=== PATIENT | male | born 1950 | race Caucasian/White ===

== ENCOUNTER 2022-08-16 14:02 | Outpatient (CLI) | payer MEDICARE, BC, SELFPAY ==
[2022-08-16 17:17] LABS: Albumin* 3.9 g/dL (3.3-5.0); Chloride* 102 mmol/L (96-114)
[2022-08-16 17:18] LABS: Sodium* 140 mmol/L (135-149)
[2022-08-16 17:20] LABS: Aspartate Amino Transferase* 31 U/L (12-35); Bilirubin Total* 0.6 mg/dL (0.1-1.5); Carbon Dioxide* 32 mmol/L (20-32); Creatinine* 1.7 mg/dL (0.5-1.5); Estimated Glomerular Filt Rate 42 ml/min; Total Protein* 6.9 g/dL (6.0-8.3)
[2022-08-16 17:21] LABS: Alanine Aminotransferase* 20 U/L (4-50); Alkaline Phosphatase* 65 U/L (40-150); Blood Urea Nitrogen* 24 mg/dL (7-30); Glucose* 102 mg/dL (60-115)
== END 2022-08-16 14:03 | disposition home or self-care (01) ==
PROVIDERS: PCP Internal Medicine; Visit Provider Internal Medicine
DX: Z01.818 Encounter for other preprocedural examination (principal)
CPT/HCPCS: 80053

== ENCOUNTER 2022-10-08 15:23 | Outpatient (CLI) | payer MEDICARE, BC, SELFPAY | END 2022-10-08 15:24 | disposition home or self-care (01) | PROVIDERS: PCP Internal Medicine; Visit Provider Internal Medicine | DX: Z01.818 Encounter for other preprocedural examination (principal); D64.9 Anemia, unspecified; E78.2 Mixed hyperlipidemia | CPT/HCPCS: 80053; 80061; 82607; 83540; 83550; 84443; 85045 ==

== ENCOUNTER 2023-04-02 13:47 | Outpatient (CLI) | payer MEDICARE, BC, SELFPAY | END 2023-04-02 13:48 | disposition home or self-care (01) | LOC: NFLDREF 04-05 11:49 | PROVIDERS: PCP Internal Medicine; Referring Provider Internal Medicine; Visit Provider Internal Medicine | DX: G89.4 Chronic pain syndrome (principal); M54.2 Cervicalgia | CPT/HCPCS: 85651 ==

== ENCOUNTER 2023-04-06 13:27 | Emergency (ER) | payer MEDICARE, BC, SELFPAY ==
[2023-04-06] VITALS (25 sets, daily range): BP systolic 112–139; BP diastolic 69–96; PULSE 72–93; RESP 14; TEMP 36.8; O2SAT 87–99; BMI 37.9
--- NOTE | 2023-04-06 14:15 | CRLHL7_ITS ---
For Patients: As a result of the Century Cures Act, medical imaging exams and procedure reports are released immediately into your electronic medical record. You may view this report before your referring provider. If you have questions, please contact your health care provider. INDICATION: FALL TECHNIQUE: CT of the head without contrast. Coronal and sagittal reformats. Bone and soft tissue algorithms. COMPARISON: No prior studies available for comparison at this institution. FINDINGS: No acute intracranial hemorrhage or extraaxial collection. Chronic lacunar infarcts in the basal ganglia bilaterally and right cerebellum. The no evidence of acute cortical infarction. No mass effect or midline shift. Mild generalized parenchymal volume loss. Mild regions of decreased attenuation within the periventricular and subcortical white matter of both cerebral hemispheres most likely reflects chronic microvascular ischemic disease and age related change in this patient. Vascular calcifications within the carotid siphons. Orbital contents are normal. No calvarial fractures. No lytic or sclerotic osseous lesions within the calvarium or skull base. Mild right frontal scalp subgaleal hematoma. Mastoid air cells are clear. IMPRESSION: 1. No acute intracranial abnormality. Chronic lacunar infarcts in the bilateral basal ganglia and right cerebellum. 2. Mild right frontal scalp subgaleal hematoma. Please note that all CT scans at this facility use dose modulation, iterative reconstruction, and/or weight-based dosing when appropriate to reduce radiation dose to as low as reasonably achievable. Dictated by Jeison Paz MD @ 04/06/2023 2:55:37 PM (Electronically Signed)
--- NOTE | 2023-04-06 14:15 | CRLHL7_ITS ---
For Patients: As a result of the Century Cures Act, medical imaging exams and procedure reports are released immediately into your electronic medical record. You may view this report before your referring provider. If you have questions, please contact your health care provider. Indication: FALL Technique: Noncontrast axial CT of the cervical spine with coronal and sagittal reformats are provided. Comparison: No prior studies available for comparison at this institution. Findings: There is a mildly displaced type 2 dens fracture with 2 mm posterior subluxation of the dens fragment with respect to the C2 vertebral body there is also mild posterior subluxation of the C1 lateral masses with respect to the C2 lateral mass. No significant spinal canal stenosis however. Diffuse bone demineralization. C1-2: No spinal canal stenosis C2-3: No significant spinal canal stenosis or neural foramen narrowing. C3-4: Moderate facet arthrosis. Moderate neural foramen narrowing bilaterally. No significant spinal canal stenosis. C4-5: No significant spinal canal stenosis or neural foramen narrowing. C5-6: Shallow disc osteophyte complex and uncovertebral joint hypertrophy. Severe left and mild right neural foramen narrowing due to uncovertebral joint hypertrophy and left facet arthrosis. C6-7: No significant spinal canal stenosis or neural foramen narrowing. C7-T1: No significant spinal canal stenosis or neural foramen narrowing. Findings discussed with Dr. Reddy at 2:59 p.m. Impression: 1. Type 2 dens fracture with 2 mm posterior subluxation of the dens and slight posterior subluxation of the C1 lateral mass with respect to the C2 lateral masses. 2. Multilevel cervical spondylosis. Degenerative reversal of the normal cervical lordosis. Diffuse bone demineralization. 3. No significant spinal canal stenosis. Severe left neural foramen narrowing at C5-6 and moderate bilateral neural foramen narrowing at C3-4. Please note that all CT scans at this facility use dose modulation, iterative reconstruction, and/or weight-based dosing when appropriate to reduce radiation dose to as low as reasonably achievable. Dictated by Jeison Paz MD @ 04/06/2023 3:02:32 PM (Electronically Signed)
--- NOTE | 2023-04-06 14:33 | ED.GENADULT ---
HPI - General Adult General Date Seen: 04/06/23 Chief complaint: Fall/Minor Trauma Stated complaint: Fell this morning, neck and head pain Time Seen by Provider: 04/06/23 14:12 Source: patient and family Mode of arrival: ambulatory Limitations: no limitations History of Present Illness HPI narrative: Patient is a 72-year-old male here with his son for evaluation after a fall overnight last night. He said he had gotten up and was trying to find a light switch in the dark, tripped on something that was on the floor and fell. He said he hit his head on the fireplace, denies loss of consciousness, severe headache or vomiting. He does have a small [place] on his right upper forehead. He also has been having problems with neck pain for 5 or 6 weeks now, had done some physical therapy and is scheduled to have an MRI in the next week or so, but since his fall he is having more neck pain, more on the left side of his neck, no radiating pain. No numbness or weakness. Related Data Home Medications Medication Instructions Recorded Confirmed aspirin 81 mg tablet,delayed 81 mg PO DAILY 02/09/22 04/02/23 release cyanocobalamin (vitamin B-12) 1,000 mcg PO DAILY 02/09/22 04/02/23 1,000 mcg tablet tamsulosin 0.4 mg capsule 0.4 mg PO BID 02/09/22 04/02/23 ibuprofen 400 mg tablet 400 mg PO BID 04/02/23 04/02/23 Previous Rx's Medication Instructions Recorded nitroglycerin 0.4 mg sublingual 0.4 mg sublingual Q5M PRN chest 01/22/22 tablet (Nitrostat) pain #25 tabs sumatriptan succinate 50 mg tablet 50 mg PO .COMPLEX #12 tabs 01/25/22 trazodone 50 mg tablet 50 mg PO QPM PRN insomnia #90 tabs 03/29/22 montelukast 10 mg tablet 10 mg PO .Bedtime #90 tabs 07/31/22 torsemide 20 mg tablet 40 mg (2 x 20 mg) PO BID #360 tabs 07/31/22 potassium chloride 20 mEq 60 meq (3 x 20 mEq) PO DAILY #270 09/10/22 tablet,extended release(part/cryst) tabs pramipexole 0.25 mg tablet 0.25 mg PO QHS #90 tabs 09/10/22 gabapentin 300 mg capsule 900 mg (3 x 300 mg) PO TID #810 10/16/22 caps isosorbide mononitrate 60 mg 60 mg PO DAILY #90 tabs 10/16/22 tablet,extended release 24 hr metoprolol tartrate 100 mg tablet 100 mg PO BID #180 tabs 10/16/22 pantoprazole 40 mg tablet,delayed 40 mg PO BID #180 tabs 10/16/22 release albuterol sulfate 2.5 mg/3 mL 2.5 mg (3 mL) inhalation TID #90 mL 11/06/22 (0.083 %) solution for nebulization ipratropium bromide 0.02 % 2.5 ml inhalation TID #225 mL 11/06/22 solution for inhalation albuterol sulfate 90 mcg/actuation 2 puff inhalation Q4H PRN 12/03/22 aerosol inhaler shortness of breath or wheezing #20.1 grams magnesium oxide 400 mg (241.3 mg 400 mg PO BID #180 tabs 12/03/22 magnesium) tablet sertraline 100 mg tablet 100 mg PO DAILY #90 tabs 12/03/22 finasteride 5 mg tablet 5 mg PO .Bedtime #90 tabs 12/06/22 atorvastatin 80 mg tablet 80 mg PO .Bedtime #90 tabs 01/01/23 allopurinol 100 mg tablet 200 mg (2 x 100 mg) PO QDAY #28 02/08/23 tabs fluticasone propionate 50 1 spray intranasal BID #3 ea 02/21/23 mcg/actuation nasal spray,suspension fenofibrate 54 mg tablet 54 mg PO .Bedtime #90 tabs 03/15/23 hydrocodone 5 mg-acetaminophen 325 1 - 2 tab PO .Daily as needed PRN 04/02/23 mg tablet pain #46 tabs ipratropium 0.5 mg-albuterol 3 mg 1 ml inhalation TID PRN shortness 04/05/23 (2.5 mg base)/3 mL nebulization of breath or wheezing #90 mL soln Allergies Allergy/AdvReac Type Severity Reaction Status Date / Time azithromycin Allergy Mild Rash, dizzy Verified 04/02/23 12:53 diltiazem Allergy Mild Rash Verified 04/02/23 12:53 erythromycin base Allergy Mild Rash Verified 04/06/23 15:19 Sulfa (Sulfonamide Allergy Mild Rash Verified 04/06/23 15:19 Antibiotics) sotalol Allergy Unknown Verified 04/02/23 12:53 Review of Systems Status of ROS: Reports: 6 or more systems reviewed and unremarkable except as noted in History and below [facility] Medical History History of upper gastrointestinal bleeding ?Z87.19 - Personal history of other diseases of the digestive system (ICD-10) History of transient ischemic attack ?Z86.73 - Personal history of transient ischemic attack (TIA), and cerebral infarction without residual deficits (ICD-10) Surgical History Status post patent foramen ovale closure (01/19/06) ?Z87.74 - Personal history of (corrected) congenital malformations of heart and circulatory system (ICD-10) History of total knee replacement (2020) ?Z96.659 - Presence of unspecified artificial knee joint (ICD-10) History of total hip replacement (1999) ?Z96.649 - Presence of unspecified artificial hip joint (ICD-10) History of tonsillectomy ?Z90.89 - Acquired absence of other organs (ICD-10) History of lumbar laminectomy (10/2007) ?Z98.890 - Other specified postprocedural states (ICD-10) History of hammer toe correction (09/26/01) ?Z98.890 - Other specified postprocedural states (ICD-10) ?Z87.39 - Personal history of other diseases of the musculoskeletal system and connective tissue (ICD-10) History of foot surgery (07/02/06) ?Z98.890 - Other specified postprocedural states (ICD-10) History of coronary artery bypass surgery (12/09/15) ?Z95.1 - Presence of aortocoronary bypass graft (ICD-10) History of carpal tunnel release (2013) ?Z98.890 - Other specified postprocedural states (ICD-10) History of arthroscopy of shoulder (1999) ?Z98.890 - Other specified postprocedural states (ICD-10) Social History Smoking Status: Former smoker What tobacco products do you use: cigarettes Smoking quit date/years: >15 years ago Do you use any of these nicotine containing products: None Second hand tobacco smoke exposure: No Non-prescribed substance use: denies use Little interest or pleasure in doing things: not at all Feeling down, depressed, or hopeless: not at all Exam Narrative: Exam Narrative: Vital signs as noted above. In general, an alert, nontoxic elderly male. Head: Normocephalic. Small red [place] on the upper right forehead without hematoma or laceration. Eyes: Pupils are equal reactive. Extraocular movements are full. Conjunctivae are normal. ENT: Mucous membranes are moist. Neck: Range of motion is limited secondary to pain. He has some tenderness in the musculature of the left posterior cervical region. No midline tenderness, no deformity or bruising. Back: Nontender to palpation. Heart: Regular rate and rhythm. No murmur or rub. Lungs: Clear bilaterally. No increased work of breathing, crackles or wheezes. Extremities: Well perfused. Edema noted in bilateral lower extremities. No erythema. No calf tenderness. Pulses intact. Neurologic: Patient is alert and oriented to person and place. Speech is fluent. Face is symmetric. Moves all extremities equally. Hard of hearing. Affect: Normal. Skin: Warm and dry. Well perfused. Const: Vital Signs, click to edit/add: Vital Signs - 24 hr 04/06/23 13:47 04/06/23 14:34 04/06/23 14:35 Temperature 98.3 F Pulse Rate 86 79 Pulse Rate [Pulse Oximeter] 79 Respiratory Rate 14 Blood Pressure 125/74 Blood Pressure [Le ft Upper Arm] 112/69 Pulse [facility]ximetry 91 91 [facility] 04/06/23 14:45 04/06/23 15:00 04/06/23 15:15 Temperature Pulse Rate 86 79 82 Pulse Rate [Pulse Oximeter] Respiratory Rate Blood Pressure Blood Pressure [Le ft Upper Arm] Pulse Oximetry 91 92 93 [facility] 04/06/23 15:30 04/06/23 15:33 04/06/23 15:34 Temperature Pulse Rate 76 93 76 Pulse Rate [Pulse Oximeter] Respiratory Rate Blood Pressure 125/88 Blood Pressure [Le ft Upper Arm] Pulse Oximetry 89 88 87 L [facility] 04/06/23 15:45 04/06/23 16:00 Temperature Pulse Rate 79 86 Pulse Rate [Pulse Oximeter] Respiratory Rate Blood Pressure Blood Pressure [Le ft Upper Arm] Pulse Oximetry 98 98 Oxygen Delivery Me thod Documenting provider has reviewed patient's vital signs: yes Course Course ED Course: Patient went on to have CT scans of the head and cervical spine. My review of he these images show no evidence of intracranial hemorrhage, dens fracture noted on cervical spine imaging. Cervical collar applied, discussed case with [facility] and they were able to take him in transfer. He remains neurologically intact, without other complaints. He did request something for pain, takes Arabi occasionally for back pain but apparently he does not find this terribly effective and would request something stronger. Given 4 mg of morphine IV. Vital Signs Vital signs: Initial Vital Signs Temperature 98.3 F 04/06/23 13:47 Temperature Source Temporal Artery Scan 04/06/23 13:47 Pulse Rate 79 04/06/23 13:47 Pulse Rhythm Irregular 04/06/23 13:47 Respiratory Rate 14 04/06/23 13:47 Blood Pressure 112/69 04/06/23 13:47 Blood Pressure Mean 83 04/06/23 13:47 Blood Pressure Position Sitting 04/06/23 13:47 Pulse Oximetry 91 04/06/23 13:47 Oxygen Delivery Method Room Air 04/06/23 13:47 Vital Signs Temperature 98.3 F 04/06/23 13:47 Pulse Rate 79 04/06/23 13:47 Respiratory Rate 14 04/06/23 13:47 Blood Pressure 112/69 04/06/23 13:47 Pulse Oximetry 91 04/06/23 13:47 Oxygen Delivery Method Room Air 04/06/23 13:47 Temperature 98.3 F 04/06/23 13:47 Pulse Rate 86 04/06/23 16:00 Respiratory Rate 14 04/06/23 13:47 Blood Pressure 125/88 04/06/23 15:33 Pulse Oximetry 98 04/06/23 16:00 Oxygen Delivery Method Room Air 04/06/23 13:47 Discharge Plan Discharge Clinical Impression: Closed type II fracture of odontoid process Patient Disposition: Xfer Other Condition: Stable Prescriptions: No Action fluticasone propionate 50 mcg/actuation spray,suspension 1 spray intranasal BID Qty: 3 3RF Rx Instructions: administer into each nostril aspirin 81 mg tablet,delayed release (DR/EC) 81 mg PO DAILY cyanocobalamin (vitamin B-12) 1,000 mcg tablet 1,000 mcg PO DAILY tamsulosin 0.4 mg capsule 0.4 mg PO BID ibuprofen 400 mg tablet 400 mg PO BID hydrocodone-acetaminophen 5-325 mg tablet 1 - 2 tab PO .Daily as needed PRN (Reason: pain) Qty: 46 0RF nitroglycerin [Nitrostat] 0.4 mg tablet, sublingual 0.4 mg sublingual Q5M PRN (Reason: chest pain) Qty: 25 2RF sumatriptan succinate 50 mg tablet 50 mg PO .COMPLEX Qty: 12 5RF Rx Instructions: take 1 tab at onset of headache, may repeat Q2h prn max 200mg/24 hours trazodone 50 mg tablet 50 mg PO QPM PRN (Reason: insomnia) Qty: 90 1RF montelukast 10 mg tablet 10 mg PO .Bedtime Qty: 90 1RF torsemide 20 mg tablet 40 mg PO BID Qty: 360 1RF potassium chloride 20 mEq tablet,ER particles/crystals 60 meq PO DAILY Qty: 270 3RF Rx Instructions: take 40 meq in AM and 20 meq in PM pramipexole 0.25 mg tablet 0.25 mg PO QHS Qty: 90 3RF isosorbide mononitrate 60 mg tablet extended release 24 hr 60 mg PO DAILY Qty: 90 3RF metoprolol tartrate 100 mg tablet 100 mg PO BID Qty: 180 3RF pantoprazole 40 mg tablet,delayed release (DR/EC) 40 mg PO BID Qty: 180 3RF gabapentin 300 mg capsule 900 mg PO TID Qty: 810 3RF ipratropium bromide 0.02 % solution 2.5 ml inhalation TID Qty: 225 11RF Rx Instructions: To take with albuterol 0.083% solution TID albuterol sulfate 2.5 mg /3 mL (0.083 %) solution for nebulization 2.5 mg inhalation TID Qty: 90 11RF Rx Instructions: To take with ipratropium 0.02% solution TID albuterol sulfate 90 mcg/actuation HFA aerosol inhaler 2 puff inhalation Q4H PRN (Reason: shortness of breath or wheezing) Qty: 20.1 2RF magnesium oxide 400 mg (241.3 mg magnesium) tablet 400 mg PO BID Qty: 180 2RF sertraline 100 mg tablet 100 mg PO DAILY Qty: 90 0RF finasteride 5 mg tablet 5 mg PO .Bedtime Qty: 90 3RF atorvastatin 80 mg tablet 80 mg PO .Bedtime Qty: 90 2RF allopurinol 100 mg tablet 200 mg PO QDAY Qty: 28 0RF fenofibrate 54 mg tablet 54 mg PO .Bedtime Qty: 90 1RF ipratropium-albuterol 0.5 mg-3 mg(2.5 mg base)/3 mL solution for nebulization 1 ml inhalation TID PRN (Reason: shortness of breath or wheezing) Qty: 90 0RF Stand Alone Forms: [employer] Info Instructions
--- NOTE | 2023-04-06 15:28 | ED.NURSE ---
Report called to Communications nurse at [facility] Flaca Pruitt RN. Pt will transport to [facility] ER within the hour. 229 IV placed on right forearm for pain control purposes. Pt placed in a C-collar as well. Fracture stable at this time. Will continue to monitor.
[2023-04-06] MEDS: MORPHINE 4 MG/ML INJ IVP (15:35)
--- NOTE | 2023-04-06 20:04 | ED.NURSE ---
Patient's son will citrus picker the patient's cane from the ED desk tomorrow.
== END 2023-04-06 19:12 | disposition other institution (70) ==
PROVIDERS: Emergency Provider Emergency Medicine; PCP Internal Medicine
DX: S12.112A Nondisplaced Type II dens fracture, initial encounter for closed fracture (principal); W19.XXXA Unspecified fall, initial encounter
CPT/HCPCS: 70450; 72125; 96374; 99284; J2270

== ENCOUNTER 2023-04-06 19:00 | Outpatient (CLI) | payer MEDICARE, BC, SELFPAY | END 2023-04-06 19:01 | disposition home or self-care (01) | LOC: AMB 04-11 17:15 | PROVIDERS: PCP Internal Medicine; Visit Provider Family Medicine | DX: S12.110S Anterior displaced Type II dens fracture, sequela (principal) | CPT/HCPCS: A0425; A0428 ==

== ENCOUNTER 2023-05-23 11:17 | Outpatient (CLI) | payer MEDICARE, BC, SELFPAY | END 2023-05-23 11:18 | disposition home or self-care (01) | PROVIDERS: PCP Internal Medicine; Visit Provider Internal Medicine | DX: I50.9 Heart failure, unspecified (principal); D47.2 Monoclonal gammopathy; F41.1 Generalized anxiety disorder; N18.2 Chronic kidney disease, stage 2 (mild) | CPT/HCPCS: 80048; 83735; 84165 ==

== ENCOUNTER 2023-09-23 10:55 | Outpatient (CLI) | payer MEDICARE, BC, SELFPAY | END 2023-09-23 10:56 | disposition home or self-care (01) | LOC: NFLDREF 10-07 09:41 | PROVIDERS: PCP Internal Medicine; Referring Provider Internal Medicine; Visit Provider Internal Medicine | DX: N18.9 Chronic kidney disease, unspecified (principal); D63.1 Anemia in chronic kidney disease; E78.2 Mixed hyperlipidemia; D47.2 Monoclonal gammopathy; E83.42 Hypomagnesemia | CPT/HCPCS: 80061; 83735; 84165 ==

== ENCOUNTER 2023-09-26 14:15 | Outpatient (CLI) | payer MEDICARE, BC, SELFPAY | END 2023-09-26 14:16 | disposition home or self-care (01) | PROVIDERS: PCP Internal Medicine; Visit Provider Internal Medicine | DX: D47.2 Monoclonal gammopathy (principal) | CPT/HCPCS: 80053; 86334 ==

== ENCOUNTER 2023-12-28 19:29 | Emergency (ER) | payer MEDICARE, BC, SELFPAY ==
[2023-12-28] VITALS (24 sets, daily range): BP systolic 128–158; BP diastolic 60–109; PULSE 95–123; RESP 14–168; TEMP 37.9; O2SAT 93–97; BMI 29.2
--- NOTE | 2023-12-28 19:42 | CRLHL7_ITS ---
For Patients: As a result of the Cures Act, medical imaging exams and procedure reports are released immediately into your electronic medical record. You may view this report before your referring provider. If you have questions, please contact your health care provider. Indication: Fall, altered mental status Technique: Noncontrast axial CT of the cervical spine with coronal and sagittal reformats. Comparison: CT cervical spine 04/06/2023 Findings: Straightening of the normal cervical lordosis. Postsurgical changes of posterior instrumented fusion at C1-C3, with healed type 2 odontoid process fracture. Spinal hardware appears grossly intact and well seated. Grade 1 anterolisthesis at C3-4, with suspected right sided facet joint ankylosis. No acute fracture identified. Craniocervical junction appears within normal limits. Scattered spondylosis. Suspected mild spinal canal narrowing at C3-4 and C5-6. Moderate right and moderately severe left neural foraminal stenosis at C3-4, and moderately severe left neural foraminal stenosis at C5-6 and C6-7. Clear lung apices. Median sternotomy changes. Impression: 1. No evidence of acute fracture or traumatic malalignment in the cervical spine. 2. Mature postsurgical changes of C1-C3 posterior spinal fusion, with healed odontoid process fracture. 3. Cervical spondylosis and low-grade spondylolisthesis as detailed. Please note that all CT scans at this facility use dose modulation, iterative reconstruction, and/or weight-based dosing when appropriate to reduce radiation dose to as low as reasonably achievable. Dictated by Mariah Campos MD @ 12/28/2023 9:12:15 PM (Electronically Signed)
--- NOTE | 2023-12-28 19:42 | CRLHL7_ITS ---
For Patients: As a result of the Century Cures Act, medical imaging exams and procedure reports are released immediately into your electronic medical record. You may view this report before your referring provider. If you have questions, please contact your health care provider. INDICATION: Fall, altered mental status TECHNIQUE: Noncontrast axial CT of the head. Coronal and sagittal reformats. Bone and soft tissue algorithms. COMPARISON: CT head 04/06/2023 FINDINGS: The calvarium is grossly intact. No acute intracranial hemorrhage or abnormal extra-axial fluid collection identified. Subtle hyperdensity along the anterior interhemispheric falx is stable from 04/06/2023, and compatible with dural calcification. [place]by-white matter differentiation is grossly preserved. Chronic lacunar infarcts are noted within the bilateral basal ganglia and right cerebellar hemisphere. Scattered hypoattenuation is noted throughout the supratentorial white matter, typical of chronic microangiopathy. Calcific intracranial atherosclerotic plaquing. Partially empty sella configuration. Clear visualized paranasal sinuses and mastoid air cells. Unremarkable orbits. IMPRESSION: 1. No skull fracture or acute intracranial hemorrhage identified. 2. Similar mild generalized cerebral volume loss, chronic microangiopathic changes, and old lacunar infarcts. Please note that all CT scans at this facility use dose modulation, iterative reconstruction, and/or weight-based dosing when appropriate to reduce radiation dose to as low as reasonably achievable. Dictated by Mariah Campos MD @ 12/28/2023 9:05:34 PM (Electronically Signed)
[2023-12-28 20:00] LABS: Appearance Urine Slightly Cloudy (Clear); Bilirubin Urine Negative (Negative); Blood Urine Trace-lysed (Negative); Color Urine Orange (Yellow); Glucose Urine Negative (Negative); Ketones Urine Negative (Negative); Leukocyte Esterase Urine Negative (Negative); Nitrite Urine Negative (Negative); Protein Urine 3+ (Negative); Specific Gravity Urine 1.025 (1.000-1.030); pH Urine 5.5 (5.0-8.5)
--- NOTE | 2023-12-28 20:04 | ED.AMS ---
HPI - Altered Mental Status General Chief Complaint: Altered Mental Status Stated Complaint: Fall Time Seen by Provider: 12/28/23 19:31 History of Present Illness HPI narrative: Patient is a 73-year-old gentleman who was found in his apartment confused show doubled. He has not been acting quite right for the last several days. Normally he is oriented and can care for himself. There was some concern about falls patient has some scattered bruising his lower extremities. Patient has a red swollen painful right hand and wrist. He does have a low-grade fever upon arrival. Patient has chronic atrial fibrillation and his EKG shows atrial fibrillation with rate of 124. He is unclear whether the patient has eaten or drink anything for several days. Patient is oriented only to self. Patient is had no other complaints. The patient's son was unable to contact him today and drove over to check on the patient. They were with him yesterday and found to be somewhat confused as well. Related Data Home Medications ?Medication ?Instructions ?Recorded ?Confirmed aspirin 81 mg tablet,delayed 81 mg PO DAILY 02/09/22 12/28/23 release tamsulosin 0.4 mg capsule 0.4 mg PO BID 02/09/22 12/28/23 acetaminophen 500 mg capsule 1,000 mg PO Q6H PRN 05/23/23 12/28/23 ferrous gluconate 324 mg (38 mg 324 mg PO .every Mon, Wed, Fri 05/23/23 12/28/23 iron) tablet mecobalamin (vitamin B12) 1,000 1,000 mcg PO QDAY 05/23/23 12/28/23 mcg chewable tablet melatonin 3 mg capsule 3 mg PO QHS PRN 05/23/23 12/28/23 potassium chloride 20 mEq 20 meq PO BID 09/26/23 12/28/23 tablet,extended release(part/cryst) Previous Rx's ?Medication ?Instructions ?Recorded albuterol sulfate 2.5 mg/3 mL 2.5 mg (3 mL) inhalation TID #90 mL 11/06/22 (0.083 %) solution for nebulization ipratropium bromide 0.02 % 2.5 ml inhalation TID #225 mL 11/06/22 solution for inhalation nitroglycerin 0.4 mg sublingual 0.4 mg sublingual Q5M PRN chest 10/09/23 tablet (Nitrostat) pain #25 tabs ipratropium 0.5 mg-albuterol 3 mg 3 ml inhalation TID PRN shortness 06/03/23 (2.5 mg base)/3 mL nebulization of breath or wheezing #90 mL soln sumatriptan succinate 50 mg tablet 50 mg PO .COMPLEX #12 tabs 06/25/23 tiotropium 2.5 mcg-olodaterol 2.5 2 puff inhalation QDAY #4 grams 07/09/23 mcg/actuation mist for inhalation (Stiolto Respimat) albuterol sulfate 90 mcg/actuation 2 puff inhalation Q4H PRN 09/11/23 aerosol inhaler shortness of breath or wheezing #20.1 grams finasteride 5 mg tablet 5 mg PO .Bedtime #90 tabs 09/11/23 fluticasone propionate 50 1 spray intranasal BID #3 ea 09/11/23 mcg/actuation nasal spray,suspension gabapentin 300 mg capsule 900 mg (3 x 300 mg) PO TID #810 09/11/23 caps umeclidinium 62.5 mcg-vilanterol 1 inh inhalation QDAY #60 ea 09/11/23 25 mcg/actuation powdr for inhalation (Anoro Ellipta) atorvastatin 80 mg tablet 80 mg PO .Bedtime #90 tabs 10/14/23 fenofibrate 54 mg tablet 54 mg PO .Bedtime #90 tabs 10/14/23 isosorbide mononitrate 60 mg 60 mg PO DAILY #90 tabs 10/14/23 tablet,extended release 24 hr metoprolol tartrate 100 mg tablet 100 mg PO BID #180 tabs 10/14/23 montelukast 10 mg tablet 10 mg PO .Bedtime #90 tabs 10/14/23 pantoprazole 40 mg tablet,delayed 40 mg PO BID #180 tabs 10/14/23 release pramipexole 0.25 mg tablet 0.25 mg PO QHS #90 tabs 10/14/23 sertraline 100 mg tablet 100 mg PO QDAY #90 tabs 10/14/23 torsemide 20 mg tablet 40 mg (2 x 20 mg) PO BID #360 tabs 10/14/23 magnesium oxide 400 mg PO BID #180 tabs 11/04/23 allopurinol 100 mg tablet 200 mg (2 x 100 mg) PO QDAY #180 11/07/23 tabs hydrocodone 5 mg-acetaminophen 325 1 - 2 tab PO .Daily as needed PRN 11/07/23 mg tablet pain #46 tabs Allergies Allergy/AdvReac Type Severity Reaction Status Date / Time azithromycin Allergy Mild Rash, dizzy Verified 12/28/23 19:42 diltiazem Allergy Mild Rash Verified 12/28/23 19:42 erythromycin base Allergy Mild Rash Verified 12/28/23 19:42 Sulfa (Sulfonamide Allergy Mild Rash Verified 12/28/23 19:42 Antibiotics) sotalol Allergy Unknown Verified 12/28/23 19:42 Review of Systems Status of ROS: Reports: unobtainable due to medical condition PFSH [facility] Medical History History of pulmonary embolus (PE) (02/2019) ?Z86.711 - Personal history of pulmonary embolism (ICD-10) History of upper gastrointestinal bleeding ?Z87.19 - Personal history of other diseases of the digestive system (ICD-10) History of transient ischemic attack ?Z86.73 - Personal history of transient ischemic attack (TIA), and cerebral infarction without residual deficits (ICD-10) Surgical History History of fusion of cervical spine (04/09/23) ?Z98.1 - Arthrodesis status (ICD-10) History of maze procedure (2015) ?Z98.890 - Other specified postprocedural states (ICD-10) History of repair of right rotator cuff (1999) ?Z98.890 - Other specified postprocedural states (ICD-10) History of open reduction and internal fixation (ORIF) procedure (1998) ?Z98.890 - Other specified postprocedural states (ICD-10) History of repair of left rotator cuff ?Z98.890 - Other specified postprocedural states (ICD-10) Status post patent foramen ovale closure (01/19/06) ?Z87.74 - Personal history of (corrected) congenital malformations of heart and circulatory system (ICD-10) History of total knee replacement (2020) ?Z96.659 - Presence of unspecified artificial knee joint (ICD-10) History of total hip replacement (1999) ?Z96.649 - Presence of unspecified artificial hip joint (ICD-10) History of tonsillectomy ?Z90.89 - Acquired absence of other organs (ICD-10) History of lumbar laminectomy (10/2007) ?Z98.890 - Other specified postprocedural states (ICD-10) History of hammer toe correction (09/26/01) ?Z98.890 - Other specified postprocedural states (ICD-10) ?Z87.39 - Personal history of other diseases of the musculoskeletal system and connective tissue (ICD-10) History of foot surgery (07/02/06) ?Z98.890 - Other specified postprocedural states (ICD-10) History of coronary artery bypass surgery (12/09/15) ?Z95.1 - Presence of aortocoronary bypass graft (ICD-10) History of carpal tunnel release (2013) ?Z98.890 - Other specified postprocedural states (ICD-10) Family History Mother Breast cancer Ovarian cancer Brother Prostate cancer Heart failure Father Heart disease High blood pressure Stroke Social History Smoking Status: Former smoker What tobacco products do you use: cigarettes Smoking quit date/years: >15 years ago Do you use any of these nicotine containing products: None Second hand tobacco smoke exposure: No Non-prescribed substance use: denies use Little interest or pleasure in doing things: more than half the days Feeling down, depressed, or hopeless: several days Exam Narrative: Exam Narrative: EXAM GENERAL: Patient appears did show of old and weak. EYES: No scleral icterus. LYMPH: No supraclavicular or cervical lymphadenopathy. SKIN: Visible skin seen during exam normal or with benign process only. EXT: No dependent lower extremity pedal edema. Assorted bruises and scrapes lower extremity And exam on the right shows boggy swelling over the wrist and hand I do not note any open sores. HEART: Irregular rate and tachycardic. LUNGS: Clear to auscultation bilaterally with no crackles or wheezes. ABD: Soft, non tender, non distended. PSYCH: Good eye contact, speech is not pressured. Const: Vital Signs, click to edit/add: Vital Signs - 24 hr 12/28/23 19:33 12/28/23 19:38 12/28/23 19:40 Temperature 100.3 F H Pulse Rate 114 H 117 H Pulse Rate [Pulse Oximeter] 121 H Respiratory Rate 18 16 16 Blood Pressure 129/88 146/87 H Blood Pressure [Ri ght Upper Arm] 146/87 H Pulse Oximetry 94 93 95 Oxygen Delivery Me thod Room Air Room Air Room Air 12/28/23 19:47 12/28/23 19:48 12/28/23 19:50 Temperature Pulse Rate 118 H 118 H Pulse Rate [Pulse Oximeter] Respiratory Rate 168 H Blood Pressure 158/109 H Blood Pressure [Ri ght Upper Arm] Pulse Oximetry 94 96 94 Oxygen Delivery Me thod Room Air 12/28/23 20:38 12/28/23 20:45 12/28/23 21:00 Temperature Pulse Rate 108 H 116 H 123 H Pulse Rate [Pulse Oximeter] Respiratory Rate Blood Pressure Blood Pressure [Ri ght Upper Arm] Pulse Oximetry 95 93 93 Oxygen Delivery Me thod 12/28/23 21:09 12/28/23 21:15 12/28/23 21:30 Temperature Pulse Rate 108 H 106 H 113 H Pulse Rate [Pulse Oximeter] Respiratory Rate 16 Blood Pressure 129/77 Blood Pressure [Ri ght Upper Arm] Pulse Oximetry 97 95 96 Oxygen Delivery Me thod Room Air 12/28/23 21:45 12/28/23 22:00 12/28/23 22:15 Temperature Pulse Rate 112 H 99 107 H Pulse Rate [Pulse Oximeter] Respiratory Rate Blood Pressure Blood Pressure [Ri ght Upper Arm] Pulse Oximetry 95 97 96 Oxygen Delivery Me thod 12/28/23 22:30 12/28/23 22:38 12/28/23 22:45 Temperature Pulse Rate 101 H 107 H 100 Pulse Rate [Pulse Oximeter] Respiratory Rate 16 Blood Pressure 128/60 Blood Pressure [Ri ght Upper Arm] Pulse Oximetry 96 95 96 Oxygen Delivery Me thod Room Air 12/28/23 23:00 12/28/23 23:03 12/28/23 23:15 Temperature Pulse Rate 108 H 104 H 118 H Pulse Rate [Pulse Oximeter] Respiratory Rate 14 Blood Pressure 138/76 Blood Pressure [Ri ght Upper Arm] Pulse Oximetry 95 96 94 Oxygen Delivery Me thod Room Air Course Course ED Course: I am very concerned about this patient. We have begun a toxicology mental status workup with CT head and neck UA urine toxicology troponin EKG comprehensive metabolic panel blood cultures x2 UA ETOH. We will give him a L of normal saline planned reassess. Vital Signs Vital signs: Initial Vital Signs Temperature 100.3 F H 12/28/23 19:33 Temperature Source Temporal Artery Scan 12/28/23 19:33 Pulse Rate 121 H 12/28/23 19:33 Respiratory Rate 18 12/28/23 19:33 Blood Pressure 146/87 H 12/28/23 19:33 Blood Pressure Mean 106 H 12/28/23 19:33 Blood Pressure Position Supine 12/28/23 19:33 Pulse Oximetry 94 12/28/23 19:33 Oxygen Delivery Method Room Air 12/28/23 19:33 Vital Signs Temperature 100.3 F H 12/28/23 19:33 Pulse Rate 121 H 12/28/23 19:33 Respiratory Rate 18 12/28/23 19:33 Blood Pressure 146/87 H 12/28/23 19:33 Pulse Oximetry 94 12/28/23 19:33 Oxygen Delivery Method Room Air 12/28/23 19:33 Temperature 100.3 F H 12/28/23 19:33 Pulse Rate 118 H 12/28/23 23:15 Respiratory Rate 14 12/28/23 23:03 Blood Pressure 138/76 12/28/23 23:03 Pulse Oximetry 94 12/28/23 23:15 Oxygen Delivery Method Room Air 12/28/23 23:03 Medications Administered Medications: Generic Name Dose Route Start Last Admin Trade Name Freq PRN Reason Stop Dose Admin Vancomycin HCl 1,500 mg/ 515 mls @ 257.5 mls/hr 12/28/23 21:46 12/28/23 22:36 Sodium Chloride IVPB 12/28/23 21:47 257.5 mls/hr ONCE ONE Administration Protocol Piperacillin Sod/Tazobactam 100 mls @ 200 mls/hr 12/28/23 21:46 12/28/23 22:35 Sod 3.375 gm/ Sodium Chloride IVPB 12/28/23 21:47 Infused ONCE ONE Infusion Discontinued Medications Generic Name Dose Route Start Last Admin Trade Name Freq PRN Reason Stop Dose Admin Acetaminophen 1,000 mg 12/28/23 19:41 12/28/23 20:08 Acetaminophen 500 Mg Tablet PO 12/28/23 19:42 1,000 mg ONCE ONE Administration Sodium Chloride 1,000 mls @ 1,000 mls/hr 12/28/23 19:45 12/28/23 20:10 0.9 % Sodium Chloride 1000 Ml IV 12/28/23 20:44 Not Given .Q1H MARILY Sodium Chloride 1,000 mls @ 1,000 mls/hr 12/28/23 19:59 12/28/23 22:39 0.9 % Sodium Chloride 1000 Ml IV 12/28/23 20:58 Infused .Q1H MARILY Infusion Potassium Bicarbonate 25 meq 12/28/23 21:01 12/28/23 21:04 Potassium Bicarb 25 Meq Effervescent Tab PO 12/28/23 21:02 25 meq ONCE ONE Administration MDM - Altered Mental Status MDM Narrative Medical decision making narrative: Patient is a complex 73-year-old gentleman who was found confused in his apartment today with a red swollen wrist. He is brought in and is oriented only to self. Patient's son states that the patient has not taken any of his medications last several days and he is not certain if he has been eating or drinking. Patient has a history of atrial fibrillation but is not on Coumadin or any anticoagulant due to history of GI bleed. Patient had extensive evaluation including CT of the head and neck which were negative for acute changes. He had x-ray of his right hand and wrist which showed some arthritic and possible chronic fractures. He does have a fever but normal UA and chest x-ray. I did review the case with Orthopedics and they agree with treatment with vancomycin and Zosyn initially. They will look at the wrist tomorrow and potentially get some further imaging. Case discussed with hospitalist as well as Orthopedics on-call. Due to the cystic nature of the findings on CT scan of the wrist we will be transferring to [facility] for further evaluation or treatment. Again patient has received vancomycin and Zosyn will be transferred via ALS ambulance. Differential diagnosis includes but not limited to subdural hematoma skull fracture cervical fracture pneumonia UTI enteritis septic joint cellulitis. Also noted on evaluation is potassium of 2.9 which is treated orally as well as a curious elevation of both direct and indirect bilirubin. Lab Data Labs: Lab Results 12/28/23 12/28/23 12/28/23 Range/Units 19:40 19:42 19:52 WBC (4.50-11.00) K/uL RBC (4.30-5.90) m/uL Hgb (13.5-17.5) gm/dL Hct (37.0-53.0) % MCV (80-100) fL MCH (26-34) pg MCHC (32-36) gm/dL RDW Coeff of Nando (11.5-15.5) % Plt Count (140-440) K/uL Neut % (Auto) (42.0-72.0) % Lymph % (Auto) (20-44) % [place] % (Auto) (0.0-11.0) % Eos % (Auto) (0.0-7.0) % Baso % (Auto) (0.0-3.0) % Neut # (Auto) (1.7-7.0) K/uL Lymph # (Auto) (0.90-2.90) K/uL [place] # (Auto) (0.00-0.90) K/UL Eos # (Auto) (0.00-0.50) K/uL Baso # (Auto) (0.00-0.30) K/uL Abs Immat Gran (auto) (0.00-0.30) K/uL Imm/Tot Granulo (auto) % Sodium (135-149) mmol/L Potassium (3.6-5.1) mmol/L Chloride (96-114) mmol/L Carbon Dioxide (20-32) mmol/L Anion Gap (7-15) mEq/L BUN (7-30) mg/dL Creatinine (0.5-1.5) mg/dL Estimated Creat Clear Estimated GFR ml/min Glucose (60-115) mg/dL Lactate (0.5-1.9) mmol/L Calcium (8.4-10.6) mg/dL Total Bilirubin (0.1-1.5) mg/dL Direct Bilirubin (0.0-0.5) mg/dL AST (12-35) U/L ALT (4-50) U/L Alkaline Phosphatase (40-150) U/L Troponin I (0.01-0.04) ng/mL C-Reactive Protein (0.5-1.0) mg/dL NT-Pro-B Natriuret Pep pg/mL Total Protein (6.0-8.3) g/dL Albumin (3.3-5.0) g/dL Lipase (23-300) U/L Procalcitonin (<0.50) ng/mL Urine Color [place] A (Yellow) Urine Appearance Slightly Cloudy A (Clear) Urine pH 5.5 (5.0-8.5) Ur Specific [place] 1.025 (1.000-1.030) Urine Protein 3+ A (Negative) Urine Glucose (UA) Negative (Negative) Urine Ketones Negative (Negative) Urine Blood Trace-lysed A (Negative) Urine Nitrite Negative (Negative) Urine Bilirubin Negative (Negative) Urine Urobilinogen 1.0 (0.2-1.0) Ur Leukocyte Esterase Negative (Negative) Urine RBC 0-2 (0-2) Urine WBC 0-2 (0-5) Ur Squamous Epith Cells None (None-Few) Urine Bacteria None (None) Urine Opiates Screen Negative (Negative) Ur Oxycodone Screen Negative (Negative) Urine Methadone Screen Negative (Negative) Ur Barbiturates Screen Negative (Negative) U Tricyclic Antidepress Negative (Negative) Ur Phencyclidine Scrn Negative (Negative) Ur Amphetamines Screen Negative (Negative) U Methamphetamines Scrn Negative (Negative) U Benzodiazepines Scrn Negative (Negative) Urine Cocaine Screen Negative (Negative) U Marijuana (THC) Screen Negative (Negative) Ur Drug Screen Comment See Note Ethyl Alcohol (0.01-0.03) % SARS-CoV-2 (PCR) Negative SARS-CoV-2 (Negative) Influenza Type A (PCR) Negative PCR FLU A (Negative) Influenza Type B (PCR) Negative PCR FLU B (Negative) RSV (PCR) Negative PCR RSV (Negative) POC Glucose 120 H (60-115) mg/dl POC Troponin I (0.01-0.04) ng/ml 12/28/23 Range/Units 19:53 WBC 10.72 (4.50-11.00) K/uL RBC 4.03 L (4.30-5.90) m/uL Hgb 11.6 L (13.5-17.5) gm/dL Hct 35.8 L (37.0-53.0) % MCV 89 (80-100) fL MCH 29 (26-34) pg MCHC 32 (32-36) gm/dL RDW Coeff of Nando 14.6 (11.5-15.5) % Plt Count 263 (140-440) K/uL Neut % (Auto) 85.9 H (42.0-72.0) % Lymph % (Auto) 5.3 L (20-44) % [place] % (Auto) 8.4 (0.0-11.0) % Eos % (Auto) 0.1 (0.0-7.0) % Baso % (Auto) 0.1 (0.0-3.0) % Neut # (Auto) 9.20 H (1.7-7.0) K/uL Lymph # (Auto) 0.60 L (0.90-2.90) K/uL [place] # (Auto) 0.90 (0.00-0.90) K/UL Eos # (Auto) 0.01 (0.00-0.50) K/uL Baso # (Auto) 0.01 (0.00-0.30) K/uL Abs Immat Gran (auto) 0.02 (0.00-0.30) K/uL Imm/Tot Granulo (auto) 0.2 % Sodium 134 L (135-149) mmol/L Potassium 2.9 L* (3.6-5.1) mmol/L Chloride 95 L (96-114) mmol/L Carbon Dioxide 28 (20-32) mmol/L Anion Gap 11 (7-15) mEq/L BUN 24 (7-30) mg/dL Creatinine 1.3 (0.5-1.5) mg/dL Estimated Creat Clear 42.38 Estimated GFR 58 ml/min Glucose 121 H (60-115) mg/dL Lactate 1.4 (0.5-1.9) mmol/L Calcium 8.3 L (8.4-10.6) mg/dL Total Bilirubin 2.4 H (0.1-1.5) mg/dL Direct Bilirubin 1.0 H (0.0-0.5) mg/dL AST 19 (12-35) U/L ALT 12 (4-50) U/L Alkaline Phosphatase 76 (40-150) U/L Troponin I 0.03 (0.01-0.04) ng/mL C-Reactive Protein 25.1 H (0.5-1.0) mg/dL NT-Pro-B Natriuret Pep 4370 pg/mL Total Protein 7.9 (6.0-8.3) g/dL Albumin 4.2 (3.3-5.0) g/dL Lipase 56 (23-300) U/L Procalcitonin 0.61 H (<0.50) ng/mL Urine Color (Yellow) Urine Appearance (Clear) Urine pH (5.0-8.5) Ur Specific [place] (1.000-1.030) Urine Protein (Negative) Urine Glucose (UA) (Negative) Urine Ketones (Negative) Urine Blood (Negative) Urine Nitrite (Negative) Urine Bilirubin (Negative) Urine Urobilinogen (0.2-1.0) Ur Leukocyte Esterase (Negative) Urine RBC (0-2) Urine WBC (0-5) Ur Squamous Epith Cells (None-Few) Urine Bacteria (None) Urine Opiates Screen (Negative) Ur Oxycodone Screen (Negative) Urine Methadone Screen (Negative) Ur Barbiturates Screen (Negative) U Tricyclic Antidepress (Negative) Ur Phencyclidine Scrn (Negative) Ur Amphetamines Screen (Negative) U Methamphetamines Scrn (Negative) U Benzodiazepines Scrn (Negative) Urine Cocaine Screen (Negative) U Marijuana (THC) Screen (Negative) Ur Drug Screen Comment Ethyl Alcohol < 0.01 L (0.01-0.03) % SARS-CoV-2 (PCR) (Negative) Influenza Type A (PCR) (Negative) Influenza Type B (PCR) (Negative) RSV (PCR) (Negative) POC Glucose (60-115) mg/dl POC Troponin I 0.02 (0.01-0.04) ng/ml Discharge Plan Discharge Clinical Impression: Septic joint Patient Disposition: Xfer Other Condition: Stable Activity Level: Other Discharge Diet: Other Prescriptions: No Action ferrous gluconate 324 mg (38 mg iron) tablet 324 mg PO .every Mon, Wed, Fri acetaminophen 500 mg capsule 1,000 mg PO Q6H PRN melatonin 3 mg capsule 3 mg PO QHS PRN mecobalamin (vitamin B12) 1,000 mcg tablet,chewable 1,000 mcg PO QDAY potassium chloride 20 mEq tablet,ER particles/crystals 20 meq PO BID Rx Instructions: take 40 meq in AM and 20 meq in PM hydrocodone-acetaminophen 5-325 mg tablet 1 - 2 tab PO .Daily as needed PRN (Reason: pain) Qty: 46 0RF allopurinol 100 mg tablet 200 mg PO QDAY Qty: 180 3RF aspirin 81 mg tablet,delayed release (DR/EC) 81 mg PO DAILY tamsulosin 0.4 mg capsule 0.4 mg PO BID ipratropium bromide 0.02 % solution 2.5 ml inhalation TID Qty: 225 11RF Rx Instructions: To take with albuterol 0.083% solution TID albuterol sulfate 2.5 mg /3 mL (0.083 %) solution for nebulization 2.5 mg inhalation TID Qty: 90 11RF Rx Instructions: To take with ipratropium 0.02% solution TID nitroglycerin [Nitrostat] 0.4 mg tablet, sublingual 0.4 mg sublingual Q5M PRN (Reason: chest pain) Qty: 25 1RF ipratropium-albuterol 0.5 mg-3 mg(2.5 mg base)/3 mL solution for nebulization 3 ml inhalation TID PRN (Reason: shortness of breath or wheezing) Qty: 90 2RF sumatriptan succinate 50 mg tablet 50 mg PO .COMPLEX Qty: 12 2RF Rx Instructions: take 1 tab at onset of headache, may repeat Q2h prn max 200mg/24 hours Stiolto Respimat 2.5-2.5 mcg/actuation mist 2 puff inhalation QDAY Qty: 4 0RF albuterol sulfate 90 mcg/actuation HFA aerosol inhaler 2 puff inhalation Q4H PRN (Reason: shortness of breath or wheezing) Qty: 20.1 0RF Anoro Ellipta 62.5-25 mcg/actuation blister with device 1 inh inhalation QDAY Qty: 60 2RF fluticasone propionate 50 mcg/actuation spray,suspension 1 spray intranasal BID Qty: 3 0RF Rx Instructions: administer into each nostril finasteride 5 mg tablet 5 mg PO .Bedtime Qty: 90 0RF gabapentin 300 mg capsule 900 mg PO TID Qty: 810 0RF isosorbide mononitrate 60 mg tablet extended release 24 hr 60 mg PO DAILY Qty: 90 0RF metoprolol tartrate 100 mg tablet 100 mg PO BID Qty: 180 0RF montelukast 10 mg tablet 10 mg PO .Bedtime Qty: 90 0RF pramipexole 0.25 mg tablet 0.25 mg PO QHS Qty: 90 0RF sertraline 100 mg tablet 100 mg PO QDAY Qty: 90 0RF torsemide 20 mg tablet 40 mg PO BID Qty: 360 0RF atorvastatin 80 mg tablet 80 mg PO .Bedtime Qty: 90 0RF fenofibrate 54 mg tablet 54 mg PO .Bedtime Qty: 90 0RF pantoprazole 40 mg tablet,delayed release (DR/EC) 40 mg PO BID Qty: 180 0RF magnesium oxide 400 mg magnesium tablet 400 mg PO BID Qty: 180 3RF Stand Alone Forms: [facility] Info Instructions
[2023-12-28 20:05] LABS: Lactate* 1.4 mmol/L (0.5-1.9)
--- NOTE | 2023-12-28 20:07 | CRLHL7_ITS ---
For Patients: As a result of the Cures Act, medical imaging exams and procedure reports are released immediately into your electronic medical record. You may view this report before your referring provider. If you have questions, please contact your health care provider. INDICATION: Fall, transient alteration of awareness, hand injury, Pain and swelling TECHNIQUE: Hand radiograph 3 views right COMPARISON: None FINDINGS: Evaluation of the digits on the lateral examination is severely degraded due to overlapped digit positioning and finger flexion on all views. Bone: No acute fractures or aggressive bone lesions are identified. Remote fracture deformity of the 1st metacarpal is noted. Carpal findings and distal forearm findings are described on separate report. 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 Chondrocalcinosis is present at the metacarpophalangeal joints of digits 2-4. Moderate osteoarthritis of the distal interphalangeal joints are noted. Soft tissue: Unremarkable. No radiopaque foreign bodies are seen. IMPRESSION: 1. No acute osseous injuries or abnormalities are noted. Dictated by Rufino Varner MD @ 12/28/2023 9:46:08 PM Dictated by: Rufino Varner MD @ 12/28/2023 21:46:12 (Electronically Signed)
--- NOTE | 2023-12-28 20:07 | CRLHL7_ITS ---
For Patients: As a result of the Century Cures Act, medical imaging exams and procedure reports are released immediately into your electronic medical record. You may view this report before your referring provider. If you have questions, please contact your health care provider. INDICATION: Fall, transient alteration of awareness, wrist injury, Pain and Swelling TECHNIQUE: Wrist radiograph 4 views right COMPARISON: None FINDINGS: Bone: There is an irregular osseous fragment along the radial styloid measuring 12 x 6 mm. There is an ill-defined oblong ossific density measuring 8 x 3 mm along the dorsal aspect of the distal ulna. An adjacent lytic lesion is present within the radial styloid measuring 1.4 x 0.9 cm. Several lucent lesions are present in the distal ulna measuring up to 6 mm and within the capitate and hamate. Joint: Moderate osteoarthritis of the distal radioulnar joint is noted. Mild widening of the scapholunate joint is noted. Soft tissue: Lateral soft tissue swelling is noted. No radiopaque foreign bodies are seen. Moderate vascular calcifications are noted. IMPRESSIONS: 1. There is an ill-defined oblong ossific density measuring 8 x 3 mm along the dorsal aspect of the distal ulna. Correlation with physical exam for focal tenderness in this region is recommended to exclude an acute fracture. 2. There is an irregular osseous fragment along the radial styloid measuring 12 x 6 mm. This may represent a fracture fragment of indeterminate age. 3. An adjacent lytic lesion is present within the radial styloid measuring 1.4 x 0.9 cm. Several lucent lesions are present in the distal ulna measuring up to 6 mm and within the capitate and hamate. Further evaluation with MRI is recommended to exclude an aggressive bone lesion such as multiple myeloma or metastasis. 4. Mild widening of the scapholunate joint is noted. This can be due to injury of the associated scapholunate ligament. Without prior comparison studies, the age is indeterminate. Dictated by Rufino Varner MD @ 12/28/2023 9:44:34 PM Dictated by: Rufino Varner MD @ 12/28/2023 21:44:41 (Electronically Signed)
[2023-12-28] MEDS: ACETAMINOPHEN 500 MG TABLET 1000 MG PO (20:08)
[2023-12-28] MEDS: 0.9 % SODIUM CHLORIDE 1000 ml 1,000 ML IV (20:10)
[2023-12-28 20:15] LABS: Troponin, Point-of-Care* 0.02 ng/ml (0.01-0.04)
[2023-12-28 20:17] LABS: Glucose, Point-of-Care* 120 mg/dl (60-115)
[2023-12-28 20:21] LABS: Basophils Absolute Auto 0.01 K/uL (0.00-0.30); Basophils Percent Auto 0.1 % (0.0-3.0); Eosinophils Absolute Auto 0.01 K/uL (0.00-0.50); Eosinophils Percent Auto 0.1 % (0.0-7.0); Hematocrit 35.8 % (37.0-53.0); Hemoglobin* 11.6 gm/dL (13.5-17.5); Immature Granulocytes Abs Auto 0.02 K/uL (0.00-0.30); Immature Granulocytes Pct Auto 0.2 %; Lymphocytes Percent Auto 5.3 % (20-44); Mean Corpuscular HGB Conc 32 gm/dL (32-36); Mean Corpuscular Hemoglobin 29 pg (26-34); Mean Corpuscular Volume 89 fL (80-100); Monocytes Percent Auto 8.4 % (0.0-11.0); Neutrophils Percent Auto 85.9 % (42.0-72.0); Platelet Count* 263 K/uL (140-440); RDW Coefficient of Variation % 14.6 % (11.5-15.5); Red Blood Count 4.03 m/uL (4.30-5.90); White Blood Count* 10.72 K/uL (4.50-11.00)
[2023-12-28 20:23] LABS: Slide Review Reflex No
[2023-12-28 20:33] LABS: RBC Urine 0-2 (0-2); WBC Urine 0-2 (0-5)
[2023-12-28 20:39] LABS: Albumin* 4.2 g/dL (3.3-5.0); Chloride* 95 mmol/L (96-114); Sodium* 134 mmol/L (135-149)
[2023-12-28 20:41] LABS: Creatinine* 1.3 mg/dL (0.5-1.5); Est. Creatinine Clearance* 42.38; Estimated Glomerular Filt Rate 58 ml/min
[2023-12-28 20:42] LABS: Alanine Aminotransferase* 12 U/L (4-50); Alkaline Phosphatase* 76 U/L (40-150); Anion Gap 11 mEq/L (7-15); Aspartate Amino Transferase* 19 U/L (12-35); Bilirubin Total* 2.4 mg/dL (0.1-1.5); Blood Urea Nitrogen* 24 mg/dL (7-30); Carbon Dioxide* 28 mmol/L (20-32); Glucose* 121 mg/dL (60-115); Lipase* 56 U/L (23-300); Total Protein* 7.9 g/dL (6.0-8.3)
[2023-12-28 20:43] LABS: Calcium* 8.3 mg/dL (8.4-10.6)
[2023-12-28 20:46] LABS: Amphetamine Screen Urine Negative (Negative); Barbiturate Screen Urine Negative (Negative); Benzodiazepines Screen Urine Negative (Negative); Cannabinoid Screen Urine Negative (Negative); Cocaine Screen Urine Negative (Negative); Methadone Screen Urine Negative (Negative); Methamphetamines Screen Urine Negative (Negative); Opiate Screen Urine Negative (Negative); Oxycodone Screen Urine Negative (Negative); Phencyclidine Screen Urine Negative (Negative); Tricyclic Antidepressant Urine Negative (Negative)
[2023-12-28 20:54] LABS: Troponin I* 0.03 ng/mL (0.01-0.04)
[2023-12-28 20:55] LABS: Ethanol* < 0.01 % (0.01-0.03); NT Pro B Type NatriureticPept* 4370 pg/mL; Potassium* 2.9 mmol/L (3.6-5.1)
[2023-12-28 20:56] LABS: C Reactive Protein* 25.1 mg/dL (0.5-1.0)
[2023-12-28 21:02] LABS: PCR FLU A Negative PCR FLU A (Negative); PCR FLU B Negative PCR FLU B (Negative); PCR RSV Negative PCR RSV (Negative); SARS PCR* Negative SARS-CoV-2 (Negative)
[2023-12-28] MEDS: POTASSIUM BICARB 25 MEQ EFFERVESCENT TAB PO (21:04)
--- NOTE | 2023-12-28 21:11 | CRLHL7_ITS ---
For Patients: As a result of the Century Cures Act, medical imaging exams and procedure reports are released immediately into your electronic medical record. You may view this report before your referring provider. If you have questions, please contact your health care provider. INDICATION: Chest pain, cough. TECHNIQUE: Chest 1 view. COMPARISON: None. FINDINGS: Cardiovascular and mediastinum: Heart size and vasculature are normal in caliber and appearance. Prior median sternotomy with CABG postsurgical changes. Lungs and pleural spaces: Lungs are clear. No sign of infiltrate or mass. No sign of pleural effusion. No pneumothorax. Bones and soft tissues: Unremarkable for age. IMPRESSION: No evidence of an acute pulmonary process. Dictated by Rey Fraser MD @ 12/28/2023 10:27:54 PM (Electronically Signed)
[2023-12-28] MEDS: PIPERACILLIN/TAZOBACTAM 3.375 GM in 0.9 % SODIUM CHLORIDE Mini-bag 100 ML IVPB (21:58)
[2023-12-28 22:04] LABS: Procalcitonin* 0.61 ng/mL (<0.50)
--- NOTE | 2023-12-28 23:01 | CRLHL7_ITS ---
For Patients: As a result of the Century Cures Act, medical imaging exams and procedure reports are released immediately into your electronic medical record. You may view this report before your referring provider. If you have questions, please contact your health care provider. Indication: Rule out septic joint Technique: CT of the right wrist with 85 cc of Isovue 370 IV contrast. Please note that all CT scans at this facility use dose modulation, iterative reconstruction, and/or weight-based dosing when appropriate to reduce radiation dose to as low as reasonably achievable. Comparison: None. Findings: There is extensive cystic change throughout the carpus. Prominent lytic lesion within the radial styloid, which is continuous with the radiocarpal joint. There is fragmentation about the radial styloid and distal ulna as well. These findings appear chronic as the margins of the cystic changes and adjacent bone fragments are sclerotic. There is no obvious joint space destruction. [id number] diffuse degenerative changes throughout the carpus. Remote healed fracture of the base of the 1st metacarpal. Moderate degenerative changes of the 3rd metacarpophalangeal joint. No acute fracture or dislocation. No periosteal reaction. Dorsal hand soft tissue swelling. Probable wrist joint effusion. No rim enhancing fluid collection to indicate an abscess. Impression: 1. Extensive cystic change throughout the wrist, favored to represent a chronic process. Some of the cysts may be degenerative in nature. The lytic lesion within the radial styloid could represent a ganglion cyst or sequela of remote trauma. An underlying bone lesion cannot be entirely excluded; however, the sclerotic margins favor a nonaggressive process. No convincing evidence for septic arthritis on CT; however, recommend MRI for further evaluation. 2. Probable wrist joint effusion; however, evaluation is limited by CT technique. Again, MRI would be more helpful for further evaluation. 3. No acute fracture. Please note that all CT scans at this facility use dose modulation, iterative reconstruction, and/or weight-based dosing when appropriate to reduce radiation dose to as low as reasonably achievable. Dictated by Rey Fraser MD @ 12/29/2023 12:34:39 AM (Electronically Signed)
[2023-12-29] VITALS (61 sets, daily range): BP systolic 122–154; BP diastolic 81–99; PULSE 20–104; RESP 20; TEMP 36.6; O2SAT 88–100
--- NOTE | 2023-12-29 01:23 | ED.NURSE ---
Report called to [facility] [place] [facility] ED. EMS transport will probably not happen until between 0800 and 1000 at best unless cross help available.
[2023-12-29 01:41] LABS: Erythrocyte SedimentationRate* 88 mm/hr (2-15)
[2023-12-29] MEDS: LORazepam 1 MG TABLET PO (02:37)
[2023-12-29] MEDS: PIPERACILLIN/TAZOBACTAM 3.375 GM in 0.9 % SODIUM CHLORIDE Mini-bag 100 ML IVPB ×2 (04:06→09:54)
[2023-12-29] MEDS: ACETAMINOPHEN 500 MG TABLET 1000 MG PO (08:53)
== END 2023-12-29 11:06 | disposition other institution (70) ==
PROVIDERS: Family Medicine; Emergency Provider Internal Medicine; PCP Internal Medicine
DX: M00.9 Pyogenic arthritis, unspecified (principal)
CPT/HCPCS: 36415; 70450; 71045; 72125; 73110; 73130; 73201; 80048; 80076; 80306; 81001; 82077; 82947; 82962; 83605; 83690; 83880; 84145; 84484; 85025; 85651; 86140; 87040; 87086; 87631; 93005; 94761; 96365; 96366; 99284; 99285; A9270; J2543; J3370; J7030; Q9967

== ENCOUNTER 2023-12-29 10:45 | Outpatient (CLI) | payer MEDICARE, BC, SELFPAY | END 2023-12-29 10:46 | disposition home or self-care (01) | LOC: AMB 12-31 22:20 | PROVIDERS: PCP Internal Medicine; Visit Provider Emergency Medicine | DX: M00.9 Pyogenic arthritis, unspecified (principal) | CPT/HCPCS: A0425; A0427 ==

== ENCOUNTER 2024-01-27 14:18 | Outpatient (CLI) | payer MEDICARE, BC, SELFPAY ==
--- OUTSIDE RECORDS SUMMARY | 2024-01-27 14:39 | XMS_ITS | Clinical Summary ---
Author Organization [email or web address] Address [facility] 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 Last update 12/17/08.[email or web address] Allergies Active Allergy Reactions Criticality Noted Date Comments Azithromycin Dizziness,Other (see comments) Diltiazem Rash 12/29/2013 Erythromycin Unknown 04/06/2023 Sotalol Rash 06/24/2014 Sulfa Antibiotics Unknown 04/06/2023 Medications * Be aware that medications may not be up to date as of this document. Always verify current medications with patient. Medication Sig Dispensed Refills Start Date End Date Status albuterol (VENTOLIN HFA;PROVENTIL HFA;PROAIR) 108 (90 BASE) mcg/act inhalation inhaler Inhale 2 puffs every 4 hours as needed. Active metoprolol tartrate (LOPRESSOR) 100 mg oral tablet Take 1 tablet (100 mg) by mouth twice daily. 60 tablet 3 Active aspirin, ASA EC, 81 mg oral tablet Take 1 tablet (81 mg) by mouth daily. 3 Active allopurinol (ZYLOPRIM) 100 mg oral TABS Take 2 tablets (200 mg) by mouth daily. 3 Active atorvastatin (LIPITOR) 80 mg oral tablet Take 1 tablet (80 mg) by mouth daily. 3 Active finasteride (PROSCAR) 5 mg oral TABS Take 1 tablet (5 mg) by mouth daily. 3 Active fluticasone propionate (FLONASE) 50 mcg/act nasal suspension 1 spray by Nasal route daily. 3 Active isosorbide mononitrate cr (IMDUR) 60 mg oral tablet 24 HR Take 1 tablet (60 mg) by mouth daily. 3 Active montelukast (SINGULAIR) 10 mg oral TABS Take 1 tablet (10 mg) by mouth daily. 3 Active pantoprazole (PROTONIX) 40 mg oral tablet Take 1 tablet (40 mg) by mouth twice daily. 3 Active pramipexole (MIRAPEX) 0.25 mg oral TABS Take 1 tablet (0.25 mg) by mouth at bedtime. 3 Active tamsulosin (FLOMAX) 0.4 mg oral capsule Take 1 capsule (0.4 mg) by mouth daily after meal. 3 Active Additional Information Patient not taking.Reported on 12/29/2023 sertraline (ZOLOFT) 100 mg oral tablet Take 1 tablet (100 mg) by mouth daily. Active tamsulosin (FLOMAX) 0.4 mg oral capsule Take 1 capsule (0.4 mg) by mouth daily after meal.Take 30 minutes after same meal each day. Do NOT crush or chew. 4 Active acetaminophen (TYLENOL) 325 mg oral tablet Take 2 tablets (650 mg) by mouth every 4 hours as needed for Moderate Pain. 4 Active budesonide-formo terol (SYMBICORT) 160-4.5 mcg/puff inhalation inhaler Inhale 1 puff twice daily. 4 Active multivitamin + minerals (CEROVITE SENIOR) oral Take 1 tablet by mouth daily. 4 Active nystatin externally powder Apply to skin 1 each twice daily as needed (rash). 4 Active umeclidinium-pia anterol (ANORO ELLIPTA) 62.5-25 mcg/ACT inhaler Inhale 1 puff daily. 4 Active albuterol-ipratr opium (DUONEB) 2.5-0.5 mg/3 mL inhalation solution vial 3 mL by Nebulization route every 4 hours as needed for Shortness of Breath. 3 12/29/19 24 Discontinued fenofibrate micronized (TRIGLIDE) 54 mg oral TABS tablet Take 1 tablet (54 mg) by mouth daily. 3 01/05/20 24 Discontinued GABApentin (NEURONTIN) 300 mg oral capsule Take 3 capsules (900 mg) by mouth 3 times daily. 3 01/05/20 24 Discontinued umeclidinium-pia anterol (ANORO ELLIPTA) 62.5-25 mcg/ACT inhaler Inhale 1 puff daily. 60 each 3 01/05/20 24 Discontinued torsemide (DEMADEX) 10 mg oral TABSIndications: Acute on chronic heart failure with preserved ejection fraction ([facility]) Take 3 tablets (30 mg) by mouth twice daily. 3 12/29/19 Discontinued(Alt ernate therapy) diphenhydramine ([employer] ANTI-ITCH MAX STR) 2 % externally cream Apply 1 each topically 3 times daily as needed (itching).Apply to arms and legs as needed for itching. 30 g 3 12/29/19 24 Discontinued KLOR-CON M20 20 MEQ oral tablet Take 1 tablet (20 mEq) by mouth 3 times daily. 4 01/05/20 24 Discontinued torsemide (DEMADEX) 20 mg oral TABS Take 2 tablets (40 mg) by mouth twice daily. 4 01/06/20 Discontinued Active Problems Problem Noted Date Diagnosed Date E coli enteritis 01/01/2024 Type 2 diabetes mellitus wit h diabetic nephropathy, without long-term current use of insulin ([facility]) 01/01/2024 Anemia in chronic kidney disease 12/29/2023 Asthma ([facility]) 12/29/2023 Altered mental status, unspe cified altered mental status type 12/29/2023 Hypokalemia 04/19/2023 Overview: Last Assessment & Plan: Continue with potassium 40 mEq in the morning and 20 in the afternoon. Chem 8 has been drawn this morning Closed nondisplaced fracture of second cervical vertebra, unspecified fracture morphology, initial encounter ([facility]) 04/06/2023 Severe tricuspid valve regurgitation 11/24/2021 Hypomagnesemia 07/21/2019 Overview: Low serum magnesium Last Assessment & Plan: Magnesium level pending Chronic gout 02/25/2019 Other pulmonary embolism wit hout acute cor pulmonale ([facility]) 02/25/2019 Chronic kidney disease, stage 2 (mild) 9 Overview: Last Assessment & Plan: Avoid nephrotoxic medications. Will be following creatinine Gastrointestinal hemorrhage with melena 12/07/19 18 Acute on chronic diastolic c ongestive heart failure ([facility]) 09/04/2017 Overview: Acute on chronic heart failure Last Assessment & Plan: Patient is now on torsemide 30 mg b.i.d.. Weight is stable. Patient having lab work done today for follow-up Chem 8.CONGESTIVE HEART FAILURE: Will weigh daily and call primary care provider for weight gain greater than 3 pounds in 24 hours or 5 pounds in one week. Other polyosteoarthritis 05/06/2017 Type 2 diabetes mellitus wit h diabetic nephropathy ([facility]) 05/06/2017 Overview: Overview: Secondary DM Chronic Renal Disease Stage 2 GFR 60-89 Secondary DM Chronic Renal Disease Stage 2 GFR 60-89 Overview: Secondary DM Chronic Renal Disease Stage 2 GFR 60-89 Last Assessment & Plan: Lab Results Component Value Date HGBA1C 6.3 07/20/2018 Hemoglobin A1c is ordered for today Carotid artery disease ([facility]) 02/20/2016 Postsurgical aortocoronary bypass status 016 Atrial flutter ([facility]) 12/11/2015 Obstructive sleep apnea (adult) (pediatric) 11/13 Overview: Last Assessment & Plan: Continue with home CPAP settings Atherosclerotic heart diseas e of [place] coronary artery without angina pectoris 12/02/2015 Personal history of transien t ischemic attack (TIA), and cerebral infarction without residual deficits 07/20/2015 Overview: Overview: Stroke (CVA) Pers Hx Stroke (CVA) Pers Hx Chronic obstructive pulmonar y disease, unspecified ([facility]) 01/25/2015 Overview: Overview: Disease Lung Obstructive Chronic (COPD) Mild [place] Mild Disease Lung Obstructive Chronic (COPD) Mild [place] Mild Last Assessment & Plan: Started on Anoro Ellipta. Patient did require oxygen while in the hospital. Continue to monitor vital signs and sats per half-way notify if changes occur Paroxysmal atrial fibrillation ([facility]) 012 Overview: Fibrillation Atrial Paroxysmal (PAF) Last Assessment & Plan: Patient started on metoprolol tartrate 100 mg b.i.d.. Blood pressure and pulses are stable Patent foramen ovale ([facility]) 10/05/2005 Hyperlipidemia 07/06/2003 Encounters Date Type Department Care Team Description 01/02/2024 [facility] [place] [phone] Luis Alberto Sin DO 12/30/2023 Orders Only [facility] Radiology Department [facility] [address] [place] [address] Provider, Outside Referral of patient (Primary Dx) 12/29/2023 11:55 AM CDT - 01/06/2024 10:57 AM CDT Hospital Encounter [facility] [address] [place] [address] Lori Billingsley MD Wieland, MD Joshua Potter, MD León Crystal, MD Kalani Lobo, MD Sandeep Farias, Mitra Dumont MD Altered mental status, unspecified altered mental status type Discharge Disposition: Discharged/transd to SNF with Medicare certification 12/29/2023 Documentation Only Unspecified Department [place] Unknown, Provider 12/29/2023 Documentation Only Unspecified Department [place] Unknown, Provider 12/29/2023 Documentation Only Unspecified Department [place] Unknown, Provider 12/29/2023 Documentation Only Unspecified Department [place] Unknown, Provider 12/29/2023 Documentation Only Unspecified Department [place] Unknown, Provider 12/29/2023 Documentation Only Unspecified Department [place] Unknown, Provider 12/29/2023 Orders Only [facility] [place] [phone] Dru Bui MD Wrist pain, right (Primary Dx) 12/29/2023 Travel 11/22/2023 [facility] [address] [place] [phone] Christi Walker CMA Form - Other (orders) 11/20/2023 Telephone [facility] [address] [place] [phone] Pepper Quiroga PA-C Form - Other 11/11/2023 Documentation Only Unspecified Department [place] Unknown, Provider 11/11/2023 Documentation Only Unspecified Department [place] Unknown, Provider 11/11/2023 Documentation Only [facility] [address] [place] [phone] Pepper Quiroga PA-C Form - Other (Darlene ) 11/04/2023 Documentation Only [facility] [address] [place] [address] [phone] Pepper Quiroga PA-C from Last 3 Months Immunizations Name Administration Dates Next Due COVID-19 MRNA Vaccine (Pfizer/COMIRNATY) suspension 01/23/2022,05/30/2021,10/11/2020,2020 COVID-19 Vaccine Monovalent (PFIZER) 12 Years and Older 01/23/2022 Diphtheria and Tetanus Toxoi d - Adult (Grifols Td) 04/27/2001 H1N1 INFLUENZA VACCINE-(3 YE ARS +); 0.5ml 08/22/2009 INFLUENZA VACCINE - MDV (6 MONTHS-ADULT) 04/22/2023,04/25/2015 Influenza Vaccine - (3 Years +) Trivalent 04/25/2012,04/26/2010,05/20/2009,2006,05/28/2006,05/09/2004,04/21/2001,1 07/22/1999,04/26/1999,05/04/1998, 997,07/31/1996,04/24/1996,05/08/1995, Influenza Vaccine 6 Months t hrough Adult - Prefilled 04/13/2018,04/10/2018,04/18/2016,2013,04/12/2014,04/02/2013,08/22/2009 Influenza Vaccine, High Dose 05/04/2019,05/06/20 17 Influenza Vaccine, High Dose , Quadrivalent 05/02/2022,04/13/2021,05/02/2020 Influenza Vaccine, Unspecified 8,04/28/2014,04/12/2014,2010,04/28/2010 Pneumococcal Conjugate, 13 - Valent Vaccine(Prevnar 13) 10/18/2014 Pneumococcal Polysaccharide, 23 Valent Vaccine(Pneumovax 23) 09/02/2019,01/26/2006 Tetanus Toxoid, Reduced Diph theroid Toxoid Acellular Pertussis 10/18/2014 Tetanus and Diphtheria Toxoi ds Adsorbed-Td (TENIVAC) 10/18/2014 Zoster Vaccine Live (ZOSTAVAX) 08/09/2015 Social History Tobacco Use Types Packs/Day Years Used Date Smoking Tobacco: Never Smokeless Tobacco: Never Humiliation, Afraid, Rape, a nd Kick questionnaire Answer Date Recorded Within the last year, have y ou been afraid of your partner or ex-partner? Patient unable to answer 12/29/2023 Within the last year, have y ou been humiliated or emotionally abused in other ways by your partner or ex-partner? Patient unable to answer 12/29/2023 Within the last year, have y ou been kicked, hit, slapped, or otherwise physically hurt by your partner or ex-partner? Patient unable to answer 12/29/2023 Within the last year, have y ou been raped or forced to have any kind of sexual activity by your partner or ex-partner? Patient unable to answer 12/29/2023 Overall Financial Resource Strain (CARDIA) Answe r Date Recorded How hard is it for you to pa y for the very basics like food, housing, medical care, and heating? Patient unable to answer 12/29/2023 Hunger Vital Sign Answer Date Recorded Within the past 12 months, y ou worried that your food would run out before you got the money to buy more. Patient unable to answer 12/29/2023 Within the past 12 months, t he food you bought just didn't last and you didn't have money to get more. Patient unable to answer 12/29/2023 PRAPARE - Transportation Answer Date Re corded In the past 12 months, has l ack of transportation kept you from medical appointments or from getting medications? Patient unable to answer 12/29/2023 In the past 12 months, has l ack of transportation kept you from meetings, work, or from getting things needed for daily living? Patient unable to answer 12/29/2023 Housing Stability Answer Date Recorded What is your housing situation today? 5 - Patien t unable to answer 12/29/2023 Sex and Gender Information Value Date Recorded Sex Assigned at Not on file Gender Identity Not on file Sexual Orientation Not on file Last Filed Vital Signs Vital Sign Reading Time Taken Comments Blood Pressure 105/87 01/06/2024 7:53 AM CDT Pulse 114 01/06/2024 7:53 AM CDT Temperature 35.4 ??C (95.7 ??F) 01/06/2024 7:53 AM CD T Respiratory Rate 18 01/06/2024 7:53 AM CDT Oxygen Saturation 94% 01/06/2024 7:53 AM CDT Inhaled Oxygen Concentration - - Weight 88.5 kg (195 lb 1.7 oz) 12/29/2023 11:26 PM CDT Height 175.3 cm (5' 9) 12/30/2023 1:00 AM CDT Body Mass Index 28.81 12/29/2023 11:26 PM CDT Plan of Treatment Health Maintenance Due Date Last Done Comments CT Colonography 1950 Colonoscopy 1950 Dental Oral Exam 1950 Dental Prophylaxis 1950 Dental X-Ray: Bitewings 1950 FIT/Cologuard 1950 Hepatitis C Screening 1950 Sigmoidoscopy 1950 Diabetic Education Protocol (CDE) 1951 Diabetic Education 1951 Diabetic Eye Exam 1951 Diabetic Foot Exam 1951 Diabetic Lab Protocol 1951 Diabetic Microalbumin Screening 1951 Periodontal Maintenance 1964 Medicare Annual Wellness 1968 PREVENTATIVE VISIT 1968 HEALTH MAINTENANCE PROTOCOL 1969 Osteoporosis Screening (Dexa Scan) 2015 Diabetic HGB A1C Q 3 Months (Goal <7) 10/18/2018 07/20/2018 Colorectal Cancer Screening 12/06/2018 iFOB/FIT 12/06/2018 12/06/2017, 12/06/2017 Imm: Pneumonia greater than 65 years (3 of 3 - PCV) 09/02/2020 09/02/2019, 01/26/2006 Lipid Screening 03/05/2023 03/05/2018 INFLUENZA VACCINE 02/13/2024 04/22/2023, , 04/13/2021, Additional history exists TD/TDAP ADULTS 10/18/2024 10/18/2014, 0412/2014, 04/27/2001 COVID-19 Vaccine Completed 12/11/2023, 03/2023, 01/23/2022, Additional history exists HIB Aged Out No longer eligi ble based on patient's age to complete this topic HPV Aged Out No longer eligi ble based on patient's age to complete this topic Imm: HepB Aged Out No longer eligi ble based on patient's age to complete this topic RSV Infant Immunoglobulin Aged Out No longer eligible based on patient's age to complete this topic Medical Devices Implanted Type Area Auto Body Detailer Device Identifier Shelf Expiration Date Model / Serial / Lot Infuse Bmp Small Kit [id number] Implanted:Qty: 1 on 04/09/2023 by Dallas Fontana MD at [facility] Bone Graft N/A: Cervical Posterior 12/13/2024 [id number] / / [id number] Lateral/Closed [id number] Implanted:Qty: 2 on 04/09/2023 by Alfonzo Wong MD at [facility] Connector N/A: Cervical Posterior [employer] [id number] / / 40mm [id number] Implanted:Qty: 2 on 04/09/2023 by Alfonzo Wong MD at [facility] Doug N/A: Cervical Posterior [employer] [id number] / / 16mm [id number] Implanted:Qty: 2 on 04/09/2023 by Alfonzo Wong MD at [facility] Screw/Vesuvius N/A: Cervical Posterior [employer] [id number] / / Set Screw [id number] Implanted:Qty: 6 on 04/09/2023 by Alfonzo Wong MD at [facility] Screw/Vesuvius N/A: Cervical Posterior [employer] SOFAMOR DANEK [id number] / / Mastergraft Putty Implanted:Qty: 2 on 04/09/2023 by Alfonzo Wong MD at [facility] N/A: Cervical Posterior [employer] 02/11/2026 [id number] / / [id number] Partially Threaded Multi Axial Screw Implanted:Qty: 2 on 04/09/2023 by Alfonzo Wong MD at [facility] N/A: Cervical Posterior [employer] 01/16/2031 [id number] / / [id number] 4.5 X 30 Screw Implanted:Qty: 2 on 04/09/2023 by Alfonzo Wong MD at [facility] N/A: Cervical Posterior [employer] [id number] / / Procedures Procedure Name Priority Date/Time Associated Diagnosis Comments PANEL BASIC METABOLIC (BMP) Timed 01/06/2024 8:52 AM CDT PANEL BASIC METABOLIC (BMP) Routine 01/05/2024 7:51 AM CDT ADVANCE DIRECTIVES 01/04/2024 9: 55 AM CDT LEGAL 01/04/2024 8:59 AM CDT PHOSPHORUS Routine 01/04/2024 4:00 AM CDT MAGNESIUM Routine 01/04/2024 4:00 AM CDT PANEL BASIC METABOLIC (BMP) Routine 01/04/2024 4:00 AM CDT PANEL BASIC METABOLIC (BMP) Routine 01/03/2024 7:27 AM CDT MAGNESIUM Routine 01/03/2024 7:27 AM CDT PHOSPHORUS Routine 01/03/2024 7:27 AM CDT PHOSPHORUS Routine 01/02/2024 6:01 AM CDT MAGNESIUM Routine 01/02/2024 6:01 AM CDT PANEL BASIC METABOLIC (BMP) Routine 01/02/2024 6:01 AM CDT PC LAB CBC/PLT Routine 01/02/2024 6:01 AM CDT PHOSPHORUS Routine 01/01/2024 8:43 AM CDT MAGNESIUM Routine 01/01/2024 8:43 AM CDT PANEL BASIC METABOLIC (BMP) Routine 01/01/2024 8:43 AM CDT TC LAB BLOOD DRAW BY VENIPUNCTURE Routine 01/01/2024 8:43 AM CDT PHOSPHORUS Routine 12/31/2023 7:11 AM CDT MAGNESIUM Routine 12/31/2023 7:11 AM CDT PANEL BASIC METABOLIC (BMP) Routine 12/31/2023 7:11 AM CDT PC LAB CBC/PLT Routine 12/31/2023 7:11 AM CDT ULT VENOUS UPPER EXT RIGHT Routine 12/30/2023 7:36 PM CDT EXTERNAL MED REC-IMAGING 12/30/2023 4:01 PM CDT EXTERNAL MED REC-IMAGING 12/30/2023 4:01 PM CDT EXTERNAL MED REC-IMAGING 12/30/2023 4:01 PM CDT EXTERNAL MED REC-IMAGING 12/30/2023 4:01 PM CDT EXTERNAL MED REC-IMAGING 12/30/2023 3:56 PM CDT EXTERNAL MED REC-IMAGING 12/30/2023 3:56 PM CDT PC LAB STOOL GI PANEL Routine 12/30/2023 12:[address] OUTSIDE READ MSK/NON NEURO Routine 12/30/2023 11:40 AM CDT PC LAB B12 (CYANOCOBALMIN) Routine 12/30/2023 10:01 AM CDT PC HIV-1 AG W/HIV-1 & HIV-2 AB Routine 12/30/2023 10:01 AM CDT PC THYROID STIMULATING HORMONE(TSH) PADILLA Routine 12/30/2023 10:01 AM CDT PHOSPHORUS Routine 12/30/2023 10:01 AM CDT MAGNESIUM Routine 12/30/2023 10:01 AM CDT PANEL HEPATIC FUNCTION Routine 10:01 AM CDT PANEL BASIC METABOLIC (BMP) Routine 12/30/2023 10:01 AM CDT PC LAB CBC/PLT Routine 12/30/2023 10:01 AM CDT RETIC COUNT Routine 12/30/2023 10:01 AM CDT LD (LDH) Timed 12/30/2023 1:21 AM CDT MAGNESIUM Timed 12/30/2023 1:21 AM CDT POTASSIUM Timed 12/30/2023 1:21 AM CDT HAPTOGLOBIN Routine 12/30/2023 1:21 AM CDT ULT GALLBLADDER Routine 12/29/2023 10:24 PM CDT URIC ACID STAT 12/29/2023 10:24 PM CDT ED US ABDOMINAL/GALLBLADDER STAT 12/29/2023 9:[address] ABDOMEN/PELVIS W/IV CON Routine 12/29/2023 8:[address] CHEST-PULMONARY ANGIO W/IV Routine 12/29/2023 8:58 PM CDT PC CULTURE,BACTERIAL,DEFI [place],AEROBIC;BLOOD STAT 12/29/2023 7:01 PM CDT PC CULTURE,BACTERIAL,DEFI [place],AEROBIC;BLOOD STAT 12/29/2023 7:01 PM CDT CK, TOTAL Routine 12/29/2023 7:01 PM CDT PC LACTATE (LACTIC ACID) STAT 12/29/2023 7:01 PM CDT PC ELECTROLYTES PANEL STAT 12/29/2023 7:01 PM CDT PC TROPONIN QUANTITATIVE Timed 12/29/2023 7:01 PM CDT PC POTASSIUM;SERUM STAT 12/29/2023 5: 35 PM CDT ED US CARDIAC STAT 12/29/2023 4:51 PM CDT PC PROCALCITONIN (PCT) STAT 4:28 PM CDT PC TROPONIN QUANTITATIVE Timed 12/29/2023 4:28 PM CDT PC TROPONIN QUANTITATIVE Timed 12/29/2023 2:32 PM CDT PC LACTATE (LACTIC ACID) Timed 12/29/2023 2:32 PM CDT URINE DRUG SCREEN Routine 12/29/2023 1:4 0 PM CDT TC LAB ER STAT URINALYSIS STAT 12/29/2023 1:40 PM CDT URINE CULTURE STAT 12/29/2023 1:40 PM CDT SED RATE (ESR) Routine 12/29/2023 1:15 PM CDT C-REACTIVE PROTEIN Routine 12/29/2023 1: 15 PM CDT PC GASES,BLOOD,ANY COMB OF PH,PCD2,PO2,CO2,HCO2 STAT 12/29/2023 1:15 PM CDT LIPASE STAT 12/29/2023 1:15 PM CDT PC AMMONIA STAT 12/29/2023 1:15 PM CDT BUN (UREA NITROGEN) STAT 12/29/2023 1 :15 PM CDT PANEL HEPATIC FUNCTION STAT 1:15 PM CDT PC TROPONIN QUANTITATIVE STAT 12/29/2023 1:15 PM CDT PC SYPHILIS SCREEN STAT 12/29/2023 1: 15 PM CDT PC LACTATE (LACTIC ACID) STAT 12/29/2023 1:15 PM CDT PC ELECTROLYTES PANEL STAT 12/29/2023 1:15 PM CDT ED EKG (12-LEAD) Routine 12/29/2023 12:4 3 PM CDT EXTRA TUBE - DARK GREEN Routine 12/29/2023 12:15 PM CDT TC LAB BLOOD DRAW BY VENIPUNCTURE Routine 12/29/2023 12:15 PM CDT PROTHROMBIN (PT) & INR STAT 12:15 PM CDT PC LAB CBC W/DIFF & PLT STAT 12/29/2023 12:15 PM CDT XR CHEST OUTSIDE FILMS Routine 9:26 PM CDT Referral of patient XR UPPER EXTREMITY OUTSIDE FILMS Routine 12/28/2023 8:29 PM CDT Referral of patient XR UPPER EXTREMITY OUTSIDE FILMS Routine 12/28/2023 8:28 PM CDT Referral of patient CT SPINE OUTSIDE FILMS Routine 4 8:05 PM CDT Referral of patient CT HEAD OUTSIDE FILMS Routine 12/28/2023 8:05 PM CDT Referral of patient GLYCOSYLATED HGB - A1C Routine 9 4:56 PM FOOD VENDOR PANEL LIPID Routine 03/05/2018 9:02 AM CDT IFOB (FECAL OCCULT BLOOD IMMUNOASSAY) Routine 12/06/2017 11:33 AM CDT from Last 3 Months or Most Recently Relevant to Health Maintenance Results * (ABNORMAL) PANEL BASIC METABOLIC (BMP) (01/06/2024 8:52 AM CDT) Only the most recent of8 resultswithin the time period is included. Sodium 136 135 - 148 mmol/L [facility] Potassium 3.5 3.5 - 5.3 mmol/L [facility] Chloride 96 92 - 108 mmol/L [facility] CO2 26 22 - 30 mmol/L [facility] AnGap 14 8 - 16 mmol/L [facility] Glucose 98 70 - 100 mg/dL [facility] BUN 29(H) 8 - 23 mg/dL [facility] Creatinine 1.38(H) 0.70 - 1.25 mg/dL [facility] Calcium 9.2 8.8 - 10.2 mg/dL [facility] eGFR (2020 CKD-EPI) 54(L) >=60 ml/min/1.7 3m2 [facility] Comment: The estimated glomerular filtration rate (eGFR) was calculated using the CKD-EPI 2020 creatinine equation, which does not include race as a factor. This equation is validated in individuals 18 years of age and older, and eGFR is normalized to a body surface area of 1.73m^2. Blood 01/06/2024 8:52 AM CDT 01/06/2024 9:17 AM CDT Mauricio Simpson MD LABORATORY [facility] [address] [address] * ADVANCE DIRECTIVES (01/04/2024 9:55 AM CDT) Him Provider ADVANCED DIRECTIVES * LEGAL (01/04/2024 8:59 AM CDT) Narrative 01/04/2024 8:59 AM CDT Ordered by an unspecified provider. Provider Unknown SCANNED CONSENTS * PHOSPHORUS (01/04/2024 4:00 AM CDT) Only the most recent of6 resultswithin the time period is included. Phosphorus 3.0 2.5 - 4.5 mg/dL [facility] Blood 01/04/2024 4:00 AM CDT 01/04/2024 4:14 AM CDT Mauricio Simpson MD LABORATORY Performing Organization Address City/[facility] Co de Phone Number [facility] [address] [address] * MAGNESIUM (01/04/2024 4:00 AM CDT) Only the most recent of7 resultswithin the time period is included. Magnesium 1.7 1.6 - 2.4 mg/dL [facility] Blood 01/04/2024 4:00 AM CDT 01/04/2024 4:14 AM CDT Mauricio Simpson MD LABORATORY Performing Organization Address [facility] de Phone Number [facility] [address] [address] * (ABNORMAL) CBC WITH PLATELET (01/02/2024 6:01 AM CDT) Only the most recent of4 resultswithin the time period is included. WBC 7.22 4.00 - 10.00 k/cmm [facility] RBC 3.68(L) 4.60 - 6.00 m/cmm [facility] Hgb 10.5(L) 13.1 - 17.5 g/dL [facility] Hematocrit 33.0(L) 40.0 - 51.0 % [facility] MCV 89.7 80.0 - 100.0 fL [facility] MCH 28.5 25.0 - 32.0 pg [facility] MCHC 31.8 31.0 - 36.0 g/dL [facility] RDW 14.8(H) 11.5 - 14.5 % [facility] Plt 299 150 - 400 k/cmm [facility] MPV 10.3 6.5 - 12.5 fL [facility] Blood 01/02/2024 6:01 AM CDT 01/02/2024 6:11 AM CDT Mauricio Simpson MD LABORATORY Performing Organization Address City/[facility] Co de Phone Number [facility] [address] [address] * ULT VENOUS UPPER EXTREMITY RIGHT (12/30/2023 7:36 PM CDT) Anatomical Region Laterality Modality Upper Arm Ultrasound 12/30/2023 8:13 PM CDT Impressions 12/30/2023 9:16 PM CDT Impression: ?? 1. No deep vein thrombosis in right ??upper extremity. 2. Edema and small presumed bursal effusion along the extensor tendon sheaths probably represents tenosynovitis. No drainable fluid collection. Wrist MRI may be considered for further evaluation if clinically indicated. I have personally reviewed the image(s) and initial interpretation, and I agree with the findings as documented by the resident/fellow. Reading Radiologist: Matias Lenz Reading Resident: Gaston Contreras 12/30/2023 9:16 PM CDT Indication: right wrist swelling, rule out DVT. ??Please also comment on any fluid collection of wrist if present. ?? Comparison: None Technique: 1. ??Newby scale and color Doppler imaging of the internal jugular, subclavian, innominate, axillary, paired brachial, basilic and cephalic veins of ??the right upper extremity. 2. Spectral Doppler waveform analysis of each of the above mentioned veins. 3. ??Demonstration of compressibility of the internal jugular, axillary, paired brachial, basilic and cephalic veins of the right upper extremity Findings: The right internal jugular vein, innominate, subclavian vein at proximal, mid and distal locations, axillary and paired brachial veins are patent with normal color doppler flow and augmentation. ??The axillary and paired brachial veins are compressible. ??The cephalic and basilic veins are patent with normal color doppler flow, normal augmentation and compressible. At the area of the patient's complaint in the dorsal wrist, there is some infiltrative edema and small amount of fluid along the extensor tendon sheaths. Procedure Note Matias Lenz MD - 12/30/2023 Indication: right wrist swelling, rule out DVT. Please also comment onany fluid collection of wrist if present. Comparison: None Technique: 1. Newby scale and color Doppler imaging of the internal jugular,subclavian, innominate, axillary, paired brachial, basilic and cephalicveins of the right upper extremity. 2. Spectral Doppler waveform analysis of each of the above mentionedveins. 3. Demonstration of compressibility of the internal jugular, axillary,paired brachial, basilic and cephalic veins of the right upper extremity Findings: The right internal jugular vein, innominate, subclavian vein atproximal, mid and distal locations, axillary and paired brachial veins arepatent with normal color doppler flow and augmentation. The axillary andpaired brachial veins are compressible. The cephalic and basilic veinsare patent with normal color doppler flow, normal augmentation andcompressible. At the area of the patient's complaint in the dorsal wrist, there is someinfiltrative edema and small amount of fluid along the extensor tendonsheaths. IMPRESSION Impression: 1. No deep vein thrombosis in right upper extremity. 2. Edema and small presumed bursal effusion along the extensor tendonsheaths probably represents tenosynovitis. No drainable fluid collection.Wrist MRI may be considered for further evaluation if clinicallyindicated. I have personally reviewed the image(s) and initial interpretation, and Iagree with the findings as documented by the resident/fellow. Reading Radiologist: Matias Lenz Reading Resident: Gaston Contreras Mauricio Simpson MD RAD ULT * EXTERNAL MED REC-IMAGING (12/30/2023 4:01 PM CDT) Only the most recent of6 resultswithin the time period is included. Anatomical Region Laterality Modality Other Narrative 12/30/2023 4:01 PM CDT Ordered by an unspecified provider. Provider Unknown RAD CT BODY * (ABNORMAL) STOOL GI PANEL (12/30/2023 12:35 PM CDT) Campylobacter DNA Not Detected Not Detected [facility] Plesiomonas shigelloides DNA Not Detected Not Detected [facility] Salmonella DNA Not Detected Not Detected [facility] Vibrio DNA Not Detected Not Detected [facility] Vibrio cholerae DNA Not Detected Not Detected [facility] Yersinia enterocolitica DNA Not Detected Not Detected [facility] Enteroaggregative Escherichia coli DNA Not Detected Not Detected [facility] Enteropathogenic Escherichia coli DNA Detected(A) Not Detected [facility] Enterotoxogenic Escherichia coli DNA Not Detected Not Detected [facility] Shiga-like toxin-producing E. coli stx1/stx2 DNA Not Detected Not Detected [facility] Escherichia coli 0157 DNA Not Reported Not Detected [facility] Shigella/Enteroinvas patricia E coli DNA Not Detected Not Detected [facility] Cryptosporidium DNA Not Detected Not Detected [facility] Cyclospora cayetanensis DNA Not Detected Not Detected [facility] Entamoeba histolytica DNA Not Detected Not Detected [facility] Giardia duodenalis DNA Not Detected Not Detected [facility] Adenovirus F 40/41 DNA Not Detected Not Detected [facility] Astrovirus RNA Not Detected Not Detected [facility] Norovirus GI/GII RNA Not Detected Not Detected [facility] Rotavirus RNA Not Detected Not Detected [facility] Sapovirus (I, II, IV, V) RNA Not Detected Not Detected [facility] Comment:This is a multiplex reverse transcriptase two-stage PCR nucleic acid assay. This gastrointestinal panel is FDA approved. Feces 12/30/2023 12:3 5 PM CDT 12/30/2023 1:48 PM CDT Narrative [facility] - 12/30/2023 3:37 PM CDT Critical value for Stool GI panel electronically reported to and acknowledged by Kerri Evans MD in [address] at 12/30/2023 15:37:34 CDT by Paul Guzman MLS. Mauricio Simpson MD LAB MICROBIOLOGY [facility] [address] [address] * CT OUTSIDE READ MSK/NON NEURO (12/30/2023 11:40 AM CDT) Anatomical Region Laterality Modality Computed Tomogra phy 12/30/2023 11:4 5 AM CDT Impressions 12/30/2023 12:06 PM CDT Impression: ?? 1. 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 Associated wrist joint effusion and large subchondral cysts/periarticular erosions around the wrist. Septic arthritis would be difficult to exclude in the correct clinical setting. 2. Subcutaneous edema along the dorsal aspect of the hand with no rim-enhancing abscess identified. 3. Extensor carpi ulnaris tenosynovitis. Reading Radiologist: Alejandro Ocampo 12/30/2023 12:06 PM CDT Indication: ??Patient transferred from [facility]. ??No initial report accompanied the patient and/or Dr. ??MAURICIO SIMPSON requested an interpretation by me. Technique: ??CT scan of the right wrist done on 12/28/23 with IV contrast. ??3 mm axial, sagittal and coronal reconstructions reviewed in soft tissue and bone windows, per the local institution's scanning protocols, which may differ from the [facility] protocols. Findings: ?? Bones and joints: Chondrocalcinosis is identified throughout the wrist and at the second through fourth MCP joints. Associated joint space narrowing throughout the wrist and at the second through fourth MCP joints with large subchondral cysts and periarticular erosions throughout the wrist and MCP joints. Associated wrist joint effusion. Evidence of a chronic scapholunate ligament tear with SLAC (scapholunate advanced collapse) wrist, there is proximal migration of the capitate with severe degenerative arthritis at the radioscaphoid joint. No acute fracture is identified. Remote healed fracture at the base of the first metacarpal bone. Soft tissues: Subcutaneous edema along the dorsal aspect of the hand. Extensor carpi ulnaris tenosynovitis. Procedure Note Alejandro Ocampo MD - 12/30/2023 Indication: Patient transferred from [facility]. No initialreport accompanied the patient and/or Dr. MAURICIO SIMPSON requested aninterpretation by me. Technique: CT scan of the right wrist done on 12/28/23 with IV contrast.3 mm axial, sagittal and coronal reconstructions reviewed in soft tissueand bone windows, per the local institution's scanning protocols, whichmay differ from the [facility] trauma protocols. Findings: Bones and joints: Chondrocalcinosis is identified throughout the wrist andat the second through fourth MCP joints. Associated joint space narrowingthroughout the wrist and at the second through fourth MCP joints withlarge subchondral cysts and periarticular erosions throughout the wristand MCP joints. Associated wrist joint effusion. Evidence of a chronicscapholunate ligament tear with SLAC (scapholunate advanced collapse)wrist, there is proximal migration of the capitate with severedegenerative arthritis at the radioscaphoid joint. No acute fracture is identified. Remote healed fracture at the base of thefirst metacarpal bone. Soft tissues: Subcutaneous edema along the dorsal aspect of the hand.Extensor carpi ulnaris tenosynovitis. IMPRESSION Impression: 1. Evidence of severe CPPD arthropathy throughout the hand and wrist withevidence of a chronic scapholunate ligament tear and SLAC (scapholunateadvanced collapse) wrist. Associated wrist joint effusion and largesubchondral cysts/periarticular erosions around the wrist. Septicarthritis would be difficult to exclude in the correct clinical setting. 2. Subcutaneous edema along the dorsal aspect of the hand with norim-enhancing abscess identified. 3. Extensor carpi ulnaris tenosynovitis. Reading Radiologist: Alejandro Ocampo Mauricio Simpson MD RAD CT BODY * VITAMIN H24-OGIBZB TO MMA (12/30/2023 10:01 AM CDT) B12 922 211 - 946 pg/mL [facility] Blood 12/30/2023 10:0 1 AM CDT 12/30/2023 10:28 AM CDT Dimas Resendiz MD LABORATORY [facility] [address] [address] * TSH WITH REFLEX TO FREE T4 (12/30/2023 10:01 AM CDT) TSH 1.33 0.27 - 4.20 mIU/L [facility] Blood 12/30/2023 10:0 1 AM CDT 12/30/2023 10:27 AM CDT Dimas Resendiz MD LABORATORY [facility] [address] [address] * HIV COMBO (12/30/2023 10:01 AM CDT) HIV Antigen-Antibody Nonreactive Nonreactive [facility] Comment:Performance characte ristics have not been established with this test on patients less than 2 years of age. Blood 12/30/2023 10:0 1 AM CDT 12/30/2023 10:27 AM CDT Dimas Resendiz MD LABORATORY Performing Organization Address [facility] de Phone Number [facility] [address] [address] * RETIC COUNT (12/30/2023 10:01 AM CDT) Retic Count 1.2 0.5 - 1.8 % [facility] Blood 12/30/2023 10:0 1 AM CDT 12/30/2023 10:27 AM CDT Dimas Resendiz MD LABORATORY Performing Organization Address [facility] Phone Number [facility] [address] [address] * (ABNORMAL) PANEL HEPATIC FUNCTION (12/30/2023 10:01 AM CDT) Only the most recent of2 resultswithin the time period is included. Total Protein 7.0 6.4 - 8.3 g/dL [facility] Albumin 3.2(L) 3.8 - 5.1 g/dL [facility] Bili Total 0.8 <=1.2 mg/dL [facility] Bili Direct 0.4(H) <=0.3 mg/dL [facility] Alk Phos 72 40 - 129 IU/L [facility] Comment:No reference range e stablished for patients <18 years old. ALT (SGPT) 8 <=41 IU/L [facility] AST(SGOT) 13 5 - 40 IU/L [facility] Blood 12/30/2023 10:0 1 AM CDT 12/30/2023 10:27 AM CDT Lori Billingsley MD LABORATORY Performing Organization Address [facility] Co de Phone Number [facility] [address] [address] * LD (LDH) (12/30/2023 1:21 AM CDT) LD 216 135 - 225 IU/L [facility] Blood 12/30/2023 1:21 AM CDT 12/30/2023 1:28 AM CDT Dimas Resendiz MD LABORATORY Performing Organization Address City/[facility] Co de Phone Number [address] [address] * POTASSIUM (12/30/2023 1:21 AM CDT) Pathologist [facility] [place] Potassium 4.3 3.5 - 5.3 mmol/L [facility] Blood 12/30/2023 1:21 AM CDT 12/30/2023 1:28 AM CDT Dimas Resendiz MD LABORATORY Performing Organization Address City/[facility] Co de Phone Number [address] [address] * (ABNORMAL) HAPTOGLOBIN (12/30/2023 1:21 AM CDT) Pathologist [facility] Haptoglobin 400(H) 32 - 197 mg/dL [facility] Blood 12/30/2023 1:21 AM CDT 12/30/2023 1:28 AM CDT Dimas Resendiz MD LABORATORY Performing Organization Address [facility] Co de Phone Number [address] [address] * ULT GALLBLADDER (12/29/2023 10:24 PM CDT) Anatomical Region Laterality Modality Abdomen Ultrasound 12/29/2023 10:2 7 PM CDT Impressions 12/30/2023 6:50 AM CDT Impression: Cholelithiasis without findings suggestive of acute cholecystitis. I have personally reviewed the image(s) and initial interpretation, and I agree with the findings as documented by the resident/fellow. Reading Radiologist: Moe Candelaria Reading Resident: Nacho Fisher Narrative 12/30/2023 6:50 AM CDT Indication: possible galstone on beside ?? Comparison: Same day CT abdomen. Findings: Gallbladder: ??5 mm cholelithiasis near the neck of the gallbladder. No wall thickening, hyperemia, or pericholecystic fluid. Sonographic Sena's sign is negative.The common duct measures 3.9 mm The visualized portions of the liver and pancreas are unremarkable. Procedure Note oMe Candelaria MD - 12/30/2023 Indication: possible galstone on beside Comparison: Same day CT abdomen. Findings: Gallbladder: 5 mm cholelithiasis near the neck of the gallbladder. Nowall thickening, hyperemia, or pericholecystic fluid. Sonographic Sena'ssign is negative.The common duct measures 3.9 mm The visualized portions of the liver and pancreas are unremarkable. IMPRESSION Impression: Cholelithiasis without findings suggestive of acutecholecystitis. I have personally reviewed the image(s) and initial interpretation, and Iagree with the findings as documented by the resident/fellow. Reading Radiologist: Moe Candelaria Reading Resident: Nacho Fisher Dafne Holcomb PA-C RAD ULT * URIC ACID (12/29/2023 10:24 PM CDT) Uric Acid 4.6 3.4 - 7.0 mg/dL [facility] Blood 12/29/2023 10:2 4 PM CDT 12/29/2023 10:34 PM CDT Dafne Holcomb PA-C LABORATORY [facility] [address] [address] * ED US ABDOMINAL/GALLBLADDER (12/29/2023 9:31 PM CDT) Anatomical Region Laterality Modality Ultrasound Narrative 12/30/2023 5:44 AM CDT ED Abdomen/Gallbladder Ultrasound Indications: Abdominal pain Window: Longitudinal and Transverse Findings: No anterior gallbladder wall thickening identified, No pericholecystic fluid identified, No CBD dilation identified, Negative sonographic Sena's sign, and Gallstones visualized Impression: Cholelithiasis without sonographic evidence of acute cholecystitis Luis Alberto Nathan MD, 12/30/2023 5:44 AM Dafne Soto Zhang FLORES RAD ED ULT * CT ABDOMEN/PELVIS W/IV CON (12/29/2023 8:59 PM CDT) Anatomical Region Laterality Modality Abdomen, Pelvis Computed Tomogra phy 12/29/2023 9:05 PM CDT Impressions 12/29/2023 9:16 PM CDT IMPRESSION: 1.No acute abnormality in the chest, abdomen or pelvis. 2.No pulmonary arterial embolism. Reading Radiologist: Xin Moy 12/29/2023 9:16 PM CDT Exam: CT of the chest, abdomen and pelvis. Comparison: No Indication: sepsis, rising bili, possible cholangitis ?? Technique: Volumetric helical acquisition of CT images from the lung apices through symphysis pubis after the administration of intravenous contrast. DOSE: ?Total DLP = 1064.6 mGy.cm (accession [id number]), 462 mGy.cm (accession [id number]). ?? Findings: FINDINGS: Beam hardening artifact limits evaluation of the pelvis. CHEST: LUNGS: No consolidation. No mass. No pleural effusion. No pneumothorax. MEDIASTINUM: No pulmonary arterial embolism. Mildly enlarged right heart. No pericardial effusion. No thoracic lymphadenopathy. ABDOMEN/PELVIS: LIVER: Normal. STOMACH: Decompressed which limits evaluation BILIARY: No biliary ductal dilation. Tiny gallstone. Otherwise normal gallbladder. PANCREAS: Normal. SPLEEN: Normal. ADRENAL GLANDS: Normal. : Bilateral kidney cysts as well as subcentimeter hypodensities too small to accurately characterize but statistically also likely representing cysts. No hydronephrosis. No stone. Non-thickened urinary bladder. BOWEL/PERITONEUM: Normal caliber of the small and large bowel. No pneumoperitoneum. No free fluid. Normal appendix. RETROPERITONEUM: Normal. VESSELS: No aneurysmal dilation of the aorta. Patent portal, splenic and superior mesenteric veins. LYMPH NODES: No lymphadenopathy. BONES/SOFT TISSUES: No acute osseous abnormality. Bilateral hip arthroplasties. Spiculated sclerotic focus in the right ilium consistent with a bone island. Procedure Note Xin Moy MD - 12/29/2023 Exam: CT of the chest, abdomen and pelvis. Comparison: No Indication: sepsis, rising bili, possible cholangitis Technique: Volumetric helical acquisition of CT images from the lungapices through symphysis pubis after the administration of intravenouscontrast. DOSE: Total DLP = 1064.6 mGy.cm (accession [id number]), 462 mGy.cm(accession [id number]). Findings: FINDINGS: Beam hardening artifact limits evaluation of the pelvis. CHEST: LUNGS: No consolidation. No mass. No pleural effusion. No pneumothorax. MEDIASTINUM: No pulmonary arterial embolism. Mildly enlarged right heart. No pericardial effusion. No thoracic lymphadenopathy. ABDOMEN/PELVIS: LIVER: Normal. STOMACH: Decompressed which limits evaluation BILIARY: No biliary ductal dilation. Tiny gallstone. Otherwise normal gallbladder. PANCREAS: Normal. SPLEEN: Normal. ADRENAL GLANDS: Normal. : Bilateral kidney cysts as well as subcentimeter hypodensities too small toaccurately characterize but statistically also likely representing cysts.No hydronephrosis. No stone. Non-thickened urinary bladder. BOWEL/PERITONEUM: Normal caliber of the small and large bowel. No pneumoperitoneum. No free fluid. Normal appendix. RETROPERITONEUM: Normal. VESSELS: No aneurysmal dilation of the aorta. Patent portal, splenic and superiormesenteric veins. LYMPH NODES: No lymphadenopathy. BONES/SOFT TISSUES: No acute osseous abnormality. Bilateral hip arthroplasties. Spiculated sclerotic focus in the right ilium consistent with a boneisland. IMPRESSION IMPRESSION: 1.No acute abnormality in the chest, abdomen or pelvis. 2.No pulmonary arterial embolism. Reading Radiologist: Xin Moy Dafne Holcomb PA-C RAD CT BODY * CT CHEST-PULMONARY ANGIO W/IV (12/29/2023 8:58 PM CDT) Anatomical Region Laterality Modality Chest Computed Tomogra phy 12/29/2023 9:05 PM CDT Impressions 12/29/2023 9:16 PM CDT IMPRESSION: 1.No acute abnormality in the chest, abdomen or pelvis. 2.No pulmonary arterial embolism. Reading Radiologist: Xin Moy 12/29/2023 9:16 PM CDT Exam: CT of the chest, abdomen and pelvis. Comparison: No Indication: sepsis, rising bili, possible cholangitis ?? Technique: Volumetric helical acquisition of CT images from the lung apices through symphysis pubis after the administration of intravenous contrast. DOSE: ?Total DLP = 1064.6 mGy.cm (accession [id number]), 462 mGy.cm (accession [id number]). ?? Findings: FINDINGS: Beam hardening artifact limits evaluation of the pelvis. CHEST: LUNGS: No consolidation. No mass. No pleural effusion. No pneumothorax. MEDIASTINUM: No pulmonary arterial embolism. Mildly enlarged right heart. No pericardial effusion. No thoracic lymphadenopathy. ABDOMEN/PELVIS: LIVER: Normal. STOMACH: Decompressed which limits evaluation BILIARY: No biliary ductal dilation. Tiny gallstone. Otherwise normal gallbladder. PANCREAS: Normal. SPLEEN: Normal. ADRENAL GLANDS: Normal. : Bilateral kidney cysts as well as subcentimeter hypodensities too small to accurately characterize but statistically also likely representing cysts. No hydronephrosis. No stone. Non-thickened urinary bladder. BOWEL/PERITONEUM: Normal caliber of the small and large bowel. No pneumoperitoneum. No free fluid. Normal appendix. RETROPERITONEUM: Normal. VESSELS: No aneurysmal dilation of the aorta. Patent portal, splenic and superior mesenteric veins. LYMPH NODES: No lymphadenopathy. BONES/SOFT TISSUES: No acute osseous abnormality. Bilateral hip arthroplasties. Spiculated sclerotic focus in the right ilium consistent with a bone island. Procedure Note Xin Moy MD - 12/29/2023 Exam: CT of the chest, abdomen and pelvis. Comparison: No Indication: sepsis, rising bili, possible cholangitis Technique: Volumetric helical acquisition of CT images from the lungapices through symphysis pubis after the administration of intravenouscontrast. DOSE: Total DLP = 1064.6 mGy.cm (accession [id number]), 462 mGy.cm(accession [id number]). Findings: FINDINGS: Beam hardening artifact limits evaluation of the pelvis. CHEST: LUNGS: No consolidation. No mass. No pleural effusion. No pneumothorax. MEDIASTINUM: No pulmonary arterial embolism. Mildly enlarged right heart. No pericardial effusion. No thoracic lymphadenopathy. ABDOMEN/PELVIS: LIVER: Normal. STOMACH: Decompressed which limits evaluation BILIARY: No biliary ductal dilation. Tiny gallstone. Otherwise normal gallbladder. PANCREAS: Normal. SPLEEN: Normal. ADRENAL GLANDS: Normal. : Bilateral kidney cysts as well as subcentimeter hypodensities too small toaccurately characterize but statistically also likely representing cysts.No hydronephrosis. No stone. Non-thickened urinary bladder. BOWEL/PERITONEUM: Normal caliber of the small and large bowel. No pneumoperitoneum. No free fluid. Normal appendix. RETROPERITONEUM: Normal. VESSELS: No aneurysmal dilation of the aorta. Patent portal, splenic and superiormesenteric veins. LYMPH NODES: No lymphadenopathy. BONES/SOFT TISSUES: No acute osseous abnormality. Bilateral hip arthroplasties. Spiculated sclerotic focus in the right ilium consistent with a boneisland. IMPRESSION IMPRESSION: 1.No acute abnormality in the chest, abdomen or pelvis. 2.No pulmonary arterial embolism. Reading Radiologist: Xin Moy Dafne Holcomb PA-C RAD CT BODY * TROP 6H (12/29/2023 7:01 PM CDT) 6H Trop 20 <=35 ng/L [facility] 6H Delta Not Significant Not Significant [facility] Blood 12/29/2023 7:01 PM CDT 12/29/2023 7:49 PM CDT Lori Billingsley MD LABORATORY [facility] [address] [address] * (ABNORMAL) ED CHEMISTRY LABS(NA,K,CL,CO2,GLU,CREAT,CA-IONIZED,ANION GAP) (12/29/2023 7:01 PM CDT) Only the most recent of2 resultswithin the time period is included. Pathologist [facility] [place] Sodium 140 135 - 148 mmol/L [facility] Chloride 101 92 - 108 mmol/L [facility] AnGap 11 8 - 16 mmol/L [facility] Glucose 126(H) 70 - 100 mg/dL [facility] ICA, Actual 4.47 4.40 - 5.20 mg/dL [facility] ICA, pH Corrected 4.52 4.40 - 5.20 mg/dL [facility] Creatinine 1.05 0.70 - 1.25 mg/dL [facility] BICARB 28(H) 22 - 26 mEq/L [facility] eGFR (2020 CKD-EPI) 75 >=60 ml/min/1.7 3m2 [facility] Comment: The estimated glomerular filtration rate (eGFR) was calculated using the CKD-EPI 2020 creatinine equation, which does not include race as a factor. This equation is validated in individuals 18 years of age and older, and eGFR is normalized to a body surface area of 1.73m^2. Potassium 3.2(L) 3.5 - 5.3 mmol/L [facility] Blood 12/29/2023 7:01 PM CDT 12/29/2023 7:25 PM CDT Dafne Holcomb PA-C LABORATORY [address] [address] * LACTATE (LACTIC ACID) (12/29/2023 7:01 PM CDT) Only the most recent of3 resultswithin the time period is included. Lactate 1.0 0.7 - 2.1 mmol/L [facility] Blood 12/29/2023 7:01 PM CDT 12/29/2023 7:25 PM CDT Narrative [facility] - 12/29/2023 7:26 PM CDT Send specimen on ice! Dafne Holcomb PA-C LABORATORY [address] [address] * CK, TOTAL (12/29/2023 7:01 PM CDT) CK 95 39 - 308 IU/L [facility] Blood 12/29/2023 7:01 PM CDT 12/29/2023 10:12 PM CDT Dafne Holcomb PA-C LABORATORY Performing Organization Address [facility] Co de Phone Number [address] [address] * BLOOD AEROBIC/ANAEROBIC CULTURE (12/29/2023 7:01 PM CDT) Only the most recent of2 resultswithin the time period is included. Final Report No growth after 5 days. [facility] Blood (Peripheral) 12/29/2023 7:01 PM CDT 12/30/2023 1:44 AM CDT Dafne Holcomb PA-C LAB MICROBIOLOGY Performing Organization Address [facility] de Phone Number [address] [address] * (ABNORMAL) ED POTASSIUM (12/29/2023 5:35 PM CDT) Potassium 3.3(L) 3.5 - 5.3 mmol/L [facility] Blood 12/29/2023 5:35 PM CDT 12/29/2023 5:47 PM CDT Rey Brady MD LABORATORY Performing Organization Address [facility] Co de Phone Number [address] [address] * ED US CARDIAC (12/29/2023 4:51 PM CDT) Anatomical Region Laterality Modality Ultrasound Narrative 12/29/2023 8:21 PM CDT ED Cardiac Ultrasound Body Areas Imaged: Heart, Chest Wall/Lungs, and Inferior Vena Cava Indications:Tachycardia Window: Subxiphoid, Parasternal Short Climax, Parasternal Long Climax, Apical 4-Chamber, IVC, and Bilateral Lungs Findings: The left ventricular ejection fraction appears: Grossly preserved No pericardial effusion identified. RV Dilation present/absent: No significant right ventricular dilation appreciated Lung sliding present bilaterally, No pleural effusion, A-line predominance The IVC diameter appears Plethoric with less than 50% variation with respiration Impression: The left ventricular ejection fraction appears: Grossly preserved No pericardial effusion identified. RV Dilation present/absent: No significant right ventricular dilation appreciated A-Line predominance consistent with normal lung aeration Findings suggest euvolemia Dafne Holcomb PA-C, 12/29/2023 8:20 PM ED Attending Ultrasound Note: I have personally reviewed the image(s) and initial interpretation, and I agree with the findings as documented. Rey Brady MD, 12/29/2023 8:21 PM Dafne Holcomb PA-C RAD ED ULT * PROCALCITONIN (12/29/2023 4:28 PM CDT) Procalcitonin 0.62 ng/mL [facility] Comment: Results <0.50 ng/mL represent a low risk of severe sepsis and/or septic shock. Results >2.0 ng/mL represent a high risk of severe sepsis and/or septic shock. Blood 12/29/2023 4:28 PM CDT 12/29/2023 5:08 PM CDT Dafne Holcomb PA-C LABORATORY [facility] [address] [address] * TROP 4H (12/29/2023 4:28 PM CDT) 4H Trop 19 <=35 ng/L [facility] 4H Delta Not Significant Not Significant [facility] Blood 12/29/2023 4:28 PM CDT 12/29/2023 5:08 PM CDT Lori Billingsley MD LABORATORY [facility] [address] [address] * TROP 2H (12/29/2023 2:32 PM CDT) 2H Trop 21 <=35 ng/L [facility] 2H Delta Not Significant Not Significant [facility] Blood 12/29/2023 2:32 PM CDT 12/29/2023 2:40 PM CDT Lori Billingsley MD LABORATORY Performing Organization Address [facility] Co de Phone Number [facility] [address] [address] * (ABNORMAL) URINE DRUG SCREEN (12/29/2023 1:40 PM CDT) Acetaminophen Ur POS(A) <=10 mcg/mL [facility] Amphetamine Ur NEG <=500 ng/mL [facility] Barbiturate Ur NEG <=200 ng/mL [facility] Benzodiazipine NEG <=100 ng/mL [facility] Buprenorphine Ur NEG <=5 ng/mL [facility] Cocaine Metab Ur NEG <=300 ng/mL [facility] Fentanyl, Urine NEG <=4 ng/mL [facility] LSD Ur NEG <=500 pg/mL [facility] Methadone Ur NEG <=300 ng/mL [facility] Opiate Ur NEG <=300 ng/mL [facility] Oxycodone Ur NEG <=100 ng/mL [facility] PCP Urine NEG <=25 ng/mL [facility] Propox Ur NEG <=300 ng/mL [facility] Salicylate Ur NEG <=10 mg/dL [facility] Creat Urine 89 >=20 mg/dL [facility] Mass Spectrometry Urine Acetaminophen , Diphenhydrami ne, Sertraline and Sertraline metabolite present. [facility] Urine 12/29/2023 1:40 PM CDT 12/31/2023 1:51 AM CDT Dimas Resendiz MD LABORATORY Performing Organization Address City/[facility]/ZIP Co de Phone Number [facility] [address] [address] * URINE CULTURE (12/29/2023 1:40 PM CDT) Urine Cult No growth. [facility] Urine Cath URINE / Unknown 12/29/2023 1 :40 PM CDT 12/29/2023 2:40 PM CDT Narrative [facility] - 12/30/2023 12:27 PM CDT ED Patient: Yes Lori Billingsley MD LAB MICROBIOLOGY Performing Organization Address [facility] Co de Phone Number [facility] [address] [address] * (ABNORMAL) URINALYSIS,TOTAL (12/29/2023 1:40 PM CDT) Pathologist [facility] Color YELLOW YELLOW [facility] Appearance CLEAR CLEAR [facility] Urine Glucose NEGATIVE NEGATIVE mg/dL [facility] Bili UA NEGATIVE NEGATIVE [facility] Ketones NEGATIVE NEGATIVE [facility] Specific [place] 1.039(A) 1.003 - 1.030 [facility] Blood Ur SMALL(A) Neg-Trace [facility] PH Urine 6.0 5.0 - 7.0 [facility] Protein Ur 70(A) Neg-Trace [facility] Urobilinogen NORMAL NORMAL EU/dL [facility] Nitrite Ur NEGATIVE NEGATIVE [facility] Leuk Est NEGATIVE Neg-Trace [facility] WBC Ur 0-5 0 - 5 perHPF [facility] RBC Ur 0-3 0 - 3 perHPF [facility] Urinalysis Performed at: [facility] Urine 12/29/2023 1:40 PM CDT 12/29/2023 1:45 PM CDT Lori Billingsley MD LABORATORY Performing Organization Address City/[facility]/ZIP Co de Phone Number [facility] [address] [address] * HS TROPONIN (12/29/2023 1:15 PM CDT) Pathologist [facility] HS Troponin I 23 <=35 ng/L [facility] Blood 12/29/2023 1:15 PM CDT 12/29/2023 1:24 PM CDT Narrative [facility] - 12/29/2023 1:52 PM CDT If ordering as an add-on lab, you must call the lab. Lori Billingsley MD LABORATORY Performing Organization Address [facility] Co de Phone Number [facility] [address] [address] * BUN (UREA NITROGEN) (12/29/2023 1:15 PM CDT) BUN 17 8 - 23 mg/dL [facility] Blood 12/29/2023 1:15 PM CDT 12/29/2023 1:24 PM CDT Lori Billingsley MD LABORATORY Performing Organization Address [facility] Co de Phone Number [facility] [address] [address] * (ABNORMAL) SED RATE (ESR) (12/29/2023 1:15 PM CDT) Pathologist [facility] Sed Rate 120(H) 2 - 10 mm/hr [facility] Blood 12/29/2023 1:15 PM CDT 12/29/2023 2:04 PM CDT Lori Billingsley MD LABORATORY Performing Organization Address [facility] Co de Phone Number [facility] [address] [address] * RPR SYPHILIS SCREEN (12/29/2023 1:15 PM CDT) RPR Screen Non-Reactive Non-Reacti ve [facility] RPR Titer Not Reflexed [facility] Blood 12/29/2023 1:15 PM CDT 12/29/2023 1:24 PM CDT Lori Billingsley MD LABORATORY Performing Organization Address [facility] Co de Phone Number [facility] [address] [address] * (ABNORMAL) AMMONIA (12/29/2023 1:15 PM CDT) Ammonia 13(L) 16 - 60 mcmol/L [facility] Blood 12/29/2023 1:15 PM CDT 12/29/2023 1:25 PM CDT Narrative [facility] - 12/29/2023 1:50 PM CDT Send specimen on ice! Lori Billingsley MD LABORATORY Performing Organization Address [facility] Co de Phone Number [address] [address] * LIPASE (12/29/2023 1:15 PM CDT) Pathologist [facility] Lipase 30 13 - 60 IU/L [facility] Blood 12/29/2023 1:15 PM CDT 12/29/2023 1:24 PM CDT Lori Billingsley MD LABORATORY Performing Organization Address [facility] Co de Phone Number [address] [address] * (ABNORMAL) BLOOD GASES (12/29/2023 1:15 PM CDT) Pathologist [facility] PH Greg 7.46(H) 7.32 - 7.42 [facility] PCO2 Greg 40(L) 41 - 51 mmHG [facility] PO2 Greg 39 25 - 40 mmHG [facility] Bicarb Greg 28 24 - 28 mEq/L [facility] O2 Sat Greg 73 % [facility] Base Exc Greg 3.4(H) -10.0 - 2.0 mmol/L [facility] Blood Venous 12/29/2023 1:15 PM CDT 12/29/2023 1:21 PM CDT Lori Billingsley MD LABORATORY Performing Organization Address [facility] Co de Phone Number [address] [address] * (ABNORMAL) C-REACTIVE PROTEIN (12/29/2023 1:15 PM CDT) Pathologist [facility] C-Reactive Protein 229(H) <=4 mg/L [facility] Blood 12/29/2023 1:15 PM CDT 12/29/2023 2:04 PM CDT Lori Billingsley MD LABORATORY Performing Organization Address [facility] Co de Phone Number [facility] [address] [place] [phone] * ED EKG (12-LEAD) (12/29/2023 12:43 PM CDT) 12/29/2023 12:4 3 PM CDT Impressions [facility] EKG ORDERS - 12/29/2023 12:43 PM CDT ATRIAL FIBRILLATION INCOMPLETE RIGHT BUNDLE BRANCH BLOCK ??[90+ ms QRS DURATION, TERMINAL R IN V1/V2, 40+ ms S IN I/aVL/V4/V5/V6] MODERATE ST DEPRESSION ??[0.05+ mV ST DEPRESSION] ABNORMAL ECG P-R Interval 0 ms QRS Interval 98 ms QT Interval 374 ms QTC Interval 428 ms P Climax undef QRS Climax 22 T Wave Climax 40 Narrative Procedure Note Jose C Quintero MD - 12/29/2023 IMPRESSION ATRIAL FIBRILLATION INCOMPLETE RIGHT BUNDLE BRANCH BLOCK [90+ ms QRS DURATION, TERMINAL R INV1/V2, 40+ ms S IN I/aVL/V4/V5/V6] MODERATE ST DEPRESSION [0.05+ mV ST DEPRESSION] ABNORMAL ECG P-R Interval 0 ms QRS Interval 98 ms QT Interval 374 ms QTC Interval 428 ms P Climax undef QRS Climax 22 T Wave Climax 40 Lori Billingsley MD EKG Performing Organization Address [facility] Co de Phone Number [facility] EKG ORDERS * EXTRA TUBE - DARK GREEN (12/29/2023 12:15 PM CDT) DARK GREEN TUBE Stored [facility] Comment:Dark Green tubes (Li thium Heparin) are stored in the lab for 1 day from the collection date. Blood 12/29/2023 12:1 5 PM CDT 12/29/2023 1:23 PM CDT Lori Billingsley MD LABORATORY [facility] [address] [address] * EXTRA TUBE - LIGHT GREEN (12/29/2023 12:15 PM CDT) LIGHT GREEN TUBE Stored [facility] Comment:Green tubes ([place] Heparin) are stored in the lab for 3 days from the collection date. Blood 12/29/2023 12:1 5 PM CDT 12/29/2023 1:23 PM CDT Lori Billingsley MD LABORATORY Performing Organization Address City/[facility]/ZIP Co de Phone Number [facility] [address] [address] * (ABNORMAL) CBC WITH PLTS/AUTO DIFF (12/29/2023 12:15 PM CDT) Pathologist [facility] WBC 8.86 4.00 - 10.00 k/cmm [facility] RBC 3.70(L) 4.60 - 6.00 m/cmm [facility] Hgb 10.6(L) 13.1 - 17.5 g/dL [facility] Hematocrit 33.0(L) 40.0 - 51.0 % [facility] MCV 89.2 80.0 - 100.0 fL [facility] MCH 28.6 25.0 - 32.0 pg [facility] MCHC 32.1 31.0 - 36.0 g/dL [facility] RDW 14.7(H) 11.5 - 14.5 % [facility] Plt 216 150 - 400 k/cmm [facility] MPV 11.0 6.5 - 12.5 fL [facility] Automated Abs Neutrophil 7.46(H) 1.70 - 6.50 k/cmm [facility] Comment:Preliminary ANC, Fin al Result to Follow Abs Immature Granulocyte 0.03 0.00 - 0.09 k/cmm [facility] Comment:The Immature Granulo cyte Absolute count contains metamyelocytes and myelocytes. Abs Neutrophil 7.46(H) 1.70 - 6.50 k/cmm [facility] Abs Lymphocyte 0.75(L) 0.80 - 4.00 k/cmm [facility] Abs Monocyte 0.58 0.20 - 1.00 k/cmm [facility] Abs Eosinophil 0.02 0.00 - 0.60 k/cmm [facility] Abs Basophil 0.02 0.00 - 0.20 k/cmm [facility] Blood 12/29/2023 12:1 5 PM CDT 12/29/2023 1:44 PM CDT Lori Billingsley MD LABORATORY [facility] [address] [address] * (ABNORMAL) PROTHROMBIN (PT) & INR (12/29/2023 12:15 PM CDT) PT 15.6(H) 9.0 - 12.5 sec [facility] INR 1.4(H) 0.8 - 1.1 [facility] Comment: Warfarin Therapeutic Range: Standard Intensity: 2.0 - 3.0 High Intensity: 2.5 - 3.5 Blood 12/29/2023 12:1 5 PM CDT 12/29/2023 1:44 PM CDT Lori Billingsley MD LABORATORY Performing Organization Address City/[facility] Co de Phone Number [facility] [address] [address] * XR CHEST OUTSIDE FILMS (12/28/2023 9:26 PM CDT) Narrative User, [id number] - 12/30/2023 6:28 AM CDT Outside Film Only Outside Provider RAD OUTSIDE FILMS * XR UPPER EXTREMITY OUTSIDE FILMS (12/28/2023 8:29 PM CDT) Only the most recent of2 resultswithin the time period is included. Narrative User, [id number] - 12/30/2023 6:28 AM CDT Outside Film Only Outside Provider RAD OUTSIDE FILMS * CT SPINE OUTSIDE FILMS (12/28/2023 8:05 PM CDT) Indu MalloryScheduler - 12/30/2023 6:30 AM CDT Outside Film Only Outside Provider RAD OUTSIDE FILMS * CT HEAD OUTSIDE FILMS (12/28/2023 8:05 PM CDT) Narrative Indu [id number] - 12/30/2023 6:30 AM CDT Outside Film Only Outside Provider RAD OUTSIDE FILMS from Last 3 Months or Most Recently Relevant to Health Maintenance Advance Directives For more information, please contact: [phone] Documents on File Type Date Recorded Patient Caul Fat Puller Expl anation Advanced Directives 07/27/2022 ADVANCE DIRECTIVE * Full Code (Latest Code Status on File) Date Activated Date Inactivated Comments 01/05/2024 4:11 PM Question Answer Comments Does the Patient have prefer ences regarding life sustaining measures (these options only apply when the patient has a pulse): No Discussed Code Status With Whom? Not discussed * Full Code Date Activated Date Inactivated Comments 12/29/2023 11:00 PM 01/05/2024 4:11 PM Question Answer Comments Does the Patient have prefer ences regarding life sustaining measures (these options only apply when the patient has a pulse): No Discussed Code Status With Whom? Not discussed * Full Code Date Activated Date Inactivated Comments 04/16/2023 8:25 AM 12/29/2023 11:55 AM Question Answer Comments Does the Patient have prefer ences regarding life sustaining measures (these options only apply when the patient has a pulse): No Discussed Code Status With Whom? Patient Health Care Directive and/or Previous Code/End of Life Pref Reviewed? No * Full Code Date Activated Date Inactivated Comments 04/07/2023 5:01 PM 04/16/2023 8:25 AM Question Answer Comments Does the Patient have prefer ences regarding life sustaining measures (these options only apply when the patient has a pulse): No Discussed Code Status With Whom? Not discussed Care Teams Coal Grader Relationship Specialty Start Date End Date Martine Argueta MD [address] [place] [address] PCP - General Internal Medicine 04/08/23
--- OUTSIDE RECORDS SUMMARY | 2024-01-27 14:40 | XMS_ITS | Referral Summary ---
Author Organization [facility] Address [address] [place] [address] Phone Care Team Providers Care Log Getter Name Role Phone Martine Argueta MD Primary Care Provider Source Comments Kapture is fully rolled out on [employer]. Last update 12/17/08.[facility] Encounters Date Type Department Care Team Description 12/29/2023 11:55 AM CDT - 01/06/2024 10:57 AM CDT Hospital Encounter [facility] Medicine [address] [place] [address] Lori Billingsley MD Wieland, MD Joshua Potter, MD León Crystal Rosemary, MD Becker, MD Sandeep Farias, Mitra Dumont MD Altered mental status, unspecified altered mental status type Discharge Disposition: Discharged/transd to SNF with Medicare certification 01/02/2024 [facility] [place] [phone] Luis Alberto Sin, 12/30/2023 Orders Only [facility] Film Room [facility] Radiology Department SUSHILA [address] [place], [place] [address] Provider, Outside Referral of patient (Primary Dx) 12/29/2023 Documentation Only Unspecified Department [place] Unknown, Provider 12/29/2023 Documentation Only Unspecified Department [place] Unknown, Provider 12/29/2023 Documentation Only Unspecified Department [place] Unknown, Provider 12/29/2023 Documentation Only Unspecified Department [place] Unknown, Provider 12/29/2023 Documentation Only Unspecified Department [place] Unknown, Provider 12/29/2023 Documentation Only Unspecified Department [place] Unknown, Provider 12/29/2023 Orders Only [facility] [place] [phone] Dru Bui MD Wrist pain, right (Primary Dx) 12/29/2023 Travel 11/22/2023 [facility] [address] [place] [phone] Christi Walker CMA Form - Other (orders) 11/20/2023 Telephone [facility] [place] [facility] [address] [place] [address] [phone] Pepper Quiroga PA-C Form - Other 11/11/2023 Documentation Only Unspecified Department [place] Unknown, Provider 11/11/2023 Documentation Only Unspecified Department [place] Unknown, Provider 11/11/2023 Documentation Only [facility] [address] [place] [address] [phone] Pepper Quiroga PA-C Form - Other (Darlene ) 11/04/2023 Documentation Only [facility] [address] [place] [address] [phone] Pepper Quiroga, MARK from Last 3 Months Allergies Active Allergy Reactions Criticality Noted Date [...] chronic heart failure with preserved ejection fraction ([facility]) Take 3 tablets (30 mg) by mouth twice daily. 3 12/29/19 24 Discontinued(Alt ernate therapy) diphenhydramine ([facility] ANTI-ITCH MAX [...] mg) by mouth twice daily. 4 01/06/20 24 Discontinued Active Problems Problem Noted Date Diagnosed Date E coli enteritis 01/01/2024 Type 2 diabetes mellitus wit h diabetic nephropathy, without long-term current use of insulin ([facility]) 01/01/2024 Anemia in chronic kidney disease 12/29/2023 Asthma ([facility]) 12/29/2023 Altered mental status, unspe cified altered mental status type 12/29/2023 Hypokalemia 04/19/2023 Overview: Last Assessment & Plan: Continue with potassium 40 mEq in the morning and 20 in the afternoon. Chem 8 has been drawn this morning Closed nondisplaced fracture of second cervical vertebra, unspecified fracture morphology, initial encounter ([facility]) 04/06/2023 Severe tricuspid valve regurgitation 11/24/2021 Hypomagnesemia 07/21/2019 Overview: Low serum magnesium Last Assessment & Plan: Magnesium level pending Chronic gout 02/25/2019 Other pulmonary embolism wit hout acute cor pulmonale ([facility]) 02/25/2019 Chronic kidney disease, stage 2 (mild) 9 Overview: Last Assessment & Plan: Avoid nephrotoxic medications. Will be following creatinine Gastrointestinal hemorrhage with melena 12/07/19 18 Acute on chronic diastolic c ongestive heart failure ([facility]) 09/04/2017 Overview: Acute on chronic heart failure [...] 2 diabetes mellitus wit h diabetic nephropathy ([facility]) 05/06/2017 Overview: Overview: Secondary DM Chronic Renal Disease Stage 2 GFR 60-89 Secondary DM Chronic Renal Disease Stage 2 GFR 60-89 Overview: Secondary DM Chronic Renal Disease Stage 2 GFR 60-89 Last Assessment & Plan: Lab Results Component Value Date HGBA1C 6.3 07/20/2018 Hemoglobin A1c is ordered for today Carotid artery disease ([facility]) 02/20/2016 Postsurgical aortocoronary bypass status 016 Atrial flutter ([facility]) 12/11/2015 Obstructive sleep apnea (adult) (pediatric) 11/13 Overview: Last Assessment & Plan: Continue with home CPAP settings Atherosclerotic heart diseas e of [place] coronary artery without angina pectoris 12/02/2015 Personal history of transien t ischemic attack (TIA), and cerebral infarction without residual deficits 07/20/2015 Overview: Overview: Stroke (CVA) Pers Hx Stroke (CVA) Pers Hx Chronic obstructive pulmonar y disease, unspecified ([facility]) 01/25/2015 Overview: Overview: Disease Lung Obstructive Chronic (COPD) Mild [place] Mild Disease Lung Obstructive Chronic (COPD) Mild [place] Mild Last Assessment & Plan: Started on Anoro Ellipta. Patient did require oxygen while in the hospital. Continue to monitor vital signs and sats per [facility] notify if changes occur Paroxysmal atrial fibrillation ([facility]) 012 Overview: Fibrillation Atrial Paroxysmal (PAF) Last Assessment & Plan: Patient started on metoprolol tartrate 100 mg b.i.d.. Blood pressure and pulses are stable Patent foramen ovale ([facility]) 10/05/2005 Hyperlipidemia 07/06/2003 Immunizations Name Administration Dates Next Due COVID-19 MRNA Vaccine ([employer]/COMIRNATY) suspension 01/23/2022,05/30/2021,10/11/2020,2020 COVID-19 Vaccine Monovalent ([employer]) 12 Years and Older 01/23/2022 Diphtheria and [...] 12/29/2023 11:26 PM CDT Plan of Treatment Not on file Medical Devices Implanted Type Area Data Processing Equipment Repairer Device Identifier Shelf Expiration Date Model / Serial / Lot Infuse Bmp Small Kit [id number] Implanted:Qty: 1 on 04/09/2023 by Dallas Fontana MD at [facility] Bone Graft N/A: Cervical Posterior 12/13/2024 [id number] / / [id number] Lateral/Closed [id number] Implanted:Qty: 2 on 04/09/2023 by Alfonzo Wong MD at [facility] Connector N/A: Cervical Posterior [employer] [id number] / / 40mm [id number] Implanted:Qty: 2 on 04/09/2023 by Alfonzo Wong MD at [facility] Doug N/A: Cervical Posterior [employer] [id number] / / 16mm [id number] Implanted:Qty: 2 on 04/09/2023 by Alfonzo Wong MD at [facility] Screw/[place] N/A: Cervical Posterior [employer] [id number] / / Set Screw [id number] Implanted:Qty: 6 on 04/09/2023 by Alfonzo Wong MD at [facility] Screw/[place] N/A: Cervical Posterior [employer] SOFAMOR DANEK [id number] / / Mastergraft Putty Implanted:Qty: 2 on 04/09/2023 by Alfonzo Wong MD at [facility] N/A: Cervical Posterior [employer] 02/11/2026 [id number] / / [id number] Partially Threaded Multi Axial Screw Implanted:Qty: 2 on 04/09/2023 by Alfonzo Wong MD at [facility] N/A: Cervical Posterior [employer] 01/16/2031 [id number] / / [id number] 4.5 X 30 Screw Implanted:Qty: 2 on 04/09/2023 by Alfonzo Wong MD at [facility] N/A: Cervical Posterior [employer] [id number] / / Procedures Procedure Name Priority Date/Time [...] Routine 12/29/2023 8:58 PM CDT PC CULTURE,BACTERIAL,DEFI ALUTIIQ,AEROBIC;BLOOD STAT 12/29/2023 7:01 PM CDT PC CULTURE,BACTERIAL,DEFI ALUTIIQ,AEROBIC;BLOOD STAT 12/29/2023 7:01 PM CDT CK, TOTAL [...] PM CDT XR CHEST OUTSIDE FILMS Routine 4 9:26 PM CDT Referral of patient XR [...] HGB - A1C Routine 9 4:56 PM WIND [employer]UR[employer] PERFORMANCE ENGINEER PANEL LIPID Routine 03/05/2018 9:02 AM CDT IFOB (FECAL OCCULT BLOOD IMMUNOASSAY) Routine 12/06/2017 11:33 AM CDT from Last 3 Months or Most Recently Relevant to Health Maintenance Results * (ABNORMAL) PANEL BASIC METABOLIC (BMP) (01/06/2024 8:52 AM CDT) Only the most recent of8 resultswithin the time period is included. Sodium 136 135 - 148 mmol/L [facility] Potassium 3.5 3.5 - 5.3 mmol/L [facility] Chloride 96 92 - 108 mmol/L [facility] CO2 26 22 - 30 mmol/L [facility] AnGap 14 8 - 16 mmol/L [facility] Glucose 98 70 - 100 mg/dL [facility] BUN 29(H) 8 - 23 mg/dL [facility] Creatinine 1.38(H) 0.70 - 1.25 mg/dL [facility] Calcium 9.2 8.8 - 10.2 mg/dL [facility] eGFR (2020 CKD-EPI) 54(L) >=60 ml/min/1.7 3m2 [facility] Comment: The estimated glomerular filtration rate (eGFR) was calculated using the CKD-EPI 2020 creatinine equation, which does not include race as a factor. This equation is validated in individuals 18 years of age and older, and eGFR is normalized to a body surface area of 1.73m^2. Blood 01/06/2024 8:52 AM CDT 01/06/2024 9:17 AM CDT Mauricio Simpson MD LABORATORY [facility] [address] [address] * ADVANCE DIRECTIVES (01/04/2024 9:55 AM CDT) Him Provider ADVANCED DIRECTIVES * LEGAL (01/04/2024 8:59 AM CDT) Narrative 01/04/2024 8:59 AM CDT Ordered by an unspecified provider. Provider Unknown SCANNED CONSENTS * PHOSPHORUS (01/04/2024 4:00 AM CDT) Only the most recent of6 resultswithin the time period is included. Phosphorus 3.0 2.5 - 4.5 mg/dL [facility] Blood 01/04/2024 4:00 AM CDT 01/04/2024 4:14 AM CDT Mauricio Simpson MD LABORATORY Performing Organization Address City/[facility] Co de Phone Number [facility] [address] [address] * MAGNESIUM (01/04/2024 4:00 AM CDT) Only the most recent of7 resultswithin the time period is included. Magnesium 1.7 1.6 - 2.4 mg/dL [facility] Blood 01/04/2024 4:00 AM CDT 01/04/2024 4:14 AM CDT Mauricio Simpson MD LABORATORY Performing Organization Address [facility] de Phone Number [facility] [address] [address] * (ABNORMAL) CBC WITH PLATELET (01/02/2024 6:01 AM CDT) Only the most recent of4 resultswithin the time period is included. WBC 7.22 4.00 - 10.00 k/cmm [facility] RBC 3.68(L) 4.60 - 6.00 m/cmm [facility] Hgb 10.5(L) 13.1 - 17.5 g/dL [facility] Hematocrit 33.0(L) 40.0 - 51.0 % [facility] MCV 89.7 80.0 - 100.0 fL [facility] MCH 28.5 25.0 - 32.0 pg [facility] MCHC 31.8 31.0 - 36.0 g/dL [facility] RDW 14.8(H) 11.5 - 14.5 % [facility] Plt 299 150 - 400 k/cmm [facility] MPV 10.3 6.5 - 12.5 fL [facility] Blood 01/02/2024 6:01 AM CDT 01/02/2024 6:11 AM CDT Mauricio Simpson MD LABORATORY [facility] [address] [place] [phone] * ULT VENOUS UPPER EXTREMITY RIGHT (12/30/2023 [...] Radiologist: Matias Lenz Reading Resident: Gaston Contreras Narrative 12/30/2023 9:16 PM CDT Indication: right wrist [...] CDT) Campylobacter DNA Not Detected Not Detected [facility] Plesiomonas shigelloides DNA Not Detected Not Detected [facility] Salmonella DNA Not Detected Not Detected [facility] Vibrio DNA Not Detected Not Detected [facility] Vibrio cholerae DNA Not Detected Not Detected [facility] Yersinia enterocolitica DNA Not Detected Not Detected [facility] Enteroaggregative Escherichia coli DNA Not Detected Not Detected [facility] Enteropathogenic Escherichia coli DNA Detected(A) Not Detected [facility] Enterotoxogenic Escherichia coli DNA Not Detected Not Detected [facility] Shiga-like toxin-producing E. coli stx1/stx2 DNA Not Detected Not Detected [facility] Escherichia coli 0157 DNA Not Reported Not Detected [facility] Shigella/Enteroinvas patricia E coli DNA Not Detected Not Detected [facility] Cryptosporidium DNA Not Detected Not Detected [facility] Cyclospora cayetanensis DNA Not Detected Not Detected [facility] Entamoeba histolytica DNA Not Detected Not Detected [facility] Giardia duodenalis DNA Not Detected Not Detected [facility] Adenovirus F 40/41 DNA Not Detected Not Detected [facility] Astrovirus RNA Not Detected Not Detected [facility] Norovirus GI/GII RNA Not Detected Not Detected [facility] Rotavirus RNA Not Detected Not Detected [facility] Sapovirus (I, II, IV, V) RNA Not Detected Not Detected [facility] Comment:This is a multiplex reverse transcriptase two-stage PCR nucleic acid assay. This gastrointestinal panel is FDA approved. Feces 12/30/2023 12:3 5 PM CDT 12/30/2023 1:48 PM CDT Narrative [facility] - 12/30/2023 3:37 PM CDT Critical value for Stool GI panel electronically reported to and acknowledged by Kerri Evans MD in [address] at 12/30/2023 15:37:34 CDT by Paul Guzman MLS. Mauricio Simpson MD LAB MICROBIOLOGY [facility] [address] [place] [address] * CT OUTSIDE READ MSK/NON NEURO (12/30/2023 [...] 12:06 PM CDT Indication: ??Patient transferred from [facility]. ??No initial report accompanied the patient and/or Dr. ??MAURICIO SIMPSON requested an interpretation by me. Technique: ??CT scan of the right wrist done on 12/28/23 with IV contrast. ??3 mm axial, sagittal and coronal reconstructions reviewed in soft tissue and bone windows, per the local institution's scanning protocols, which may differ from the [facility] trauma protocols. Findings: ?? Bones and joints: [...] MD - 12/30/2023 Indication: Patient transferred from [facility]. No initialreport accompanied the patient and/or . MAURICIO SIMPSON requested aninterpretation by me. Technique: CT scan of the right wrist done on 12/28/23 with IV contrast.3 mm axial, sagittal and coronal reconstructions reviewed in soft tissueand bone windows, per the local institution's scanning protocols, whichmay differ from the [facility] trauma protocols. Findings: Bones and joints: Chondrocalcinosis [...] Simpson MD RAD CT BODY * VITAMIN L47-MPSLAY TO MMA (12/30/2023 10:01 AM CDT) B12 922 211 - 946 pg/mL [facility] Blood 12/30/2023 10:0 1 AM CDT 12/30/2023 10:28 AM CDT Dimas Resendiz MD LABORATORY [facility] [address] [address] * TSH WITH REFLEX TO FREE T4 (12/30/2023 10:01 AM CDT) TSH 1.33 0.27 - 4.20 mIU/L [facility] Blood 12/30/2023 10:0 1 AM CDT 12/30/2023 10:27 AM CDT Dimas Resendiz MD LABORATORY Performing Organization Address [facility] Co de Phone Number [facility] [address] [address] * HIV COMBO (12/30/2023 10:01 AM CDT) [facility] HIV Antigen-Antibody Nonreactive Nonreactive [facility] Comment:Performance characte ristics have not been established with this test on patients less than 2 years of age. Blood 12/30/2023 10:0 1 AM CDT 12/30/2023 10:27 AM CDT Dimas Resendiz MD LABORATORY Performing Organization Address [facility] Co de Phone Number [facility] [address] [address] * RETIC COUNT (12/30/2023 10:01 AM CDT) [facility] Retic Count 1.2 0.5 - 1.8 % [facility] Blood 12/30/2023 10:0 1 AM CDT 12/30/2023 10:27 AM CDT Dimas Resendiz MD LABORATORY Performing Organization Address [facility] de Phone Number [facility] [address] [address] * (ABNORMAL) PANEL HEPATIC FUNCTION (12/30/2023 10:01 AM CDT) Only the most recent of2 resultswithin the time period is included. [facility] Total Protein 7.0 6.4 - 8.3 g/dL [facility] Albumin 3.2(L) 3.8 - 5.1 g/dL [facility] Bili Total 0.8 <=1.2 mg/dL [facility] Bili Direct 0.4(H) <=0.3 mg/dL [facility] Alk Phos 72 40 - 129 IU/L [facility] Comment:No reference range e stablished for patients <18 years old. ALT (SGPT) 8 <=41 IU/L [facility] AST(SGOT) 13 5 - 40 IU/L [facility] Blood 12/30/2023 10:0 1 AM CDT 12/30/2023 10:27 AM CDT Lori Billingsley MD LABORATORY Performing Organization Address City/[facility] Co de Phone Number [address] [address] * LD (LDH) (12/30/2023 1:21 AM CDT) LD 216 135 - 225 IU/L [facility] Blood 12/30/2023 1:21 AM CDT 12/30/2023 1:28 AM CDT Dimas Resendiz MD LABORATORY Performing Organization Address [facility] Co de Phone Number [address] [address] * POTASSIUM (12/30/2023 1:21 AM CDT) Potassium 4.3 3.5 - 5.3 mmol/L [facility] Blood 12/30/2023 1:21 AM CDT 12/30/2023 1:28 AM CDT Dimas Resendiz MD LABORATORY Performing Organization Address [facility] Co de Phone Number [address] [address] * (ABNORMAL) HAPTOGLOBIN (12/30/2023 1:21 AM CDT) Haptoglobin 400(H) 32 - 197 mg/dL [facility] Blood 12/30/2023 1:21 AM CDT 12/30/2023 1:28 AM CDT Dimas Resendiz MD LABORATORY Performing Organization Address [facility] Co de Phone Number [address] [address] * ULT GALLBLADDER (12/29/2023 10:24 PM CDT) [...] liver and pancreas are unremarkable. Procedure Note Moe Candelaria MD - 12/30/2023 Indication: possible galstone [...] Uric Acid 4.6 3.4 - 7.0 mg/dL [facility] Blood 12/29/2023 10:2 4 PM CDT 12/29/2023 10:34 PM CDT Dafne Holcomb PA-C LABORATORY [facility] [address] [address] * ED US ABDOMINAL/GALLBLADDER (12/29/2023 9:31 PM [...] Alberto Nathan MD, 12/30/2023 5:44 AM Dafne Holcomb PA-C RAD ED ULT * CT ABDOMEN/PELVIS W/IV [...] DOSE: ?Total DLP = 1064.6 mGy.cm (accession [id number]), 462 mGy.cm (accession [id number]). ?? Findings: FINDINGS: Beam hardening artifact limits [...] DOSE: Total DLP = 1064.6 mGy.cm (accession [id number]), 462 mGy.cm(accession [id number]). Findings: FINDINGS: Beam hardening artifact limits evaluation [...] DOSE: ?Total DLP = 1064.6 mGy.cm (accession [id number]), 462 mGy.cm (accession [id number]). ?? Findings: FINDINGS: Beam hardening artifact limits [...] DOSE: Total DLP = 1064.6 mGy.cm (accession [id number]), 462 mGy.cm(accession [id number]). Findings: FINDINGS: Beam hardening artifact limits evaluation [...] PM CDT) 6H Trop 20 <=35 ng/L [facility] 6H Delta Not Significant Not Significant [facility] Blood 12/29/2023 7:01 PM CDT 12/29/2023 7:49 PM CDT Lori Billingsley MD LABORATORY [facility] [address] [address] * (ABNORMAL) ED CHEMISTRY LABS(NA,K,CL,CO2,GLU,CREAT,CA-IONIZED,ANION GAP) (12/29/2023 7:01 PM CDT) Only the most recent of2 resultswithin the time period is included. Sodium 140 135 - 148 mmol/L [facility] Chloride 101 92 - 108 mmol/L [facility] AnGap 11 8 - 16 mmol/L [facility] Glucose 126(H) 70 - 100 mg/dL [facility] ICA, Actual 4.47 4.40 - 5.20 mg/dL [facility] ICA, pH Corrected 4.52 4.40 - 5.20 mg/dL [facility] Creatinine 1.05 0.70 - 1.25 mg/dL [facility] BICARB 28(H) 22 - 26 mEq/L [facility] eGFR (2020 CKD-EPI) 75 >=60 ml/min/1.7 3m2 [facility] Comment: The estimated glomerular filtration rate (eGFR) was calculated using the CKD-EPI 2020 creatinine equation, which does not include race as a factor. This equation is validated in individuals 18 years of age and older, and eGFR is normalized to a body surface area of 1.73m^2. Potassium 3.2(L) 3.5 - 5.3 mmol/L [facility] Blood 12/29/2023 7:01 PM CDT 12/29/2023 7:25 PM CDT Dafne Holcomb PA-C LABORATORY [facility] [address] [address] * LACTATE (LACTIC ACID) (12/29/2023 7:01 PM CDT) Only the most recent of3 resultswithin the time period is included. Lactate 1.0 0.7 - 2.1 mmol/L [facility] Blood 12/29/2023 7:01 PM CDT 12/29/2023 7:25 PM CDT Narrative [facility] - 12/29/2023 7:26 PM CDT Send specimen on ice! Dafne Holcomb PA-C LABORATORY [facility] [address] [address] * CK, TOTAL (12/29/2023 7:01 PM CDT) CK 95 39 - 308 IU/L [facility] Blood 12/29/2023 7:01 PM CDT 12/29/2023 10:12 PM CDT Dafne Holcomb PA-C LABORATORY Performing Organization Address City/[facility]/ZIP Co de Phone Number [facility] [address] [address] * BLOOD AEROBIC/ANAEROBIC CULTURE (12/29/2023 7:01 PM CDT) Only the most recent of2 resultswithin the time period is included. Final Report No growth after 5 days. [facility] Blood (Peripheral) 12/29/2023 7:01 PM CDT 12/30/2023 1:44 AM CDT Dafne Holcomb PA-C LAB MICROBIOLOGY Performing Organization Address [facility] Co de Phone Number [facility] [address] [address] * (ABNORMAL) ED POTASSIUM (12/29/2023 5:35 PM CDT) Potassium 3.3(L) 3.5 - 5.3 mmol/L [facility] Blood 12/29/2023 5:35 PM CDT 12/29/2023 5:47 PM CDT Rey Brady MD LABORATORY Performing Organization Address City/[facility]/ZIP Co de Phone Number [facility] [address] [address] * ED US CARDIAC (12/29/2023 4:51 PM CDT) Anatomical Region Laterality Modality Ultrasound Narrative 12/29/2023 8:21 PM CDT ED Cardiac Ultrasound Body Areas Imaged: Heart, Chest Wall/Lungs, and Inferior Vena Cava Indications:Tachycardia Window: Subxiphoid, Parasternal Short [place], Parasternal Long [place], Apical 4-Chamber, IVC, and Bilateral Lungs Findings: [...] (12/29/2023 4:28 PM CDT) Procalcitonin 0.62 ng/mL [facility] Comment: Results <0.50 ng/mL represent a low risk of severe sepsis and/or septic shock. Results >2.0 ng/mL represent a high risk of severe sepsis and/or septic shock. Blood 12/29/2023 4:28 PM CDT 12/29/2023 5:08 PM CDT Dafne Holcomb PA-C LABORATORY [facility] [address] [place] [address] * TROP 4H (12/29/2023 4:28 PM CDT) 4H Trop 19 <=35 ng/L [facility] 4H Delta Not Significant Not Significant [facility] Blood 12/29/2023 4:28 PM CDT 12/29/2023 5:08 PM CDT Lori Billingsley MD LABORATORY Performing Organization Address City/[facility] Co de Phone Number [facility] [address] [address] * TROP 2H (12/29/2023 2:32 PM CDT) 2H Trop 21 <=35 ng/L [facility] 2H Delta Not Significant Not Significant [facility] Blood 12/29/2023 2:32 PM CDT 12/29/2023 2:40 PM CDT Lori Billingsley MD LABORATORY Performing Organization Address [facility] de Phone Number [facility] [address] [address] * (ABNORMAL) URINE DRUG SCREEN (12/29/2023 1:40 PM CDT) Acetaminophen Ur POS(A) <=10 mcg/mL [facility] Amphetamine Ur NEG <=500 ng/mL [facility] Barbiturate Ur NEG <=200 ng/mL [facility] Benzodiazipine NEG <=100 ng/mL [facility] Buprenorphine Ur NEG <=5 ng/mL [facility] Cocaine Metab Ur NEG <=300 ng/mL [facility] Fentanyl, Urine NEG <=4 ng/mL [facility] LSD Ur NEG <=500 pg/mL [facility] Methadone Ur NEG <=300 ng/mL [facility] Opiate Ur NEG <=300 ng/mL [facility] Oxycodone Ur NEG <=100 ng/mL [facility] PCP Urine NEG <=25 ng/mL [facility] Propox Ur NEG <=300 ng/mL [facility] Salicylate Ur NEG <=10 mg/dL [facility] Creat Urine 89 >=20 mg/dL [facility] Mass Spectrometry Urine Acetaminophen , Diphenhydrami ne, Sertraline and Sertraline metabolite present. [facility] Urine 12/29/2023 1:40 PM CDT 12/31/2023 1:51 AM CDT Dimas Resendiz MD LABORATORY Performing Organization Address City/[facility]/ZIP Co de Phone Number [facility] [address] [address] * URINE CULTURE (12/29/2023 1:40 PM CDT) [facility] Urine Cult No growth. [facility] Urine Cath URINE / Unknown 12/29/2023 1 :40 PM CDT 12/29/2023 2:40 PM CDT Narrative [facility] - 12/30/2023 12:27 PM CDT ED Patient: Yes Lori Billingsley MD LAB MICROBIOLOGY Performing Organization Address [facility] Co de Phone Number [facility] [address] [address] * (ABNORMAL) URINALYSIS,TOTAL (12/29/2023 1:40 PM CDT) [facility] Color YELLOW YELLOW [facility] Appearance CLEAR CLEAR [facility] Urine Glucose NEGATIVE NEGATIVE mg/dL [facility] Bili UA NEGATIVE NEGATIVE [facility] Ketones NEGATIVE NEGATIVE [facility] Specific [place] 1.039(A) 1.003 - 1.030 [facility] Blood Ur SMALL(A) Neg-Trace [facility] PH Urine 6.0 5.0 - 7.0 [facility] Protein Ur 70(A) Neg-Trace [facility] Urobilinogen NORMAL NORMAL EU/dL [facility] Nitrite Ur NEGATIVE NEGATIVE [facility] Leuk Est NEGATIVE Neg-Trace [facility] WBC Ur 0-5 0 - 5 perHPF [facility] RBC Ur 0-3 0 - 3 perHPF [facility] Urinalysis Performed at: [facility] Urine 12/29/2023 1:40 PM CDT 12/29/2023 1:45 PM CDT Lori Billingsley MD LABORATORY Performing Organization Address [facility]/ZIP Co de Phone Number [facility] [address] [address] * HS TROPONIN (12/29/2023 1:15 PM CDT) HS Troponin I 23 <=35 ng/L [facility] Blood 12/29/2023 1:15 PM CDT 12/29/2023 1:24 PM CDT Narrative [facility] - 12/29/2023 1:52 PM CDT If ordering as an add-on lab, you must call the lab. Lori Billingsley MD LABORATORY Performing Organization Address [facility] Co de Phone Number [facility] [address] [address] * BUN (UREA NITROGEN) (12/29/2023 1:15 PM CDT) BUN 17 8 - 23 mg/dL [facility] Blood 12/29/2023 1:15 PM CDT 12/29/2023 1:24 PM CDT Lori Billingsley MD LABORATORY Performing Organization Address [facility] Co de Phone Number [address] [address] * (ABNORMAL) SED RATE (ESR) (12/29/2023 1:15 PM CDT) Pathologist [facility] Sed Rate 120(H) 2 - 10 mm/hr [facility] Blood 12/29/2023 1:15 PM CDT 12/29/2023 2:04 PM CDT Lori Billingsley MD LABORATORY Performing Organization Address [facility] Co de Phone Number [facility] [address] [address] * RPR SYPHILIS SCREEN (12/29/2023 1:15 PM CDT) RPR Screen Non-Reactive Non-Reacti ve [facility] RPR Titer Not Reflexed [facility] Blood 12/29/2023 1:15 PM CDT 12/29/2023 1:24 PM CDT Lori Billingsley MD LABORATORY Performing Organization Address [facility] Co de Phone Number [facility] [address] [address] * (ABNORMAL) AMMONIA (12/29/2023 1:15 PM CDT) Ammonia 13(L) 16 - 60 mcmol/L [facility] Blood 12/29/2023 1:15 PM CDT 12/29/2023 1:25 PM CDT Narrative [facility] - 12/29/2023 1:50 PM CDT Send specimen on ice! Lori Billingsley MD LABORATORY Performing Organization Address [facility] Co de Phone Number [address] [address] * LIPASE (12/29/2023 1:15 PM CDT) Lipase 30 13 - 60 IU/L [facility] Blood 12/29/2023 1:15 PM CDT 12/29/2023 1:24 PM CDT Lori Billingsley MD LABORATORY Performing Organization Address [facility] Co de Phone Number [address] [address] * (ABNORMAL) BLOOD GASES (12/29/2023 1:15 PM CDT) PH Greg 7.46(H) 7.32 - 7.42 [facility] PCO2 Greg 40(L) 41 - 51 mmHG [facility] PO2 Greg 39 25 - 40 mmHG [facility] Bicarb Greg 28 24 - 28 mEq/L [facility] O2 Sat Greg 73 % [facility] Base Exc Greg 3.4(H) -10.0 - 2.0 mmol/L [facility] Blood Venous 12/29/2023 1:15 PM CDT 12/29/2023 1:21 PM CDT Lori Billingsley MD LABORATORY Performing Organization Address City/[facility]/ZIP Co de Phone Number [facility] [address] [place] [address] * (ABNORMAL) C-REACTIVE PROTEIN (12/29/2023 1:15 PM CDT) Pathologist [facility] C-Reactive Protein 229(H) <=4 mg/L [facility] Blood 12/29/2023 1:15 PM CDT 12/29/2023 2:04 PM CDT Lori Billingsley MD LABORATORY Performing Organization Address [facility] Co de Phone Number [facility] [address] [place] [address] * ED EKG (12-LEAD) (12/29/2023 12:43 PM CDT) 12/29/2023 12:4 3 PM CDT Impressions [facility] CVIS EKG ORDERS - 12/29/2023 12:43 PM CDT ATRIAL FIBRILLATION INCOMPLETE RIGHT BUNDLE BRANCH BLOCK ??[90+ ms QRS DURATION, TERMINAL R IN V1/V2, 40+ ms S IN I/aVL/V4/V5/V6] MODERATE ST DEPRESSION ??[0.05+ mV ST DEPRESSION] ABNORMAL ECG P-R Interval 0 ms QRS Interval 98 ms QT Interval 374 ms QTC Interval 428 ms P Erie undef QRS Erie 22 T Wave Erie 40 Narrative Procedure Note Jose C Quintero MD - 12/29/2023 IMPRESSION ATRIAL FIBRILLATION INCOMPLETE RIGHT BUNDLE BRANCH BLOCK [90+ ms QRS DURATION, TERMINAL R INV1/V2, 40+ ms S IN I/aVL/V4/V5/V6] MODERATE ST DEPRESSION [0.05+ mV ST DEPRESSION] ABNORMAL ECG P-R Interval 0 ms QRS Interval 98 ms QT Interval 374 ms QTC Interval 428 ms P Erie undef QRS Erie 22 T Wave Erie 40 Lori Billingsley MD EKG Performing Organization Address [facility]/ZIP Co de Phone Number [facility]IS EKG ORDERS * EXTRA TUBE - DARK GREEN (12/29/2023 12:15 PM CDT) Pathologist [facility] DARK GREEN TUBE Stored [facility] Comment:Dark Green tubes (Li thium Heparin) are stored in the lab for 1 day from the collection date. Blood 12/29/2023 12:1 5 PM CDT 12/29/2023 1:23 PM CDT Lori Billingsley MD LABORATORY Performing Organization Address [facility] Co de Phone Number [facility] [address] [address] * EXTRA TUBE - LIGHT GREEN (12/29/2023 12:15 PM CDT) LIGHT GREEN TUBE Stored [facility] Comment:Green tubes (Hanna Heparin) are stored in the lab for 3 days from the collection date. Blood 12/29/2023 12:1 5 PM CDT 12/29/2023 1:23 PM CDT Lori Billingsley MD LABORATORY Performing Organization Address [facility] Co de Phone Number [facility] [address] [address] * (ABNORMAL) CBC WITH PLTS/AUTO DIFF (12/29/2023 12:15 PM CDT) WBC 8.86 4.00 - 10.00 k/cmm [facility] RBC 3.70(L) 4.60 - 6.00 m/cmm [facility] Hgb 10.6(L) 13.1 - 17.5 g/dL [facility] Hematocrit 33.0(L) 40.0 - 51.0 % [facility] MCV 89.2 80.0 - 100.0 fL [facility] MCH 28.6 25.0 - 32.0 pg [facility] MCHC 32.1 31.0 - 36.0 g/dL [facility] RDW 14.7(H) 11.5 - 14.5 % [facility] Plt 216 150 - 400 k/cmm [facility] MPV 11.0 6.5 - 12.5 fL [facility] Automated Abs Neutrophil 7.46(H) 1.70 - 6.50 k/cmm [facility] Comment:Preliminary ANC, Fin al Result to Follow Abs Immature Granulocyte 0.03 0.00 - 0.09 k/cmm [facility] Comment:The Immature Granulo cyte Absolute count contains metamyelocytes and myelocytes. Abs Neutrophil 7.46(H) 1.70 - 6.50 k/cmm [facility] Abs Lymphocyte 0.75(L) 0.80 - 4.00 k/cmm [facility] Abs Monocyte 0.58 0.20 - 1.00 k/cmm [facility] Abs Eosinophil 0.02 0.00 - 0.60 k/cmm [facility] Abs Basophil 0.02 0.00 - 0.20 k/cmm [facility] Blood 12/29/2023 12:1 5 PM CDT 12/29/2023 1:44 PM CDT Lori Billingsley MD LABORATORY Performing Organization Address City/[facility] Co de Phone Number [facility] [address] [address] * (ABNORMAL) PROTHROMBIN (PT) & INR (12/29/2023 12:15 PM CDT) PT 15.6(H) 9.0 - 12.5 sec [facility] INR 1.4(H) 0.8 - 1.1 [facility] Comment: Warfarin Therapeutic Range: Standard Intensity: 2.0 - 3.0 High Intensity: 2.5 - 3.5 Blood 12/29/2023 12:1 5 PM CDT 12/29/2023 1:44 PM CDT Lori Billingsley MD LABORATORY Performing Organization Address City/[facility] Co de Phone Number [facility] [address] [address] * XR CHEST OUTSIDE FILMS (12/28/2023 9:26 PM CDT) Narrative Indu CasanovaIysr-Ijfhlq-Qcezcevlt - 12/30/2023 6:28 AM CDT Outside Film Only Outside Provider RAD OUTSIDE FILMS * XR UPPER EXTREMITY OUTSIDE FILMS (12/28/2023 8:29 PM CDT) Only the most recent of2 resultswithin the time period is included. Indu MalloryScheduler - 12/30/2023 6:28 AM CDT Outside Film Only Outside Provider RAD OUTSIDE FILMS * CT SPINE OUTSIDE FILMS (12/28/2023 8:05 PM CDT) Indu MalloryScheduler - 12/30/2023 6:30 AM CDT Outside Film Only Outside Provider RAD OUTSIDE FILMS * CT HEAD OUTSIDE FILMS (12/28/2023 8:05 PM CDT) Ernestine Indu CasanovaKyet-Coxjfx-Zqwxhyydv - 12/30/2023 6:30 AM CDT Outside Film Only Outside Provider RAD OUTSIDE FILMS from Last 3 Months or Most Recently Relevant to Health Maintenance Advance Directives For more information, please contact: [phone] Documents on File Type Date Recorded Patient Physician Asst Expl anation Advanced Directives 07/27/2022 ADVANCE DIRECTIVE [...] Status With Whom? Not discussed Care Teams Log Getter Relationship Specialty Start Date End Date Martine Argueta MD [address] [place] [id number] PCP - General Internal Medicine 04/08/23
--- OUTSIDE RECORDS SUMMARY | 2024-01-27 14:41 | XMS_ITS | Encounter Summary ---
Author Organization [facility] Address [address] [place] [phone] Phone Care Team Providers Care Powder Expert Name Role Phone Martine Argueta MD Primary Care Provider Encounter Details Date Type Department Care Team (Late st Contact Info) Description 12/29/2023 Documentation Only Unspecified Department [place] Unknown, Provider Social History Tobacco Use Types Packs/Day Years [...] on file Sexual Orientation Not on file documented as of this encounter Plan of Treatment Not on file documented as of this encounter Procedures Procedure Name Priority Date/Time Associated Diagnosis Comments EXTERNAL MED REC-IMAGING 12/30/2023 4:01 PM CDT documented in this encounter Results * EXTERNAL MED REC-IMAGING (12/30/2023 4:01 PM CDT) Anatomical Region Laterality Modality Other Narrative 12/30/2023 4:01 PM CDT Ordered by an unspecified provider. Provider Unknown RAD CT BODY documented in this encounter Visit Diagnoses Not on filedocumented in this encounter Care Teams Powder Expert Relationship Specialty Start Date End Date Martine Argueta MD [address] [place] [address] PCP - General Internal Medicine 04/08/23 documented as of this encounter
--- OUTSIDE RECORDS SUMMARY | 2024-01-27 14:41 | XMS_ITS | Encounter Summary ---
Author Organization [facility] Address [address] [place] [address] Phone Care Team Providers Care Director Of Special Education Name Role Phone Martine Argueta MD Primary Care Provider [phone] Encounter Details Date Type Department Care Team (Late st Contact Info) Description 11/11/2023 Documentation Only Unspecified Department [place] Unknown, Provider Social History Tobacco Use Types Packs/Day Years Used Date Smoking Tobacco: Never Smokeless Tobacco: Never Sex and Gender Information Value Date Recorded Sex Assigned at Not on file Gender Identity Not on file Sexual Orientation Not on file documented as of this encounter Plan of Treatment Not on file documented as of this encounter Visit Diagnoses Not on filedocumented in this encounter Care Teams Director Of Special Education Relationship Specialty Start Date End Date Martine Argueta MD [address] [place] [address] PCP - General Internal Medicine 04/08/23 documented as of this encounter
--- OUTSIDE RECORDS SUMMARY | 2024-01-27 14:41 | XMS_ITS | Encounter Summary ---
Author Organization [facility] Address [address] [place] [address] Phone Care Team Providers Care Carpenter'S Helper Name Role Phone Martine Argueta MD Primary Care Provider Encounter Details Date Type Department Care Team (Late st Contact Info) Description 12/29/2023 Orders Only [facility] [place] [phone] Dru Bui MD [address] [place], [place] [id number] Wrist pain, right (Primary Dx) Social History Tobacco Use Types Packs/Day Years [...] as of this encounter Plan of Treatment Scheduled Orders Name Type Priority Associated Diagnoses Orde r Schedule XR WRIST RIGHT 2 VIEWS Imaging Routine Wrist pain, right Expected: 12/29/2023, Expires: 02/27/2025 documented as of this encounter Visit Diagnoses Diagnosis Wrist pain, right- Primary Pain in joint, forearm documented in this encounter Care Teams Carpenter'S Helper Relationship Specialty Start Date End Date Martine Argueta MD [address] [place] [address] PCP - General Internal Medicine 04/08/23 documented as of this encounter
--- OUTSIDE RECORDS SUMMARY | 2024-01-27 14:41 | XMS_ITS | Encounter Summary ---
Author Organization [facility] Address [address] [facility] [place] [address] Phone Care Team Providers Care Marketing Compliance Manager Name Role Phone Martine Argueta MD Primary Care Provider [phone] Encounter Details Date Type Department Care Team (Late st Contact Info) Description 01/02/20[address] SERV [facility] [phone] Luis Alberto Sin, DO [address] [address] Social History Tobacco Use Types Packs/Day Years [...] on filedocumented in this encounter Care Teams Marketing Compliance Manager Relationship Specialty Start Date End Date Martine Argueta MD [address] [place] [address] PCP - General Internal Medicine 04/08/23 documented as of this encounter
--- OUTSIDE RECORDS SUMMARY | 2024-01-27 14:41 | XMS_ITS | Encounter Summary ---
Author Organization [facility] Address [address] [place] [address] Phone Care Team Providers Care Youth Minister Name Role Phone Martine Argueta MD Primary [...] on filedocumented in this encounter Care Teams Youth Minister Relationship Specialty Start Date End Date Martine Argueta MD [address] [place] [address] PCP - General Internal Medicine 04/08/23 documented as of this encounter
--- OUTSIDE RECORDS SUMMARY | 2024-01-27 14:41 | XMS_ITS | Encounter Summary ---
Author Organization [facility] [place] [facility] [place] Address [address] [place] [phone] Phone Care Team Providers Care Global Sourcing Manager Name Role Phone Martine Argueta MD Primary Care Provider Reason for Referral * Consult/Test/Treat (Routine) - New Request Specialty Diagnoses / Procedures Referred By Joaquina hodges Referred To Contact Speech Pathology Diagnoses Altered mental status, unspecified altered mental status type Jossie Short MD [address] [place] [phone] Jossie Short MD [address] [place] [phone] Referral ID Status Reason Start Date Expiration Date V isits Requested Visits Authorized [id number] New Request 01/05/2024 01/05/2025 1 1 * Consult/Test/Treat (Routine) - New Request Specialty Diagnoses / Procedures Referred By Joaquina hodges Referred To Contact Diagnoses Altered mental status, unspecified altered mental status type Jossie Short MD [address] [place] [phone] Jossie Short MD [address] [place] [address] Referral ID Status Reason Start Date Expiration Date V isits Requested Visits Authorized [id number] New Request 01/05/2024 01/05/2025 1 1 * Consult/Test/Treat (Routine) - New Request Specialty Diagnoses / Procedures Referred By Contac t Referred To Contact Physical Therapy / PHYSICAL THERAPY Diagnoses Altered mental status, unspecified altered mental status type Jossie Short MD [address] [place] [phone] Jossie Short MD [address] [place] [address] Referral ID Status Reason Start Date Expiration Date V isits Requested Visits Authorized [id number] New Request 01/05/2024 01/05/2025 1 1 Reason for Visit * Reason Comments Confusion Wrist Pain * Auth/Cert (Routine) Specialty Diagnoses / Procedures Referred By Contac t Referred To Contact MEDICINE Diagnoses Fall, initial encounter Altered mental status, unspecified altered mental status type Rey Brady MD [address] [place] [phone] Medicine 4 Inpt [address] [facility] [address] [place] [address] Referral ID Status Reason Start Date Expiration Date Visits Re quested Visits Authorized [id number] 1 1 Encounter Details Date Type Department Care Team (Latest Contact Info) Description 12/29/2023 11:55 AM CDT - 01/06/2024 10:57 AM CDT Hospital Encounter [facility] [place] Medicine 4 701 [facility] [address] [place], [place] [phone] Lori Billingsley MD [address] [place] [address] [phone] Dimas Resendiz MD [address] [place], [place] [address] Mauricio Simpson MD [address] [place] [address] [phone] Lashell Traore MD [address] [phone] Jeanine Uriarte MD [address] [place] [address] [phone] Mitra Hopkins MD [address] [place], [place] [phone] Altered mental status, unspecified altered mental status type Discharge Disposition: Discharged/transd to SNF with Medicare certification Social History Tobacco Use Types Packs/Day Years [...] on file documented as of this encounter Last Filed Vital Signs Vital Sign Reading [...] Mass Index 28.81 12/29/2023 11:26 PM CDT documented in this encounter Discharge Summaries * Kerri Evans T, DO - 01/06/2024 9:23 AM CDT Images from the original note were not included. MEDICINE DISCHARGE SUMMARY - PGY 3 Anthony Bowles : 1950 Sex: male Date of Admission: 12/29/2023 Date of Discharge: 01/06/2024 Dispostion: Health Care Facility Attending Physician: Jeanine Uriarte MD Primary care physician: Martine Argueta MD ADMISSION DIAGNOSES: Acute Metabolic Encephalopathy Failure to Thrive [place] Elevated Inflammatory markers EPEC infection Right wrist pain, swelling likely secondary to CPPD Hx of Gout MGUS FOOSH injury Hypokalemia Hypomagnesemia Unspecified malnutrition Normocytic Anemia hx of anemia of CKD COPD DEMI Rhabdomyolysis, ruled out Mood disorder CKD stage II TIA CAD HLD T2DM BPH Urinary retention Neuropathy Bilrubinemia DISCHARGE DIAGNOSES: Acute Metabolic Encephalopathy, improving Failure to [place]rive [place] Elevated Inflammatory markers EPEC infection Right wrist pain, swelling likely secondary to CPPD Hx of Gout MGUS FOOSH injury Hypokalemia Hypomagnesemia Unspecified malnutrition Normocytic Anemia hx of anemia of CKD COPD DEMI Rhabdomyolysis, ruled out Mood disorder CKD stage II TIA CAD HLD T2DM BPH Urinary retention, resolved Neuropathy Bilrubinemia PROCEDURES/CONSULTS: - Orthopedics consulted HPI: Please see the H&P dated 12/29/2023 PAST MED HX: No past medical history on file. HOSPITAL COURSE: Anthony Bowles is a 73 y.o. male with PMH of CHF< CAD, CKD II, T2DM, admitted 12/29/23 with AMS. Patient underwent an extensive workup including CT imaging of the head that did not reveal a cause of his altered mentation. Despite this, he steadily improved and is now at his baseline per family at bedside. PATIENT/OT were consulted and recommended placement so a facility was found for the patient. He was noted to have enteropathogenic e. Coli infection and was treated with supportive care. Initially there was some concern for an injury to the right wrist. XR revealed some findings of CPPD. US of the wrist revealed only tenosynovitis so steroid treatment was deferred. Patient also was intermittently requiring potassium replacement for hypokalemia. He was previously on a potassiumsupplement but had not likely taken it for several days per his son's report. At this time, the patient is stable for discharge. He will discharge to a facility in stable condition. Acute Metabolic Encephalopathy, improving Failure to [place]rive [place] Elevated Inflammatory markers EPEC infection Patient's mental status appears to be returning to baseline. Unsure what has occurred. CT head had been negative and work up thus far has been unrevealing. Considered broad differential including Intoxication/overdose (EtOH, illicit drugs, etc), other toxic, psychosis, metabolic abnormality, sepsis, meningitis, renal failure, seizure/post ictal, SAH, SDH, TIA, CVA but none of these appear to fit the picture. Will hold altering medications as able. Not sure if patient actually has an infection. Leach scan is negative, urinalysis negative, procal not grossly elevated. Inflammatory markers are elevated. TSH, B12 WNL. HIV and RPR negative. Stool GI panel is positive for EPEC. Blood cultures with NGTD. OT/PT saw the patient and is recommending placement. - Hold gabapentin - PT/OT/Nutrition - Pramipexole 0.25mg qhs - Supportive cares for E. Coli gastrointestinal infection. Right wrist pain, swelling likely secondary to CPPD Hx of Gout MGUS FOOSH injury CT of extremity at outside hospital had been concerning for lytic lesions and hx of MGUS dx. Ortho consulted and were not concerned for a septic joint. Uric acid WNL. Radiology read here reveals chondrocalcinosis of 2nd-4th MCP joints with associated joint space narrowing as well as large subchondral cysts and periarticular erosions consistent with CPPD. RUE US is negative for DVT but does revealtenosynovitis of the extensor tendon sheath. Given recent fall and US findings, patient's symptoms do not seem consistent with CPPD flare so will defer steroids at this time. - Allopurinol 200mg daily Hypokalemia Hypomagnesemia Unspecified malnutrition Suspect secondary to signifcant diarrhea in the setting of EPEC. - Nutrition consult - Stop PIANO MAKER torsemide and K supplement. - Repeat BMP in 3-5 days Normocytic Anemia hx of anemia of CKD - stable Chronic Aflutter Severe TR HFpEF HTN PIANO MAKER Imdur 60mg daily, Metoprolol tartrate 100mg BID, Torsemide 40mg bid. Patient has hx of GI bleedso underwent atrial appendage closure. - Continue PIANO MAKER imdur. - Continue Metoprolol - Hold torsemide as above. COPD DEMI Reported that he does not use a CPAP. On 3L but satting 97%. - Oxygen 88-92% - Montelukast 10mg daily - Resume PIANO MAKER anoro ellipta - Albuterol PRN Rhabdomyolysis, ruled out There had been concern for rhabdo at outside hospital. Hypokalemia and lack of Acute Kidney Injury would suggest against it. CK was within normal limits. Mood Disorder - Sertraline 100mg daily CKD stage II Appears baseline Creatinine around 1.1 now 1.32->1.27 - interval monitoring BMP TIA CAD HLD - ASA 81mg daily - Fenofibrate 54mg daily DMII No PIANO MAKER medications - daily BMP BPH Urinary retention, resolved - Finasteride 5mg daily - PIANO MAKER tamsulosin 0.4 mg daily. Neuropathy - Gabapentin 300mg tid held due to altered mental status Hx of GI bleed - Protonix 40mg BID Bilirubinemia, improving Malnutrition Malnutrition Characteristics Etiology: Chronic illness Energy Intake: Does not meet criteria Weight loss:: Does not meet criteria Body fat:: WNL Muscle mass:: WNL Fluid accumulation:: None Malnutrition Diagnosis: No Weight: 88.5 kg (195 lb 1.7 oz) Wt Change from Previous: 0 Kg Wt Change from Admit: 0 Kg % Wt Change from Adm: 0 % [place] Body Wt (IBW) Male (kg): 70.7 kg PENDING TESTS RESULTS: None RECOMMENDATIONS AND FOLLOWUP: - BMP recheck in 3-5 days. - Stop torsemide and PIANO MAKER K supplement. RECOMMENDATIONS OF ANY SUB-SPECIALTY CONSULTANTS: None READMISSION PLANNED WITHIN 30 DAYS OF DISCHARGE? No Court Of Appeals Judge Needed: no Active Problems: Hypomagnesemia Overview: Low serum magnesium Last Assessment & Plan: Magnesium level pending Altered mental status, unspecified altered mental status type E coli enteritis Type 2 diabetes mellitus with diabetic nephropathy, without long-term current use of insulin ([facility]) Resolved Problems: * No resolved hospital problems. * PHYSICAL EXAMINATION: BP 105/87 (Cuff Location: Left Arm) Pulse 114 Temp 35.4 ??C (95.7 ??F) (Tympanic) Resp 18 Ht 1.753 m (5' 9) Wt 88.5 kg (195 lb 1.7 oz) SpO2 94% BMI 28.81 kg/m?? Estimated body mass index is 28.81 kg/m?? as calculated from the following: Height as of this encounter: 1.753 m (5' 9). Weight as of this encounter: 88.5 kg (195 lb 1.7 oz). GENERAL: No acute distress. HEENT: Conjunctivae clear, no pallor. EOMI. murs, rubs, gallops. PULMONARY: No respiratory distress. CTAB. No wheezes, rales, rhonchi. EXTREMITIES: No deformities, edema, clubbing, nail changes. SKIN : No rashes, jaundice, cyanosis, ecchymoses, discoloration NEURO: No focal deficits. Patient moves all four limbs adequately. PSYCHIATRIC: Alert, oriented, cooperative, normal affect ALLERGY Allergies Allergen Reactions Azithromycin Dizziness and Other (see comments) Diltiazem Rash Erythromycin Unknown Sotalol Rash Sulfa Antibiotics Unknown PLANNED DISCHARGE ORDERS: Medication List START taking these medications acetaminophen 325 mg tablet Commonly known as: TYLENOL Take 2 tablets (650 mg) by mouth every 4 hours as needed for Moderate Pain. budesonide-formoterol 160-4.5 mcg/puff inhaler Commonly known as: SYMBICORT Inhale 1 puff twice daily. multivitamin + minerals Take 1 tablet by mouth daily. nystatin powder Apply to skin 1 each twice daily as needed (rash). * tamsulosin 0.4 mg Capsule Commonly known as: FLOMAX Take 1 capsule (0.4 mg) by mouth daily after meal.Take 30 minutes after same meal each day. Do NOT crush or chew. * This list has 1 medication(s) that are the same as other medications prescribed for you. Read thedirections carefully, and ask your doctor or other care provider to review them with you. CONTINUE taking these medications albuterol 108 (90 BASE) mcg/act inhaler Commonly known as: VENTOLIN HFA;PROVENTIL HFA;PROAIR allopurinol 100 mg Tabs Commonly known as: ZYLOPRIM Take 2 tablets (200 mg) by mouth daily. aspirin (ASA EC) 81 mg tablet Take 1 tablet (81 mg) by mouth daily. atorvastatin 80 mg tablet Commonly known as: LIPITOR Take 1 tablet (80 mg) by mouth daily. finasteride 5 mg Tabs Commonly known as: PROSCAR Take 1 tablet (5 mg) by mouth daily. fluticasone propionate 50 mcg/act Suspension Commonly known as: FLONASE 1 spray by Nasal route daily. isosorbide mononitrate cr 60 mg Tablet 24 hr Commonly known as: IMDUR Take 1 tablet (60 mg) by mouth daily. metoprolol tartrate 100 mg tablet Commonly known as: LOPRESSOR Take 1 tablet (100 mg) by mouth twice daily. montelukast 10 mg Tabs Commonly known as: SINGULAIR Take 1 tablet (10 mg) by mouth daily. pantoprazole 40 mg tablet Commonly known as: PROTONIX Take 1 tablet (40 mg) by mouth twice daily. pramipexole 0.25 mg Tabs Commonly known as: MIRAPEX Take 1 tablet (0.25 mg) by mouth at bedtime. sertraline 100 mg tablet Commonly known as: ZOLOFT umeclidinium-vilanterol 62.5-25 mcg/ACT inhaler Commonly known as: ANORO ELLIPTA Inhale 1 puff daily. STOP taking these medications fenofibrate micronized 54 mg Tabs tablet Commonly known as: TRIGLIDE GABApentin 300 mg Capsule Commonly known as: NEURONTIN Klor-Con M20 20 MEQ tablet Generic drug: potassium chloride torsemide 20 mg Tabs Commonly known as: DEMADEX ASK your doctor about these medications * tamsulosin 0.4 mg Capsule Commonly known as: FLOMAX Take 1 capsule (0.4 mg) by mouth daily after meal. * This list has 1 medication(s) that are the same as other medications prescribed for you. Read thedirections carefully, and ask your doctor or other care provider to review them with you. Where to Get Your Medications Information about where to get these medications is not yet available Ask your nurse or doctor about these medications acetaminophen 325 mg tablet budesonide-formoterol 160-4.5 mcg/puff inhaler multivitamin + minerals nystatin powder tamsulosin 0.4 mg Capsule umeclidinium-vilanterol 62.5-25 mcg/ACT inhaler Discussed diagnosis and treatment plan with the patient. Patient verbalized understanding of condition and treatment plan. Kerri Evans DO, 01/06/2024 10:46 AM Associated attestation - Jeanine Uriarte MD - 01/06/2024 8:36 PM CDT DISCHARGE FACULTY NOTE At the time of discharge 01/06/2024 10:57 AM, I personally participated in the final examination andreview of hospitalization and concur with the discharge plans and follow-up as outlined. I discussed with the resident and agree with the resident???s findings and plan documented in the resident???snote from above. Any revisions by me are documented. The discharge process has taken greater than 30 minutes. Jeanine Uriarte MD, 01/06/2024 8:36 PM documented in this encounter Discharge Instructions * Discharge Instr - Physical Therapy* Myla Musa, PT - 01/01/2024 2:27 PM CDT Images from the original note were not included. Lower Extremity Supine Exercises Heel Slide Bend knee and pull heel toward buttocks. Return. Repeat with other knee. Repeat __12__ times. Do __2-3__ sessions per day. HIP: Flexion / KNEE: Extension, Straight Leg Raise Raise leg, keeping knee straight. Perform slowly. _12__ reps per set, _2-3__ sets per day ANKLE: [place] toes down, then up. _20__ reps per set, _2-3__ sets per day documented in this encounter Medications at Time of Discharge Medication Sig Dispensed Refills Start Date End Date umeclidinium-vilanterol (ANORO ELLIPTA) 62.5-25 mcg/ACT inhaler Inhale 1 puff daily. 01/06/2024 tamsulosin (FLOMAX) 0.4 mg oral capsule Take 1 capsule (0.4 mg) by mouth daily after meal.Take 30 minutes after same meal each day. Do NOT crush or chew. 01/06/2024 acetaminophen (TYLENOL) 325 mg oral tablet Take 2 tablets (650 mg) by mouth every 4 hours as needed for Moderate Pain. 01/05/2024 budesonide-formoterol (SYMBICORT) 160-4.5 mcg/puff inhalation inhaler Inhale 1 puff twice daily. 01/05/2024 multivitamin + minerals (CEROVITE SENIOR) oral Take 1 tablet by mouth daily. 01/06/2024 nystatin externally powder Apply to skin 1 each twice daily as needed (rash). 01/05/2024 sertraline (ZOLOFT) 100 mg oral tablet Take 1 tablet (100 mg) by mouth daily. aspirin, ASA EC, 81 mg oral tablet Take 1 tablet (81 mg) by mouth daily. 04/15/2023 allopurinol (ZYLOPRIM) 100 mg oral TABS Take 2 tablets (200 mg) by mouth daily. 04/15/2023 atorvastatin (LIPITOR) 80 mg oral tablet Take 1 tablet (80 mg) by mouth daily. 04/15/2023 finasteride (PROSCAR) 5 mg oral TABS Take 1 tablet (5 mg) by mouth daily. 04/15/2023 fluticasone propionate (FLONASE) 50 mcg/act nasal suspension 1 spray by Nasal route daily. 04/15/2023 isosorbide mononitrate cr (IMDUR) 60 mg oral tablet 24 HR Take 1 tablet (60 mg) by mouth daily. 04/15/2023 montelukast (SINGULAIR) 10 mg oral TABS Take 1 tablet (10 mg) by mouth daily. 04/15/2023 pantoprazole (PROTONIX) 40 mg oral tablet Take 1 tablet (40 mg) by mouth twice daily. 04/15/2023 pramipexole (MIRAPEX) 0.25 mg oral TABS Take 1 tablet (0.25 mg) by mouth at bedtime. 04/15/2023 tamsulosin (FLOMAX) 0.4 mg oral capsule Take 1 capsule (0.4 mg) by mouth daily after meal. 04/15/2023 metoprolol tartrate (LOPRESSOR) 100 mg oral tablet Take 1 tablet (100 mg) by mouth twice daily. 60 tablet 04/12/2023 albuterol (VENTOLIN HFA;PROVENTIL HFA;PROAIR) 108 (90 BASE) mcg/act inhalation inhaler Inhale 2 puffs every 4 hours as needed. documented as of this encounter Progress Notes * Shira Tesfaye RN - 01/06/2024 10:57 AM CDT DISCHARGE NOTE D: Patient has been discharged. A: (As documented in the Discharge Planning Flowsheet) Discharge Instructions (AVS): AVS given Discharge clothing/valuables: needs clothing (Pt clothing soiled, placed pt in clean gown for transport ride) Discharge medications: no prescriptions (pt returning SNF) Home equipment status: no equipment needed Home equipment/supplies recommended: None [facility] R: The patient understood the AVS. P: Support patient if they call back with questions. * Jossie Short MD - 01/05/2024 2:28 PM CDT HOSPITALIST PROGRESS NOTE - STAFF Anthony Bowles : 1950 Sex: male SUBJECTIVE: In good spirits, no concerns, requests more pepper on his eggs. OBJECTIVE: BP 109/59 (Cuff Location: Left Arm) Pulse 77 Temp 36.6 ??C (97.9 ??F) (Oral) Resp 20 Ht 1.753 m (5' 9) Wt 88.5 kg (195 lb 1.7 oz) SpO2 92% BMI 28.81 kg/m?? Temp (24hrs), Av.4 ??C (95.8 ??F), Min:34.9 ??C (94.8 ??F), Max:36.6 ??C (97.9 ??F) GENERAL: No acute distress. HEENT: Conjunctivae clear, no pallor. EOMI. Mucus membranes moist. . CARDIOVASCULAR : Irregularly irregular rhythm. Normal S1/S2. No murmurs, rubs, gallops. PULMONARY: Breathing comfortably. EXTREMITIES: No deformities, edema, clubbing, nail changes. SKIN : No rashes, jaundice, cyanosis, ecchymoses, discoloration NEURO: No focal deficits. Patient moves all four limbs adequately. PSYCHIATRIC: Alert, oriented, calm, cooperative. REVIEW OF LABORATORY, PATHOLOGY, AND RADIOLOGY DATA: Lab results: Lab Results Component Value Date NA 137 01/05/2024 K 3.3 (L) 01/05/2024 CHLORIDE 95 01/05/2024 CO2 29 01/05/2024 GLU 98 01/05/2024 UN 26 (H) 01/05/2024 CR 1.27 (H) 01/05/2024 CA 9.3 01/05/2024 Patient Summary: Anthony Bowles is a 73 y.o. male with a PMHX significant for CHF, CAD, CKD II, DMII admitted on 12/29/2023 with AMS, improving. OT/PT recommending placement. ASSESSMENT AND PLAN: Acute Metabolic Encephalopathy, improving Failure to [place]rive [place] Elevated Inflammatory markers EPEC infection Patient's mental status appears to be returning to baseline. Unsure what has occurred. CT head had been negative and work up thus far has been unrevealing. Considered broad differential including Intoxication/overdose (EtOH, illicit drugs, etc), other toxic, psychosis, metabolic abnormality, sepsis, meningitis, renal failure, seizure/post ictal, SAH, SDH, TIA, CVA but none of these appear to fit the picture. Will hold altering medications as able. Not sure if patient actually has an infection. Leach scan is negative, urinalysis negative, procal not grossly elevated. Inflammatory markers are elevated. TSH, B12 WNL. HIV and RPR negative. Stool GI panel is positive for EPEC. Blood cultures with NGTD. OT/PT saw the patient and is recommending placement. - Hold gabapentin - PT/OT/Nutrition - Pramipexole 0.25mg qhs - Supportive cares for E. Coli gastrointestinal infection. Right wrist pain, swelling likely secondary to CPPD Hx of Gout MGUS FOOSH injury CT of extremity at outside hospital had been concerning for lytic lesions and hx of MGUS dx. Ortho consulted and were not concerned for a septic joint. Uric acid WNL. Radiology read here reveals chondrocalcinosis of 2nd-4th MCP joints with associated joint space narrowing as well as large subchondral cysts and periarticular erosions consistent with CPPD. RUE US is negative for DVT but does revealtenosynovitis of the extensor tendon sheath. Given recent fall and US findings, patient's symptoms do not seem consistent with CPPD flare so will defer steroids at this time. - Allopurinol 200mg daily Hypokalemia Hypomagnesemia Unspecified malnutrition Suspect secondary to signifcant diarrhea in the setting of EPEC. - Replete PRN- 40 mEq K-Karen 01/04 - Nutrition consult - hold torsemide x 2 doses Normocytic Anemia hx of anemia of CKD - CBC qAM Chronic Aflutter Severe TR HFpEF HTN PIANO MAKER Imdur 60mg daily, Metoprolol tartrate 100mg BID, Torsemide 40mg bid. Patient has hx of GI bleedso underwent atrial appendage closure. - Continue PIANO MAKER imdur. - Continue Metoprolol, torsemide- hold Sun PM and Mon AM torsemide given slight Acute Kidney Injuryand ongoing hypoK COPD DEMI Reported that he does not use a CPAP. On 3L but satting 97%. - Oxygen 88-92% - Montelukast 10mg daily - Start Symbicort - Albuterol PRN Rhabdomyolysis, ruled out There had been concern for rhabdo at outside hospital. Hypokalemia and lack of Acute Kidney Injury would suggest against it. CK was within normal limits. Mood Disorder - Sertraline 100mg daily CKD stage II Appears baseline Creatinine around 1.1 now 1.32->1.27 - interval monitoring BMP TIA CAD HLD - ASA 81mg daily - Fenofibrate 54mg daily DMII No PIANO MAKER medications - daily BMP BPH Urinary retention, resolved - Finasteride 5mg daily - PIANO MAKER tamsulosin 0.4 mg daily. Neuropathy - Gabapentin 300mg tid held due to altered mental status Hx of GI bleed - Protonix 40mg BID Bilirubinemia, improving Nystatin powder to intertriginous irritation Discharge planning: Awaiting [facility] placement, planned for 01/05 Jossie Short MD, 01/05/2024 2:28 PM * Jossie Short MD - 01/04/2024 4:07 PM CDT HOSPITALIST PROGRESS NOTE - STAFF Anthony Bowles : 1950 Sex: male SUBJECTIVE: In good spirits, denies complaint, requests more orange juice, otherwise no concerns. OBJECTIVE: BP 90/45 (Cuff Location: Left Arm) Pulse 86 Temp 35 ??C (95 ??F) (Tympanic) Resp 18 Ht 1.753 m (5' 9) Wt 88.5 kg (195 lb 1.7 oz) SpO2 95% BMI 28.81 kg/m?? Temp (24hrs), Av.3 ??C (95.5 ??F), Min:35 ??C (95 ??F), Max:35.4 ??C (95.8 ??F) GENERAL: No acute distress. HEENT: Conjunctivae clear, no pallor. EOMI. Mucus membranes moist. . CARDIOVASCULAR : Irregularly irregular rhythm. Normal S1/S2. No murmurs, rubs, gallops. PULMONARY: Breathing comfortably. EXTREMITIES: No deformities, edema, clubbing, nail changes. SKIN : No rashes, jaundice, cyanosis, ecchymoses, discoloration NEURO: No focal deficits. Patient moves all four limbs adequately. PSYCHIATRIC: Alert, oriented, calm, cooperative. REVIEW OF LABORATORY, PATHOLOGY, AND RADIOLOGY DATA: Lab results: Lab Results Component Value Date WBC 7.22 01/02/2024 RBC 3.68 (L) 01/02/2024 HGB 10.5 (L) 01/02/2024 HCT 33.0 (L) 01/02/2024 PLT 299 01/02/2024 Lab Results Component Value Date NA 137 01/04/2024 K 3.3 (L) 01/04/2024 CHLORIDE 96 01/04/2024 CO2 26 01/04/2024 GLU 100 01/04/2024 UN 26 (H) 01/04/2024 CR 1.32 (H) 01/04/2024 CA 9.2 01/04/2024 Patient Summary: Anthony Bowles is a 73 y.o. male with a PMHX significant for CHF, CAD, CKD II, DMII admitted on 12/29/2023 with AMS, improving. OT/PT recommending placement. ASSESSMENT AND PLAN: Acute Metabolic Encephalopathy, improving Failure to [place]rive [place] Elevated Inflammatory markers EPEC infection Patient's mental status appears to be returning to baseline. Unsure what has occurred. CT head had been negative and work up thus far has been unrevealing. Considered broad differential including Intoxication/overdose (EtOH, illicit drugs, etc), other toxic, psychosis, metabolic abnormality, sepsis, meningitis, renal failure, seizure/post ictal, SAH, SDH, TIA, CVA but none of these appear to fit the picture. Will hold altering medications as able. Not sure if patient actually has an infection. Leach scan is negative, urinalysis negative, procal not grossly elevated. Inflammatory markers are elevated. TSH, B12 WNL. HIV and RPR negative. Stool GI panel is positive for EPEC. Blood cultures with NGTD. OT/PT saw the patient and is recommending placement. - Hold gabapentin - PT/OT/Nutrition - Pramipexole 0.25mg qhs - Supportive cares for E. Coli gastrointestinal infection. Right wrist pain, swelling likely secondary to CPPD Hx of Gout MGUS FOOSH injury CT of extremity at outside hospital had been concerning for lytic lesions and hx of MGUS dx. Ortho consulted and were not concerned for a septic joint. Uric acid WNL. Radiology read here reveals chondrocalcinosis of 2nd-4th MCP joints with associated joint space narrowing as well as large subchondral cysts and periarticular erosions consistent with CPPD. RUE US is negative for DVT but does revealtenosynovitis of the extensor tendon sheath. Given recent fall and US findings, patient's symptoms do not seem consistent with CPPD flare so will defer steroids at this time. - Allopurinol 200mg daily Hypokalemia Hypomagnesemia Unspecified malnutrition Suspect secondary to signifcant diarrhea in the setting of EPEC. - Replete PRN - Nutrition consult Normocytic Anemia hx of anemia of CKD - CBC qAM Chronic Aflutter Severe TR HFpEF HTN PIANO MAKER Imdur 60mg daily, Metoprolol tartrate 100mg BID, Torsemide 40mg bid. Patient has hx of GI bleedso underwent atrial appendage closure. - Continue PIANO MAKER imdur. - Continue Metoprolol, torsemide COPD DEMI Reports that he does not use a CPAP. On 3L but satting 97%. - Oxygen 88-92% - Montelukast 10mg daily - Start Symbicort - Albuterol PRN Rhabdomyolysis, ruled out There had been concern for rhabdo at outside hospital. Hypokalemia and lack of Acute Kidney Injury would suggest against it. CK is within normal limits. Mood Disorder - Sertraline 100mg daily CKD stage II Appears baseline Creatinine around 1.1 now 1.05 - Check BMP TIA CAD HLD - ASA 81mg daily - Fenofibrate 54mg daily DMII No PIANO MAKER medications - daily BMP BPH Urinary retention, resolved - Finasteride 5mg daily - PIANO MAKER tamsulosin 0.4 mg daily. Neuropathy - Gabapentin 300mg tid held due to altered mental status Hx of GI bleed - Protonix 40mg BID Bilirubinemia, improving Discharge planning: Awaiting [facility] placement Jossie Short MD, 01/04/2024 4:07 PM * Shayy Galvez RN - 01/03/2024 6:22 PM CDT Alert to self and family, confusion and forgetfulness observed. Denies pain or discomfort, VSS Is NIKOLAI encouraged to wear super ears. Ate well w/ adequate liquids. Uses bedside urinal. No concerns at this time will continue POC updating providers as necessary.Shayy Galvez, RN, 01/03/2024 6:24 PM * Yajaira Geronimo CMA - 01/03/2024 4:05 PM CDT Preadmission Screening Submitter InformationPerson Being ReferredMedical InformationADL'[facility] HospitalSubmitResults Results Thank you for submitting a referral to the Senior LinkAge Line. The [facility] Line will follow-up within one business day of receiving the referral. Click Print this page below to print or save a copy for your records. Please note, the final results will be determined by the Senior [facility] Line or lead agency and provided to the nursing facility. If you have questions about this referral or need help, contact the Senior [facility]Age Line at [phone] or click to contact us. Print this page You have successfully submitted the preadmission screening (PAS) to the Senior [facility]Age Line on: Created On 01/03/2024 3:56 PM Your confirmation number is: [id number] Results Level of Care: Based on the information you provided, it appears this person meets level of care for purposes of MA payment. OBRA: It appears this person does not need an OBRA Level II assessment. Submitter Information Form Type PAS Submitter First and Last Name Yajaira Geronimo Direct Email [email or web address] Agency [facility] [address] [place] [address] Zip Code [facility] Is your Agency outside [place]? Person Being Admitted to Nursing Facility Legal first name Anthony Last name Jelena Date of 1950 Age 73 Gender Male Marital Status D= Race A = B = Black or N = or [place] P = [place] or W = White U = Unable to Determine Ethnicity Not / Currently living with: 01 Living Alone Planned living with 01 Living Alone Housing Type Home or apartment, including assisted living () Mailing Address [address] [place] [address] Zip Code [address] [facility] Medical Information Reason for nursing facility admission: Therapy services Physician signing nursing facility admission order Mauricio Simpson MD Primary diagnosis: Altered mental status, unspecified altered mental status type E coli enteritis Hypomagnesemia Type 2 Is the primary diagnosis neuromuscular? No Does the person have a current diagnosis of a developmental disability or related condition(s)? No Has this person ever been considered to have a developmental disability or related condition? No Are there cognitive or behavioral signs that would lead someone to suspect the presence of developmental disabilities or related condition? No Does the person have a current diagnosis of a mental illness? No Has the person had any of the following? A mental illness as the primary diagnosis for hospitalization or nursing facility placement within the past two years Suicidal ideation, hallucinations, or delusions within the past six months A civil commitment for mental illness in his/her lifetime No Does the person have a diagnosis or symptoms of mental illness that has significantly interfered with functioning in life activities or caused the person significant distress within the past six months? No Has the person needed supportive services or interventions due to mental illness to maintain functioning within the past two years? No Does the person have a Brain Injury (BI) diagnosis? No ADL's Dressing 02 Needs some help from another person to put clothes on Grooming 02 Needs and gets daily help from another person Bathing 04 Needs and gets help washing and drying their body Eating 00 Can eat without help of any kind Bed Mobility 02 Always needs and gets help to sit up Transferring 02 Needs one other person to help Walking 02 Needs and gets help from one person to help walk Behavior 00 Behavior requires no intervention Toileting 01 need some help to get to and on the toilet, or needs intermittent supervision Toileting supervision Toileting supervisionNoToileting supervisionYes Special treatments 00 None Clinical monitoring 02 At least one every 8 hours Orientation 00 Oriented Self-preservation 00 Independent Hearing 00 No hearing impairment Visual 00 Has no impairment of vision Falls 01 Yes Admitting Nursing Facility Do you know which nursing facility the person will admit to? Do you know which nursing facility the person will admit to?NoDo you know which nursing facility the person will admit to?Yes Provider [facility] Nursing [facility] Service Type [address] [place] [address] Zip Code [address] Psychiatric If your provider is not listed check the box Anticipated Admit Date 01/03/2024 Anticipated length of stay 30-60 days Submit I, as the submitter of this form, confirm that I have provided the most accurate information . We informed the person and/or their guardian about the Senior LinkAge Line and preadmission screenin The person gave consent for Senior [facility]Age Line (or [facility] [place] if under age 60) follow-up. Yes Comments Please call me with any questions or concerns. Yajaira Geronimo CMA, 01/03/2024 4:05 PM * Joan Sahu RN - 01/03/2024 3:51 PM CDT [facility] Transportation Medical Necessity Certification Statement Request Form (please print for transportation vendor) Transport Date: 01/06/2024 @1200 Section 1 - Beneficiary Information Name: Anthony Bowles Insurance: MEDICARE Diagnosis: Altered mental status, unspecified altered mental status type E coli enteritis Hypomagnesemia Type 2 diabetes mellitus with diabetic nephropathy, without long-term current use of insulin ([facility]) Transportation Stretcher: [employer] Name/Phone : [facility] [phone] Facility of Origin: [address] [address] Patient's Unit: [facility] Medicine 4 Department Phone Number: Dept: [phone] Patient's Room Number: R5 [id number]/R5 824 01 Destination: Selected Continued Care - Admitted Since 12/29/2023 Destination No services have been selected for the patient. [facility]: [address] [place] [address] Home Medical Care No services have been selected for the patient. Section 2 - Medical Necessity Information for Non Emergency Transportation Can be transferred by car, taxi, bus or wheelchair van?: No Reason(s) for stretcher: High fall risk;Altered mental Status Medical equipment needed for stretcher: Contact precautions Is the Beneficiary Unable to get up from bed without assistance: Yes Is the Beneficiary Unable to Ambulate: Yes Is the Beneficiary Unable to sit in a chair or wheelchair: Yes Section 3 - For Hospital to Hospital or Hospital to LTAC Transfers Only Is the patient transferring to a different level of care not offered at the current facility? Specifically, what services will the patient be receiving at the other facility that cannot be provided at the current facility? Provide reason why these services cannot be provided at the current facility: Is the Section 4 Name of Physician or Healthcare Provider ordering transportation: Mauricio Simpson MD I certify that the information contained above represents an accurate assessment of the patient???smedical condition on the date(s) of service. Signature: Joan Sahu Name (printed): Joan Sahu Credentials: []MD []DO []PA []EDUCATION INTERN []LEAD ATHLETE [x]RN []GERIATRIC PERSONAL CARE AIDE []Dicer Machine Operator [x]Middle Card Tender [x]Concrete Pouring Supervisor (SW/CC/RN) : RN Date: 01/03/2024 NPI: Yajaira Geronimo CMA, 01/03/2024 3:54 PM * Yajaira Geronimo CMA - 01/03/2024 3:48 PM CDT Transportation set for patient as follows: Date and time () of patient departure: 01/06/2024 @1200 Destination: [facility]: [address] [place] [id number] Type of ride: stretcher. Reason for stretcher: Altered mental status High fall risk Transportation vendor of [facility] [phone] If this ride needs to be rescheduled or cancelled, inpatient staff should call this vendor directlyto reschedule or cancel, and document this in the chart. If the ride is cancelled, please also cancel the order in the chart. Nurses will receive a phone call if the ride is arriving in 120 minutes or less. Social Workers and Clinical Coordinators will be informed via a [employer] page. PCS form was completed in Progress Notes and is ready to be signed and routed to vendor by requestor(for stretcher rides only). Yajaira Geronimo CMA, 01/03/2024 3:48 PM Patient name: Anthony Bowles Date of : 1950 Patient Admitting diagnosis: Patient Active Problem List Diagnosis Closed nondisplaced fracture of second cervical vertebra, unspecified fracture morphology, initial encounter ([facility]) Acute on chronic diastolic congestive heart failure ([facility]) Anemia in chronic kidney disease Asthma ([facility]) Atherosclerotic heart disease of [place] coronary artery without angina pectoris Atrial flutter (CMS/[facility]) Carotid artery disease ([facility]) Chronic gout Chronic kidney disease, stage 2 (mild) Chronic obstructive pulmonary disease, unspecified ([facility]) Gastrointestinal hemorrhage with melena Hypokalemia Hypomagnesemia Hyperlipidemia Obstructive sleep apnea (adult) (pediatric) Other polyosteoarthritis Other pulmonary embolism without acute cor pulmonale ([facility]) Paroxysmal atrial fibrillation ([facility]) Patent foramen ovale ([facility]) Personal history of transient ischemic attack (TIA), 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 Severe tricuspid valve regurgitation Type 2 diabetes mellitus with diabetic nephropathy ([facility]) Altered mental status, unspecified altered mental status type E coli enteritis Type 2 diabetes mellitus with diabetic nephropathy, without long-term current use of insulin ([facility]) Attending provider: Mauricio Simpson MD Insurance: MEDICARE Secondary insurance: [employer] (COST PLAN) Height: Height: 175.3 cm (5' 9) Weight: Weight: 88.5 kg (195 lb 1.7 oz) * Joan Sahu RN - 01/03/2024 2:55 PM CDT Clinical Coordinator Note Patient's son Mich brought in patient's POA and health care directive paperwork. RNCC made copiesof both documents and put the copies in the bin to be scanned into patient's chart. ANDRIY Phillips, RN Clinical Coordinator [phone] [employer] * Joan Sahu RN - 01/03/2024 2:48 PM CDT . Care Management Follow-up Note Patient Name: Anthony Bowles Date: 01/03/2024 Patient/Family Discharge Goals: Patient's Discharge Goal: When patient is medically ready for discharge, he will return home. Family's Discharge Goal: SW will support patient in his discharge planning. Discharge Destination Expected Discharge Date: 01/06/2024 Time: Potential Discharge within 24 Hours: Discharge plan: Above plan of care was created and discussed with patient and family and is consistent with patient???s overall goals of care. Summary of pertinent information: Patient was accepted to [facility] and [facility] ([facility] RNCC contacted patient's daughter with information on accepting facilities. Daughter decided on [facility] as patient has been there before. RNCC contacted facility to accept the bed and informed them of a possible discharge on Saturday. Current Discharge Placement Information: Continued Care and Services - Admitted Since 12/29/2023 Destination Service Provider Request Status Selected Services Address Phone Fax Patient Preferred [facility] Accepted N/A [address] [facility] [address] [phone] -- Internal Comment last updated by Yajaira Geronimo CMA 01/03/2024 1151 01/02 : Called [facility] and he offered pt a bed.Yajaira Geronimo CMA, 01/03/2024 11:53 AM [facility] Pending - Request Sent N/A [address] [facility]? [facility] [address] [phone] -- Internal Comment last updated by Yajaira Geronimo CMA 01/03/2024 1150 01/02 : Called [facility] for admissions.Yajaira Geronimo CMA, 01/03/2024 11:50 AM [facility] Pending - Request Sent N/A [address] [address] -- Home Medical Care No active coordination exists for this encounter. Joan Sahu RN, 01/03/2024 2:48 PM * Myla Musa, PT - 01/03/2024 2:30 PM CDT Physical Therapy Progress Note PT Discharge Recommendations Discharge Recommendations: Post-acute placement recommended. Level/type of placement (PT): Sub-Acute Rehab facility Barriers to placement (PT): No known barriers to placement Barriers to discharge to home/community: NA - Post acute placement is recommended and no barriers to placement known. If discharging to home, would need: Physical assistance when mobilizing Post discharge follow-up: PT at post-acute placement Equipment Status: Patient will provide own equipment;Equipment needs to be determined at next levelof care PT Equipment Recommended: Front wheeled walker;Cane PM&R Recommended: S: I feel like I worked out end of session Pain Pain Rating With Activity (Numeric): (does not rate, states his back is a little sore, attribues to being in bed as improves with mobility) Participation Significantly Limited?: No Intervention: Positioning;Performed Exercises O:Court Of Appeals Judge Used: None needed Mental Status Mental Status: Alert;Cooperative Follows Directions: Follows 1 step direction;Consistently follows commands Restrictions/Precautions Weight Bearing Restrictions: n/a Precautions: Other Complies w/ Precautions?: Yes (falls, H2H, full code) Vital Signs: Supine Standing Heart rate 61 bpm 82 bpm BP 114/64 102/58 O2 Sat -- 98% Room Air Transfer & Bed Mobility Supine to/from Sit: Minimal assist Sit to/from Stand: Stand by assist (completes x10 consecutively for strengthening, x4 additional throughout session) Sit to/from Stand - Method: From standard seat height;w/ Assistive device (FWW) Scooting: Stand by assist (to boost in bed) Gait Distance (m): 25 m Device: Front wheeled walker Assistance: Minimal assist Gait Quality (General): Unsteady (mildly unsteady) Sitting Static Balance Level of Assistance: Verbal cues/Increased Time Trunk Control: Decreased core Stability Sitting Eyes Open (sec): (sitting EOB 3x5-10 mins to work on seated LE exercises, rest breaks) Static Standing Balance Feet Shoulder Width Eyes Open (sec): 60 (1 UE support on FWW) Exercises Sitting LAQ Reps: 10 reps Seated Hip Flexion : 10 reps Heel/Toe Raises: 10 reps Exercises Standing Marching: (continuous x1 minute with BUE support at FWW) Interdisciplinary Communication MD: received handoff RN: pt OK for PT; updated end of session Family: son and family present throughout Fall Risk Assessment: Patient is deemed high fall risk per protocol Positioning: Heel Offloading with Pillows Patient Positioned in Neutral Alignment Treatment rendered: Bed mobility training;Positioning;ROM;Strengthening;Neuromuscular re-education;Gait training;Transfer training Total treatment time: 44 minutes A: Pt encountered reclined in bed, conversing with family and MD; agreeable to PT session. Grossly SBA-Supriya across functional mobility; requires v/c across mobility to optimize safety and success (i.e. appropriate proximity to seat / FWW, hand placement, weight shifting). Pt reports mild lightheadedness with initial stand, checked for orthostatics, negative (see vitals above for details); resolves with increased time spent upright and pt denies all other adverse sx. Tolerates prolonged session well and completes multiple sit<>stand transfers, sitting and standing therex, and prolonged ambulation via FWW. Continue to recommend post acute placement with continued PT services in order tooptimize return toward independent PLOF and support ultimate goal of dc back to home. Goals: Problem: Decreased Transfer Skills Goal: Patient will transfer supine to/from sit Description: Patient will transfer supine to/from sit with (6) Modified [place] with HOB flat and no rails in order to safely and independently mobilize at home by 01/17/24. Outcome: In progress Goal: Patient will transfer sit to/from stand Description: Patient will transfer sit to/from stand with (6) Modified [place] and LRAD in order to safely and independently mobilize at home by 01/17/24. Outcome: In progress Problem: Decreased Ambulatory Skills Goal: Improve gait Description: Ambulate >20 meters using LRAD with (6) Modified [place] in order to safely and independently navigate distances necessary for home by 01/17/24. Outcome: In progress Goal: Improve gait on stairs Description: Ascend/descend 5-10 stairs using LRAD and/or 1-2 rails with (6) Modified [place] in order to safely and independently navigate home environment by 01/17/24. Outcome: In progress P: Patient will be seen 2-4x/week until goals are met or patient is discharged. Next visit the planis to work on bed mobility with HOB flat, sit<>stands with FWW, sitting vs standing LE therex, prolonged ambulation, stairs as appropriate. PIANO MAKER Appropriate: Yes Myla Musa, PT 01/03/2024 Pager: [facility] * Kerri Evans, DO - 01/03/2024 11:43 AM CDT MEDICINE PROGRESS NOTE Anthony Bowles : 1950 Sex: male Patient Summary: Anthony Bowles is a 73 y.o. male with past medical history of CHF, CAD, CKD II, DMII admitted on 12/29/2023 with AMS, no clear cause identified however patient is improving. OT/PT recommending placement. Assessment & Plan: Acute Metabolic Encephalopathy, improving Failure to Thrive Falls Elevated Inflammatory markers EPEC infection Patient's mental status appears to be returning to baseline. Unsure what has occurred. CT head had been negative and work up thus far has been unrevealing. Considered broad differential including Intoxication/overdose (EtOH, illicit drugs, etc), other toxic, psychosis, metabolic abnormality, sepsis, meningitis, renal failure, seizure/post ictal, SAH, SDH, TIA, CVA but none of these appear to fit the picture. Will hold altering medications as able. Not sure if patient actually has an infection. Leach scan is negative, urinalysis negative, procal not grossly elevated. Inflammatory markers are elevated. TSH, B12 WNL. HIV and RPR negative. Stool GI panel is positive for EPEC. Blood cultures with NGTD. OT/PT saw the patient and is recommending placement. - Hold gabapentin - PT/OT/Nutrition - Pramipexole 0.25mg qhs - Supportive cares for e. Coli gastrointestinal infection. Right wrist pain, swelling likely secondary to CPPD Hx of Gout MGUS FOOSH injury CT of extremity at outside hospital had been concerning for lytic lesions and hx of MGUS dx. Ortho consulted and are not concerned for a septic joint. Uric acid WNL. Radiology read here reveals chondrocalcinosis of 2nd-4th MCP joints with associated joint space narrowing as well as large subchondral cysts and periarticular erosions consistent with CPPD. RUE US is negative for DVT but does reveal tenosynovitis of the extensor tendon sheath. Given recent fall and US findings, patient's symptoms do not seem consistent with CPPD flare so will defer steroids at this time. - Allopurinol 200mg daily Hypokalemia Hypomagnesemia Unspecified malnutrition Suspect secondary to signifcant diarrhea in the setting of EPEC. - Replete PRN - Nutrition consult Normocytic Anemia hx of anemia of CKD - CBC qAM Chronic Aflutter Severe TR HFpEF HTN PIANO MAKER Imdur 60mg daily, Metoprolol tartrate 100mg BID, Torsemide 40mg bid. Patient has hx of GI bleedso underwent atrial appendage closure. - Continue PIANO MAKER imdur. - Continue Metoprolol, torsemide COPD DEMI Reports that he does not use a CPAP. On 3L but satting 97%. - Oxygen 88-92% - Montelukast 10mg daily - Start Symbicort - Albuterol PRN Rhabdomyolysis, ruled out There had been concern for rhabdo at outside hospital. Hypokalemia and lack of Acute Kidney Injury would suggest against it. CK is within normal limits. Mood Disorder - Sertraline 100mg daily CKD stage II Appears baseline Creatinine around 1.1 now 1.05 - Check BMP TIA CAD HLD - ASA 81mg daily - Fenofibrate 54mg daily DMII No PIANO MAKER medications - daily BMP BPH Urinary retention, resolved - Finasteride 5mg daily - PIANO MAKER tamsulosin 0.4 mg daily. Neuropathy - Gabapentin 300mg tid held due to altered mental status Hx of GI bleed - Protonix 40mg BID Bilirubinemia, improving Discharge planning: TBD pending improvement in mental status. Subjective/Events of Past 24 Hours: Hospital Day: 5 No acute events overnight. Patient is feeling generally well and has no acute concerns. Objective: Physical Exam GENERAL: No acute distress. HEENT: Conjunctivae clear, no pallor. EOMI. Mucus membranes moist. . CARDIOVASCULAR : Irregularly irregular rhythm. Normal S1/S2. No murmurs, rubs, gallops. PULMONARY: No respiratory distress. CTAB. No wheezes, rales, rhonchi. EXTREMITIES: No deformities, edema, clubbing, nail changes. SKIN : No rashes, jaundice, cyanosis, ecchymoses, discoloration NEURO: No focal deficits. Patient moves all four limbs adequately. PSYCHIATRIC: Alert, oriented, calm, cooperative. Kerri Evans DO, 01/03/2024 11:43 AM Charge Capture Hot Dip Plating Supervisor Associated attestation - Mauricio Simpson MD - 01/03/2024 12:07 PM CDT FACULTY NOTE I saw and evaluated the patient today, 01/03/2024. I discussed and agree with findings and plan documented in Dr. Evans's note dated 01/03/2024. Any revisions by me are documented. Awaiting [facility] placement. Daughter, Adelita, called and updated today. Mauricio Simpson MD, 01/03/2024 12:07 PM * Kerri Evans DO - 01/02/2024 2:51 PM CDT MEDICINE PROGRESS NOTE Anthony Bowles : 1950 Sex: male Patient Summary: Anthony Bowles is a 73 y.o. male with past medical history of CHF, CAD, CKD II, DMII admitted on 12/29/2023 with AMS, no clear cause identified however patient is improving. OT recommending placement. Assessment & Plan: Acute Metabolic Encephalopathy, improving Failure to Thrive Falls Elevated Inflammatory markers EPEC infection Patient's mental status appears to be returning to baseline. Unsure what has occurred. CT head had been negative and work up thus far has been unrevealing. Considered broad differential including Intoxication/overdose (EtOH, illicit drugs, etc), other toxic, psychosis, metabolic abnormality, sepsis, meningitis, renal failure, seizure/post ictal, SAH, SDH, TIA, CVA but none of these appear to fit the picture. Will hold altering medications as able. Not sure if patient actually has an infection. Leach scan is negative, urinalysis negative, procal not grossly elevated. Inflammatory markers are elevated. TSH, B12 WNL. HIV and RPR negative. Stool GI panel is positive for EPEC. Blood cultures with NGTD. OT/PT saw the patient and is recommending placement. - Hold gabapentin - PT/OT/Nutrition - Pramipexole 0.25mg qhs - Supportive cares for e. Coli gastrointestinal infection. Right wrist pain, swelling likely secondary to CPPD Hx of Gout MGUS FOOSH injury CT of extremity at outside hospital had been concerning for lytic lesions and hx of MGUS dx. Ortho consulted and are not concerned for a septic joint. Uric acid WNL. Radiology read here reveals chondrocalcinosis of 2nd-4th MCP joints with associated joint space narrowing as well as large subchondral cysts and periarticular erosions consistent with CPPD. RUE US is negative for DVT but does reveal tenosynovitis of the extensor tendon sheath. Given recent fall and US findings, patient's symptoms do not seem consistent with CPPD flare so will defer steroids at this time. - Allopurinol 200mg daily Hypokalemia Hypomagnesemia Unspecified malnutrition Suspect secondary to signifcant diarrhea in the setting of EPEC. - Replete PRN - Nutrition consult Normocytic Anemia hx of anemia of CKD - CBC qAM Chronic Aflutter Severe TR HFpEF HTN PIANO MAKER Imdur 60mg daily, Metoprolol tartrate 100mg BID, Torsemide 40mg bid. Patient has hx of GI bleedso underwent atrial appendage closure. - Continue PIANO MAKER imdur. - Continue Metoprolol, torsemide COPD DEMI Reports that he does not use a CPAP. On 3L but satting 97%. - Oxygen 88-92% - Montelukast 10mg daily - Start Symbicort - Albuterol PRN Rhabdomyolysis, ruled out There had been concern for rhabdo at outside hospital. Hypokalemia and lack of Acute Kidney Injury would suggest against it. CK is within normal limits. Mood Disorder - Sertraline 100mg daily CKD stage II Appears baseline Creatinine around 1.1 now 1.05 - Check BMP TIA CAD HLD - ASA 81mg daily - Fenofibrate 54mg daily DMII No PIANO MAKER medications - daily BMP BPH - Finasteride 5mg daily - Restarted PIANO MAKER tamsulosin 0.4 mg daily. Neuropathy - Gabapentin 300mg tid held due to altered mental status Hx of GI bleed - Protonix 40mg BID Bilirubinemia, improving Discharge planning: TBD pending improvement in mental status. Subjective/Events of Past 24 Hours: Hospital Day: 4 No acute events overnight. Patient has no symptomatic concerns today. He is feeling well. Objective: Physical Exam GENERAL: No acute distress. S HEENT: Conjunctivae clear, no pallor. EOMI. Mucus membranes moist. . CARDIOVASCULAR : Irregularly irregular rhythm. Normal S1/S2. No murmurs, rubs, gallops. PULMONARY: No respiratory distress. CTAB. No wheezes, rales, rhonchi. EXTREMITIES: No deformities, edema, clubbing, nail changes. SKIN : No rashes, jaundice, cyanosis, ecchymoses, discoloration NEURO: No focal deficits. Patient moves all four limbs adequately. PSYCHIATRIC: Alert, oriented, calm, cooperative. Kerri Evans, , 01/02/2024 2:52 PM Charge Capture Hot Dip Plating Supervisor Associated attestation - Lashell Traore MD - 01/02/2024 9:05 PM CDT Hospitalist Attending Addendum: Patient seen and examined on 01/02/2024 and discussed with resident team. I have reviewed this progress note and agree with the documentation. Problem List: 1) Acute metabolic encephalopathy 2/2 enteritis, resolved - still holding gabapentin 2) Enteropathogenic E.coli enteritis with elevated CRP - supportive care, pull rectal tube today and monitor. Bag still with very liquid stool. Blood cultures are negative. 3) Failure to thrive, falls, electrolyte disturbances - repleted potassium, magnesium and phosphorous, PT/OT assessed, planning JUNIE. B12 is normal. Nutrition assessing. Talked with patient for a longtime about JUNIE and specifically about HCPOA, he wants his son (who lives in [place]) to be his HCPOA and his daughter in [place] (who currently has HCPOA) to be second on the list. 4) Right wrist pain and swelling 2/2 trauma, XR confirms chronic CPPD in joint - no indication for acute treatment, pain in wrist has improved with supportive care. Orthopedics assessed, no concern for septic joint. 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 Continue Symbicort, PRN albuterol and Singulair. Currently 92% onroom air. 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 Lashell Traore MD, 01/02/2024 9:01 PM * Joan Sahu RN - 01/02/2024 12:28 PM CDT . Care Management Follow-up Note Patient Name: Anthony Bowles Date: 01/02/2024 Patient/Family Discharge Goals: Patient's Discharge Goal: When patient is medically ready for discharge, he will return home. Family's Discharge Goal: SW will support patient in his discharge planning. Discharge Destination Expected Discharge Date: 01/06/2024 Time: Potential Discharge within 24 Hours: Discharge plan: Above plan of care was created and discussed with patient and family and is consistent with patient???s overall goals of care. Summary of pertinent information: Referrals have been sent to the facilities listed based on patient and family's preferences. Case management will continue to follow up until discharge. Current Discharge Placement Information: Continued Care and Services - Admitted Since 12/29/2023 Destination Service Provider Request Status Selected Services Address Phone Fax Patient Preferred [facility] Pending - Request Sent N/A [address] [facility] [address] [phone] -- [facility] [place] Pending - Request Sent N/A [address] [place] [address] [phone] -- [facility] Pending - Request Sent N/A [address] [place] [address] [phone] -- Home Medical Care No active coordination exists for this encounter. Joan Sahu RN, 01/02/2024 12:28 PM * Joan Sahu RN - 01/01/2024 1:44 PM CDT Clinical Coordinator Note RNCC spoke with patient's daughter and medical POA Adelita [phone] who stated she would like to get updates about her dad instead of her brother. 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 She will reach out to technical writer either today or by tomorrow 01/01 at the latest. RNCC will wait to receive list of preferences prior to sending referrals for placement. ANDRIY Phillips, RN Clinical Coordinator [phone] [facility] * Myla Musa, PT - 01/01/2024 1:30 PM CDT Physical Therapy Progress Note PT Discharge Recommendations Discharge Recommendations: Post-acute placement recommended. Level/type of placement (PT): Sub-Acute Rehab facility Barriers to placement (PT): No known barriers to placement Barriers to discharge to home/community: NA - Post acute placement is recommended and no barriers to placement known. If discharging to home, would need: Physical assistance when mobilizing Post discharge follow-up: PT at post-acute placement Equipment Status: Equipment needs being determined;Patient will provide own equipment PT Equipment Recommended: Front wheeled walker;Cane PM&R Recommended: S: Awesome when asked how supine BLE therex was going Pain Pain Rating With Activity (Numeric): (does not rate, significant pain at RUE with movement) Participation Significantly Limited?: No Intervention: Positioning;Applied Ice;Notified RN O:Court Of Appeals Judge Used: None needed Mental Status Mental Status: Alert;Cooperative Follows Directions: Follows 1 step direction;Consistently follows commands Restrictions/Precautions Weight Bearing Restrictions: n/a Precautions: Other Complies w/ Precautions?: Yes (falls, H2H, full code) Vital Signs 12/31/2023 2330 01/01/2024 0755 01/01/2024 1608 BP: 125/70 148/91 138/69 Patient Position for BP: Lying Down Lying Down Lying Down Pulse: 92 87 77 SpO2: 96 % 95 % 94 % Transfer & Bed Mobility Roll Left: Moderate assist Roll Right: Moderate assist Scooting: Maximum assist (to boost in bed, assist via airtaps sheet) Exercises Supine Heelslides : 10 reps Straight Leg Raises: 10 reps Ankle Pumps : 20 reps Interdisciplinary Communication RN: pt OK for PT; updated end of session Fall Risk Assessment: Patient is deemed high fall risk per protocol Positioning: Positioning Wedges Heel Offloading with Pillows UE supported with pillows Patient Positioned in Neutral Alignment Treatment rendered: Bed mobility training;Positioning;ROM;Strengthening;Neuromuscular re-education Total treatment time: 28 minutes A: Pt encountered reclined in bed, agreeable to PT session with encouragement; elects to remain in bed 2/2 discomfort with mobilizing with rectal tube in place. Established supine BLE HEP pt can complete independently to maintain LE strength, provided with printed handout detailing practiced exercises that pt verbalizes and demonstrates understanding of. Completed multiple rolls and pt assisted boosting in bed to facilitate full linen change, repositioning. Educated pt on importance of neutral positioning RUE given visible swelling and stiffness; improved ROM and comfort following interventions, per pt. Denies adverse sx other than RUE pain; vitals checked and WNL. Continue to recommend post acute placement with continued PT services, which pt is amenable to, in order to optimize return toward independent PLOF prior to ultimate goal of dc home. IP PT will continue to follow and update recs as appropriate. Goals: Problem: Decreased Transfer Skills Goal: Patient will transfer supine to/from sit Description: Patient will transfer supine to/from sit with (6) Modified [place] with HOB flat and no rails in order to safely and independently mobilize at home by 01/17/24. Outcome: In progress Goal: Patient will transfer sit to/from stand Description: Patient will transfer sit to/from stand with (6) Modified [place] and LRAD in order to safely and independently mobilize at home by 01/17/24. Outcome: In progress Problem: Decreased Ambulatory Skills Goal: Improve gait Description: Ambulate >20 meters using LRAD with (6) Modified [place] in order to safely and independently navigate distances necessary for home by 01/17/24. Outcome: In progress Goal: Improve gait on stairs Description: Ascend/descend 5-10 stairs using LRAD and/or 1-2 rails with (6) Modified [place] in order to safely and independently navigate home environment by 01/17/24. Outcome: In progress P: Patient will be seen 2-4x/week until goals are met or patient is discharged. Next visit the planis to work on bed mobility with HOB flat, sit<>stands with FWW, standing tolerance and pre-gait, short distance ambulation as able. PIANO MAKER Appropriate: No (needs mobility progressed) Myla Musa, PT 01/01/2024 Pager: [facility] * Kerri Evans, DO - 01/01/2024 10:47 AM CDT MEDICINE PROGRESS NOTE Anthony Bowles : 1950 Sex: male Patient Summary: Anthony Bowles is a 73 y.o. male with past medical history of CHF, CAD, CKD II, DMII admitted on 12/29/2023 with AMS, no clear cause identified however patient is improving. OT recommending placement. Assessment & Plan: Acute Metabolic Encephalopathy, improving Failure to Thrive Falls Elevated Inflammatory markers EPEC infection Patient's mental status appears to be returning to baseline. Unsure what has occurred. CT head had been negative and work up thus far has been unrevealing. Considered broad differential including Intoxication/overdose (EtOH, illicit drugs, etc), other toxic, psychosis, metabolic abnormality, sepsis, meningitis, renal failure, seizure/post ictal, SAH, SDH, TIA, CVA but none of these appear to fit the picture. Will hold altering medications as able. Not sure if patient actually has an infection. Leach scan is negative, urinalysis negative, procal not grossly elevated. Inflammatory markers are elevated. TSH, B12 WNL. HIV and RPR negative. Stool GI panel is positive for EPEC. Blood cultures with NGTD. OT saw the patient and is recommending placement. - Hold gabapentin - PT/OT/Nutrition - Pramipexole 0.25mg qhs - Supportive cares for e. Coli gastrointestinal infection. Right wrist pain, swelling likely secondary to CPPD Hx of Gout MGUS FOOSH injury CT of extremity at outside hospital had been concerning for lytic lesions and hx of MGUS dx. Ortho consulted and are not concerned for a septic joint. Uric acid WNL. Radiology read here reveals chondrocalcinosis of 2nd-4th MCP joints with associated joint space narrowing as well as large subchondral cysts and periarticular erosions consistent with CPPD. RUE US is negative for DVT but does reveal tenosynovitis of the extensor tendon sheath. - Allopurinol 200mg daily Hypokalemia Hypomagnesemia Unspecified malnutrition Suspect secondary to signifcant diarrhea in the setting of EPEC. - Replete PRN - Nutrition consult Normocytic Anemia hx of anemia of CKD - Check CBC in AM Chronic Aflutter Severe TR HFpEF HTN PIANO MAKER Imdur 60mg daily, Metoprolol tartrate 100mg BID, Torsemide 40mg bid. Patient has hx of GI bleedso underwent atrial appendage closure. - Continue PIANO MAKER imdur. - Continue Metoprolol, torsemide COPD DEMI Reports that he does not use a CPAP. On 3L but satting 97%. - Oxygen 88-92% - Montelukast 10mg daily - Start Symbicort - Albuterol PRN Rhabdomyolysis, ruled out There had been concern for rhabdo at outside hospital. Hypokalemia and lack of Acute Kidney Injury would suggest against it. CK is within normal limits. Mood Disorder - Sertraline 100mg daily CKD stage II Appears baseline Creatinine around 1.1 now 1.05 - Check BMP TIA CAD HLD - ASA 81mg daily - Fenofibrate 54mg daily DMII No PIANO MAKER medications - daily BMP BPH - Finasteride 5mg daily Neuropathy - Gabapentin 300mg tid held due to altered mental status Hx of GI bleed - Protonix 40mg BID Bilirubinemia, improving Discharge planning: TBD pending improvement in mental status. Subjective/Events of Past 24 Hours: Hospital Day: 3 Patient seen resting comfortably in bed today. Reports improved abdominal pain. Urinating independently. Tolerating PO. Amenable to considering rehab pending PT recommendations. Objective: Physical Exam GENERAL: No acute distress. Sleeping. HEENT: Conjunctivae clear, no pallor. EOMI. Mucus membranes moist. . CARDIOVASCULAR : Irregularly irregular rhythm. Normal S1/S2. No murmurs, rubs, gallops. PULMONARY: No respiratory distress. CTAB. No wheezes, rales, rhonchi. EXTREMITIES: No deformities, edema, clubbing, nail changes. SKIN : No rashes, jaundice, cyanosis, ecchymoses, discoloration NEURO: No focal deficits. Patient moves all four limbs adequately. PSYCHIATRIC: Unable to assess. Kerri Evans, DO, 01/01/2024 10:48 AM Charge Capture Hot Dip Plating Supervisor Associated attestation - Mauricio Simpson MD - 01/01/2024 12:38 PM CDT FACULTY NOTE I saw and evaluated the patient today, 01/01/2024. I discussed and agree with findings and plan documented in Dr. Evans's note dated 01/01/2024. Any revisions by me are documented. Mauricio Simpson MD, 01/01/2024 12:38 PM * Myla Musa, PT - 12/31/2023 3:30 PM CDT Physical Therapy Note - Attempt Chart reviewed, pt only appropriate for bed level mobility 2/2 rectal tube per RN. IP PT indicated for OOB mobility and gait / balance training, thus session will be re-attempted once rectal tube d/c'd / pt appropriate to mobilize OOB. Myla Musa, PT, 12/31/2023 4:22 PM * Joan Sahu RN - 12/31/2023 2:37 PM CDT Clinical Coordinator Note RNCC called patient's son Mich for [facility] preferences. Mich stated he would call back as he has todiscuss the locations with his sister and the patient. RNCC will wait to hear from Mich on location preferences before sending referrals for placement. ANDRIY Phillips, RN Clinical Coordinator [phone] [employer] * Kerri Evans DO - 12/31/2023 1:49 PM CDT MEDICINE PROGRESS NOTE Anthony Bowles : 1950 Sex: male Patient Summary: Anthony Bowles is a 73 y.o. male with past medical history of CHF, CAD, CKD II, DMII admitted on 12/29/2023 with AMS, no clear cause identified however patient is improving. OT recommending placement. Assessment & Plan: Acute Metabolic Encephalopathy, improving Failure to Thrive [place] Elevated Inflammatory markers EPEC infection Patient's mental status appears to be returning to baseline. Unsure what has occurred. CT head had been negative and work up thus far has been unrevealing. Considered broad differential including Intoxication/overdose (EtOH, illicit drugs, etc), other toxic, psychosis, metabolic abnormality, sepsis, meningitis, renal failure, seizure/post ictal, SAH, SDH, TIA, CVA but none of these appear to fit the picture. Will hold altering medications as able. Not sure if patient actually has an infection. Leach scan is negative, urinalysis negative, procal not grossly elevated. Inflammatory markers are elevated. TSH, B12 WNL. HIV and RPR negative. Stool GI panel is positive for EPEC. Blood cultures with NGTD. OT saw the patient and is recommending placement. - Hold gabapentin - PT/OT/Nutrition - Pramipexole 0.25mg qhs - UDS - Supportive cares for e. Coli gastrointestinal infection. Right wrist pain, swelling likely secondary to CPPD Hx of Gout MGUS FOOSH injury CT of extremity at outside hospital had been concerning for lytic lesions and hx of MGUS dx. Ortho consulted and are not concerned for a septic joint. Uric acid WNL. Radiology read here reveals chondrocalcinosis of 2nd-4th MCP joints with associated joint space narrowing as well as large subchondral cysts and periarticular erosions consistent with CPPD. RUE US is negative for DVT but does reveal tenosynovitis of the extensor tendon sheath. - Allopurinol 200mg daily Hypokalemia Hypomagnesemia Unspecified malnutrition Suspect secondary to signifcant diarrhea in the setting of EPEC. - Replete PRN - Nutrition consult Normocytic Anemia hx of anemia of CKD - Check CBC in AM Chronic Aflutter Severe TR HFpEF HTN PIANO MAKER Imdur 60mg daily, Metoprolol tartrate 100mg BID, Torsemide 40mg bid. Patient has hx of GI bleedso underwent atrial appendage closure. - Restart PIANO MAKER imdur. - Continue Metoprolol, torsemide COPD DEMI Reports that he does not use a CPAP. On 3L but satting 97%. - Oxygen 88-92% - Montelukast 10mg daily - Start Symbicort - Albuterol PRN Rhabdomyolysis, ruled out There had been concern for rhabdo at outside hospital. Hypokalemia and lack of Acute Kidney Injury would suggest against it. CK is within normal limits. Mood Disorder - Sertraline 100mg daily CKD stage II Appears baseline Creatinine around 1.1 now 1.05 - Check BMP TIA CAD HLD - ASA 81mg daily - Fenofibrate 54mg daily DMII No PIANO MAKER medications - daily BMP BPH - Finasteride 5mg daily Neuropathy - Gabapentin 300mg tid held due to altered mental status Hx of GI bleed - Protonix 40mg BID Bilirubinemia, improving Discharge planning: TBD pending improvement in mental status. Subjective/Events of Past 24 Hours: Hospital Day: 2 Patient is AAO x3. He appears to be much more clear today. He denies pain. Objective: Physical Exam GENERAL: No acute distress. HEENT: Conjunctivae clear, no pallor. EOMI. Mucus membranes moist. Dental hygiene fair. NECK: No adenopathy. No thyroid nodules or enlargement noted. CARDIOVASCULAR : Irregularly irregular rhythm. Normal S1/S2. No murmurs, rubs, gallops. PULMONARY: No respiratory distress. CTAB. No wheezes, rales, rhonchi. EXTREMITIES: No deformities, edema, clubbing, nail changes. SKIN : No rashes, jaundice, cyanosis, ecchymoses, discoloration NEURO: No focal deficits. Patient moves all four limbs adequately. PSYCHIATRIC: Alert, oriented, cooperative, normal affect Kerri Evans DO, 12/31/2023 1:49 PM Charge Capture Hot Dip Plating Supervisor Associated attestation - Mauricio Simpson MD - 12/31/2023 8:05 PM CDT FACULTY NOTE I saw and evaluated the patient today, 12/31/2023. I discussed and agree with findings and plan documented in Dr. Evans's note dated 12/31/2023. Any revisions by me are documented. Mauricio Simpson MD, 12/31/2023 8:05 PM * Greg Meza MDIV - 12/30/2023 2:25 PM CDT Spiritual Care Note Anthony Bowles : 1950 Sex: male LOS: 1 day Summary: Visit by Seminarian MICHELLE. Plan: Chaplains are available as needed. Greg Meza MDIV, 12/30/2023 2:25 PM Number: [phone] * Kerri Evans DO - 12/30/2023 12:41 PM CDT MEDICINE PROGRESS NOTE Anthony Bowles : 1950 Sex: male Patient Summary: Anthony Bowles is a 73 y.o. male with past medical history of CHF, CAD, CKD II, DMII admitted on 12/29/2023 with AMS. Assessment & Plan: Acute Metabolic Encephalopathy Failure to Thrive [place] Elevated Inflammatory markers. Patient's mental status appears to be returning to baseline. Unsure what has occurred. CT head had been negative and work up thus far has been unrevealing. Considered broad differential including Intoxication/overdose (EtOH, illicit drugs, etc), other toxic, psychosis, metabolic abnormality, sepsis, meningitis, renal failure, seizure/post ictal, SAH, SDH, TIA, CVA but none of these appear to fit the picture. Will hold altering medications as able. Not sure if patient actually has an infection. Leach scan is negative, urinalysis negative, procal not grossly elevated. Inflammatory markers are elevated. TSH, B12 WNL. HIV and RPR negative. Stool GI panel is positive for EPEC. Blood cultures with NGTD. - Hold gabapentin - PT/OT/Nutrition - Pramipexole 0.25mg qhs - UDS - Supportive cares for e. Coli gastrointestinal infection. Right wrist pain, swelling likely secondary to CPPD Hx of Gout MGUS CT of extremity at outside hospital had been concerning for lytic lesions and hx of MGUS dx. Ortho consulted and are not concerned for a septic joint. Uric acid WNL. Radiology read here reveals chondrocalcinosis of 2nd-4th MCP joints with associated joint space narrowing as well as large subchondral cysts and periarticular erosions consistent with CPPD. - Allopurinol 200mg daily - RUE US to rule out DVT. Bilirubinemia, improving Elevated bilirubin but alk phos and transaminases wnl. CT AP without acute findings and US gallbladder negative. Hemoglobin stable compared to prior and mostly direct bilirubin which would suggest against hemolysis. Could also consider hepatocellular injury or cholestasis (though imaging suggests against). Hemolysis labs not consistent with hemolysis. Hypokalemia Hypomagnesemia Unspecified malnutrition Suspect secondary to signifcant diarrhea in the setting of EPEC. - Replete PRN - Nutrition consult Normocytic Anemia hx of anemia of CKD - Check CBC in AM Chronic Aflutter Severe TR HFpEF HTN PIANO MAKER Imdur 60mg daily, Metoprolol tartrate 100mg BID, Torsemide 40mg bid. Patient has hx of GI bleedso underwent atrial appendage closure. - Restart PIANO MAKER imdur. - Continue Metoprolol, torsemide COPD DEMI Reports that he does not use a CPAP. On 3L but satting 97%. - Oxygen 88-92% - Montelukast 10mg daily - Start Symbicort - Albuterol PRN Rhabdomyolysis, ruled out There had been concern for rhabdo at outside hospital. Hypokalemia and lack of Acute Kidney Injury would suggest against it. CK is within normal limits. Mood Disorder - Sertraline 100mg daily CKD stage II Appears baseline Creatinine around 1.1 now 1.05 - Check BMP TIA CAD HLD - ASA 81mg daily - Fenofibrate 54mg daily DMII No PIANO MAKER medications - daily BMP BPH - Finasteride 5mg daily Neuropathy - Gabapentin 300mg tid held due to altered mental status Hx of GI bleed - Protonix 40mg BID Discharge planning: TBD pending improvement in mental status. Subjective/Events of Past 24 Hours: Hospital Day: 1 Patient is AAO x3 but at times is quite confused and cannot remember his pet's name. He denies any significant pain. Objective: Physical Exam GENERAL: No acute distress. HEENT: Conjunctivae clear, no pallor. EOMI. Mucus membranes moist. Dental hygiene fair. NECK: No adenopathy. No thyroid nodules or enlargement noted. CARDIOVASCULAR : Borderline tachycardia with regular rhythm. Normal S1/S2. No murmurs, rubs, gallops. PULMONARY: No respiratory distress. CTAB. No wheezes, rales, rhonchi. EXTREMITIES: No deformities, edema, clubbing, nail changes. SKIN : No rashes, jaundice, cyanosis, ecchymoses, discoloration NEURO: No focal deficits. Patient moves all four limbs adequately. PSYCHIATRIC: Alert, oriented, cooperative, normal affect Kerri Evans, DO, 12/30/2023 12:43 PM Charge Capture [employer] Supervisor Associated attestation - Mauricio Simpson MD - 12/30/2023 8:25 PM CDT FACULTY NOTE I saw and evaluated the patient today, 12/30/2023. I discussed and agree with findings and plan documented in Dr. Evans's note dated 12/30/2023. Any revisions by me are documented. Stool panel positive for EPEC. Per son, appears to be slowly clearing from AMS. Continue supportivecares. Consider Rheumatology consult in AM for steroid injection of right wrist. Mauricio Simpson MD, 12/30/2023 8:23 PM * Karina Grove RN - 12/29/2023 11:28 PM CDT 4 Eyes Skin Inspection Note Upon admission, a Four Eyes Skin Inspection was completed with MARSHALL Mcarthur. Skin injuries were not present, and skin breakdown needing further assessment will be added to [facility]. Will implement interventions from Skin INJURY Bundle as appropriate. Pt R wrist is swollen. Skin is intact. Karina Grove, SIMRAN, 12/29/2023 11:29 PM documented in this encounter H&P Notes * Macho Ortiz, - 12/29/2023 10:02 PM CDT MEDICINE HISTORY AND PHYSICAL Anthony Bowles : 1950 Sex: male Patient Summary: Anthony Bowles is a 73 y.o. male with past medical history of CHF, CAD, CKD II, DMII admitted on 12/29/2023 with AMS. Assessment and Plan: Acute Metabolic Encephalopathy Failure to Thrive Falls? Elevated Inflammatory markers. Patient's mental status appears to be returning to baseline. Unsure what has occurred. CT head had been negative and work up thus far has been unrevealing. Considered broad differential including Intoxication/overdose (EtOH, illicit drugs, etc), other toxic, psychosis, metabolic abnormality, sepsis, meningitis, renal failure, seizure/post ictal, SAH, SDH, TIA, CVA but none of these appear to fit the picture. Will hold altering medications as able. Not sure if patient actually has an infection. Leach scan is negative, urinalysis negative, procal not grossly elevated. Inflammatory markers are elevated. - Hold gabapentin - PT/OT/Nutrition - Pramipexole 0.25mg qhs - UDS - RPR pending - TSH, B12, HIV ordered - Blood cultures pending - Hold Abx Bilirubinemia Elevated bilirubin but alk phos and transaminases wnl. CT AP without acute findings and US gallbladder negative. Hemoglobin stable compared to prior and mostly direct bilirubin which would suggest against hemolysis. Could also consider hepatocellular injury or cholestasis (though imaging suggests against). - Hemolysis labs - Recheck LFT - Consider autoimmune work up? Left Wrist Pain Hx of Gout Lytic Bone Lesions MGUS CT of extremity at outside hospital had been concerning for lytic lesions and hx of MGUS dx. Ortho without concern for septic arthritis. Uric acid WNL. - Allopurinol 200mg daily Hypokalemia Hypomagnesemia Unspecified malnutrition - Replete PRN - Nutrition consult Normocytic Anemia hx of anemia of CKD - Check CBC in AM Chronic Aflutter Severe TR HFpEF HTN PIANO MAKER Imdur 60mg daily, Metoprolol tartrate 100mg BID, Torsemide 40mg bid - Hold Imdur given acute illness - Continue Metoprolol, torsemide COPD DEMI Reports that he does not use a CPAP. On 3L but satting 97%. - Oxygen 88-92% - Montelukast 10mg daily - Start Symbicort - Albuterol PRN Rhabdo? There had been concern for rhabdo at outside hospital. Hypokalemia and lack of Acute Kidney Injury would suggest against it. CK is within normal limits. Mood Disorder - Sertraline 100mg daily CKD stage II Appears baseline Creatinine around 1.1 now 1.05 - Check BMP TIA CAD HLD - ASA 81mg daily - Fenofibrate 54mg daily DMII No PIANO MAKER medications - Glucose check BPH - Finasteride 5mg daily Neuropathy - Gabapentin 300mg tid held due to altered mental status Hx of GI bleed - Protonix 40mg BID Seborrheic dermatosis History of Present Illness: Anthony Bowles is a 73 y.o. male with a past medical history of CHF, Anema of chronic kidney diseaes, CAD, Chronic Aflutter, Chronic Gout, CKD stage II, COPD, HLD, DEMI, TIA, DMII, Severe TR who presented to the ED with confusion. He had been found sitting in a chair slurring his words. Originally patient seen at [facility] ED with a fever. Head CT negative. Hand CT with possibleeffusion/lesions (concerning for multiple myeloma rather than septic arthritis - worked up by heme onc, told it isn't cancer but required infusions). There had been concern for rhabdo and septic arthritis requiring transfer to [facility]. Per ED provider, for the last few days patient has been weaker and more out of it per his family. Patient is oriented and mildly confused but appropriate. In the ED, vitals notable for HR of 100s but otherwise stable. Exam with red swollen wrist. Patienthad reportedly been febrile at outside ED. Labs notable for pH 7.46/40/28, K 2.7>3.3, Creatinine1.15 (unknown baseline), Albumin 3.1, Ammonia 13, Lactate 1.0, total protein 6.2, Hemoglobin 10.6 with an MCV 89.2, INR 1.4, Bilirubin 1.4/0.8, CRP 29, ESR 120, urinalysis specific gravity 1.039/small blood, Procal 0.62. Lipase, trops negative. BSCUS without any abnormalities. CT PE and AP without any acute abnormalities. Gallbladder US with cholelithiasis without cholecystitis. Wrist XR ordered.EKG with Afib but no ischemic change. He received Zosyn, Tylenol, Potassium replacement. Seen by [facility] surgery who are not concerned for septic arthritis. Patient states that as far as he is aware he tripped over his dog the other day and landed on his wrist. He goes on to state that he was told that he has bone cancer and needed to see the oncologist and [place]. Patient then denied any fevers, chills, headaches, eye pain, cough, URI symptoms, abdominal pain, diarrhea, urinary symptoms, rashes, or muscle aches. He states that his wrist is very bothersome and swollen. Is unsure of the timeframe of symptom onset. He states that he manages hishouse and his medications himself. Patient denies hx of autoimmune disease. Links to update patient chart: Medical History, Surgical History, Family History, Psychosocial History, Medication List, Allergies, Code Status, LDA & Wounds Objective: Vitals: 12/29/23 2326 BP: 133/83 Pulse: 94 Resp: 20 Temp: 36.8 ??C (98.2 ??F) SpO2: 96% Physical Exam Constitutional: General: He is not in acute distress. Appearance: Normal appearance. He is obese. Interventions: Face mask in place. HENT: Head: Normocephalic. Cardiovascular: Rate and Rhythm: Normal rate and regular rhythm. Pulmonary: Effort: Pulmonary effort is normal. Breath sounds: Normal breath sounds. Musculoskeletal: Right hand: Swelling and tenderness present. No deformity, lacerations or bony tenderness. Decreased range of motion. Left hand: Normal. Comments: Right wrist warm to touch and swollen. Limited ROM. Neurological: General: No focal deficit present. Mental Status: He is alert and oriented to person, place, and time. Comments: Is a little tangential and mildly altered. Psychiatric: Attention and Perception: Attention normal. Mood and Affect: Mood normal. Speech: Speech normal. Behavior: Behavior is cooperative. PCP: aMrtine Argueta MD Associated attestation - Mitra Hopkins MD - 12/30/2023 2:31 AM CDT FACULTY NOTE I saw and evaluated the patient today, 12/29/2023. I discussed with the resident and agree with theresident???s findings and plan documented in the resident???s note from above. Any revisions by me are documented. Unclear etiology of encephalopathy, workup as noted. Elevated inflammatory markers (significantly elevated from last testing) with broad differential, bacterial infection less likely at this time with no fever and negative WBCs, procal. HIV, RPR ordered. Patient also has numerous lytic lesions in bones per chart, son notes that this has been evaluated by Oncology but not able to find records, will need to obtain these and consider further evaluation. Mitra Hopkins MD documented in this encounter Consult Notes * Oriana Han, OTR/L - 12/30/2023 4:40 PM CDT OCCUPATIONAL THERAPY ACUTE INITIAL EVALUATION Anthony Davemussen 12/30/2023 OT Discharge Recommendations Discharge Recommendations: Post-acute placement recommended Level/type of placement (OT): Sub-Acute Rehab facility Barriers to placement (OT): No known barriers to placement Barriers to discharge to home/community: NA - Post acute placement is recommended and no barriers to placement known. Post Discharge Follow-up: OT at post-acute placement Equipment Recommended: Equipment needs to be determined at next level of care Equipment Status: Equipment needs to be determined at next level of care OT In-patient follow-up / recommended referrals: Continue skilled OT services to achieve the goals on the plan of care / maximize safety and independence with ADL's / IADL's - Recommended Frequency: 3-5xwk - Anticipated Duration of OT services: throughout hospital stay - Interventions: ADL retraining, activity tolerance, functional mobility, functional cognition, andAROM PM&R Consult Recommended: Patient Name: Anthony Bowles : 1950 Age: 73 y.o. Hospital Admit date: 12/29/2023 Today's Date: 12/30/2023 Occupational Profile Medical History relevant to OT referral: Primary Diagnosis: Active Problems: Altered mental status, unspecified altered mental status type Resolved Problems: * No resolved hospital problems. * Treatment Diagnosis: Impairments in motor function and cognition that limit safety and or independence with ADL's / IADL's Restrictions/Precautions: Activity Level: Up Ad Goldie Hospital Course: Per Dr. Evans note on 12/30/23: Anthony Bowles is a 73 y.o. male with past medical history of CHF, CAD, CKD II, DMII admitted on 12/29/2023 with AMS. Assessment & Plan: Acute Metabolic Encephalopathy Failure to Thrive Falls Elevated Inflammatory markers. Patient's mental status appears to be returning to baseline. Unsure what has occurred. CT head had been negative and work up thus far has been unrevealing. Considered broad differential including Intoxication/overdose (EtOH, illicit drugs, etc), other toxic, psychosis, metabolic abnormality, sepsis, meningitis, renal failure, seizure/post ictal, SAH, SDH, TIA, CVA but none of these appear to fit the picture. Will hold altering medications as able. Not sure if patient actually has an infection. Leach scan is negative, urinalysis negative, procal not grossly elevated. Inflammatory markers are elevated. TSH, B12 WNL. HIV and RPR negative. Stool GI panel is positive for EPEC. Blood cultures with NGTD. - Hold gabapentin - PT/OT/Nutrition - Pramipexole 0.25mg qhs - UDS - Supportive cares for e. Coli gastrointestinal infection. Left Wrist Pain Hx of Gout Lytic Bone Lesions MGUS Pseudogout CT of extremity at outside hospital had been concerning for lytic lesions and hx of MGUS dx. Ortho consulted and are not concerned for a septic joint. Uric acid WNL. Radiology read here reveals chondrocalcinosis of 2nd-4th MCP joints with associated joint space narrowing as well as large subchondral cysts and periarticular erosions consistent with CPPD. - Allopurinol 200mg daily - RUE US to rule out DVT. Bilirubinemia, improving Elevated bilirubin but alk phos and transaminases wnl. CT AP without acute findings and US gallbladder negative. Hemoglobin stable compared to prior and mostly direct bilirubin which would suggest against hemolysis. Could also consider hepatocellular injury or cholestasis (though imaging suggests against). Hemolysis labs not consistent with hemolysis. Hypokalemia Hypomagnesemia Unspecified malnutrition - Replete PRN - Nutrition consult Normocytic Anemia hx of anemia of CKD - Check CBC in AM Chronic Aflutter Severe TR HFpEF HTN PIANO MAKER Imdur 60mg daily, Metoprolol tartrate 100mg BID, Torsemide 40mg bid. Patient has hx of GI bleedso underwent atrial appendage closure. - Restart PIANO MAKER imdur. - Continue Metoprolol, torsemide COPD DEMI Reports that he does not use a CPAP. On 3L but satting 97%. - Oxygen 88-92% - Montelukast 10mg daily - Start Symbicort - Albuterol PRN Rhabdomyolysis, ruled out There had been concern for rhabdo at outside hospital. Hypokalemia and lack of Acute Kidney Injury would suggest against it. CK is within normal limits. Mood Disorder - Sertraline 100mg daily CKD stage II Appears baseline Creatinine around 1.1 now 1.05 - Check BMP TIA CAD HLD - ASA 81mg daily - Fenofibrate 54mg daily DMII No PIANO MAKER medications - daily BMP BPH - Finasteride 5mg daily Neuropathy - Gabapentin 300mg tid held due to altered mental status Hx of GI bleed - Protonix 40mg BID Past Medical History No past medical history on file. Living Situation/Social History: Information obtained From: patient Help Available at home: no Patient is living in a/an : house Stairs Required to enter the home: 3-5;with 1 handrail Stairs required once inside the home: none Stairs are required to access: NA Bathroom set up: walk in shower Mobility equipment currently available/used: cane ADL Equipment currently available/used: grab bars;tub / shower chair Prior Level of Function: ADLs/IADLs: No assistance required (Independent or modified independent) Functional Mobility: Modified independent using AD (comments) Prior Therapies: none Evaluation Court Of Appeals Judge Used: None needed Subjective: I can't remember if this is new or not in the shoulder. The wrist is. Pain: Pain Rating With Activity (Numeric): 5/10 Location: R hand, wrist and elbow Participation Significantly Limited?: Yes Action Taken: Nursing aware and addressing;Repositioned patient with reported relief Patient Appearance: Lines- Peripheral IV(s) Upper Extremity Function: LUE: WNL for AROM, strength, coordination and sensation. RUE: Pt with decreased AROM at shoulder, elbow, wrist and digits. Intact sensation. Pt with pain inhand, wrist and elbow with PROM. Pt with poor isolated opposition and serial opposition. Swelling present in wrist and digits. Activities of Daily Living: Eating: Supervision/Stand by assist Eating Comments: Due to pain and swelling in R hand/wrist and decreased AROM of RUE, the pt requires set up of meal Grooming: Supervision/Stand by assist Grooming Comments: Due to pain and swelling in R hand/wrist and decreased AROM of RUE, pt requiringset up of supplies. Upper Body Dressing: Maximal assist (25% patient effort) Upper Body Dressing Comments: Assist with threading RUE, donning over head and posterior clothing management. Lower Body Dressing: Maximal assist (25% patient effort) Lower Body Dressing Comments: unable to don/doff socks due to decreased strength and coordination in R hand. Functional Mobility: Supine to/from Sit: Moderate assist (50% patient effort) Sit to/from Stand : Minimal assist (75% patient effort) Sit to/from Stand - Method: From standard seat height;w/ Assistive device (bedrailing this date. Difficult to bear weight into RUE due to pain) Cognition: Mental Status: Oriented x 2;Cooperative;Follows 1 step direction Delirium assessment: Confusion Assessment Method (CAM) Delirium prevention / intervention appears indicated? No. Insight: Pt demonstrates insight into current condition and related safety considerations - No Problem solving: Pt able to complete basic functional problem solving - Yes Visual Perception: Pt reports visual changes - No Additional Treatment / Education Provided: Education / training was provided to patient regarding : - safety with functional transfers and mobility. Pt verbalizing understanding. OT training on elevation and positioning of RUE to assist with swelling. Pt verbalizing understanding. Interdisciplinary Communication: RN: OT POC Barriers to Learning: cognitive impairments Rehab Potential: good ASSESSMENT: The pt is a pleasant 73 y.o. male with past medical history of CHF, CAD, CKD II, DMII admitted on 12/29/2023 with AMS. PLOF: [place]-Independent with all ADLs, ADL transfers and IADLs. The ptlives alone in a house with 5STE. Pt uses a cane to walk and has an adaptive bathroom. Pt presents this date with 5/10 pain in RUE primarily at elbow, wrist and digits. Pt with decreased AROM at shoulder, elbow, wrist and digit. Pt with inability to complete gross grasp and release in R hand nor opposition. Pt is requiring Mod-MaxAx1 for ADLs. At this point, OT is recommending DC to sub acute rehab to increase independence and safety in ADLs and ADL transfers. Continue OT POC. (See box at the top of note for additional information) Impairments: This patient demonstrates impairments in the followingSensory functions: Pain / pain control Motor function: Range of motion and Strength / Muscle power Functional mobility Performance Deficits / Activity Limitations: The impairments listed above affect the patient's ability to safely and independently engage in the following occupations All Activities of Daily Living (ADL's) (i.e. grooming, dressing, toileting, bathing, etc.) All Instrumental Activities of Daily Living (IADLS's) (i.e. meal prep, money management, community mobility, shopping, etc.) Patient's Stated Goals: To get home. PLAN: See box at top of note for additional information. See care plan for OT goals (if indicated). Participated in goal setting and treatment planning: Patient Agrees with goals and treatment plan: Patient - Yes Plan For Next OT Session: --ADLs: LB dressing compensatory strategies and Toileting strategies --Functional Mobility/Transfers: Toilet/commode transfer technique --Intrinsic splint Total treatment time: 40 minutes OT interventions and time spent on each: Eval: 20 minutes Self care/Home mgmt/ADL: 20 minutes Therapist: AVERY Moffett Pager: [facility] Occupational Therapy Department * Lencho Myla, PT - 12/30/2023 3:15 PM CDT Images from the original note were not included. PHYSICAL THERAPY OBSERVATION EVALUATION Anthony Bowles was seen 12/30/2023 for a Physical Therapy Observation Evaluation. PT Discharge Recommendations Discharge Recommendations: Post-acute placement recommended. Level/type of placement (PT): Sub-Acute Rehab facility Barriers to placement (PT): No known barriers to placement Barriers to discharge to home/community: NA - Post acute placement is recommended and no barriers to placement known. If discharging to home, would need: Physical assistance when mobilizing Post discharge follow-up: PT at post-acute placement Equipment Status: Equipment needs being determined;Patient will provide own equipment PT Equipment Recommended: Front wheeled walker;Cane PM&R Recommended: DIAGNOSIS Patient Active Problem List Diagnosis Closed nondisplaced fracture of second cervical vertebra, unspecified fracture morphology, initial encounter ([facility]) Acute on chronic diastolic congestive heart failure ([facility]) Anemia in chronic kidney disease Asthma ([facility]) Atherosclerotic heart disease of [place] coronary artery without angina pectoris Atrial flutter ([facility]) Carotid artery disease ([facility]) Chronic gout Chronic kidney disease, stage 2 (mild) Chronic obstructive pulmonary disease, unspecified ([facility]) Gastrointestinal hemorrhage with melena Hypokalemia Hypomagnesemia Hyperlipidemia Obstructive sleep apnea (adult) (pediatric) Other polyosteoarthritis Other pulmonary embolism without acute cor pulmonale ([facility]) Paroxysmal atrial fibrillation ([facility]) Patent foramen ovale ([facility]) Personal history of transient ischemic attack (TIA), 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 Severe tricuspid valve regurgitation Type 2 diabetes mellitus with diabetic nephropathy ([facility]) Altered mental status, unspecified altered mental status type PT Treatment Diagnosis: Difficulty in Walking R 26.2 Impaired Mobility Z 74.09 Activity Intolerance Z 73.89 Unsteadiness on Feet R 26.81 History of Falling Z 91.81 Acute Pain due to Trauma G 89.11 PRECAUTIONS Falls Hazardous to Handle Full Code Court Of Appeals Judge Used: None needed ACTIVITY Up ad Goldie Start Ordered 12/29/23 2300 ACTIVITY CONTINUOUS Question: Activity Level Answer: Up Ad Goldie Physical Therapy Orders: Orders Placed This Encounter Procedures PT Evaluation and Treatment Standing Status: Standing Number of Occurrences: 1 Order Specific Question: Reasons for eval? Answer: As Per Dx Order Specific Question: OK for out of bed activity? (Update Activity Order) Answer: Yes HISTORY Pertinent History: Per Medicine Progress Note 12/30/23: MEDICINE PROGRESS NOTE Anthony Bowles : 1950 Sex: male Patient Summary: Anthony Bowles is a 73 y.o. male with past medical history of CHF, CAD, CKD II, DMII admitted on 12/29/2023 with AMS. Assessment & Plan: Acute Metabolic Encephalopathy Failure to Thrive Falls Elevated Inflammatory markers. Patient's mental status appears to be returning to baseline. Unsure what has occurred. CT head had been negative and work up thus far has been unrevealing. Considered broad differential including Intoxication/overdose (EtOH, illicit drugs, etc), other toxic, psychosis, metabolic abnormality, sepsis, meningitis, renal failure, seizure/post ictal, SAH, SDH, TIA, CVA but none of these appear to fit the picture. Will hold altering medications as able. Not sure if patient actually has an infection. Leach scan is negative, urinalysis negative, procal not grossly elevated. Inflammatory markers are elevated. TSH, B12 WNL. HIV and RPR negative. Stool GI panel is positive for EPEC. Blood cultures with NGTD. - Hold gabapentin - PT/OT/Nutrition - Pramipexole 0.25mg qhs - UDS - Supportive cares for e. Coli gastrointestinal infection. Left Wrist Pain Hx of Gout Lytic Bone Lesions MGUS Pseudogout CT of extremity at outside hospital had been concerning for lytic lesions and hx of MGUS dx. Ortho consulted and are not concerned for a septic joint. Uric acid WNL. Radiology read here reveals chondrocalcinosis of 2nd-4th MCP joints with associated joint space narrowing as well as large subchondral cysts and periarticular erosions consistent with CPPD. - Allopurinol 200mg daily - RUE US to rule out DVT. Bilirubinemia, improving Elevated bilirubin but alk phos and transaminases wnl. CT AP without acute findings and US gallbladder negative. Hemoglobin stable compared to prior and mostly direct bilirubin which would suggest against hemolysis. Could also consider hepatocellular injury or cholestasis (though imaging suggests against). Hemolysis labs not consistent with hemolysis. Hypokalemia Hypomagnesemia Unspecified malnutrition - Replete PRN - Nutrition consult Normocytic Anemia hx of anemia of CKD - Check CBC in AM Chronic Aflutter Severe TR HFpEF HTN PIANO MAKER Imdur 60mg daily, Metoprolol tartrate 100mg BID, Torsemide 40mg bid. Patient has hx of GI bleedso underwent atrial appendage closure. - Restart PIANO MAKER imdur. - Continue Metoprolol, torsemide COPD DEMI Reports that he does not use a CPAP. On 3L but satting 97%. - Oxygen 88-92% - Montelukast 10mg daily - Start Symbicort - Albuterol PRN Rhabdomyolysis, ruled out There had been concern for rhabdo at outside hospital. Hypokalemia and lack of Acute Kidney Injury would suggest against it. CK is within normal limits. Mood Disorder - Sertraline 100mg daily CKD stage II Appears baseline Creatinine around 1.1 now 1.05 - Check BMP TIA CAD HLD - ASA 81mg daily - Fenofibrate 54mg daily DMII No PIANO MAKER medications - daily BMP BPH - Finasteride 5mg daily Neuropathy - Gabapentin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 alarm on for fall risk. Intermittent incontinence of urine. Able to use urinal at bedside with an assist of one. Redness located at janey area and buttock, barrier cream applied with cares. Transport arrived early to bring pt back to SNF. Medical team able to accommodate early discharge. Intentional rounding completed. Will continue to monitor and follow POC. Shira Tesfaye RN, 01/06/2024 11:13 AM Neurologic/Cognitive Assessment Within Defined Limits except for: Level of Consciousness: Confused Orientation: disoriented to place, disoriented to time and disoriented to situation Mood/Behavior: Anxious HEENT Assessment Within Defined Limits except for: Teeth Symptoms: Tooth/teeth missing Cardiac Within Defined Limits Respiratory Assessment Within Defined Limits except for: Comments: Hx of asthma and DEMI Neurovascular Within Defined Limits Gastrointestinal Assessment Within Defined Limits except for: Additional GI Signs/Symptoms: fecal incontinence Comments: Intermittent incontinence Stool (unmeasured): 1 (01/06/24 0230) Stool Amount: large (01/06/24 0230) Stool Color: light brown (01/06/24 0230) Stool Consistency: soft (01/06/24 0230) Genitourinary Assessment Within Defined Limits except for: Comments: Intermittent incontinence Musculoskeletal Assessment Within Defined Limits except for: Musculoskeletal Assessment: General Mobility: Generalized weakness and mildly impaired Integumentary Assessment Within Defined Limits except for: Skin Assessment Color/Characteristics - bruised (ecchymotic) and redness, blanchable Comments: Redness in janey area and buttock Patient Lines/Drains/Airways Status Active LDAs Name Placement date Placement time Site Days Wound 01/05/24 Dermatitis Groin Anterior;Posterior;Inner 01/05/24 0358 Groin 1 Wound 01/05/24 Toe (Comment which one) 01/05/24 1111 Toe (Comment which one) less than 1 Psychosocial Assessment Within Defined Limits except for: Psychosocial Assessment: Observed Patient Behaviors: Anxious/afraid/apprehensive * Discharge non-MD/non-BETO Summaries - Myla Musa, PT - 01/06/2024 9:00 AM CDT Images from the original note were not included. Physical Therapy Inpatient Discharge Summary Anthony Bowles [id number] Diagnosis Patient Active Problem List Diagnosis Closed nondisplaced fracture of second cervical vertebra, unspecified fracture morphology, initial encounter ([facility]) Acute on chronic diastolic congestive heart failure ([facility]) Anemia in chronic kidney disease Asthma ([facility]) Atherosclerotic heart disease of [place] coronary artery without angina pectoris Atrial flutter ([facility]) Carotid artery disease ([facility]) Chronic gout Chronic kidney disease, stage 2 (mild) Chronic obstructive pulmonary disease, unspecified ([facility]) Gastrointestinal hemorrhage with melena Hypokalemia Hypomagnesemia Hyperlipidemia Obstructive sleep apnea (adult) (pediatric) Other polyosteoarthritis Other pulmonary embolism without acute cor pulmonale ([facility]) Paroxysmal atrial fibrillation ([facility]) Patent foramen ovale ([facility]) Personal history of transient ischemic attack (TIA), 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 Severe tricuspid valve regurgitation Type 2 diabetes mellitus with diabetic nephropathy ([facility]) Altered mental status, unspecified altered mental status type E coli enteritis Type 2 diabetes mellitus with diabetic nephropathy, without long-term current use of insulin ([facility]) Precautions: Weight Bearing Restrictions: n/a (01/03/24 1430) Precautions: Other (01/03/24 143) Complies w/ Precautions?: Yes (falls, H2H, full code) (01/03/24 1430) Pain at final sessions: Participation Significantly Limited?: No (01/03/24 143) Transfer & Bed Mobility Roll Left: Moderate assist (01/01/24 1330) Roll Right: Moderate assist (01/01/24 1330) Supine to/from Sit: Minimal assist (01/03/24 1430) Sit to/from Stand: Stand by assist (completes x10 consecutively for strengthening, x4 additional throughout session) (01/03/24 143) Sit to/from Stand - Method: From standard seat height;w/ Assistive device (FWW) (01/03/24 1430) Scooting: Stand by assist (to boost in bed) (01/03/24 143) Gait Distance (m): 25 m (01/03/24 1430) Device: Front wheeled walker (01/03/24 1430) Assistance: Minimal assist (01/03/24 1430) Gait Quality (General): Unsteady (mildly unsteady) (01/03/24 143) Equipment Status: Patient will provide own equipment;Equipment needs to be determined at next level of care (430) Front wheeled walker;Cane (01/03/24 143) Status of progress toward established goals: All goals discharged with plan in place (continued physical assist and rehabilitation services at [facility]). Problem: Decreased Transfer Skills Goal: Patient will transfer supine to/from sit Description: Patient will transfer supine to/from sit with (6) Modified [place] with HOB flat and no rails in order to safely and independently mobilize at home by 01/17/24. Outcome: In progress Goal: Patient will transfer sit to/from stand Description: Patient will transfer sit to/from stand with (6) Modified [place] and LRAD in order to safely and independently mobilize at home by 01/17/24. Outcome: In progress Problem: Decreased Ambulatory Skills Goal: Improve gait Description: Ambulate >20 meters using LRAD with (6) Modified [place] in order to safely and independently navigate distances necessary for home by 01/17/24. Outcome: In progress Goal: Improve gait on stairs Description: Ascend/descend 5-10 stairs using LRAD and/or 1-2 rails with (6) Modified [place] in order to safely and independently navigate home environment by 01/17/24. Outcome: In progress Plan: Discharge to Rehab Facility Physical Therapist: Myla Musa, PT Date: 01/07/2024 Pager: [facility] Department Physical Therapy Instructions Lower Extremity Supine Exercises Heel Slide Bend knee and pull heel toward buttocks. Return. Repeat with other knee. Repeat __12__ times. Do __2-3__ sessions per day. HIP: Flexion / KNEE: Extension, Straight Leg Raise Raise leg, keeping knee straight. Perform slowly. _12__ reps per set, _2-3__ sets per day ANKLE: [place] toes down, then up. _20__ reps per set, _2-3__ sets per day * Nursing Assessment - Pippa Mckeon RN - 01/06/2024 6:07 AM CDT Nursing Assessment Head to Toe Head to Toe Assessment Shift Summary Shift SummaryNote D: Patient with occasional disorientation to situation and unable to use call light.Denies pain.Hard of hearing and super ears used.Has incontinence of urine and stool.Used urinal once with assistance sitting on edge of bed.Redness and soreness on groin area noted A: Incontinent cares done and barrier cream applied on groin.Bed alarm on for safety.Encouraged to use call light within reach. R: Patient rested between cares.No complaints raised.Voided and stool ed.VSS P: Continue with plan of care and monitoring. Neurologic/Cognitive Assessment Within Defined Limits except for: Orientation: disoriented to time and disoriented to situation HEENT Assessment Within Defined Limits except for: Ear Symptoms: hearing decreased - bilateral Comments: Hard of hearing Cardiac Within Defined Limits Respiratory Within defined limits Neurovascular Within Defined Limits Gastrointestinal Assessment Within Defined Limits except for: Abdominal appearance: Rounded Additional GI Signs/Symptoms: fecal incontinence Stool (unmeasured): 1 (01/06/24 0230) Stool Amount: large (01/06/24 0230) Stool Color: light brown (01/06/24 0230) Stool Consistency: soft (01/06/24 0230) Genitourinary Assessment Within Defined Limits except for: Voiding: Incontinent and hesitancy Musculoskeletal Assessment Within Defined Limits except for: Musculoskeletal Assessment: General Mobility: Generalized weakness Integumentary Assessment Within Defined Limits except for: Skin Assessment Color/Characteristics - redness, blanchable Integrity - see Avatar LDA documentation Patient Lines/Drains/Airways Status Active LDAs Name Placement date Placement time Site Days Wound 01/05/24 Dermatitis Groin Anterior;Posterior;Inner 01/05/24 0358 Groin less than 1 Wound 01/05/24 Toe (Comment which one) 01/05/24 1111 Toe (Comment which one) less than 1 Psychosocial Within Defined Limits * Nursing Assessment - Fifi Gonzalez RN - 01/05/2024 5:27 PM CDT Nursing Assessment Head to Toe Head to Toe Assessment Shift Summary Shift Summary Patient is alert and oriented with intermittent confusion. Independent with bed mobility. Received PRN tylenol for hand ,finger and wrist pain. BP 100/58 (Cuff Location: Left Arm) Pulse 77 Temp 36.7 ??C (98.1 ??F) (Oral) Resp 20 Ht 1.753 m (5' 9) Wt 88.5 kg (195 lb 1.7 oz) SpO2 97% BMI 28.81 kg/m?? . Will continue with plan of care. Neurologic/Cognitive Assessment Within Defined Limits except for: Orientation: disoriented to time and disoriented to situation HEENT Within Defined Limits Cardiac Within Defined Limits Respiratory Within defined limits Neurovascular Within Defined Limits Gastrointestinal Within Defined Limits Stool (unmeasured): 1 (12/30/23 1100) Stool Amount: small (01/05/24 0640) Stool Color: brown (01/05/24 0640) Stool Consistency: creamy (01/05/24 0640) Genitourinary Within Defined Limits Musculoskeletal Assessment Within Defined Limits except for: Musculoskeletal Assessment: General Mobility: Moderately impaired Integumentary Assessment Within Defined Limits except for: Comments: Redness Patient Lines/Drains/Airways Status Active LDAs Name Placement date Placement time Site Days Wound 01/05/24 Dermatitis Groin Anterior;Posterior;Inner 01/05/24 0358 Groin less than 1 Wound 01/05/24 Toe (Comment which one) 01/05/24 1111 Toe (Comment which one) less than 1 Psychosocial Within Defined Limits * Nursing Assessment - Janet Loera RN - 01/05/2024 9:33 AM CDT Nursing Assessment Head to Toe Head to Toe Assessment Shift Summary Shift Summary 1.) LEFT GREAT TOE HAS SMALL SCAB-entered in wound flow sheet. Cleansed with [place] and left open to air. 2.) Rash in groin related to stool moisture incontinence. Cleansed with barrier wipe, applied Calazime cream-leaving area open to air, free of diapers. Nystatin powder prn Addendum: Notified provider Jossie Short about rash in groin, requested Nystatin powder. New order for med came through as a prn med. Given, see MAR. Janet Loera RN, 01/05/2024 12:03 PM Vitals: 01/05/24 0804 BP: 109/59 Pulse: 77 Resp: 20 Temp: 35.2 ??C (95.4 ??F) SpO2: 92% room air Addendum: Assisted patient with a full bath, completed shampoo cap, changed bed linen, and cleansedtoes. He sat up in chair for about 10-15 minutes. No nausea, no vomiting. Watching TV. Janet Loera RN, 01/05/2024 12:33 PM Addendum: put his call lite on c/o feeling too hot. Removed the top sheet, gave him a ice pack for comfort. Checked his temp; 97.9 orally. Room temp =70 degrees. Pt c/o having a hot flash. Assistedwith positioning for comfort, light clothing, removed his slipper socks, & doors to room opened. Janet Loera RN, 01/05/2024 2:13 PM Neurologic/Cognitive Assessment Within Defined Limits except for: Cognition: poor attention/concentration Mood/Behavior: Calm and behavior appropriate to situation HEENT Assessment Within Defined Limits except for: Ear Symptoms: hearing decreased - Comments: Hard of hearing; SuperEar available @ bedside Cardiac Cardiac Respiratory Assessment Within Defined Limits except for: Cough: Present Frequency: Intermittent Type: Nonproductive Neurovascular Assessment Within Defined Limits except for: Edema Present: Yes Generalized: 1+ Gastrointestinal Assessment Within Defined Limits except for: Additional GI Signs/Symptoms: fecal incontinence Stool (unmeasured): 1 (12/30/23 1100) Stool Amount: small (01/05/24 0640) Stool Color: brown (01/05/24 0640) Stool Consistency: creamy (01/05/24 0640) Genitourinary Assessment Within Defined Limits except for: Comments: Needs assist with placing the urinal Musculoskeletal Assessment Within Defined Limits except for: Musculoskeletal Assessment: General Mobility: Generalized weaknessJoint Tenderness bilateral - hand and wrist Integumentary Patient Lines/Drains/Airways Status Active LDAs Name Placement date Placement time Site Days Wound 01/05/24 Dermatitis Groin Anterior;Posterior;Inner 01/05/24 0358 Groin less than 1 Psychosocial Within Defined Limits * Nursing Assessment - Feli Tucker RN - 01/05/2024 2:23 AM CDT Nursing Assessment Head to Toe Head to Toe Assessment Shift Summary Shift Summary Neurologic/Cognitive Assessment Within Defined Limits except for: Cognition: poor judgement/safety awareness Level of Consciousness: Confused Orientation: disoriented to time Mood/Behavior: Calm and behavior appropriate to situation Comments: Intermittent confusion HEENT Within Defined Limits Cardiac Within Defined Limits Respiratory Within defined limits Comments: Room air Neurovascular Within Defined Limits Gastrointestinal Assessment Within Defined Limits except for: Additional GI Signs/Symptoms: fecal incontinence Comments: Intermittent incontinance- found digging in janey area hands full of stool Stool (unmeasured): 1 (12/30/23 1100) Stool Amount: small (01/05/24 0000) Stool Color: brown (01/05/24 0000) Stool Consistency: creamy (01/05/24 0000) Genitourinary Assessment Within Defined Limits except for: Comments: Urinal bedside- spills frequently without assistance Musculoskeletal Assessment Within Defined Limits except for: Musculoskeletal Assessment: General Mobility: Generalized weakness and mildly impaired Integumentary Within Defined Limits Comments: No issues noted Patient Lines/Drains/Airways Status Active LDAs Name Placement date Placement time Site Days Wound 04/09/23 Incision Neck Posterior 04/09/23 1108 Neck 270 Psychosocial Within Defined Limits Comments: Pleasant and cooperative with cares. Does not always call for assistance, but can make his needs known. * Nursing Assessment - Fifi Gonzalez, RN - 01/04/2024 10:51 PM CDT Nursing Assessment Head to Toe Head to Toe Assessment Shift Summary Shift Summary Potassium at 0400 on 01/04/24 is 3.3. Message sent to [employer]. Neurologic/Cognitive Neurologic/Cognitive HEENT HEENT Cardiac Cardiac Respiratory Respiratory Neurovascular Neurovascular Gastrointestinal Gastrointestinal Stool (unmeasured): 1 (12/30/23 1100) Stool Amount: large (01/04/24 1630) Stool Color: brown (01/04/24 1630) Stool Consistency: creamy (01/04/24 0500) Genitourinary Genitourinary Musculoskeletal Musculoskeletal Integumentary Integumentary Patient Lines/Drains/Airways Status Active LDAs Name Placement date Placement time Site Days Wound 04/09/23 Incision Neck Posterior 04/09/23 1108 Neck 270 Psychosocial Psychosocial * Nursing Assessment - Fifi Gonzalez RN - 01/04/2024 5:07 PM CDT Nursing Assessment Head to Toe Head to Toe Assessment Shift Summary Shift Summary Patient is alert, oriented and communicates his needs without difficulty. Turns self in bed and needs assist of one getting in and out of bed. BP 90/45 (Cuff Location: Left Arm) Pulse 86 Temp 35 ??C (95 ??F) (Tympanic) Resp 18 Ht 1.753 m (5' 9) Wt 88.5 kg (195 lb 1.7 oz) SpO2 95% BMI28.81 kg/m?? . Will continue with plan of care. Neurologic/Cognitive Assessment Within Defined Limits except for: Orientation: disoriented to situation HEENT Within Defined Limits Cardiac Within Defined Limits Respiratory Within defined limits Neurovascular Within Defined Limits Gastrointestinal Within Defined Limits Stool (unmeasured): 1 (12/30/23 1100) Stool Amount: large (01/04/24 1630) Stool Color: brown (01/04/24 1630) Stool Consistency: creamy (01/04/24 0500) Genitourinary Within Defined Limits Musculoskeletal Assessment Within Defined Limits except for: Musculoskeletal Assessment: General Mobility: Moderately impaired Integumentary Assessment Within Defined Limits except for: Skin Assessment Moisture - dry and flaky Patient Lines/Drains/Airways Status Active LDAs Name Placement date Placement time Site Days Wound 04/09/23 Incision Neck Posterior 04/09/23 1108 Neck 270 Psychosocial Within Defined Limits * Nursing Assessment - Janet Loera RN - 01/04/2024 12:27 PM CDT Nursing Assessment Head to Toe Head to Toe Assessment Shift Summary Shift Summary Eating well for his meals, 100%. Ate ice cream and lemon ice for snack. Sat up in chair while nursechanged his bed linen. Intermittent confusion noted while conversing with patient. Used his call lite several times, or hollered out a few times to ask for help with urinal or wanting the room temp decreased. Behavior is pleasant, calm and easy to work with. Tylenol given for pain discomfort in hands/wrists. Appeared to be helpful. Required assistance with meal tray set up. Likes apple juice with his meds. Janet Loera RN, 01/04/2024 2:27 PM Vitals: 01/04/24 0915 BP: 107/64 Pulse: 92 Resp: 18 Temp: 35.4 ??C (95.8 ??F) SpO2: 95% room air Neurologic/Cognitive Assessment Within Defined Limits except for: Cognition: poor attention/concentration Mood/Behavior: Calm and behavior appropriate to situation HEENT HEENT Cardiac Cardiac Respiratory Assessment Within Defined Limits except for: Cough: Present Frequency: Frequent Type: Nonproductive Neurovascular Assessment Within Defined Limits except for: Edema Present: Yes Right Lower Extremity: 1+ Left Lower Extremity: 1+ Gastrointestinal Within Defined Limits Stool (unmeasured): 1 (12/30/23 1100) Stool Amount: moderate (01/04/24 0500) Stool Color: light brown (01/04/24 0500) Stool Consistency: creamy (01/04/24 0500) Genitourinary Within Defined Limits Musculoskeletal Assessment Within Defined Limits except for: Musculoskeletal Assessment: General Mobility: Mildly impaired Integumentary Within Defined Limits Patient Lines/Drains/Airways Status Active LDAs Name Placement date Placement time Site Days Wound 04/09/23 Incision Neck Posterior 04/09/23 1108 Neck 270 Psychosocial Within Defined Limits * Nursing Assessment - Christina George RN - 01/04/2024 6:00 AM CDT Nursing Assessment Head to Toe Head to Toe Assessment Shift Summary Shift Summary Patient is A&O to self & place and is confused. Stable on RA, take pills whole and can verbalize needs. Denies pain & had no indication of discomfort. Did not get OOB this shift despite encouragement but up with walker & AX1 per report. Occasionally incont. Of B&B & sometimes uses bedside urinal. Intentional roundings completed & current POC continues.Christina George, RN, 01/04/2024 7:40 AM Neurologic/Cognitive Assessment Within Defined Limits except for: Level of Consciousness: Confused HEENT Within Defined Limits Cardiac Within Defined Limits Respiratory Within defined limits Neurovascular Within Defined Limits Gastrointestinal Assessment Within Defined Limits except for: Additional GI Signs/Symptoms: fecal incontinence Stool (unmeasured): 1 (12/30/23 1100) Stool Amount: moderate (01/03/24 0250) Stool Color: light brown (01/03/24 0250) Stool Consistency: loose;liquid (01/03/24 0250) Genitourinary Assessment Within Defined Limits except for: Voiding: Incontinent Comments: Intermittent incont. Musculoskeletal Assessment Within Defined Limits except for: Musculoskeletal Assessment: General Mobility: Generalized weakness Integumentary Within Defined Limits Patient Lines/Drains/Airways Status Active LDAs Name Placement date Placement time Site Days Wound 04/09/23 Incision Neck Posterior 04/09/23 1108 Neck 269 Psychosocial Within Defined Limits * Nursing Assessment - Trista Mcpherson RN - 01/03/2024 10:20 AM CDT Nursing Assessment Head to Toe Head to Toe Assessment Shift Summary Shift Summary Nursing Note D: Patient is a 73 year old admitted on 12/29/23 for FTT, confusion, and wrist pain. A: Patient is A&O x2-3 with intermittent confusion. Does not known date or situation. He is both continent and incontinent of B&B, with urinal at bedside. Denies pain at this time. R: Patient is pleasant and cooperative and can make needs known. No concerns at this time. P: Continue plan of care. Pending placement. Trista Mcpherson RN, 01/03/2024 10:33 AM Neurologic/Cognitive Within Defined Limits Comments: Occasional confusion HEENT Within Defined Limits Cardiac Within Defined Limits Respiratory Within defined limits Neurovascular Within Defined Limits Gastrointestinal Within Defined Limits Stool (unmeasured): 1 (12/30/23 1100) Stool Amount: moderate (01/03/24 0250) Stool Color: light brown (01/03/24 0250) Stool Consistency: loose;liquid (01/03/24 0250) Genitourinary Assessment Within Defined Limits except for: Comments: Occasional incontinence Musculoskeletal Assessment Within Defined Limits except for: Musculoskeletal Assessment: General Mobility: Generalized weakness Integumentary Assessment Within Defined Limits except for: Skin Assessment Integrity - see Avatar LDA documentation Patient Lines/Drains/Airways Status Active LDAs Name Placement date Placement time Site Days Wound 04/09/23 Incision Neck Posterior 04/09/23 1108 Neck 268 Psychosocial Within Defined Limits * Nursing Assessment - Feli Mckee RN - 01/03/2024 2:20 AM CDT Nursing Assessment Head to Toe Head to Toe Assessment Shift Summary D: Pt in room w/ view from team center station and bed alarm activated for injury prevention. Pt hard of hearing and confused. Pt incontinent of loose stool and used urinal w/ assistance x4-5. Pt denied pain. A: Provided reassurance and reorientation, provided assistance w/ urinal and incontinence care, monitored throughout night. R: Pt calm and cooperative, appeared sleeping between cares. Pt safe. PVR bladder scan 54ml @0645. P: Continue to monitor, continue w/ plan of care. Feli Mckee RN, 01/03/2024 6:47 AM Neurologic/Cognitive Assessment Within Defined Limits except for: Cognition: poor judgement/safety awareness Level of Consciousness: Confused HEENT Assessment Within Defined Limits except for: Ear Symptoms: hearing decreased - bilateral Cardiac Within Defined Limits Respiratory Within defined limits Neurovascular Neurovascular Gastrointestinal Assessment Within Defined Limits except for: Additional GI Signs/Symptoms: fecal incontinence Stool (unmeasured): 1 (12/30/23 1100) Stool Amount: large (12/31/23 1011) Stool Color: yellow (12/30/23 2307) Stool Consistency: liquid;watery (12/31/23 1011) Genitourinary Assessment Within Defined Limits except for: Voiding: Incontinent Comments: Intermittent incontinence Musculoskeletal Assessment Within Defined Limits except for: Musculoskeletal Assessment: General Mobility: Mildly impaired Integumentary Full Skin Assessment Not Completed Full Assessment Not Completed Reason - Not indicated at this time per Skin Policy or Unit Policy Patient Lines/Drains/Airways Status Active LDAs Name Placement date Placement time Site Days Wound 04/09/23 Incision Neck Posterior 04/09/23 1108 Neck 268 Psychosocial Within Defined Limits * Nursing Assessment - Gonzalez Tucker RN - 01/02/2024 8:18 PM CDT Nursing Assessment Head to Toe Head to Toe Assessment Shift Summary Shift Summary Patient is alert and oriented x4 with intermittent confusion. Bladder scan performed. PRN Tylenol given for a headache rated at 5/10. Medications given per MAR. Calm and cooperative with cares duringshift. Gonzalez Tucker RN, 01/02/2024 8:18 PM Neurologic/Cognitive Within Defined Limits HEENT Within Defined Limits Cardiac Within Defined Limits Respiratory Within defined limits Neurovascular Neurovascular Gastrointestinal Assessment Within Defined Limits except for: Additional GI Signs/Symptoms: fecal incontinence Stool (unmeasured): 1 (12/30/23 1100) Stool Amount: large (12/31/23 1011) Stool Color: yellow (12/30/23 2307) Stool Consistency: liquid;watery (12/31/23 1011) Genitourinary Within Defined Limits Musculoskeletal Assessment Within Defined Limits except for: Musculoskeletal Assessment: General Mobility: Moderately impaired Integumentary Assessment Within Defined Limits except for: Skin Assessment Integrity - see Avatar LDA documentation Patient Lines/Drains/Airways Status Active LDAs Name Placement date Placement time Site Days Wound 04/09/23 Incision Neck Posterior 04/09/23 1108 Neck 268 Psychosocial Within Defined Limits * Nursing Assessment - Ligia Barnes RN - 01/02/2024 1:47 PM CDT Nursing Assessment Head to Toe Head to Toe Assessment Shift Summary Shift Summary Neurologic/Cognitive Assessment Within Defined Limits except for: HEENT Within Defined Limits Cardiac Within Defined Limits Respiratory Assessment Within Defined Limits except for: Respiratory Assessment: Respirations: Dyspnea on exertion Neurovascular Within Defined Limits Gastrointestinal Assessment Within Defined Limits except for: Additional GI Signs/Symptoms: diarrhea Comments: Rectal tube discontinued this shift Stool (unmeasured): 1 (12/30/23 1100) Stool Amount: large (12/31/23 1011) Stool Color: yellow (12/30/23 2307) Stool Consistency: liquid;watery (12/31/23 1011) Genitourinary Assessment Within Defined Limits except for: Voiding: Hesitancy Musculoskeletal Assessment Within Defined Limits except for: Musculoskeletal Assessment: General Mobility: Generalized weakness Integumentary Assessment Within Defined Limits except for: Skin Assessment Color/Characteristics - bruised (ecchymotic) Patient Lines/Drains/Airways Status Active LDAs Name Placement date Placement time Site Days Fecal Management/Containment System 12/31/23 1116 -- 1 Wound 04/09/23 Incision Neck Posterior 04/09/23 1108 Neck 267 Psychosocial Within Defined Limits * Nursing Assessment - Franck Gonzalez RN - 01/02/2024 5:45 AM CDT Nursing Assessment Head to Toe Head to Toe Assessment Shift Summary On the engineering agent D-Pt A/O x 3 and up with assist of 2 in the room. Pt denies pain, nausea and SOB. Pt resting comfortably between cares. Has rectal tube in place for fecal incontinence. Vs stable. Patient Vitals in the past 24 hrs: 01/01/24 2345, BP:113/56, Temp:36.5 ??C (97.7 ??F), Temp src:Oral, Pulse:60, Resp:16, SpO2:95 % 01/01/24 1608, BP:138/69, Temp:36.4 ??C (97.5 ??F), Temp src:Tympanic, Pulse:77, Resp:18, SpO2:94 % 01/01/24 0755, BP:148/91, Temp:36.9 ??C (98.4 ??F), Temp src:Tympanic, Pulse:87, Resp:18, SpO2:95 % A-Safety precautions. Intentional rounding completed. Scheduled medications given. Fluids and snacks provided. Incontinence cares provided. R-Pt calm and cooperative with cares. Able to make needs known. P-Continue with POC, monitor for safety, monitor skin integrity. Franck Gonzalez, SIMRAN, 01/02/2024 5:45 AM Neurologic/Cognitive Assessment Within Defined Limits except for: Orientation: disoriented to time HEENT Within Defined Limits Cardiac Within Defined Limits Respiratory Within defined limits Neurovascular Within Defined Limits Gastrointestinal Assessment Within Defined Limits except for: Additional GI Signs/Symptoms: fecal incontinence Stool (unmeasured): 1 (12/30/23 1100) Stool Amount: large (12/31/23 1011) Stool Color: yellow (12/30/23 2307) Stool Consistency: liquid;watery (12/31/23 1011) Genitourinary Assessment Within Defined Limits except for: Voiding: Incontinent Musculoskeletal Assessment Within Defined Limits except for: Musculoskeletal Assessment: General Mobility: Generalized weakness Integumentary Within Defined Limits Patient Lines/Drains/Airways Status Active LDAs Name Placement date Placement time Site Days Fecal Management/Containment System 12/31/23 1116 -- 1 Wound 04/09/23 Incision Neck Posterior 04/09/23 1108 Neck 267 Psychosocial Within Defined Limits * Nursing Assessment - Gonzalez Tucker RN - 01/01/2024 9:54 PM CDT Nursing Assessment Head to Toe Head to Toe Assessment Shift Summary Shift Summary Patient is alert and oriented x4 with intermittent confusion. Patient has rectal tube in place. Rectal tube cares performed. Bladder scan performed. Medications given per SEP. Calm and cooperative with cares during shift. Gonzalez Tucker RN, 01/01/2024 9:57 PM Neurologic/Cognitive Within Defined Limits HEENT Within Defined Limits Cardiac Within Defined Limits Respiratory Within defined limits Neurovascular Neurovascular Gastrointestinal Assessment Within Defined Limits except for: Additional GI Signs/Symptoms: fecal incontinence Stool (unmeasured): 1 (12/30/23 1100) Stool Amount: large (12/31/23 1011) Stool Color: yellow (12/30/23 2307) Stool Consistency: liquid;watery (12/31/23 1011) Genitourinary Within Defined Limits Musculoskeletal Assessment Within Defined Limits except for: Musculoskeletal Assessment: General Mobility: Moderately impaired Integumentary Assessment Within Defined Limits except for: Skin Assessment Integrity - see Avatar LDA documentation Patient Lines/Drains/Airways Status Active LDAs Name Placement date Placement time Site Days Peripheral IV 12/29/23 20 gauge Anterior;Left Forearm 12/29/232044 -- 3 Fecal Management/Containment System 12/31/23 1116 -- 1 Wound 04/09/23 Incision Neck Posterior 04/09/23 1108 Neck 267 Psychosocial Within Defined Limits * Interval Note Provider - Mauricio Simpson MD - 01/01/2024 8:03 PM CDT Attempted to call patient's daughter, Adelita, to provide updated but received voicemail. Mauricio Simpson MD 01/01/24 20:04 * Nursing Assessment - Melina Bernardo RN - 01/01/2024 2:10 PM CDT Nursing Assessment Head to Toe Head to Toe Assessment Shift Summary Shift Summary Day Shift Note [id number] Data: Pt is A/Ox4, VSS, RA. Can make needs known. Denies pain, SOB, n/v. Pt has a rectal tube placed. Urinal at bedside. Does use call light but will also yell for staff. Repositioning offered when pt allows. NIKOLAI and uses super ears. TAHIR swelling noted. Assist x1 with cares. Bed alarm on for high fall risk. Action: Medications given per MAR , Call light within reach. Intentional rounding and safety checksdone. Son called about pt having a hard time urinating. Bladder scan was done and showed 204. Pagedteam [place]. Flomax was ordered. Response: Pt is calm and cooperative. Plan: Plan of care ongoing. Melina Bernardo RN, 01/01/2024 2:09 PM Neurologic/Cognitive Within Defined Limits HEENT Within Defined Limits Cardiac Within Defined Limits Respiratory Within defined limits Neurovascular Assessment Within Defined Limits except for: Edema Present: Yes Right Upper Extremity: 2+ Gastrointestinal Within Defined Limits Comments: Rectal tube Stool (unmeasured): 1 (12/30/23 1100) Stool Amount: large (12/31/23 1011) Stool Color: yellow (12/30/23 2307) Stool Consistency: liquid;watery (12/31/23 1011) Genitourinary Assessment Within Defined Limits except for: Voiding: Incontinent Musculoskeletal Assessment Within Defined Limits except for: Musculoskeletal Assessment: General Mobility: Generalized weakness Integumentary Within Defined Limits Patient Lines/Drains/Airways Status Active LDAs Name Placement date Placement time Site Days Peripheral IV 12/29/23 20 gauge Anterior;Left Forearm 12/29/232044 -- 2 Fecal Management/Containment System 12/31/23 1116 -- 1 Wound 04/09/23 Incision Neck Posterior 04/09/23 1108 Neck 267 Psychosocial Within Defined Limits * Utilization Management - Eileen Kilpatrick - 01/01/2024 11:36 AM CDT 12/31: Per PA review pt switched to INPT. Contacted [facility] to deliver IMM form needed * Utilization Management - Eileen Kilpatrick - 01/01/2024 7:39 AM CDT 1118 Paged team X2 Paged [place] team to switch to INPT per PA recommendation * Nursing Assessment - Franck Gonzalez RN - 01/01/2024 5:35 AM CDT Nursing Assessment Head to Toe Head to Toe Assessment Shift Summary On the engineering agent D-Pt A/O x 3 and up with assist of 2 in the room. Pt denies pain, nausea and SOB. Pt resting comfortably between cares. Has rectal tube in place for fecal incontinence. Vs stable. Patient Vitals in the past 24 hrs: 12/31/23 2330, BP:125/70, Temp:36.2 ??C (97.2 ??F), Temp src:Oral, Pulse:92, Resp:20, SpO2:96 % 12/31/23 1946, BP:113/71, Pulse:112, SpO2:97 % 12/31/23 1524, BP:120/71, Temp:36.7 ??C (98 ??F), Temp src:Oral, Pulse:84, Resp:18, SpO2:98 % 12/31/23 0746, BP:130/71, Temp:35.5 ??C (95.9 ??F), Temp src:Tympanic, Resp:16, SpO2:94 % A-Safety precautions. Intentional rounding completed. Scheduled medications given. Fluids and snacks provided. Incontinence cares provided. R-Pt calm and cooperative with cares. Able to make needs known. P-Continue with POC, monitor for safety, monitor skin integrity. Franck Gonzalez, SIMRAN, 01/01/2024 5:38 AM Neurologic/Cognitive Assessment Within Defined Limits except for: Orientation: disoriented to time HEENT Within Defined Limits Cardiac Within Defined Limits Respiratory Within defined limits Neurovascular Within Defined Limits Gastrointestinal Assessment Within Defined Limits except for: Additional GI Signs/Symptoms: fecal incontinence Stool (unmeasured): 1 (12/30/23 1100) Stool Amount: large (12/31/23 1011) Stool Color: yellow (12/30/23 2307) Stool Consistency: liquid;watery (12/31/23 1011) Genitourinary Assessment Within Defined Limits except for: Voiding: Incontinent Musculoskeletal Assessment Within Defined Limits except for: Musculoskeletal Assessment: General Mobility: Generalized weakness Integumentary Within Defined Limits Patient Lines/Drains/Airways Status Active LDAs Name Placement date Placement time Site Days Peripheral IV 12/29/23 20 gauge Anterior;Left Forearm 12/29/232044 -- 2 Fecal Management/Containment System 12/31/23 1116 -- less than 1 Wound 04/09/23 Incision Neck Posterior 04/09/23 1108 Neck 266 Psychosocial Within Defined Limits * Utilization Management - Ai Sepulveda MD - 01/01/2024 12:00 AM CDT 73yo hx of CHF, Chronic AFlutter, CAd, CKD II, T2DM, COPD admitted with AMS. Workup was unremarkable, aside from GI stool panel positive for E. Coli. Mental status improving. Multiple electrolyte abnormalities. Medicare FFS, stay >2MNs with ongoing workup -- OK to change to INPT * Nursing Assessment - Mari Cheng RN - 12/31/2023 8:49 PM CDT Nursing Assessment Head to Toe Head to Toe Assessment Shift Summary Pt alert and oriented x3, disoriented to time. On RA. Denied pain. No nausea or vomiting. Rectal tube in place. Small watery stool in the rectal tube bag. Not emptied. Rectal tube flushed with 30 cc water purple port and green port deflated 45 cc water and re inflated with 45 cc of water.Primafit in place, but bypassing the primafit. Janey care done. Skin brier applied. Reposition q2hr. Bladder scanned for 204 cc. Neurologic/Cognitive Within Defined Limits HEENT Within Defined Limits Cardiac Within Defined Limits Respiratory Within defined limits Neurovascular Assessment Within Defined Limits except for: Edema Present: Yes Right Upper Extremity: 2+ Gastrointestinal Assessment Within Defined Limits except for: Additional GI Signs/Symptoms: fecal incontinence Stool (unmeasured): 1 (12/30/23 1100) Stool Amount: large (12/31/23 1011) Stool Color: yellow (12/30/23 2307) Stool Consistency: liquid;watery (12/31/23 1011) Genitourinary Assessment Within Defined Limits except for: Voiding: Incontinent Musculoskeletal Assessment Within Defined Limits except for: Musculoskeletal Assessment: General Mobility: Mildly impaired Integumentary Within Defined Limits Patient Lines/Drains/Airways Status Active LDAs Name Placement date Placement time Site Days Peripheral IV 12/29/23 20 gauge Anterior;Left Forearm 12/29/232044 -- 2 Fecal Management/Containment System 12/31/23 1116 -- less than 1 Wound 04/09/23 Incision Neck Posterior 04/09/23 1108 Neck 266 Psychosocial Within Defined Limits * Utilization Management - Petr Huang RN - 12/31/2023 4:32 PM CDT Pt admitted to Obs with AMS, no clear cause identified however patient is improving. OT recommending placement. Leach scan negative, work up inconclusive. Will route to PA. * Nursing Assessment - Melina Bernardo RN - 12/31/2023 2:33 PM CDT Nursing Assessment Head to Toe Head to Toe Assessment Shift Summary Shift Summary Day Shift Note [id number] Data: Pt is A/Ox4, VSS, RA. Can make needs known. Denies pain, SOB, n/v. Pt had a rectal tube placed due to very watery stools. Pt had a moderate BM x3 during shift. Urinal at bedside. Does use call light but will also yell for staff. Repositioning offered when pt allows. NIKOLAI and uses super ears. TAHIR swelling noted. Assist x1 with cares. Bed alarm on for high fall risk. Action: Medications given per MAR , Call light within reach. Intentional rounding and safety checksdone. Response: Pt is calm and cooperative. Plan: Plan of care ongoing. Melina Bernardo RN, 12/31/2023 2:33 PM Neurologic/Cognitive Within Defined Limits HEENT Within Defined Limits Cardiac Within Defined Limits Respiratory Within defined limits Neurovascular Assessment Within Defined Limits except for: Edema Present: Yes Right Upper Extremity: 2+ Gastrointestinal Within Defined Limits Comments: Rectal tube Stool (unmeasured): 1 (12/30/23 1100) Stool Amount: large (12/31/23 1011) Stool Color: yellow (12/30/23 2307) Stool Consistency: liquid;watery (12/31/23 1011) Genitourinary Assessment Within Defined Limits except for: Voiding: Incontinent Musculoskeletal Assessment Within Defined Limits except for: Musculoskeletal Assessment: General Mobility: Generalized weakness Integumentary Within Defined Limits Patient Lines/Drains/Airways Status Active LDAs Name Placement date Placement time Site Days Peripheral IV 12/29/23 20 gauge Anterior;Left Forearm 12/29/232044 -- 1 Fecal Management/Containment System 12/31/23 1116 -- less than 1 Wound 04/09/23 Incision Neck Posterior 04/09/23 1108 Neck 266 Psychosocial Within Defined Limits * Nursing Assessment - Feroz Cisneros RN - 12/31/2023 6:46 AM CDT Nursing Assessment Head to Toe Head to Toe Assessment Shift Summary Shift Summary Neurologic/Cognitive Within Defined Limits HEENT Within Defined Limits Cardiac Within Defined Limits Respiratory Within defined limits Neurovascular Assessment Within Defined Limits except for: Edema Present: Yes Right Upper Extremity: 2+ Gastrointestinal Assessment Within Defined Limits except for: Additional GI Signs/Symptoms: fecal incontinence Stool (unmeasured): 1 (12/30/23 1100) Stool Amount: moderate (12/30/23 2307) Stool Color: yellow (12/30/23 2307) Stool Consistency: creamy (12/30/23 2307) Genitourinary Assessment Within Defined Limits except for: Voiding: Incontinent Musculoskeletal Assessment Within Defined Limits except for: Musculoskeletal Assessment: General Mobility: Mildly impaired Integumentary Within Defined Limits Patient Lines/Drains/Airways Status Active LDAs Name Placement date Placement time Site Days Peripheral IV 12/29/23 20 gauge Left Antecubital 12/29/23 1210 -- 1 Peripheral IV 12/29/23 20 gauge Anterior;Left Forearm 12/29/232044 -- 1 Wound 04/09/23 Incision Neck Posterior 04/09/23 1108 Neck 265 Psychosocial Within Defined Limits * Nursing Assessment - Mari Cheng RN - 12/30/2023 6:43 PM CDT Nursing Assessment Head to Toe Head to Toe Assessment Shift Summary Pt alert and oriented x4, but forgetful, and off time intermittently. On RA. Denied SOB or difficulty of breathing. Pt denied pain. No nausea or vomiting. Pt has rectal tube placement for frequent diarrhea. Rectal tube held due to less diarrhea. Pt has two loose stools during the shift. Uses urinalat bed side. Pt call out for help when he needs. Forgets to use call light despite reorientation, and educated him. No apparent acute concern. Nursing will keep monitoring. Neurologic/Cognitive Within Defined Limits HEENT Within Defined Limits Cardiac Within Defined Limits Respiratory Within defined limits Neurovascular Assessment Within Defined Limits except for: Edema Present: Yes Right Upper Extremity: 2+ Gastrointestinal Assessment Within Defined Limits except for: Additional GI Signs/Symptoms: fecal incontinence Stool (unmeasured): 1 (12/30/23 1100) Stool Amount: moderate (12/30/23 1800) Stool Color: yellow (12/30/23 1800) Stool Consistency: watery (12/30/23 1800) Genitourinary Assessment Within Defined Limits except for: Voiding: Incontinent Musculoskeletal Assessment Within Defined Limits except for: Musculoskeletal Assessment: General Mobility: Mildly impaired Integumentary Within Defined Limits Patient Lines/Drains/Airways Status Active LDAs Name Placement date Placement time Site Days Peripheral IV 12/29/23 20 gauge Left Antecubital 12/29/23 1210 -- 1 Peripheral IV 12/29/23 20 gauge Anterior;Left Forearm 12/29/232044 -- less than 1 Wound 04/09/23 Incision Neck Posterior 04/09/23 1108 Neck 265 Psychosocial Within Defined Limits * Nursing Assessment - Cristopher Rodrigez, SIMRAN - 12/30/2023 2:09 PM CDT Nursing Assessment Head to Toe Head to Toe Assessment Shift Summary Patient is alert and oriented x 4, able to make needs known. Denies any pain and discomfort at thistime. VSS, afebrile and RA. Pt is incontinent of BM, multiple loose stool, notify team. PRN imodiumgiven. Uses urinal at bedside. Continue to monitor for safety and comfort, follow care plan. Cristopher Rodrigez RN, 12/30/2023 2:14 PM Filed Vitals: 12/30/23 0803 BP: 140/70 Pulse: 102 Resp: 18 Temp: 35.9 ??C (96.7 ??F) Weight: Neurologic/Cognitive Assessment Within Defined Limits except for: Mood/Behavior: Calm HEENT Within Defined Limits Cardiac Within Defined Limits Respiratory Within defined limits Neurovascular Within Defined Limits Gastrointestinal Assessment Within Defined Limits except for: Additional GI Signs/Symptoms: fecal incontinence Stool (unmeasured): 1 (12/30/23 1100) Stool Amount: moderate (12/30/23 1100) Stool Color: yellow (12/30/23 1100) Genitourinary Assessment Within Defined Limits except for: Voiding: Voiding without difficulty Musculoskeletal Assessment Within Defined Limits except for: Musculoskeletal Assessment: General Mobility: Generalized weakness and moderately impaired Integumentary Within Defined Limits Patient Lines/Drains/Airways Status Active LDAs Name Placement date Placement time Site Days Peripheral IV 12/29/23 20 gauge Left Antecubital 12/29/23 1210 -- 1 Peripheral IV 12/29/23 20 gauge Anterior;Left Forearm 12/29/232044 -- less than 1 Wound 04/09/23 Incision Neck Posterior 04/09/23 1108 Neck 265 Psychosocial Within Defined Limits * Nursing Assessment - Karina Grove RN - 12/30/2023 5:16 AM CDT Images from the original note were not included. Nursing Assessment Head to Toe Head to Toe Assessment Shift Summary TRANSFER IN NOTE D: Patient transferred in to [facility] Room 714 from ED at 2300. Patient condition on arrival: Stable. Patient Belonging 12/29/2023 4678 Reason for Inventory: Admission Medications brought in by patient?: None Patient Belongings: Clothing closet A: Settled patient in to new room: oriented to room, VS done, assessment done, and team notified of arrive in. Property sheet checked in by: [facility]. Transfer orders released.. R: Anthony Bowles was admitted w/ AMS and R wrist pain. Pt confused and pulling on lines. On RA w/ SpO2's around 96%. Pt tx to room 824 to be closer to the nurses station. Inc cares/repositioning provided. IV Magnesium Sulfate replaced. Intentional rounding completed. BP 133/83 (Cuff Location: Right Arm) Pulse 94 Temp 36.8 ??C (98.2 ??F) (Tympanic) Resp 20 Ht 1.753 m (5' 9) Wt 88.5 kg (195 lb 1.7 oz) SpO2 96% BMI 28.81 kg/m?? P: Commence with cares per Care Plan and orders. Karina Grove, RN, 12/30/2023 5:16 AM Neurologic/Cognitive Assessment Within Defined Limits except for: Cognition: poor judgement/safety awareness Level of Consciousness: Confused Orientation: disoriented to time, disoriented to situation and disoriented to place Mood/Behavior: Restless, anxious and impulsive HEENT Assessment Within Defined Limits except for: Ear Symptoms: hearing decreased - Cardiac Within Defined Limits Respiratory Within defined limits Neurovascular Within Defined Limits Gastrointestinal Within Defined Limits Genitourinary Within Defined Limits Musculoskeletal Assessment Within Defined Limits except for: Musculoskeletal Assessment: General Mobility: Generalized weaknessJoint Tenderness right - wrist Range of Motion: RUE - moderately impaired and brace/immobilizer/splint/sling/cast Integumentary Assessment Within Defined Limits except for: Skin Assessment Moisture - dry Psychosocial Assessment Within Defined Limits except for: Psychosocial Assessment: Observed Patient Behaviors: Pleasant, restless and anxious/afraid/apprehensive Verbalized Emotional State: Disbelief Family Behavior: not present * Interval Note Provider - Macho Ortiz DO - 12/29/2023 9:41 PM CDT Handoff Communication Note for Hospital Admission Verbal handoff received from TCB Patient Class: Inpatient Cardiac Monitoring: Not needed Brief summary of handoff from ED/Clinic Staff: Anthony Bowles is a 73 y.o. male with a past medical history of CHF, Anema of chronic kidney diseaes, CAD, Chronic Aflutter, Chronic Gout, CKD stage II, COPD, HLD, DEMI, TIA, DMII, Severe TR who presented to the ED with confusion. He had been found sitting in a chair slurring his words. Originally patient seen at [facility] ED with a fever. Head CT negative. Hand CT with possible effusion/lesions (concerning for multiple myeloma rather than septic arthritis - worked up by heme onc, told it isn't cancer but required infusions). There had been concern for rhabdo and septic arthritis requiring transfer to [facility]. Per ED provider, for the last few days patient has been weaker and more out of it per his family. Patient is oriented and mildly confused but appropriate. In the ED, vitals notable for HR of 100s but otherwise stable. Exam with red swollen wrist. Patienthad reportedly been febrile at outside ED. Labs notable for pH 7.46/40/28, K 2.7>3.3, Creatinine1.15 (unknown baseline), Albumin 3.1, Ammonia 13, Lactate 1.0, total protein 6.2, Hemoglobin 10.6 with an MCV 89.2, INR 1.4, Bilirubin 1.4/0.8, CRP 229, ESR 120, urinalysis specific gravity 1.039/small blood, Procal 0.62. Lipase, trops negative. BSCUS without any abnormalities. CT PE and AP withoutany acute abnormalities. Wrist XR ordered. EKG with Afib but no ischemic change. He received Zosyn,Tylenol, Potassium replacement. Seen by orthopedic surgery who are not concerned for septic arthritis. ED ordering formal gallbladder US. IP admit order will be placed in accordance with the patient class designation above. Please page the [facility] via [employer] with clinical updates or status changes. Note is for documentation only and not for billing purposes. Macho Ortiz DO, 12/29/2023 9:41 PM * ED Faculty Note - Lori Billingsley MD - 12/29/2023 9:15 PM CDT Images from the original note were not included. ED Faculty Attestation and Note Anthony Bowles : 1950 Sex: male Patient Arrival Date and Time: 12/29/2023 11:55 AM FACULTY ATTESTATION I Lori Billingsley MD, personally saw the patient, performed critical or arriaga portions of the service, and discussed the care with the resident MDM / ED Course Anthony Bowles presented to the emergency department with altered mental status, left wrist pain, and lytic bone lesions. He was transferred to [facility] from [facility] for treatment and evaluation for potential septic arthritis of the left wrist. On my interview, he stated that he has been falling recently and must have caught myself with his left wrist recently. He is alert but oriented only to person, not to date, time, or situation. DDx is broad and includes metabolic encephalopathy, malignancy, toxic encephalopathy, gout, and others. Given life and limb threatening ddx, [place] workup was pursued. CT pulmonary angiogram without large pulmonary embolism. Gallbladder ultrasound with cholelithiasis. Ortho consulted givne outside hospital concern for septic arthritis and they did not think it was consistent with this and agreed with plan to admit to medicine on IV antibiotics. Problems Addressed / DDx 1 or more chronic illnesses with severe exacerbation, progression, or sideeffects of treatment and 1 acute or chronic illness or injury that poses a threat to life or bodilyfunction Data considered Tests Ordered, Independent interpretation of studies, and Consultation obtained Risk of patient management Prescription drug management and Decision regarding hospitalization IMPRESSION 1. Fall, initial encounter 2. Altered mental status, unspecified altered mental status type 3. Type 2 diabetes mellitus with diabetic nephropathy, without long-term current use of insulin ([facility]) 4. Hypomagnesemia 5. E coli enteritis Lori Billingsley MD, 01/03/2024 9:15 PM * Cross Cover - Konstantin Soto MD - 12/29/2023 8:29 PM CDT Ortho note Patient seen and examined by staff surgeon Dr. Bui. Patient admitted for altered mental status and concern for right septic wrist. Reports that he fell maybe a week ago. Exam here not concerning for septic wrist despite elevated inflammatory markers. 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 No need for any specific inpatient orthopedic intervention or further septic joint workup. Patient may follow-up with ortho closer to his home in [place]. Jesus Soto MD ortho PGY3 documented in this encounter Plan of Treatment Scheduled Referrals Name Type Priority Associated Diagnoses Orde r Schedule REFERRAL TO PHYSICAL THERAPY Referral Routine Altered mental status, unspecified altered mental status type Ordered: 01/05/2024 REFERRAL TO OCCUPATIONAL THERAPY Referral Routine Altered mental status, unspecified altered mental status type Ordered: 01/05/2024 REFERRAL TO SPEECH LANGUAGE PATHOLOGY Referral Routine Altered mental status, unspecified altered mental status type Ordered: 01/05/2024 documented as of this encounter Procedures Procedure Name Priority Date/Time Associated Diagnosis Comments PANEL BASIC METABOLIC (BMP) Timed 01/06/2024 8:52 AM CDT PANEL BASIC METABOLIC (BMP) Routine 01/05/2024 7:51 AM CDT PHOSPHORUS Routine 01/04/2024 4:00 AM CDT PANEL BASIC METABOLIC (BMP) Routine 01/04/2024 4:00 AM CDT MAGNESIUM Routine 01/04/2024 4:00 AM CDT PHOSPHORUS Routine 01/03/2024 7:27 AM CDT PANEL BASIC METABOLIC (BMP) Routine 01/03/2024 7:27 AM CDT MAGNESIUM Routine 01/03/2024 7:27 AM CDT PHOSPHORUS Routine 01/02/2024 6:01 AM CDT PANEL BASIC METABOLIC (BMP) Routine 01/02/2024 6:01 AM CDT MAGNESIUM Routine 01/02/2024 6:01 AM CDT PC LAB CBC/PLT Routine 01/02/2024 6:01 AM CDT PHOSPHORUS Routine 01/01/2024 8:43 AM CDT PANEL BASIC METABOLIC (BMP) Routine 01/01/2024 8:43 AM CDT MAGNESIUM Routine 01/01/2024 8:43 AM CDT TC LAB BLOOD DRAW BY VENIPUNCTURE Routine 01/01/2024 8:43 AM CDT PHOSPHORUS Routine 12/31/2023 7:11 AM CDT PANEL BASIC METABOLIC (BMP) Routine 12/31/2023 7:11 AM CDT MAGNESIUM Routine 12/31/2023 7:11 AM CDT PC LAB CBC/PLT Routine 12/31/2023 7:11 AM CDT ULT VENOUS UPPER EXT RIGHT Routine 12/30/2023 7:36 PM CDT PC LAB STOOL GI PANEL Routine 12/30/2023 12:[address] OUTSIDE READ MSK/NON NEURO Routine 12/30/2023 11:40 AM CDT PC LAB B12 (CYANOCOBALMIN) Routine 12/30/2023 10:01 AM CDT PC THYROID STIMULATING HORMONE(TSH) PADILLA Routine 12/30/2023 10:01 AM CDT PC HIV-1 AG W/HIV-1 & HIV-2 AB Routine 12/30/2023 10:01 AM CDT RETIC COUNT Routine 12/30/2023 10:01 AM CDT PHOSPHORUS Routine 12/30/2023 10:01 AM CDT PANEL BASIC METABOLIC (BMP) Routine 12/30/2023 10:01 AM CDT MAGNESIUM Routine 12/30/2023 10:01 AM CDT PANEL HEPATIC FUNCTION Routine 10:01 AM CDT PC LAB CBC/PLT Routine 12/30/2023 10:01 AM CDT MAGNESIUM Timed 12/30/2023 1:21 AM CDT LD (LDH) Timed 12/30/2023 1:21 AM CDT POTASSIUM Timed 12/30/2023 1:21 AM CDT HAPTOGLOBIN Routine 12/30/2023 1:21 AM CDT ULT GALLBLADDER Routine 12/29/2023 10:24 PM CDT URIC ACID STAT 12/29/2023 10:24 PM CDT ED US ABDOMINAL/GALLBLADDER STAT 12/29/2023 9:[address] ABDOMEN/PELVIS W/IV CON Routine 12/29/2023 8:[address] CHEST-PULMONARY ANGIO W/IV Routine 12/29/2023 8:58 PM CDT PC TROPONIN QUANTITATIVE Timed 12/29/2023 7:01 PM CDT PC ELECTROLYTES PANEL STAT 12/29/2023 7:01 PM CDT PC LACTATE (LACTIC ACID) STAT 12/29/2023 7:01 PM CDT CK, TOTAL Routine 12/29/2023 7:01 PM CDT PC CULTURE,BACTERIAL,DEFI CURYUNG,AEROBIC;BLOOD STAT 12/29/2023 7:01 PM CDT PC CULTURE,BACTERIAL,DEFI CURYUNG,AEROBIC;BLOOD STAT 12/29/2023 7:01 PM CDT PC POTASSIUM;SERUM STAT 12/29/2023 5: 35 PM CDT ED US CARDIAC STAT 12/29/2023 4:51 PM CDT PC PROCALCITONIN (PCT) STAT 4:28 PM CDT PC TROPONIN QUANTITATIVE Timed 12/29/2023 4:28 PM CDT PC TROPONIN QUANTITATIVE Timed 12/29/2023 2:32 PM CDT PC LACTATE (LACTIC ACID) Timed 12/29/2023 2:32 PM CDT URINE DRUG SCREEN Routine 12/29/2023 1:4 0 PM CDT URINE CULTURE STAT 12/29/2023 1:40 PM CDT TC LAB ER STAT URINALYSIS STAT 12/29/2023 1:40 PM CDT PC TROPONIN QUANTITATIVE STAT 12/29/2023 1:15 PM CDT PC ELECTROLYTES PANEL STAT 12/29/2023 1:15 PM CDT BUN (UREA NITROGEN) STAT 12/29/2023 1 :15 PM CDT SED RATE (ESR) Routine 12/29/2023 1:15 PM CDT PC SYPHILIS SCREEN STAT 12/29/2023 1: 15 PM CDT PC AMMONIA STAT 12/29/2023 1:15 PM CDT LIPASE STAT 12/29/2023 1:15 PM CDT PANEL HEPATIC FUNCTION STAT 1:15 PM CDT PC LACTATE (LACTIC ACID) STAT 12/29/2023 1:15 PM CDT PC GASES,BLOOD,ANY COMB OF PH,PCD2,PO2,CO2,HCO2 STAT 12/29/2023 1:15 PM CDT C-REACTIVE PROTEIN Routine 12/29/2023 1: 15 PM CDT ED EKG (12-LEAD) Routine 12/29/2023 12:4 3 PM CDT EXTRA TUBE - DARK GREEN Routine 12/29/2023 12:15 PM CDT TC LAB BLOOD DRAW BY VENIPUNCTURE Routine 12/29/2023 12:15 PM CDT PC LAB CBC W/DIFF & PLT STAT 12/29/2023 12:15 PM CDT PROTHROMBIN (PT) & INR STAT 12:15 PM CDT documented in this encounter Results * (ABNORMAL) PANEL BASIC METABOLIC (BMP) (01/06/2024 8:52 AM CDT) Sodium 136 135 - 148 mmol/L [facility] Potassium 3.5 3.5 - 5.3 mmol/L [facility] Chloride 96 92 - 108 mmol/L [facility] CO2 26 22 - 30 mmol/L [facility] AnGap 14 8 - 16 mmol/L [facility] Glucose 98 70 - 100 mg/dL [facility] BUN 29(H) 8 - 23 mg/dL [facility] Creatinine 1.38(H) 0.70 - 1.25 mg/dL [facility] Calcium 9.2 8.8 - 10.2 mg/dL [facility] eGFR (2020 CKD-EPI) 54(L) >=60 ml/min/1.7 3m2 [facility] Comment: The [...] 9:17 AM CDT Mauricio Simpson MD LABORATORY [facility] [address] [address] * (ABNORMAL) PANEL BASIC METABOLIC (BMP) (01/05/2024 7:51 AM CDT) Sodium 137 135 - 148 mmol/L [facility] Potassium 3.3(L) 3.5 - 5.3 mmol/L [facility] Chloride 95 92 - 108 mmol/L [facility] CO2 29 22 - 30 mmol/L [facility] AnGap 13 8 - 16 mmol/L [facility] Glucose 98 70 - 100 mg/dL [facility] BUN 26(H) 8 - 23 mg/dL [facility] Creatinine 1.27(H) 0.70 - 1.25 mg/dL [facility] Calcium 9.3 8.8 - 10.2 mg/dL [facility] eGFR (2020 CKD-EPI) 60 >=60 ml/min/1.7 3m2 [facility] Comment: The estimated glomerular filtration rate (eGFR) was calculated using the CKD-EPI 2020 creatinine equation, which does not include race as a factor. This equation is validated in individuals 18 years of age and older, and eGFR is normalized to a body surface area of 1.73m^2. Blood 01/05/2024 7:51 AM CDT 01/05/2024 7:57 AM CDT Jossie Short MD LABORATORY Performing Organization Address City/[facility]/ZIP Co de Phone Number [facility] [address] [address] * PHOSPHORUS (01/04/2024 4:00 AM CDT) Phosphorus 3.0 2.5 - 4.5 mg/dL [facility] Blood 01/04/2024 4:00 AM CDT 01/04/2024 4:14 AM CDT Mauricio Simpson MD LABORATORY Performing Organization Address City/[facility] Co de Phone Number [facility] [address] [address] * MAGNESIUM (01/04/2024 4:00 AM CDT) Magnesium 1.7 1.6 - 2.4 mg/dL [facility] Blood 01/04/2024 4:00 AM CDT 01/04/2024 4:14 AM CDT Mauricio Simpson MD LABORATORY Performing Organization Address City/[facility]/ZIP Co de Phone Number [facility] [address] [address] * (ABNORMAL) PANEL BASIC METABOLIC (BMP) (01/04/2024 4:00 AM CDT) Sodium 137 135 - 148 mmol/L [facility] Potassium 3.3(L) 3.5 - 5.3 mmol/L [facility] Chloride 96 92 - 108 mmol/L [facility] AnGap 15 8 - 16 mmol/L [facility] CO2 26 22 - 30 mmol/L [facility] Glucose 100 70 - 100 mg/dL [facility] BUN 26(H) 8 - 23 mg/dL [facility] Creatinine 1.32(H) 0.70 - 1.25 mg/dL [facility] Calcium 9.2 8.8 - 10.2 mg/dL [facility] eGFR (2020 CKD-EPI) 57(L) >=60 ml/min/1.7 3m2 [facility] Comment: The estimated glomerular filtration rate (eGFR) was calculated using the CKD-EPI 2020 creatinine equation, which does not include race as a factor. This equation is validated in individuals 18 years of age and older, and eGFR is normalized to a body surface area of 1.73m^2. Blood 01/04/2024 4:00 AM CDT 01/04/2024 4:14 AM CDT Mauricio Simpson MD LABORATORY [facility] [address] [address] * (ABNORMAL) PANEL BASIC METABOLIC (BMP) (01/03/2024 7:27 AM CDT) Sodium 136 135 - 148 mmol/L [facility] Potassium 3.3(L) 3.5 - 5.3 mmol/L [facility] Chloride 97 92 - 108 mmol/L [facility] AnGap 11 8 - 16 mmol/L [facility] CO2 28 22 - 30 mmol/L [facility] Glucose 96 70 - 100 mg/dL [facility] BUN 24(H) 8 - 23 mg/dL [facility] Creatinine 1.19 0.70 - 1.25 mg/dL [facility] Calcium 9.1 8.8 - 10.2 mg/dL [facility] eGFR (2020 CKD-EPI) 64 >=60 ml/min/1.7 3m2 [facility] Comment: The estimated glomerular filtration rate (eGFR) was calculated using the CKD-EPI 2020 creatinine equation, which does not include race as a factor. This equation is validated in individuals 18 years of age and older, and eGFR is normalized to a body surface area of 1.73m^2. Blood 01/03/2024 7:27 AM CDT 01/03/2024 7:28 AM CDT Mauricio Simpson MD LABORATORY Performing Organization Address City/[facility] Co de Phone Number [facility] [address] [address] * MAGNESIUM (01/03/2024 7:27 AM CDT) Magnesium 1.7 1.6 - 2.4 mg/dL [facility] Blood 01/03/2024 7:27 AM CDT 01/03/2024 8:17 AM CDT Mauricio Simpson MD LABORATORY Performing Organization Address City/[facility] de Phone Number [address] [address] * PHOSPHORUS (01/03/2024 7:27 AM CDT) Phosphorus 3.1 2.5 - 4.5 mg/dL [facility] Blood 01/03/2024 7:27 AM CDT 01/03/2024 8:17 AM CDT Mauricio Simpson MD LABORATORY Performing Organization Address City/[facility] Co de Phone Number [facility] [address] [address] * PHOSPHORUS (01/02/2024 6:01 AM CDT) Phosphorus 3.5 2.5 - 4.5 mg/dL [facility] Blood 01/02/2024 6:01 AM CDT 01/02/2024 6:10 AM CDT Mauricio Simpson MD LABORATORY Performing Organization Address City/[facility]/ZIP Co de Phone Number [facility] [address] [address] * MAGNESIUM (01/02/2024 6:01 AM CDT) Magnesium 1.8 1.6 - 2.4 mg/dL [facility] Blood 01/02/2024 6:01 AM CDT 01/02/2024 6:10 AM CDT Mauricio Simpson MD LABORATORY Performing Organization Address [facility] Co de Phone Number [facility] [address] [address] * (ABNORMAL) PANEL BASIC METABOLIC (BMP) (01/02/2024 6:01 AM CDT) Sodium 137 135 - 148 mmol/L [facility] Potassium 3.5 3.5 - 5.3 mmol/L [facility] Chloride 97 92 - 108 mmol/L [facility] CO2 27 22 - 30 mmol/L [facility] AnGap 13 8 - 16 mmol/L [facility] Glucose 110(H) 70 - 100 mg/dL [facility] BUN 20 8 - 23 mg/dL [facility] Creatinine 1.16 0.70 - 1.25 mg/dL [facility] Calcium 9.0 8.8 - 10.2 mg/dL [facility] eGFR (2020 CKD-EPI) 67 >=60 ml/min/1.7 3m2 [facility] Comment: The estimated glomerular filtration rate (eGFR) was calculated using the CKD-EPI 2020 creatinine equation, which does not include race as a factor. This equation is validated in individuals 18 years of age and older, and eGFR is normalized to a body surface area of 1.73m^2. Blood 01/02/2024 6:01 AM CDT 01/02/2024 6:10 AM CDT Mauricio Simpson MD LABORATORY Performing Organization Address [facility] Co de Phone Number [facility] [address] [address] * (ABNORMAL) CBC WITH PLATELET (01/02/2024 6:01 AM CDT) WBC 7.22 4.00 - 10.00 k/cmm [facility] RBC 3.68(L) 4.60 - 6.00 m/cmm [facility] Hgb 10.5(L) 13.1 - 17.5 g/dL [facility] Hematocrit 33.0(L) 40.0 - 51.0 % [facility] MCV 89.7 80.0 - 100.0 fL [facility] MCH 28.5 25.0 - 32.0 pg [facility] MCHC 31.8 31.0 - 36.0 g/dL [facility] RDW 14.8(H) 11.5 - 14.5 % [facility] Plt 299 150 - 400 k/cmm [facility] MPV 10.3 6.5 - 12.5 fL [facility] Blood 01/02/2024 6:01 AM CDT 01/02/2024 6:11 AM CDT Mauricio Simpson MD LABORATORY [facility] [place] [phone] * PHOSPHORUS (01/01/2024 8:43 AM CDT) Phosphorus 2.7 2.5 - 4.5 mg/dL [facility] Blood 01/01/2024 8:43 AM CDT 01/01/2024 9:10 AM CDT Mauricio Simpson MD LABORATORY [facility] [address] [address] * MAGNESIUM (01/01/2024 8:43 AM CDT) Magnesium 2.0 1.6 - 2.4 mg/dL [facility] Blood 01/01/2024 8:43 AM CDT 01/01/2024 9:10 AM CDT Mauricio Simpson MD LABORATORY [facility] [address] [address] * (ABNORMAL) PANEL BASIC METABOLIC (BMP) (01/01/2024 8:43 AM CDT) Sodium 136 135 - 148 mmol/L [facility] Potassium 3.7 3.5 - 5.3 mmol/L [facility] Chloride 97 92 - 108 mmol/L [facility] CO2 29 22 - 30 mmol/L [facility] AnGap 10 8 - 16 mmol/L [facility] Glucose 108(H) 70 - 100 mg/dL [facility] BUN 18 8 - 23 mg/dL [facility] Creatinine 1.12 0.70 - 1.25 mg/dL [facility] Calcium 9.0 8.8 - 10.2 mg/dL [facility] eGFR (2020 CKD-EPI) 69 >=60 ml/min/1.7 3m2 [facility] Comment: The estimated glomerular filtration rate (eGFR) was calculated using the CKD-EPI 2020 creatinine equation, which does not include race as a factor. This equation is validated in individuals 18 years of age and older, and eGFR is normalized to a body surface area of 1.73m^2. Blood 01/01/2024 8:43 AM CDT 01/01/2024 9:10 AM CDT Mauricio Simpson MD LABORATORY Performing Organization Address [facility]/ZIP Co de Phone Number [facility] [address] [address] * (ABNORMAL) CBC WITH PLATELET (01/01/2024 8:43 AM CDT) WBC 7.08 4.00 - 10.00 k/cmm [facility] RBC 3.68(L) 4.60 - 6.00 m/cmm [facility] Hgb 10.5(L) 13.1 - 17.5 g/dL [facility] Hematocrit 33.0(L) 40.0 - 51.0 % [facility] MCV 89.7 80.0 - 100.0 fL [facility] MCH 28.5 25.0 - 32.0 pg [facility] MCHC 31.8 31.0 - 36.0 g/dL [facility] RDW 14.8(H) 11.5 - 14.5 % [facility] Plt 279 150 - 400 k/cmm [facility] MPV 10.5 6.5 - 12.5 fL [facility] Blood 01/01/2024 8:43 AM CDT 01/01/2024 9:09 AM CDT Mauricio Simpson MD LABORATORY Performing Organization Address City/[facility]/ZIP Co de Phone Number [facility] [address] [address] * PHOSPHORUS (12/31/2023 7:11 AM CDT) Pathologist [facility] Phosphorus 2.6 2.5 - 4.5 mg/dL [facility] Blood 12/31/2023 7:11 AM CDT 12/31/2023 7:35 AM CDT Mauricio Simpson MD LABORATORY Performing Organization Address City/[facility] Co de Phone Number [facility] [address] [address] * MAGNESIUM (12/31/2023 7:11 AM CDT) Pathologist [facility] Magnesium 1.6 1.6 - 2.4 mg/dL [facility] Blood 12/31/2023 7:11 AM CDT 12/31/2023 7:35 AM CDT Mauricio Simpson MD LABORATORY Performing Organization Address [facility] Co de Phone Number [facility] [address] [address] * (ABNORMAL) PANEL BASIC METABOLIC (BMP) (12/31/2023 7:11 AM CDT) Sodium 137 135 - 148 mmol/L [facility] Potassium 3.0(AA) 3.5 - 5.3 mmol/L [facility] Comment:Critical Result Low Chloride 97 92 - 108 mmol/L [facility] CO2 28 22 - 30 mmol/L [facility] AnGap 12 8 - 16 mmol/L [facility] Glucose 94 70 - 100 mg/dL [facility] BUN 15 8 - 23 mg/dL [facility] Creatinine 1.04 0.70 - 1.25 mg/dL [facility] Calcium 8.6(L) 8.8 - 10.2 mg/dL [facility] eGFR (2020 CKD-EPI) 76 >=60 ml/min/1.7 3m2 [facility] Comment: The estimated glomerular filtration rate (eGFR) was calculated using the CKD-EPI 2020 creatinine equation, which does not include race as a factor. This equation is validated in individuals 18 years of age and older, and eGFR is normalized to a body surface area of 1.73m^2. Blood 12/31/2023 7:11 AM CDT 12/31/2023 7:35 AM CDT Narrative [facility] - 12/31/2023 8:17 AM CDT Critical value for Potassium called to and read back by Kerri Evans MD in [facility] at 12/31/2023 08:17:00 CDT by Trinity Macdonald MLS. Mauricio Simpson MD LABORATORY [facility] [address] [place] [phone] * (ABNORMAL) CBC WITH PLATELET (12/31/2023 7:11 AM CDT) WBC 7.09 4.00 - 10.00 k/cmm [facility] RBC 3.34(L) 4.60 - 6.00 m/cmm [facility] Hgb 9.5(L) 13.1 - 17.5 g/dL [facility] Hematocrit 30.1(L) 40.0 - 51.0 % [facility] MCV 90.1 80.0 - 100.0 fL [facility] MCH 28.4 25.0 - 32.0 pg [facility] MCHC 31.6 31.0 - 36.0 g/dL [facility] RDW 14.9(H) 11.5 - 14.5 % [facility] Plt 262 150 - 400 k/cmm [facility] MPV 10.8 6.5 - 12.5 fL [facility] Blood 12/31/2023 7:11 AM CDT 12/31/2023 7:35 AM CDT Mauricio Simpson MD LABORATORY [facility] [address] [address] * ULT VENOUS UPPER EXTREMITY RIGHT (12/30/2023 [...] Contreras Mauricio Simpson MD RAD ULT * (ABNORMAL) STOOL GI PANEL (12/30/2023 12:35 [...] Escherichia coli DNA Not Detected Not Detected [facility] Shiga-like toxin-producing E. coli stx1/stx2 DNA Not Detected Not Detected [facility] Escherichia coli 0157 DNA Not Reported Not Detected [facility] Shigella/Enteroinvas patricia E coli DNA Not Detected Not Detected [facility] Cryptosporidium DNA Not Detected Not Detected [facility] Cyclospora cayetanensis DNA Not Detected Not Detected [facility] Entamoeba histolytica DNA Not Detected Not Detected [facility] Giardia duodenalis DNA Not Detected Not Detected [facility] Adenovirus F 40/41 DNA Not Detected Not Detected [facility] Astrovirus RNA Not Detected Not Detected [facility] Norovirus GI/GII RNA Not Detected Not Detected [facility] Rotavirus RNA Not Detected Not Detected [facility] Sapovirus (I, II, IV, V) RNA Not Detected Not Detected [facility] Comment:This is a multiplex reverse transcriptase two-stage PCR nucleic acid assay. This gastrointestinal panel is FDA approved. Feces 12/30/2023 12:3 5 PM CDT 12/30/2023 1:48 PM CDT Narrative [facility] - 12/30/2023 3:37 PM CDT Critical value for Stool GI panel electronically reported to and acknowledged by Kerri Evans MD in [address] at 12/30/2023 15:37:34 CDT by Paul Guzman MLS. Mauricio Simpson MD LAB MICROBIOLOGY [facility] [address] [address] * CT OUTSIDE READ MSK/NON NEURO (12/30/2023 [...] 12:06 PM CDT Indication: ??Patient transferred from [facility]. ??No initial report accompanied the patient and/or Dr. ??MAURICIO SIMPSON requested an interpretation by me. Technique: ??CT scan of the right wrist done on 12/28/23 with IV contrast. ??3 mm axial, sagittal and coronal reconstructions reviewed in soft tissue and bone windows, per the local institution's scanning protocols, which may differ from the [facility] trauma protocols. Findings: [...] MD - 12/30/2023 Indication: Patient transferred from [facility]. No initialreport accompanied the patient and/or Dr. MAURICIO SIMPSON requested aninterpretation by me. Technique: CT scan of the right wrist done on 12/28/23 with IV contrast.3 mm axial, sagittal and coronal reconstructions reviewed in soft tissueand bone windows, per the local institution's scanning protocols, whichmay differ from the [facility] trauma protocols. Findings: [...] Simpson MD RAD CT BODY * VITAMIN [id number] TO MMA (12/30/2023 10:01 AM CDT) Pathologist [facility] [id number] [id number] 211 - 946 pg/mL [facility] Blood 12/30/2023 10:0 1 AM CDT 12/30/2023 10:28 AM CDT Dimas Resendiz MD LABORATORY [facility] [address] [address] * HIV COMBO (12/30/2023 10:01 AM CDT) [facility] HIV Antigen-Antibody Nonreactive Nonreactive [facility] Comment:Performance characte ristics have not been established with this test on patients less than 2 years of age. Blood 12/30/2023 10:0 1 AM CDT 12/30/2023 10:27 AM CDT Dimas Resendiz MD LABORATORY [facility] [address] [address] * TSH WITH REFLEX TO FREE T4 (12/30/2023 10:01 AM CDT) [facility] TSH 1.33 0.27 - 4.20 mIU/L [facility] Blood 12/30/2023 10:0 1 AM CDT 12/30/2023 10:27 AM CDT Dimas Resendiz MD LABORATORY Performing Organization Address [facility] de Phone Number [facility] [address] [address] * RETIC COUNT (12/30/2023 10:01 AM CDT) Retic Count 1.2 0.5 - 1.8 % [facility] Blood 12/30/2023 10:0 1 AM CDT 12/30/2023 10:27 AM CDT Dimas Resendiz MD LABORATORY Performing Organization Address [facility] de Phone Number [address] [address] * (ABNORMAL) PHOSPHORUS (12/30/2023 10:01 AM CDT) Phosphorus 1.7(L) 2.5 - 4.5 mg/dL [facility] Blood 12/30/2023 10:0 1 AM CDT 12/30/2023 10:27 AM CDT Lori Billingsley MD LABORATORY Performing Organization Address [facility] Co de Phone Number [facility] [address] [address] * MAGNESIUM (12/30/2023 10:01 AM CDT) Magnesium 1.6 1.6 - 2.4 mg/dL [facility] Blood 12/30/2023 10:0 1 AM CDT 12/30/2023 10:27 AM CDT Lori Billingsley MD LABORATORY Performing Organization Address [facility] de Phone Number [address] [address] * (ABNORMAL) PANEL HEPATIC FUNCTION (12/30/2023 10:01 AM CDT) Total Protein 7.0 6.4 - 8.3 g/dL [facility] Albumin 3.2(L) 3.8 - 5.1 g/dL [facility] Bili Total 0.8 <=1.2 mg/dL [facility] Bili Direct 0.4(H) <=0.3 mg/dL [facility] Alk Phos 72 40 - 129 IU/L [facility] Comment:No reference range e stablished for patients <18 years old. ALT (SGPT) 8 <=41 IU/L [facility] AST(SGOT) 13 5 - 40 IU/L [facility] Blood 12/30/2023 10:0 1 AM CDT 12/30/2023 10:27 AM CDT Lori Billingsley MD LABORATORY [facility] [address] [address] * (ABNORMAL) PANEL BASIC METABOLIC (BMP) (12/30/2023 10:01 AM CDT) Pathologist [facility] Sodium 137 135 - 148 mmol/L [facility] Potassium 3.9 3.5 - 5.3 mmol/L [facility] Chloride 101 92 - 108 mmol/L [facility] CO2 26 22 - 30 mmol/L [facility] AnGap 10 8 - 16 mmol/L [facility] Glucose 161(H) 70 - 100 mg/dL [facility] BUN 13 8 - 23 mg/dL [facility] Creatinine 0.87 0.70 - 1.25 mg/dL [facility] Calcium 9.2 8.8 - 10.2 mg/dL [facility] eGFR (2020 CKD-EPI) 91 >=60 ml/min/1.7 3m2 [facility] Comment: The estimated glomerular filtration rate (eGFR) was calculated using the CKD-EPI 2020 creatinine equation, which does not include race as a factor. This equation is validated in individuals 18 years of age and older, and eGFR is normalized to a body surface area of 1.73m^2. Blood 12/30/2023 10:0 1 AM CDT 12/30/2023 10:27 AM CDT Lori Billingsley MD LABORATORY Performing Organization Address [facility] Co de Phone Number [facility] [address] [address] * (ABNORMAL) CBC WITH PLATELET (12/30/2023 10:01 AM CDT) WBC 10.83(H) 4.00 - 10.00 k/cmm [facility] RBC 3.60(L) 4.60 - 6.00 m/cmm [facility] Hgb 10.4(L) 13.1 - 17.5 g/dL [facility] Hematocrit 32.6(L) 40.0 - 51.0 % [facility] MCV 90.6 80.0 - 100.0 fL [facility] MCH 28.9 25.0 - 32.0 pg [facility] MCHC 31.9 31.0 - 36.0 g/dL [facility] RDW 15.0(H) 11.5 - 14.5 % [facility] Plt 233 150 - 400 k/cmm [facility] MPV 11.2 6.5 - 12.5 fL [facility] Blood 12/30/2023 10:0 1 AM CDT 12/30/2023 10:27 AM CDT Lori Billingsley MD LABORATORY Performing Organization Address [facility] Co de Phone Number [facility] [address] [address] * LD (LDH) (12/30/2023 1:21 AM CDT) LD 216 135 - 225 IU/L [facility] Blood 12/30/2023 1:21 AM CDT 12/30/2023 1:28 AM CDT Dimas Resendiz MD LABORATORY Performing Organization Address City/[facility]/ZIP Co de Phone Number [address] [address] * (ABNORMAL) HAPTOGLOBIN (12/30/2023 1:21 AM CDT) Haptoglobin 400(H) 32 - 197 mg/dL [facility] Blood 12/30/2023 1:21 AM CDT 12/30/2023 1:28 AM CDT Dimas Resendiz MD LABORATORY Performing Organization Address City/[facility]/ZIP Co de Phone Number [address] [address] * (ABNORMAL) MAGNESIUM (12/30/2023 1:21 AM CDT) Pathologist [facility] Magnesium 1.1(L) 1.6 - 2.4 mg/dL [facility] Blood 12/30/2023 1:21 AM CDT 12/30/2023 1:28 AM CDT Dimas Resendiz MD LABORATORY Performing Organization Address City/[facility] Co de Phone Number [address] [address] * POTASSIUM (12/30/2023 1:21 AM CDT) Pathologist [facility] Potassium 4.3 3.5 - 5.3 mmol/L [facility] Blood 12/30/2023 1:21 AM CDT 12/30/2023 1:28 AM CDT Dimas Resendiz MD LABORATORY Performing Organization Address City/[facility]/ZIP Co de Phone Number [address] [address] * ULT GALLBLADDER (12/29/2023 10:24 PM CDT) [...] Uric Acid 4.6 3.4 - 7.0 mg/dL [facility] Blood 12/29/2023 10:2 4 PM CDT 12/29/2023 10:34 PM CDT Dafne Holcomb PA-C LABORATORY [facility] [address] [address] * ED US ABDOMINAL/GALLBLADDER (12/29/2023 9:31 PM [...] Alberto Nathan MD, 12/30/2023 5:44 AM Dafne Charles Holcomb PA-C RAD ED ULT * CT [...] DOSE: ?Total DLP = 1064.6 mGy.cm (accession [id number]), 462 mGy.cm (accession [id number]). ?? Findings: FINDINGS: Beam hardening artifact limits [...] DOSE: Total DLP = 1064.6 mGy.cm (accession [id number]), 462 mGy.cm(accession [id number]). Findings: FINDINGS: Beam hardening artifact limits evaluation [...] DOSE: ?Total DLP = 1064.6 mGy.cm (accession [id number]), 462 mGy.cm (accession [id number]). ?? Findings: FINDINGS: Beam hardening artifact limits [...] DOSE: Total DLP = 1064.6 mGy.cm (accession [id number]), 462 mGy.cm(accession [id number]). Findings: FINDINGS: Beam hardening artifact limits evaluation [...] Dafne Holcomb PA-C RAD CT BODY * CK, TOTAL (12/29/2023 7:01 PM CDT) CK 95 39 - 308 IU/L [facility] Blood 12/29/2023 7:01 PM CDT 12/29/2023 10:12 PM CDT Dafne Holcomb PA-C LABORATORY [facility] [address] [address] * LACTATE (LACTIC ACID) (12/29/2023 7:01 PM CDT) Lactate 1.0 0.7 - 2.1 mmol/L [facility] Blood 12/29/2023 7:01 PM CDT 12/29/2023 7:25 PM CDT Narrative [facility] - 12/29/2023 7:26 PM CDT Send specimen on ice! Dafne Holcomb PA-C LABORATORY Performing Organization Address [facility]/ZIP Co de Phone Number [facility] [address] [address] * (ABNORMAL) ED CHEMISTRY LABS(NA,K,CL,CO2,GLU,CREAT,CA-IONIZED,ANION GAP) (12/29/2023 7:01 PM CDT) Sodium 140 135 - 148 mmol/L [facility] Chloride 101 92 - 108 mmol/L [facility] AnGap 11 8 - 16 mmol/L [facility] Glucose 126(H) 70 - 100 mg/dL [facility] ICA, Actual 4.47 4.40 - 5.20 mg/dL [facility] ICA, pH Corrected 4.52 4.40 - 5.20 mg/dL [facility] Creatinine 1.05 0.70 - 1.25 mg/dL [facility] BICARB 28(H) 22 - 26 mEq/L [facility] eGFR (2020 CKD-EPI) 75 >=60 ml/min/1.7 3m2 [facility] Comment: The estimated glomerular filtration rate (eGFR) was calculated using the CKD-EPI 2020 creatinine equation, which does not include race as a factor. This equation is validated in individuals 18 years of age and older, and eGFR is normalized to a body surface area of 1.73m^2. Potassium 3.2(L) 3.5 - 5.3 mmol/L [facility] Blood 12/29/2023 7:01 PM CDT 12/29/2023 7:25 PM CDT Dafne Holcomb PA-C LABORATORY Performing Organization Address City/[facility]/ZIP Co de Phone Number [facility] [address] [address] * BLOOD AEROBIC/ANAEROBIC CULTURE (12/29/2023 7:01 PM CDT) Final Report No growth after 5 days. [facility] Blood (Peripheral) 12/29/2023 7:01 PM CDT 12/30/2023 1:44 AM CDT Dafne Holcomb PA-C LAB MICROBIOLOGY Performing Organization Address [facility]/ZIP Co de Phone Number [facility] [address] [address] * BLOOD AEROBIC/ANAEROBIC CULTURE (12/29/2023 7:01 PM CDT) Final Report No growth after 5 days. [facility] Blood (Peripheral) 12/29/2023 7:01 PM CDT 12/30/2023 1:44 AM CDT Dafne Holcomb PA-C LAB MICROBIOLOGY Performing Organization Address [facility] Co de Phone Number [facility] [address] [address] * TROP 6H (12/29/2023 7:01 PM CDT) 6H Trop 20 <=35 ng/L [facility] 6H Delta Not Significant Not Significant [facility] Blood 12/29/2023 7:01 PM CDT 12/29/2023 7:49 PM CDT Lori Billingsley MD LABORATORY Performing Organization Address [facility] Co de Phone Number [facility] [address] [address] * (ABNORMAL) ED POTASSIUM (12/29/2023 5:35 PM CDT) Potassium 3.3(L) 3.5 - 5.3 mmol/L [facility] Blood 12/29/2023 5:35 PM CDT 12/29/2023 5:47 PM CDT Rey Brady MD LABORATORY Performing Organization Address [facility]/ZIP Co de Phone Number [facility] [address] [address] * ED US CARDIAC (12/29/2023 4:51 PM CDT) Anatomical Region Laterality Modality Ultrasound Narrative 12/29/2023 8:21 PM CDT ED Cardiac Ultrasound Body Areas Imaged: Heart, Chest Wall/Lungs, and Inferior Vena Cava Indications:Tachycardia Window: Subxiphoid, Parasternal [place], Parasternal Long [place], Apical 4-Chamber, IVC, and Bilateral Lungs Findings: [...] ULT * PROCALCITONIN (12/29/2023 4:28 PM CDT) Pathologist [facility] Procalcitonin 0.62 ng/mL [facility] Comment: Results <0.50 ng/mL represent a low risk of severe sepsis and/or septic shock. Results >2.0 ng/mL represent a high risk of severe sepsis and/or septic shock. Blood 12/29/2023 4:28 PM CDT 12/29/2023 5:08 PM CDT Dafne Holcomb PA-C LABORATORY [facility] [address] [address] * TROP 4H (12/29/2023 4:28 PM CDT) 4H Trop 19 <=35 ng/L [facility] 4H Delta Not Significant Not Significant [facility] Blood 12/29/2023 4:28 PM CDT 12/29/2023 5:08 PM CDT Lori Billingsley MD LABORATORY Performing Organization Address [facility] Co de Phone Number [facility] [address] [address] * TROP 2H (12/29/2023 2:32 PM CDT) 2H Trop 21 <=35 ng/L [facility] 2H Delta Not Significant Not Significant [facility] Blood 12/29/2023 2:32 PM CDT 12/29/2023 2:40 PM CDT Lori Billingsley MD LABORATORY Performing Organization Address [facility] Phone Number [facility] [address] [address] * LACTATE (LACTIC ACID) (12/29/2023 2:32 PM CDT) Lactate 1.0 0.7 - 2.1 mmol/L [facility] Blood 12/29/2023 2:32 PM CDT 12/29/2023 2:41 PM CDT Narrative [facility] - 12/29/2023 2:41 PM CDT Send specimen on ice! Lori Billingsley MD LABORATORY Performing Organization Address [facility] de Phone Number [facility] [address] [address] * (ABNORMAL) URINE DRUG SCREEN (12/29/2023 1:40 PM CDT) Acetaminophen Ur POS(A) <=10 mcg/mL [facility] Amphetamine Ur NEG <=500 ng/mL [facility] Barbiturate Ur NEG <=200 ng/mL [facility] Benzodiazipine NEG <=100 ng/mL [facility] Buprenorphine Ur NEG <=5 ng/mL [facility] Cocaine Metab Ur NEG <=300 ng/mL [facility] Fentanyl, Urine NEG <=4 ng/mL [facility] LSD Ur NEG <=500 pg/mL [facility] Methadone Ur NEG <=300 ng/mL [facility] Opiate Ur NEG <=300 ng/mL [facility] Oxycodone Ur NEG <=100 ng/mL [facility] PCP Urine NEG <=25 ng/mL [facility] Propox Ur NEG <=300 ng/mL [facility] Salicylate Ur NEG <=10 mg/dL [facility] Creat Urine 89 >=20 mg/dL [facility] Mass Spectrometry Urine Acetaminophen , Diphenhydrami ne, Sertraline and Sertraline metabolite present. [facility] Urine 12/29/2023 1:40 PM CDT 12/31/2023 1:51 AM CDT Dimas Resendiz MD LABORATORY Performing Organization Address [facility] Co de Phone Number [facility] [address] [address] * URINE CULTURE (12/29/2023 1:40 PM CDT) Pathologist [facility] Urine Cult No growth. [facility] Urine Cath URINE / Unknown 12/29/2023 1 :40 PM CDT 12/29/2023 2:40 PM CDT Narrative [facility] - 12/30/2023 12:27 PM CDT ED Patient: Yes Lori Billingsley MD LAB MICROBIOLOGY Performing Organization Address [facility]/ZIP Co de Phone Number [facility] [address] [address] * (ABNORMAL) URINALYSIS,TOTAL (12/29/2023 1:40 PM CDT) Color YELLOW YELLOW [facility] Appearance CLEAR CLEAR [facility] Urine Glucose NEGATIVE NEGATIVE mg/dL [facility] Bili UA NEGATIVE NEGATIVE [facility] Ketones NEGATIVE NEGATIVE [facility] Specific [place] 1.039(A) 1.003 - 1.030 [facility] Blood Ur SMALL(A) Neg-Trace [facility] PH Urine 6.0 5.0 - 7.0 [facility] Protein Ur 70(A) Neg-Trace [facility] Urobilinogen NORMAL NORMAL EU/dL [facility] Nitrite Ur NEGATIVE NEGATIVE [facility] Leuk Est NEGATIVE Neg-Trace [facility] WBC Ur 0-5 0 - 5 perHPF [facility] RBC Ur 0-3 0 - 3 perHPF [facility] Urinalysis Performed at: [facility] Urine 12/29/2023 1:40 PM CDT 12/29/2023 1:45 PM CDT Lori Billingsley MD LABORATORY Performing Organization Address [facility] Co de Phone Number [facility] [address] [address] * (ABNORMAL) SED RATE (ESR) (12/29/2023 1:15 PM CDT) Pathologist [facility] Sed Rate 120(H) 2 - 10 mm/hr [facility] Blood 12/29/2023 1:15 PM CDT 12/29/2023 2:04 PM CDT Lori Billingsley MD LABORATORY Performing Organization Address [facility] Co de Phone Number [facility] [address] [id number] * (ABNORMAL) C-REACTIVE PROTEIN (12/29/2023 1:15 PM CDT) C-Reactive Protein 229(H) <=4 mg/L [facility] Blood 12/29/2023 1:15 PM CDT 12/29/2023 2:04 PM CDT Lori Billingsley MD LABORATORY Performing Organization Address [facility] Co de Phone Number [address] [address] * (ABNORMAL) BLOOD GASES (12/29/2023 1:15 PM CDT) PH Greg 7.46(H) 7.32 - 7.42 [facility] PCO2 Greg 40(L) 41 - 51 mmHG [facility] PO2 Greg 39 25 - 40 mmHG [facility] Bicarb Greg 28 24 - 28 mEq/L [facility] O2 Sat Greg 73 % [facility] Base Exc Greg 3.4(H) -10.0 - 2.0 mmol/L [facility] Blood Venous 12/29/2023 1:15 PM CDT 12/29/2023 1:21 PM CDT Lori Billingsley MD LABORATORY Performing Organization Address City/[facility] Co de Phone Number [facility] [address] [address] * LIPASE (12/29/2023 1:15 PM CDT) Lipase 30 13 - 60 IU/L [facility] Blood 12/29/2023 1:15 PM CDT 12/29/2023 1:24 PM CDT Lori Billingsley MD LABORATORY Performing Organization Address City/[facility] Co de Phone Number [facility] [address] [address] * (ABNORMAL) AMMONIA (12/29/2023 1:15 PM CDT) Ammonia 13(L) 16 - 60 mcmol/L [facility] Blood 12/29/2023 1:15 PM CDT 12/29/2023 1:25 PM CDT Narrative [facility] - 12/29/2023 1:50 PM CDT Send specimen on ice! Lori Billingsley MD LABORATORY Performing Organization Address [facility] Co de Phone Number [facility] [address] [address] * BUN (UREA NITROGEN) (12/29/2023 1:15 PM CDT) BUN 17 8 - 23 mg/dL [facility] Blood 12/29/2023 1:15 PM CDT 12/29/2023 1:24 PM CDT Lori Billingsley MD LABORATORY [facility] [address] [address] * (ABNORMAL) PANEL HEPATIC FUNCTION (12/29/2023 1:15 PM CDT) [facility] Total Protein 6.2(L) 6.4 - 8.3 g/dL [facility] Albumin 3.1(L) 3.8 - 5.1 g/dL [facility] Bili Total 1.4(H) <=1.2 mg/dL [facility] Bili Direct 0.8(H) <=0.3 mg/dL [facility] Alk Phos 67 40 - 129 IU/L [facility] Comment:No reference range e stablished for patients <18 years old. ALT (SGPT) 6 <=41 IU/L [facility] AST(SGOT) 12 5 - 40 IU/L [facility] Blood 12/29/2023 1:15 PM CDT 12/29/2023 1:24 PM CDT Lori Billingsley MD LABORATORY Performing Organization Address [facility]/ZIP Co de Phone Number [facility] [address] [address] * HS TROPONIN (12/29/2023 1:15 PM CDT) [facility] HS Troponin I 23 <=35 ng/L [facility] Blood 12/29/2023 1:15 PM CDT 12/29/2023 1:24 PM CDT Narrative [facility] - 12/29/2023 1:52 PM CDT If ordering as an add-on lab, you must call the lab. Lori Billingsley MD LABORATORY [facility] [address] [address] * RPR SYPHILIS SCREEN (12/29/2023 1:15 PM CDT) [facility] RPR Screen Non-Reactive Non-Reacti ve [facility] RPR Titer Not Reflexed [facility] Blood 12/29/2023 1:15 PM CDT 12/29/2023 1:24 PM CDT Lori Billingsley MD LABORATORY Performing Organization Address [facility] Co de Phone Number [facility] [address] [address] * LACTATE (LACTIC ACID) (12/29/2023 1:15 PM CDT) Pathologist [facility] Lactate 1.1 0.7 - 2.1 mmol/L [facility] Blood 12/29/2023 1:15 PM CDT 12/29/2023 1:20 PM CDT Narrative [facility] - 12/29/2023 1:26 PM CDT Send specimen on ice! Lori Billingsley MD LABORATORY Performing Organization Address [facility] Co de Phone Number [facility] [address] [address] * (ABNORMAL) ED CHEMISTRY LABS(NA,K,CL,CO2,GLU,CREAT,CA-IONIZED,ANION GAP) (12/29/2023 1:15 PM CDT) Pathologist [facility] Sodium 138 135 - 148 mmol/L [facility] Potassium 2.7(AA) 3.5 - 5.3 mmol/L [facility] Comment:Critical Result Low Chloride 99 92 - 108 mmol/L [facility] AnGap 12 8 - 16 mmol/L [facility] Glucose 88 70 - 100 mg/dL [facility] ICA, Actual 4.30(L) 4.40 - 5.20 mg/dL [facility] ICA, pH Corrected 4.43 4.40 - 5.20 mg/dL [facility] Creatinine 1.15 0.70 - 1.25 mg/dL [facility] BICARB 28(H) 22 - 26 mEq/L [facility] eGFR (2020 CKD-EPI) 67 >=60 ml/min/1.7 3m2 [facility] Comment: The estimated glomerular filtration rate (eGFR) was calculated using the CKD-EPI 2020 creatinine equation, which does not include race as a factor. This equation is validated in individuals 18 years of age and older, and eGFR is normalized to a body surface area of 1.73m^2. Blood 12/29/2023 1:15 PM CDT 12/29/2023 1:20 PM CDT Narrative [facility] - 12/29/2023 1:27 PM CDT Critical value for Potassium called to and read back by Arabella Carbone RN in ER at 12/29/2023 13:27:25 CDT by Seferino Sharma. Lori Billingsley MD LABORATORY Performing Organization Address [facility] Co de Phone Number [facility] [address] [address] * ED EKG (12-LEAD) (12/29/2023 12:43 PM CDT) 12/29/2023 12:4 3 PM CDT Impressions [facility] CVIS EKG ORDERS - 12/29/2023 12:43 PM CDT ATRIAL FIBRILLATION INCOMPLETE RIGHT BUNDLE BRANCH BLOCK ??[90+ ms QRS DURATION, TERMINAL R IN V1/V2, 40+ ms S IN I/aVL/V4/V5/V6] MODERATE ST DEPRESSION ??[0.05+ mV ST DEPRESSION] ABNORMAL ECG P-R Interval 0 ms QRS Interval 98 ms QT Interval 374 ms QTC Interval 428 ms P [place] undef QRS [place] 22 T Wave [place] 40 Narrative Procedure Note Jose C Quintero MD - 12/29/2023 IMPRESSION ATRIAL FIBRILLATION INCOMPLETE RIGHT BUNDLE BRANCH BLOCK [90+ ms QRS DURATION, TERMINAL R INV1/V2, 40+ ms S IN I/aVL/V4/V5/V6] MODERATE ST DEPRESSION [0.05+ mV ST DEPRESSION] ABNORMAL ECG P-R Interval 0 ms QRS Interval 98 ms QT Interval 374 ms QTC Interval 428 ms P [place] undef QRS [place] 22 T Wave [place] 40 Lori Billingsley MD EKG Performing Organization Address City/[facility]/ZIP Co de Phone Number [facility] CVIS EKG ORDERS * EXTRA TUBE - DARK GREEN (12/29/2023 12:15 PM CDT) DARK GREEN TUBE Stored [facility] Comment:Dark Green tubes (Li thium Heparin) are stored in the lab for 1 day from the collection date. Blood 12/29/2023 12:1 5 PM CDT 12/29/2023 1:23 PM CDT Lori Billingsley MD LABORATORY Performing Organization Address City/[facility] Co de Phone Number [facility] [address] [address] * EXTRA TUBE - LIGHT GREEN (12/29/2023 12:15 PM CDT) LIGHT GREEN TUBE Stored [facility] Comment:Green tubes (Liebenthal Heparin) are stored in the lab for 3 days from the collection date. Blood 12/29/2023 12:1 5 PM CDT 12/29/2023 1:23 PM CDT Lori Billingsley MD LABORATORY Performing Organization Address [facility] Co de Phone Number [facility] [address] [address] * (ABNORMAL) PROTHROMBIN (PT) & INR (12/29/2023 12:15 PM CDT) PT 15.6(H) 9.0 - 12.5 sec [facility] INR 1.4(H) 0.8 - 1.1 [facility] Comment: Warfarin Therapeutic Range: Standard Intensity: 2.0 - 3.0 High Intensity: 2.5 - 3.5 Blood 12/29/2023 12:1 5 PM CDT 12/29/2023 1:44 PM CDT Lroi Billingsley MD LABORATORY Performing Organization Address [facility] Co de Phone Number [facility] [address] [address] * (ABNORMAL) CBC WITH PLTS/AUTO DIFF (12/29/2023 12:15 PM CDT) WBC 8.86 4.00 - 10.00 k/cmm [facility] RBC 3.70(L) 4.60 - 6.00 m/cmm [facility] Hgb 10.6(L) 13.1 - 17.5 g/dL [facility] Hematocrit 33.0(L) 40.0 - 51.0 % [facility] MCV 89.2 80.0 - 100.0 fL [facility] MCH 28.6 25.0 - 32.0 pg [facility] MCHC 32.1 31.0 - 36.0 g/dL [facility] RDW 14.7(H) 11.5 - 14.5 % [facility] Plt 216 150 - 400 k/cmm [facility] MPV 11.0 6.5 - 12.5 fL [facility] Automated Abs Neutrophil 7.46(H) 1.70 - 6.50 k/cmm [facility] Comment:Preliminary ANC, Fin al Result to Follow Abs Immature Granulocyte 0.03 0.00 - 0.09 k/cmm [facility] Comment:The Immature Granulo cyte Absolute count contains metamyelocytes and myelocytes. Abs Neutrophil 7.46(H) 1.70 - 6.50 k/cmm [facility] Abs Lymphocyte 0.75(L) 0.80 - 4.00 k/cmm [facility] Abs Monocyte 0.58 0.20 - 1.00 k/cmm [facility] Abs Eosinophil 0.02 0.00 - 0.60 k/cmm [facility] Abs Basophil 0.02 0.00 - 0.20 k/cmm [facility] Blood 12/29/2023 12:1 5 PM CDT 12/29/2023 1:44 PM CDT Lori Billingsley MD LABORATORY [facility] [address] [address] documented in this encounter Visit Diagnoses Diagnosis Fall, initial encounter- Primary Altered mental status, unspecified altered mental status type Type 2 diabetes mellitus with diabetic nephropathy, without long-term current use of insulin (CMS/[facility]) Hypomagnesemia Disorders of magnesium metabolism E coli enteritis Infectious diarrhea Altered mental status, unspecified altered mental status type Hypomagnesemia Disorders of magnesium metabolism E coli enteritis Infectious diarrhea Type 2 diabetes mellitus with diabetic nephropathy, without long-term current use of insulin ([facility]) documented in this encounter Administered Medications Inactive Administered Medications - up to 3 most recent administrations Medication Order MAR Action Action Date Dose Rate Site acetaminophen (TYLENOL) tablet 650 mg 650 mg, Oral, Q4H PRN, Starting on Sat12/30/23 at 0200, Until Sat01/06/24 at 1358, Temp > 38.6 C, Mild Pain (Use First) Given 01/05/2024 8:09 PM CDT 650 mg Given 01/05/2024 8:15 AM CDT 650 mg Given 01/04/2024 8:28 AM CDT 650 mg acetaminophen (TYLENOL) tablet 975 mg 975 mg, Oral, ONE TIME, 1 dose, On Sat12/29/23 at 1900 Given 12/29/2023 8:54 PM CDT 975 mg allopurinol (ZYLOPRIM) tablet 200 mg 200 mg, Oral, DAILY, First dose on Sat12/30/23 at 0800, Until Discontinued Given 01/06/2024 8:55 AM CDT 200 mg Given 01/05/2024 8:15 AM CDT 200 mg Given 01/04/2024 8:48 AM CDT 200 mg aspirin (ASA EC) tablet 81 mg 81 mg, Oral, DAILY, First dose on Sat12/30/23 at 0800, Until Discontinued Given 01/06/2024 8:55 AM CDT 81 mg Given 01/05/2024 8:15 AM CDT 81 mg Given 01/04/2024 8:23 AM CDT 81 mg atorvastatin (LIPITOR) tablet 80 mg 80 mg, Oral, DAILY, First dose on Sat12/30/23 at 0800, Until Discontinued Given 01/06/2024 8:55 AM CDT 80 mg Given 01/05/2024 8:15 AM CDT 80 mg Given 01/04/2024 8:48 AM CDT 80 mg budesonide-formoterol (SYMBICORT) 160-4.5 mcg/puff inhaler 1 puff 1 puff, Inhalation, BID, First dose on [place] 12/29/23 at 2300, Until Discontinued Given 01/06/2024 8:54 AM CDT 1 puff Given 01/05/2024 8:09 PM CDT 1 puff Given 01/05/2024 8:12 AM CDT 1 puff DC MED REC REVIEW BY PHARMACY Discharge Date: 01/06/2024, Discharge Location: Subacute Rehab, Anticipated Discharge Time: 10 am - 2 pm, Discharge Medication Orders: DC Med Orders In Progress (meds to be added), Does not apply, PROTOCOL, Starting on Sat01/05/24 at 1608, Until Sat01/06/24 at 1358 enoxaparin (LOVENOX) 40 mg/0.4 mL injection 40 mg 40 mg, Subcutaneous, DAILY, First dose on Sat12/30/23 at 1300, Until Discontinued Given 01/06/2024 8:55 AM CDT 40 mg Abdominal Tissue Given 01/05/2024 8:13 AM CDT 40 mg Ri ght Upper Quadrant Abdomen Given 01/04/2024 8:13 AM CDT 40 mg Ri ght Upper Arm finasteride (PROSCAR) tablet 5 mg 5 mg, Oral, DAILY, First dose on Sat12/30/23 at 0800, Until Discontinued Given 01/06/2024 8:55 AM CDT 5 mg Given 01/05/2024 8:15 AM CDT 5 mg Given 01/04/2024 8:47 AM CDT 5 mg fluticasone propionate (FLONASE) 50 mcg/act nasal spray 1 spray 1 spray, Nasal, DAILY, First dose on Sat12/30/23 at 0800, Until Discontinued Given 01/06/2024 8:54 AM CDT 1 spray Given 01/05/2024 8:12 AM CDT 1 spray Given 01/04/2024 8:16 AM CDT 1 spray heparin 5000 UNIT/0.5ML injection 5,000 UNITS 5,000 UNITS, Subcutaneous, Q 8H, First dose on Sat12/30/23 at 0010, Until Discontinued Given 12/30/2023 8:08 AM CDT 5,000 UNITS Left Lower Quadrant Abdomen Given 12/30/2023 12:38 AM CDT 5,000 UNITS Abdominal Tissue iohexol (OMNIPAQUE) 350 mg/mL injection IV Push, RAD ONE TIME AUTO ACKNOWLEDGE, 1 dose, On Sat12/29/23 at 2100 Given 12/29/2023 8:58 PM CDT 79 mL Left Arm isosorbide mononitrate cr (IMDUR) tablet 60 mg 60 mg, Oral, DAILY, First dose on Sat12/30/23 at 1300, Until Discontinued Given 01/06/2024 8:55 AM CDT 60 mg Given 01/05/2024 8:15 AM CDT 60 mg Given 01/04/2024 9:41 AM CDT 60 mg lactated ringer's bolus 500 mL 500 mL, Intravenous, Administer over 30 Minutes, IV BOLUS, 1 dose, On Sat12/29/23 at 2205 New Bag 12/29/2023 10:30 PM CDT 500 mL 1 000 mL/hr lactated ringers 1,000 mL bolus Intravenous, Administer over 60 Minutes, IV BOLUS, 1 dose, On Sat12/30/23 at 1545 New Bag 12/30/2023 4:01 PM CDT 1000 mL/hr loperamide (IMODIUM) capsule 2 mg 2 mg, Oral, Q3H PRN, Starting on Sat12/30/23 at 1234, Until Sat12/30/23 at 1540, Diarrhea Given 12/30/2023 12:58 PM CDT 2 mg magnesium sulfate 2 g IVPB 2 g, Intravenous, ONE TIME, Administer over 1 Hours, On Sat12/30/23 at 0330 New Bag 12/30/2023 3:48 AM CDT 2 g 50 mL/hr magnesium sulfate 2 g IVPB 2 g, Intravenous, ONE TIME, Administer over 1 Hours, On Sat12/30/23 at 1300 [facility] 12/30/2023 12:59 PM CDT 2 g 50 mL/hr magnesium sulfate 4 g IVPB 4 g, Intravenous, ONE TIME, Administer over 2 Hours, On Sat12/31/23 at 1055 New Bag 12/31/2023 12:25 PM CDT 4 g 25 mL/hr melatonin tablet 3 mg 3 mg, Oral, Q EVENING, First dose on Sat12/30/23 at 0010, Until Discontinued Given 01/05/2024 8:09 PM CDT 3 mg Given 01/04/2024 8:19 PM CDT 3 mg Given 01/03/2024 8:20 PM CDT 3 mg metoprolol tartrate (LOPRESSOR) tablet 100 mg 100 mg, Oral, BID, First dose on Sat12/30/23 at 0800, Until Discontinued Given 01/06/2024 8:55 AM CDT 100 mg Given 01/05/2024 8:09 PM CDT 100 mg Given 01/05/2024 8:15 AM CDT 100 mg montelukast (SINGULAIR) tablet 10 mg 10 mg, Oral, DAILY, First dose on Sat12/30/23 at 0800, Until Discontinued Given 01/06/2024 8:55 AM CDT 10 mg Given 01/05/2024 8:15 AM CDT 10 mg Given 01/04/2024 8:18 AM CDT 10 mg multivitamin + minerals (CEROVITE SENIOR) 1 tablet 1 tablet, Oral, DAILY, First dose on Sat12/30/23 at 0800, Until Discontinued Given 01/06/2024 8:55 AM CDT 1 tablet Given 01/05/2024 8:15 AM CDT 1 tablet Given 01/04/2024 9:42 AM CDT 1 tablet nystatin [id number] unit/g powder Topical, BID PRN, Starting on Sat01/05/24 at 1108, Until Sat01/06/24 at 1358, rash Given 01/05/2024 11:59 AM CDT pantoprazole (PROTONIX) tablet 40 mg 40 mg, Oral, BID, First dose on Sat12/29/23 at 2300, Until Discontinued Given 01/06/2024 8:55 AM CDT 40 mg Given 01/05/2024 8:08 PM CDT 40 mg Given 01/05/2024 8:15 AM CDT 40 mg phosphate 71.6 mg/3.7 mEq/5 ML oral solution 30 mL 30 mL, Oral, TID, 3 doses, First dose on Sat12/30/23 at 1300, Last dose on Sat12/31/23 at 0800 Given 12/31/2023 8:09 AM CDT 30 mL Given 12/30/2023 7:57 PM CDT 30 mL Given 12/30/2023 12:58 PM CDT 30 mL piperacillin-tazobactam (ZOSYN) 4.5 g in NaCl 0.9% IVPB 4.5 g, Indication (Select One): Infection - Suspected, SITE (Select all that apply): GI/Intra-abdominal, Cultures Ordered? Yes, Intravenous, Q6H, First dose on Sat12/29/23 at 1900, Until Discontinued New Bag 12/29/2023 8:54 PM CDT 4.5 g 240 mL/hr potassium chloride (K-DUR) tablet 40 mEq 40 mEq, Oral, Q4H, 2 doses, First dose on Sat12/31/23 at 0905, Last dose on Sat12/31/23 at 1400 Given 12/31/2023 2:04 PM CDT 40 mEq Given 12/31/2023 10:11 AM CDT 40 mEq potassium chloride (K-KAREN) powder 40 mEq 40 mEq, Oral, ONE TIME, 1 dose, On Sat12/29/23 at 1340 Given 12/29/2023 1:43 PM CDT 40 mEq potassium chloride (K-KAREN) powder 40 mEq 40 mEq, Oral, ONE TIME, 1 dose, On Sat12/29/23 at 1900 Given 12/29/2023 8:54 PM CDT 40 mEq potassium chloride (K-KAREN) powder 40 mEq 40 mEq, Oral, ONE TIME, 1 dose, On Sat01/03/24 at 1045 Given 01/03/2024 11:06 AM CDT 40 mEq potassium chloride (K-KAREN) powder 40 mEq 40 mEq, Oral, ONE TIME, 1 dose, On Sat01/05/24 at 0930 Given 01/05/2024 9:47 AM CDT 40 mEq potassium chloride IVPB 10 mEq 10 mEq, Intravenous, ONE TIME, Administer over 60 Minutes, On Sat12/29/23 at 1410 New Bag 12/29/2023 2:31 PM CDT 10 m Eq pramipexole (MIRAPEX) tablet 0.25 mg 0.25 mg, Oral, BEDTIME, First dose on Sat12/30/23 at 2000, Until Discontinued Given 01/05/2024 8:09 PM CDT 0.25 mg Given 01/04/2024 8:19 PM CDT 0.25 mg Given 01/03/2024 8:19 PM CDT 0.25 mg sertraline (ZOLOFT) tablet 100 mg 100 mg, Oral, DAILY, First dose on Sat12/30/23 at 0800, Until Discontinued Given 01/06/2024 8:55 AM CDT 100 mg Given 01/05/2024 8:15 AM CDT 100 mg Given 01/04/2024 8:18 AM CDT 100 mg tamsulosin (FLOMAX) capsule 0.4 mg 0.4 mg, Oral, DAILY PC, First dose on Sat01/02/24 at 0900, Until Discontinued Given 01/06/2024 8:55 AM CDT 0.4 mg Given 01/05/2024 9:47 AM CDT 0.4 mg Given 01/04/2024 10:01 AM CDT 0.4 mg torsemide (DEMADEX) tablet 40 mg 40 mg, Oral, BID, First dose on Sat12/30/23 at 0800, Until Discontinued Given 01/05/2024 8:15 AM CDT 40 mg Given 01/04/2024 8:19 PM CDT 40 mg Given 01/04/2024 9:40 AM CDT 40 mg documented in this encounter Active and Recently Administered Medications Times are shown in CDT. Scheduled Medication Order 01/04/2024 01/05/2024 01/06/2024 allopurinol (ZYLOPRIM) tablet 200 mg 200 mg, Oral, DAILY, First dose on Sat12/30/23 at 0800, Until Discontinued 0848 (Given - Provider: Janet Wakefield RN) 0815 (Given - Provider: Janet Wakefield RN) 0855 (Given - Provider: Shira Tesfaye RN) aspirin (ASA EC) tablet 81 mg 81 mg, Oral, DAILY, First dose on Sat12/30/23 at 0800, Until Discontinued 0823 (Given - Provider: Janet Wakefield RN) 0815 (Given - Provider: Janet Wakefield RN) 0855 (Given - Provider: Shira Tesfaye, SIMRAN) atorvastatin (LIPITOR) tablet 80 mg 80 mg, Oral, DAILY, First dose on Sat12/30/23 at 0800, Until Discontinued 0848 (Given - Provider: Janet Wakefield RN) 0815 (Given - Provider: Janet Wakefield RN) 0855 (Given - Provider: Shira Tesfaye RN) budesonide-formoterol (SYMBICORT) 160-4.5 mcg/puff inhaler 1 puff 1 puff, Inhalation, BID, First dose on Sat12/29/23 at 2300, Until Discontinued 0817 (Given - Provider: Janet Wakefield RN)2015 (Given - Provider: Fifi Carter RN) 0812 (Given - Provider: Janet Wakefield RN)2008 (Given - Provider: Fifi Carter, SIMRAN) 0854 (Given - Provider: Shira Tesfaye, RN) DC MED REC REVIEW BY PHARMACY(Linked Group 1) Discharge Date: 01/06/2024, Discharge Location: Subacute Rehab, Anticipated Discharge Time: 10 am - 2 pm, Discharge Medication Orders: DC Med Orders In Progress (meds to be added), Does not apply, PROTOCOL, Starting on Sat01/05/24 at 1608, Until Sat01/06/24 at 1358 enoxaparin (LOVENOX) 40 mg/0.4 mL injection 40 mg 40 mg, Subcutaneous, DAILY, First dose on Sat12/30/23 at 1300, Until Discontinued 08 (Given - Provider: Janet Wakefield RN) 0813 (Given - Provider: Janet Wakefield RN) 0855 (Given - Provider: Shira Tesfaye, SIMRAN) finasteride (PROSCAR) tablet 5 mg 5 mg, Oral, DAILY, First dose on Sat12/30/23 at 0800, Until Discontinued 0847 (Given - Provider: Janet Wakefield RN) 0815 (Given - Provider: Janet Wakefield RN) 0855 (Given - Provider: Shira Tesfaye, SIMRAN) fluticasone propionate (FLONASE) 50 mcg/act nasal spray 1 spray 1 spray, Nasal, DAILY, First dose on Sat12/30/23 at 0800, Until Discontinued 0816 (Given - Provider: Janet Wakefield RN) 0812 (Given - Provider: Janet Wakefield RN) 0854 (Given - Provider: Shira Tesfaye RN) isosorbide mononitrate cr (IMDUR) tablet 60 mg 60 mg, Oral, DAILY, First dose on Sat12/30/23 at 1300, Until Discontinued 0941 (Given - Provider: Janet Wakefield RN) 0815 (Given - Provider: Janet Wakefield RN) 0855 (Given - Provider: Shira Tesfaye RN) melatonin tablet 3 mg(Linked Group 2) 3 mg, Oral, Q EVENING, First dose on Sat12/30/23 at 0010, Until Discontinued 2018 (Given - Provider: Fifi Carter RN) 2008 (Given - Provider: Fifi Carter, SIMRAN) metoprolol tartrate (LOPRESSOR) tablet 100 mg 100 mg, Oral, BID, First dose on Sat12/30/23 at 0800, Until Discontinued 09 (Given - Provider: Janet Wakefield RN)2017 (Given - Provider: Fifi Carter RN) 814 (Given - Provider: Janet Wakefield RN)2008 (Given - Provider: Fifi Carter RN) 0855 (Given - Provider: Shira Tesfaye RN) montelukast (SINGULAIR) tablet 10 mg 10 mg, Oral, DAILY, First dose on Sat12/30/23 at 0800, Until Discontinued 817 (Given - Provider: Janet Wakefield RN) 814 (Given - Provider: Janet Wakefield RN) 08 (Given - Provider: Shira Tesfaye RN) multivitamin + minerals (CEROVITE SENIOR) 1 tablet 1 tablet, Oral, DAILY, First dose on Sat12/30/23 at 0800, Until Discontinued 0942 (Given - Provider: Janet Wakefield RN) 814 (Given - Provider: Janet Wakefield RN) 08 (Given - Provider: Shira Tesfaye, SIMRAN) pantoprazole (PROTONIX) tablet 40 mg 40 mg, Oral, BID, First dose on Sat12/29/23 at 2300, Until Discontinued 817 (Given - Provider: Janet Wakefield RN)2017 (Given - Provider: Fifi Carter RN) 08 (Given - Provider: Janet Wakefield RN)2007 (Given - Provider: Fifi Carter RN) 0855 (Given - Provider: Shira Tesfaye RN) potassium chloride (K-KAREN) powder 40 mEq (COMPLETED) 40 mEq, Oral, ONE TIME, 1 dose, On 01/05/24 at 0930 0947 (Given - Provider: Janet Wakefield RN) pramipexole (MIRAPEX) tablet 0.25 mg 0.25 mg, Oral, BEDTIME, First dose on Sat12/30/23 at 2000, Until Discontinued 2018 (Given - Provider: Fifi Carter RN) 2008 (Given - Provider: Fifi Carter RN) sertraline (ZOLOFT) tablet 100 mg 100 mg, Oral, DAILY, First dose on Sat12/30/23 at 0800, Until Discontinued 0818 (Given - Provider: Janet Wakefield RN) 0815 (Given - Provider: Janet Wakefield RN) 0855 (Given - Provider: Shira Tesfaye RN) tamsulosin (FLOMAX) capsule 0.4 mg 0.4 mg, Oral, DAILY PC, First dose on Sat01/02/24 at 0900, Until Discontinued 1001 (Given - Provider: Janet Wakefield RN) 0947 (Given - Provider: Janet Wakefield RN) 0855 (Given - Provider: Shira Tesfaye, SIMRAN) torsemide (DEMADEX) tablet 40 mg (CANCELED) 40 mg, Oral, BID, First dose on Sat12/30/23 at 0800, Until Discontinued 0940 (Given - Provider: Janet Wakefield RN)2018 (Given - Provider: Fifi Carter RN) 08 (Given - Provider: Janet Wakefield RN) PRN Medication Order 01/04/2024 01/05/2024 01/06/2024 acetaminophen (TYLENOL) tablet 650 mg 650 mg, Oral, Q4H PRN, Starting on Sat12/30/23 at 0200, Until Sat01/06/24 at 1358, Temp > 38.6 C, Mild Pain (Use First) 0828 (Given - Provider: Janet Wakefield RN) 814 (Given - Provider: Janet Wakefield RN)2008 (Given - Provider: Fifi Carter RN) albuterol (VENTOLIN HFA;PROVENTIL HFA;PROAIR) 108 (90 BASE) mcg/act inhaler 2 puff 2 puff, Inhalation, Q4H PRN, Starting on 12/29/23 at 2259, Until Sat01/06/24 at 1358, Bronchospasms nystatin 565375 unit/g powder Topical, BID PRN, Starting on 01/05/24 at 1108, Until Sat01/06/24 at 1358, rash 1159 (Given - Provider: Janet Wakefield RN - Comment: applied to rash in groin) ondansetron (ZOFRAN) tablet 4 mg 4 mg, Oral, Q6H PRN, Starting on 12/29/23 at 2259, Until Sat01/06/24 at 1358, Nausea/Vomiting (Use First), Use if patient able to tolerate oral tablet sennosides (SENOKOT) tablet 8.6 mg 8.6 mg, Oral, BID PRN, Starting on 12/29/23 at 2259, Until Sat01/06/24 at 1358, Constipation (Use First) Linked Groups Order Group 1: DC MED REC REVIEW BY PHARMACYJump to med Discharge Date: 01/06/2024, Discharge Location: Subacute Rehab, Anticipated Discharge Time: 10 am - 2 pm, Discharge Medication Orders: DC Med Orders In Progress (meds to be added), Does not apply, PROTOCOL, Starting on 01/05/24 at 1608, Until Sat01/06/24 at 1358 And Discharge Med Rec Final Review by Pharmacy (CANCELED) Routine, Order to be placed by provider after medications have been entered for discharge and are ready for review by Pharmacist. This order can be placed multiple times if changes or additions have been made to medications for discharge. Choose the Preliminary DC Med Rec review when placing orders prior to the day of discharge. Choose Final DC Med Rec when all medication changes have been entered. If DC Med Rec needed now, please page the Pharmacist covering the patient to inform them., Discharge Date: 01/06/2024, Discharge Location: Subacute Rehab, Anticipated Discharge Time: 10 am - 2 pm Group 2: melatonin tablet 3 mgJump to med 3 mg, Oral, Q EVENING, First dose on Sat12/30/23 at 0010, Until Discontinued Or melatonin 1 mg/mL oral liquid 3 mg (CANCELED) 3 mg, Feeding Tube, Q24H, First dose on 12/29/23 at 2300, Until Discontinued documented in this encounter Additional Health Concerns Infection Onset Date Last Indicated Resolved Time Enteropathogenic E. coli (EPEC) 12/30/2023 4 01/06/2024 10:57 AM CDT documented as of this encounter Care Teams Global Sourcing Manager Relationship Specialty Start Date End Date Martine Argueta MD [address] [place] [address] PCP - General Internal Medicine 04/08/23 documented as of this encounter
--- OUTSIDE RECORDS SUMMARY | 2024-01-27 14:41 | XMS_ITS | Encounter Summary ---
Author Organization [facility] Address [address] [place] [phone] Phone Care Team Providers Care Grinder And Honer Operator Automatic Name Role Phone Martine Argueta MD Primary Care Provider [phone] Encounter Details Date Type Department Care Team (Latest Contact Info) Description 12/29/2023 Travel Social History Tobacco Use Types Packs/Day Years [...] on filedocumented in this encounter Care Teams Grinder And Honer Operator Automatic Relationship Specialty Start Date End Date Martine Argueta MD [address] [place] [address] PCP - General Internal Medicine 04/08/23 documented as of this encounter
--- OUTSIDE RECORDS SUMMARY | 2024-01-27 14:41 | XMS_ITS | Encounter Summary ---
Author Organization [facility] Address [address] [place] [phone] Phone Care Team Providers Care Film Technician Name Role Phone Martine Argueta MD Primary [...] on filedocumented in this encounter Care Teams Film Technician Relationship Specialty Start Date End Date Martine Argueta MD [address] [place] [address] PCP - General Internal Medicine 04/08/23 documented as of this encounter
--- OUTSIDE RECORDS SUMMARY | 2024-01-27 14:41 | XMS_ITS | Encounter Summary ---
Author Organization [facility] Address [address] [place] [address] Phone Care Team Providers Care Structural Worker Name Role Phone Martine Argueta MD Primary Care Provider Encounter Details Date Type Department Care Team (Late st Contact Info) Description 12/30/2023 Orders Only [facility] Film Room [facility] Radiology Department S[facility] [address] [address] Provider, [place] [address] Referral of patient (Primary Dx) Social History Tobacco Use Types [...] on file documented as of this encounter Results * XR CHEST OUTSIDE FILMS (12/28/2023 9:26 PM CDT) Ernestine User [id number] - 12/30/2023 6:28 AM CDT Outside Film Only Outside Provider RAD OUTSIDE FILMS * XR UPPER EXTREMITY OUTSIDE FILMS (12/28/2023 8:29 PM CDT) Narrative User, [id number] - 12/30/2023 6:28 AM CDT Outside Film Only Outside Provider RAD OUTSIDE FILMS * XR UPPER EXTREMITY OUTSIDE FILMS (12/28/2023 8:28 PM CDT) Narrative User, [id number] - 12/30/2023 6:29 AM CDT Outside Film Only Outside Provider RAD OUTSIDE FILMS * CT SPINE OUTSIDE FILMS (12/28/2023 8:05 PM CDT) Narrative User, [id number]-Vyjsbc-Ryfgexwoa - 12/30/2023 6:30 AM CDT Outside Film Only Outside Provider RAD OUTSIDE FILMS * CT HEAD OUTSIDE FILMS (12/28/2023 8:05 PM CDT) Narrative User, [id number] - 12/30/2023 6:30 AM CDT Outside Film Only Outside Provider RAD OUTSIDE FILMS documented in this encounter Visit Diagnoses Diagnosis Referral of patient- Primary Referral of patient without examination or treatment documented in this encounter Care Teams Structural Worker Relationship Specialty Start Date End Date Martine Argueta MD [address] [place] [address] PCP - General Internal Medicine 04/08/23 documented as of this encounter
--- OUTSIDE RECORDS SUMMARY | 2024-01-27 14:41 | XMS_ITS | Encounter Summary ---
Author Organization [facility] Address [address] [place] [address] Phone Care Team Providers Care Passenger Barge Master Name Role Phone Martine Argueta MD Primary Care Provider [phone] Encounter Details Date Type Department Care Team [...] on filedocumented in this encounter Care Teams Passenger Barge Master Relationship Specialty Start Date End Date Martine Argueta MD [address] [place] [address] PCP - General Internal Medicine 04/08/23 documented as of this encounter
--- OUTSIDE RECORDS SUMMARY | 2024-01-27 14:41 | XMS_ITS | Encounter Summary ---
Author Organization [facility] Address [address] [place] [address] Phone Care Team Providers Care Health Information Provider Name Role Phone Martine Argueta MD Primary Care Provider Reason for Visit * Reason Onset Date Comments Form - Other 11/22/2023 orders Encounter Details Date Type Department Care Team ([facility] st Contact Info) Description 11/22/2023 Telephone [facility] [address] [id number] Christi Walker CMA [address] [place] [phone] Form - Other (orders) Social History Tobacco Use Types Packs/Day Years Used Date Smoking Tobacco: Never Smokeless Tobacco: Never Sex and Gender Information Value Date Recorded Sex Assigned at Not on file Gender Identity Not on file Sexual Orientation Not on file documented as of this encounter Miscellaneous Notes * Telephone Encounter - Christi Walker CMA - 11/22/2023 11:19 AM CDT Nurse from [facility] called about the orders that they have been sending and its been clear with a phone call and orders being sent back. Informed the nurse that Pepper Quiroga PA-C will not being signingthe home nursing care order as we have D/C patient from clinic, and that they would have to go through there PCP. Informed them of the PCP information that is in the chart. Nurse stated that she under stands. Christi Walker CMA, 11/22/2023 11:25 AM documented in this encounter Plan of Treatment Not on file documented as of this encounter Visit Diagnoses Not on filedocumented in this encounter Care Teams Health Information Provider Relationship Specialty Start Date End Date Martine Argueta MD [address] [place] [address] PCP - General Internal Medicine 04/08/23 documented as of this encounter
--- OUTSIDE RECORDS SUMMARY | 2024-01-27 14:41 | XMS_ITS | Encounter Summary ---
Author Organization [facility] Address [address] [place] [address] Phone Care Team Providers Care Partnership Development Manager Name Role Phone Martine Argueta MD [...] Associated Diagnosis Comments EXTERNAL MED REC-IMAGING 12/30/2023 3:56 PM CDT documented in this encounter Results * EXTERNAL MED REC-IMAGING (12/30/2023 3:56 PM CDT) Anatomical Region Laterality Modality Other Narrative 12/30/2023 3:56 PM CDT Ordered by an unspecified provider. Provider Unknown RAD CT BODY documented in this encounter Visit Diagnoses Not on filedocumented in this encounter Care Teams Partnership Development Manager Relationship Specialty Start Date End Date Martine Argueta MD [address] [place] [address] PCP - General Internal Medicine 04/08/23 documented as of this encounter
--- OUTSIDE RECORDS SUMMARY | 2024-01-27 14:41 | XMS_ITS | Encounter Summary ---
Author Organization [facility] Address [address] [place] [address] Phone Care Team Providers Care Physical Therapy Director Name Role Phone Matrine Argueta MD Primary Care Provider Encounter Details [...] on filedocumented in this encounter Care Teams Physical Therapy Director Relationship Specialty Start Date End Date Martine Argueta MD [address] [place] [address] PCP - General Internal Medicine 04/08/23 documented as of this encounter
--- OUTSIDE RECORDS SUMMARY | 2024-01-27 14:41 | XMS_ITS | Encounter Summary ---
Author Organization [facility] Address [address] [place] [address] Phone Care Team Providers Care Global Product Manager Name Role Phone Martine Argueta MD Primary Care Provider [phone] Encounter Details Date Type Department Care Team [...] on filedocumented in this encounter Care Teams Global Product Manager Relationship Specialty Start Date End Date Martine Argueta MD [address] [place] [address] PCP - General Internal Medicine 04/08/23 documented as of this encounter
--- OUTSIDE RECORDS SUMMARY | 2024-01-27 14:41 | XMS_ITS | Encounter Summary ---
Author Organization [facility] Address [address] [place] [address] Phone Care Team Providers Care Graphics Coordinator Name Role Phone Martine Argueta MD Primary Care Provider Reason for Visit * Reason Onset Date Comments Form - Other 11/20/2023 Encounter Details Date Type Department Care Team ([facility] Contact Info) Description 11/20/2023 Telephone [facility] [address] [address] Pepper Quiroga, PA-C [address] [place] [address] Form - Other Social History Tobacco Use Types Packs/Day Years Used Date Smoking Tobacco: Never Smokeless Tobacco: Never Sex and Gender Information Value Date Recorded Sex Assigned at Not on file Gender Identity Not on file Sexual Orientation Not on file documented as of this encounter Miscellaneous Notes * Telephone Encounter - Ashley Felder PSC - 11/21/2023 10:19 AM CDT Called SIMRAN Leos to pass along message from Pepper Quiroga. Dafne was not available, left detailed message with info from Pepper and call back number for any questions they might have. Ashley Felder PSC, 11/21/2023 10:20 AM * Telephone Encounter - Ashley Felder PSC - 11/20/2023 1:29 PM CDT We received a call from SIMRAN Leos with [facility] [employer] [facility] [employer] (phone number [phone]). They are calling in regards to a specific form they need signed by Pepper Junaid for pt sent to us on 08/15/2023. The form is dated 08/15/23, order type: Add On Discipline, Order Description: SN to eval and treat for med mgmt. Pepper initially signed one of the forms that came along with the packet faxed back to [facility] on 08/22/23, but did not sign the specific one that they were needing. Under the signature she includes please be aware patient discharged from our service, future orders per PCP. Pepperraleigh Quiroga originally placed referral to Home Health for pt on 06/10/23. Pt's [facility] with [facility] was on 07/16/2023. They are asking that since provider placed Home Health referral prior to pt being d/c from [facility] service, if provider can sign final form. Routing to [employer] [facility] for signature. Ashley Felder PSC, 11/20/2023 1:42 PM documented in this encounter Plan of Treatment Not on file documented as of this encounter Visit Diagnoses Not on filedocumented in this encounter Care Teams Graphics Coordinator Relationship Specialty Start Date End Date Martine Argueta MD [address] [place] [address] PCP - General Internal Medicine 04/08/23 documented as of this encounter
--- OUTSIDE RECORDS SUMMARY | 2024-01-27 14:42 | XMS_ITS | Encounter Summary ---
Author Organization [facility] Address [address] [place] [address] Phone Care Team Providers Care Corner Bead Operator Name Role Phone Martine Argueta MD Primary Care Provider Reason for Visit * Reason Comments Form - Other Darlene Encounter Details Date Type Department Care Team (Latest Contact Info) Description 11/11/2023 Documentation Only [facility] [address] [address] Pepper Quiroga PA-C [address] [place] [address] Form - Other (Darlene ) Social History Tobacco Use Types Packs/Day Years Used Date Smoking Tobacco: Never Smokeless Tobacco: Never Sex and Gender Information Value Date Recorded Sex Assigned at Not on file Gender Identity Not on file Sexual Orientation Not on file documented as of this encounter Progress Notes * Anna Puentes CMA - 11/11/2023 2:06 PM CDT Form: Pending [facility] To [facility] Provider: Pepper Quiroga PA-C Date Arrived: 11/11/2023 Arrival Method: Fax Date delivered to provider: 11/11/2023 Due Date: 11/18/23 Completed Form Instructions: Fax when completed to Pending [facility] at . documented in this encounter Plan of Treatment Not on file documented as of this encounter Visit Diagnoses Not on filedocumented in this encounter Care Teams Corner Bead Operator Relationship Specialty Start Date End Date Martine Argueta MD [address] [place] [address] PCP - General Internal Medicine 04/08/23 documented as of this encounter
--- OUTSIDE RECORDS SUMMARY | 2024-01-27 14:42 | XMS_ITS | Clinical Summary ---
Author Organization [facility] Address [place], [place] [address] Care Team Providers Care Telecommunications Manager Name Role Phone Yobany Martinez Unavailable [phone] Martine Argueta MD Primary Care Provider [phone] [facility], Mert Unavailable [phone] Allergies Active Allergy Reactions Criticality Noted Date Comments Azithromycin Dizziness 03/12/2019 Diltiazem Rash 12/29/2013 Erythromycin Rash 12/29/2013 Sotalol Rash 11/05/2014 Sulfa (Sulfonamide Antibiotics) Rash 12/13 Medications Medication Sig Dispensed Refills Start Date End Date Status finasteride (PROSCAR) 5 mg tablet Take 5 mg by mouth once daily in the evening. Active HYDROcodone-acetamin ophen, 5-325 mg, (NORCO) per tablet Take 1-2 tablets by mouth once daily if needed for Pain Max acetaminophen dose: 4000 mg in 24 hrs. Active nitroglycerin (NITROSTAT) 0.[address] 0.4 mg under the tongue every 5 minutes if needed for Chest Pain. Active sertraline (ZOLOFT) 100 mg tablet Take 100 mg by mouth every morning. 0 02/21/2015 Active tamsulosin (FLOMAX) 0.4 mg capsule Take 0.4 mg by mouth 2 times daily. Active montelukast (SINGULAIR) 10 mg tablet Take 10 mg by mouth at bedtime. Active metoprolol tartrate (LOPRESSOR) 50 mg tabletIndications:ac muscogee myocardial infarction Take 100 mg by mouth 2 times daily. Active atorvastatin (LIPITOR) 80 mg tablet Take 80 mg by mouth once daily in the evening. Active fenofibrate (LOFIBRA) 54 mg tablet Take 54 mg by mouth once daily in the evening. Active potassium chloride (KLOR-CON M20) 20 mEq Extended-Release tablet Take 20 mEq by mouth once daily with a meal. Active allopurinol (ZYLOPRIM) 100 mg tablet Take 200 mg by mouth once daily. 09/05/2017 Active isosorbide mononitrate (IMDUR) 60 mg extended release tablet 24 hour Take 60 mg by mouth once daily. 07/18/2017 Active fluticasone propionate (FLOVENT) 110 mcg/Actuation inhaler Inhale 2 Puffs by mouth 2 times daily if needed for Other (Specify). Active albuterol HFA 90 mcg/actuation inhaler Inhale 2 Puffs by mouth 4 times daily if needed (shortness of breath). Active amoxicillin (AMOXIL) 500 mg capsule Take 2,000 mg by mouth each time if needed for Other (Specify) (prior to dental work). Active pantoprazole (PROTONIX) 40 mg delayed-release tabletIndications:Mu ltiple gastric polyps,Gastrointesti nal hemorrhage with melena Take 1 tablet by mouth 2 times daily before meals. 60 tablet 1 12/08/2017 Active cyanocobalamin 1,000 mcg tabletIndications:Vi tamin B12 deficiency Take 1 tablet by mouth once daily. 90 tablet 4 04/08/2018 Active fluticasone (50 mcg per actuation) nasal solution (FLONASE) Inhale 1 Heath in the nostril(s) once daily. Active pramipexole (MIRAPEX) 0.25 mg tablet Take 0.25 mg by mouth at bedtime. Active gabapentin (NEURONTIN) 300 mg capsule Take 900 mg by mouth 3 times daily. 900 mg = THREE 300 mg capsules 05/30/2021 Active SUMATRIPTAN SUCCINATE ORAL Take 50 mg by mouth once daily if needed (migraines ). 05/30/2021 Active traZODone (DESYREL) 50 mg tablet Take 50 mg by mouth at bedtime if needed for Sleep. 05/30/2021 Active melatonin 5 mg tab tablet Take 5 mg by mouth at bedtime if needed for Sleep. 05/28/2021 Active aspirin (ECOTRIN) 81 mg enteric coated tabletIndications:S/ P right knee arthroscopy Take 1 Tablet (81 mg) by mouth once daily with a meal. 60 Tablet 10/11/2021 Active magnesium oxide (MAG-OX 400) 400 mg tablet Take 2 Tablets (800 mg) by mouth 2 times daily. 0 10/11/2021 Active torsemide (DEMADEX) 20 mg tabletIndications:Ac muscogee diastolic heart failure (HC) Take by mouth. Pt takes 40 mg in AM & 40 mg every evening-10/13/21 0 10/31/2021 Active acetaminophen (TYLENOL EXTRA STRGTH) 500 mg tabletIndications:To jong knee replacement status, right Take 2 Tablets (1,000 mg) by mouth in the morning and 2 Tablets (1,000 mg) in the evening. Max acetaminophen dose: 4000mg in 24 hrs.. 200 Tablet 02/07/2022 Active albuterol-ipratropiu m (DUONEB) (2.5-0.5 mg) in 3 mL NEBULIZATION solution Inhale 1 Neb via a nebulizer 3 times daily if needed for Shortness Of Breath. 0 02/07/2022 Active multivitamin (MVI) tablet once daily. Active sennosides-docusate (SENOKOT S) (8.6-50 mg) tabletIndications:Pr imary osteoarthritis of left knee Take 1 to 3 Tablets by mouth 2 times daily if needed for Constipation (Hold for loose stools). 100 Tablet 10/19/2022 Active WalkerIndications:Pr imary osteoarthritis of left knee Walker with front wheels for home use. 1 Each 10/19/2022 Active Active Problems Problem Noted Date Diagnosed Date Primary osteoarthritis of left knee 10/17/2022 Tricuspid valve insufficiency 11/24/2021 Unilateral primary osteoarthritis, right knee Paroxysmal atrial fibrillation 02/25/2019 Other pulmonary embolism without acute cor pulmo nale 02/25/2019 COPD exacerbation 02/25/2019 S/P CABG x 3 02/25/2019 Mixed hyperlipidemia 02/25/2019 Chronic gout 02/25/2019 Potential for cognitive impairment 04/10/2018 Pneumonia of left lower lobe due to infectious o rganism 04/08/2018 COPD exacerbation 04/08/2018 Gastrointestinal hemorrhage with melena 12/07/19 18 Chronic diastolic heart failure 12/06/2017 Hard of hearing 12/06/2017 Acute on chronic diastolic (congestive) heart fa ilure 09/04/2017 Obesity with body mass index 30 or greater 08/29 Excessive anticoagulation 06/05/2017 Encounter for therapeutic drug monitoring 2016 Multiple-type hyperlipidemia 05/06/2017 Overview: Overview: Hyperlipidemia 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 05/06/2017 Overview: Overview: Hypertension (HTN) And CKD Stage 2 & Heart Disease With HF Diabetic nephropathy 05/06/2017 Overview: Overview: Secondary DM Chronic Renal Disease Stage 2 GFR 60-89 Mixed anxiety depressive disorder 01/10/2017 Overview: Overview: Depression Anxiety Prinzmetal angina 06/12/2016 Overview: Overview: Angina Variant Anemia of chronic disease 05/04/2016 Vitamin B12 deficiency 05/04/2016 Carotid artery disease 02/20/2016 Lytic bone lesions on xray 01/11/2016 History of coronary artery bypass surgery 2015 Other malaise 12/14/2015 Atrial flutter 12/11/2015 DEMI 11/30/2015 AHI-22 12/06/2015 Coronary artery disease 12/02/2015 History of stroke 07/20/2015 Overview: Overview: Stroke (CVA) Pers Hx Mild chronic obstructive pulmonary disease 01/25 Overview: Overview: Disease Lung Obstructive Chronic (COPD) Mild Jay Mild Solitary pulmonary nodule 01/25/2015 Overview: Overview: recheck CT advised 6-12 months Stable benign appearing area on CT scan 07/25/2015 Carpal tunnel syndrome 10/18/2014 Morbid obesity 10/15/2014 Chronic low back pain 10/15/2014 Presence of artificial hip joint 04/14/2014 Trochanteric bursitis 04/14/2014 Osteoarthritis of hip 04/14/2014 Atrial fibrillation 11/29/2011 Osteoarthritis of hand 05/30/2011 Proteinuria 05/30/2011 Radiculopathy of lumbar region 08/04/2007 Hypertension 07/01/2006 Patent foramen ovale 10/05/2005 Hyperlipidemia 07/06/2003 Chest pain 07/06/2003 Exostosis of toe Chronic ulcer of great toe o f right foot, limited to breakdown of skin Resolved Problems Problem Noted Date Diagnosed Date Resolved Date Sleep apnea 12/06/2017 12/19/2017 Obstructive sleep apnea syndrome 07/11/2017 12/19/2017 Encounters Date Type Department Care Team Description 12/23/2023 10:52 AM CDT - 12/23/2023 11:59 PM CDT Hospital Encounter [address] [address] Martine Argueta MD Iverson, Ryan, PT 12/23/2023 Travel 12/19/2023 10:48 AM CDT - 12/19/2023 11:59 PM CDT Hospital Encounter [address] [address] Martine Argueta MD Wegner, Angela V, GLASS CALIBRATOR 12/19/2023 Travel 12/16/2023 11:45 AM CDT - 12/16/2023 11:59 PM CDT Hospital Encounter [address] [address] Martine Argueta MD Iverson, Ryan, PT 12/16/2023 Travel 12/13/2023 8:45 AM CDT - 12/13/2023 11:59 PM CDT Hospital Encounter [address] [address] Martine Argueta MD Iverson, Ryan, PT 12/13/2023 Travel 12/11/2023 10:15 AM CDT Nurse/Clinic Staff Only [facility] [address] [place] [address] Immunization/Inject ion (COVID-19/); Immunization/Inject ion 12/11/2023 Travel 12/05/2023 10:49 AM CDT - 12/05/2023 11:59 PM CDT Hospital Encounter [address] [address] Martine Argueta, Leslie Carrizales V, GLASS CALIBRATOR 12/05/2023 Travel 12/02/2023 11:45 AM CDT - 12/02/2023 11:59 PM CDT Hospital Encounter [address] [address] Martine Argueta MD Becken, Amy, PT 12/02/2023 Travel 11/04/2023 10:52 AM CDT - 11/04/2023 11:59 PM CDT Hospital Encounter [address] [address] Martine Argueta MD Iverson, Ryan, PT Encounter for person encountering health services 11/04/2023 Travel from Last 3 Months Immunizations Name Administration Dates Next Due COVID-19 Vaccine Spikevax (M oderna 50mcg/0.5mL) 12YO+ [id number] Formula PF 12/11/2023 Influenza, Inactivated IIV3 (Age 65+ Years) Preserv Free 04/10/2018 Family History Medical History Relation Name Comments Cancer-prostate Brother Heart Disease Father Cancer-breast Mother Cancer-ovarian Mother Relation Name Status Comments Brother Father (Age 51) Mother (Age 49) Social History Tobacco Use Types Packs/Day Years Used Date Smoking Tobacco: Former Cigarettes Q uit: 06/20/1997 Smokeless Tobacco: Never Tobacco Cessation:Counseling Given: Yes Alcohol Use Standard Drinks/Week Comments Yes 0 (1 standard drink = 0.6 oz pur e alcohol) rare PHQ-2 Answer Date Recorded PHQ-2 Score 0 09/13/2018 Social Connections Answer Date Recorded Frequency of Communication with Friends and Fami ly Not on file 07/10/2021 Financial Resource Strain Answer Date R ecorded Difficulty of Paying Living Expenses Not on file 07/10/2021 Difficulty of Paying Living Expenses Not on file 07/10/2021 Sex and Gender Information Value Date Recorded Sex Assigned at Not on file Gender Identity Not on file Sexual Orientation Not on file Obstetrics History Last Filed Vital Signs Vital Sign Reading Time Taken Comments Blood Pressure 118/70 11/09/2022 11:25 AM CDT Pulse 64 11/09/2022 11:25 AM CDT Temperature 36.8 ??C (98.3 ??F) 11/09/2022 11:25 AM C DT Respiratory Rate 18 11/09/2022 11:25 AM CDT Oxygen Saturation 96% 11/09/2022 11:25 AM CDT Inhaled Oxygen Concentration - - Weight 100.2 kg (221 lb) 10/18/2022 9:36 AM CDT Height 162.6 cm (5' 4.02) 10/18/2022 9:36 AM CD T Body Mass Index 37.92 10/18/2022 9:36 AM CDT Plan of Treatment Health Maintenance Due Date Last Done Comments Pneumococcal series for age 65+ (1 of 2 - PCV) 1956 Tdap 1961 Hepatitis C screening for ag e 18-79 1968 Tetanus booster 1970 Lipids for age 45-75 1995 Zoster (shingles) series for age 50+ (1 of 2) 2000 Medicare Wellness for age 65+ 2015 Fecal testing non-DNA (FIT,FOBT,iFOBT) for age 45-75 12/06/2018 12/06/2017, 12/06/2017, 02/11/2016 Depression screening for age 12+ 04/15/2019 04/15/20 18, 01/10/2016 BMI (ht and wt on same day) for age 18+ 12/02/2019 12/01/2018, 02/03/2018, 06/20/2017 Influenza for age 65+ 03/15/2024 04/10/2018 COVID-19 vaccine series Completed 12/11/19 24, 05/23/2023, 01/23/2022, Additional history exists Medical Devices Implanted Type Area Air Conditioning Mechanic Device Identifier Shelf Expiration Date Model / Serial / Lot [id number] - [id number] Implanted:Qty: 1 on 12/30/2013 by Moises Mazariegos MD at [facility] Ortho Total Joint Right: Hip DEPUY 12/01/2018 1221-36-4 52 / / [id number] - [id number] Implanted:Qty: 1 on 12/30/2013 by Moises Mazariegos MD at [facility] Right: Hip DEPUY 08/03/2023 1246-03-0 00 / / [id number] - [id number] Implanted:Qty: 1 on 12/30/2013 by Moises Mazariegos MD at [facility] Right: Hip DEPUY 11/02/2023 1217-32-0 52 / 1217-32-0 52 / [id number] - [id number] Implanted:Qty: 1 on 12/30/2013 by Moises Mazariegos MD at [facility] Right: Hip DEPUY 04/13/2018 [id number] / / [id number] Description:MIRIANO12 CORAIL REF : [id number], [id number] - [id number] Implanted:Qty: 1 on 12/30/2013 by Moises Mazariegos MD at [facility] Right: Hip DEPUY 09/11/2018 1365-36-3 10 / / [id number] Description:Biolox delta cer amic femoral head +1.5 36mm GEOFF 06/27 TAPER Patella S33x9 Triathlon Tritanium Symmetrical Metal Backed - [id number] Implanted:Qty: 1 on 05/11/2021 by Maxwell Burton MD at [facility] Right: Knee [facility] 01/23/2026 5556-L-33 9 / / [id number] Insert Tib Sz 4 9mm Knee X3 Condylar Stabilizing Triathlon - [id number] Implanted:Qty: 1 on 05/11/2021 by Maxwell Burton MD at [facility] Right: Knee [facility] 02/13/2026 5531-G-40 9-E / / [id number] Fem Rt 5 Triathlon Beaded W/Pa - [id number] Implanted:Qty: 1 on 05/11/2021 by Maxwell Burton MD at [facility] Right: Knee [facility] 01/19/2026 5517-F-50 2 / / [id number] Baseplate Tib Univ Sz 4 Triathlon Keeled Ingrowth Pors Tritan - [id number] Implanted:Qty: 1 on 05/11/2021 by Maxwell Burton MD at [facility] Right: Knee [facility] 01/26/2026 5536-B-40 0 / / [id number] Patella S33x9 Triathlon Tritanium Symmetrical Metal Backed - [id number] Implanted:Qty: 1 on 10/18/2022 by Maxwell Burton MD at [facility] Left: Knee [facility] 08/25/2027 5556-L-33 9 / / [id number] Insert Tib Sz 4 9mm Knee X3 Condylar Stabilizing Triathlon - [id number] Implanted:Qty: 1 on 10/18/2022 by Maxwell Burton MD at [facility] Left: Knee [facility] 07/03/2027 5531-G-40 9-E / / [id number] Baseplate Tib Univ Sz 4 Triathlon Keeled Ingrowth Pors Tritan - [id number] Implanted:Qty: 1 on 10/18/2022 by Maxwell Burton MD at [facility] Left: Knee [facility] 07/21/2027 5536-B-40 0 / / [id number] Fem Lt 5 Triathlon Beaded W/Pa - [id number] Implanted:Qty: 1 on 10/18/2022 by Maxwell Burton MD at [facility] Left: Knee [facility] 09/02/2027 5517-F-50 1 / / [id number] Explanted Type Area Air Conditioning Mechanic Device Identifier Shelf Expiration Date Model / Serial / Lot Pin Bone Fix [id number] Strl - [id number] Explanted:Qty: 1 on 10/18/2022 at [facility] [employer] 10/19/2024 [id number] / / [id number] Pin Bone Fix [id number] - [id number] Explanted:Qty: 1 on 10/18/2022 at [facility] [employer] 07/12/2027 [id number] / / [id number] Procedures Procedure Name Priority Date/Time Associated Diagnosis Comments OCCULT BLOOD IFOBT STOOL Today 12/06/2017 11:33 AM CDT from Last 3 Months or Most Recently Relevant to Health Maintenance Results * (ABNORMAL) OCCULT BLOOD IFOBT STOOL (12/06/2017 11:33 AM CDT) STOOL BLOOD ,IFOBT Positive(A ) Negative 12/06/2017 11:50 AM CDT [facility] Stool STOOL SPECIMEN / Unknown Non-Blood / Unknown 12/06/2017 11:33 AM CDT 12/06/2017 11:38 AM CDT Jose Lauren MD LABORATORY [facility] [address] [place] [address] from Last 3 Months or Most Recently Relevant to Health Maintenance Advance Directives * Full Code (Latest Code Status on File) Date Activated Date Inactivated Comments 10/18/2022 8:07 AM 10/19/2022 5:28 PM Question Answer Comments Code Status Discussion: Not Discussed * Full Code Date Activated Date Inactivated Comments 05/07/2022 6:27 AM 05/07/2022 11:45 AM Question Answer Comments Code Status Discussion: Unable to Assess Preferences, Provider to review later * Full Code Date Activated Date Inactivated Comments 01/08/2022 11:59 AM 01/09/2022 2:13 AM Question Answer Comments Code Status Discussion: Reviewed Preferences * Full Code Date Activated Date Inactivated Comments 05/11/2021 8:52 AM 05/13/2021 4:46 PM Question Answer Comments Code Status Discussion: Not Discussed * Full Code Date Activated Date Inactivated Comments 02/25/2019 1:09 PM 02/26/2019 12:22 PM Question Answer Comments Code Status Discussion: Discussed Care Teams Telecommunications Manager Relationship Specialty Start Date End Date Martine Argueta MD [address] [place] [address] PCP - General Internal Medicine 09/28/22 Michelle, VIVIANA Winters [address] [place] [address] Repacker 04/09/18 [facility] [address] [place] [address] 10/19/22
--- OUTSIDE RECORDS SUMMARY | 2024-01-27 14:42 | XMS_ITS | Encounter Summary ---
Author Organization [facility] Address [address] [place] [address] Phone Care Team Providers Care Cloth Colorer Name Role Phone Martine Argueta MD Primary Care Provider Encounter Details Date Type Department Care Team (Late st Contact Info) Description 11/04/2023 Documentation Only [facility] [address] [address] Pepper Quiroga, PAOrestes [address] [place] [address] Social History Tobacco Use Types Packs/Day Years Used Date Smoking Tobacco: Never Smokeless Tobacco: Never Sex and Gender Information Value Date Recorded Sex Assigned at Not on file Gender Identity Not on file Sexual Orientation Not on file documented as of this encounter Progress Notes * Félix Cabrera RN - 11/04/2023 7:52 AM CDT Form: [facility] Provider: Pepper Quiroga Date Arrived: 11/01/23 Arrival Method: Fax Contact: Anthony Relationship to Contact: Patient (self) Date delivered to provider: 11/04/23 Due Date: 11/08/23 Completed Form Instructions: Fax when completed to [facility] at [phone]. Félix Cabrera RN, 11/04/2023 7:53 AM * Christi Walker CMA - 11/04/2023 7:52 AM CDT Faxed form back to [place] and informed them we will not sign orders anymore Christi Walker CMA, 11/04/2023 3:45 PM documented in this encounter Plan of Treatment Not on file documented as of this encounter Visit Diagnoses Not on filedocumented in this encounter Care Teams Cloth Colorer Relationship Specialty Start Date End Date Martine Argueta MD [address] [place] [address] PCP - General Internal Medicine 04/08/23 documented as of this encounter
--- OUTSIDE RECORDS SUMMARY | 2024-01-27 14:42 | XMS_ITS | Encounter Summary ---
Author Organization [facility] Address [address] [place] [address] Phone Care Team Providers Care Deicer Kit Assembler Name Role Phone Martine Argueta MD Primary Care Provider [phone] Reason for Visit * Reason Comments Form - Other Encounter Details Date Type Department Care Team ([facility] Contact Info) Description 10/24/2023 Documentation Only [facility] [address] [address] Pepper Quiroga, PAAleksC [address] [place] [address] Form - Other Social History Tobacco Use Types Packs/Day Years Used Date Smoking Tobacco: Never Smokeless Tobacco: Never Sex and Gender Information Value Date Recorded Sex Assigned at Not on file Gender Identity Not on file Sexual Orientation Not on file documented as of this encounter Progress Notes * Ashley Felder PSC - 10/24/2023 1:55 PM CDT Form: Home Health Certification and Plan of Care Provider: Pepper Quiroga Date Arrived: 10/21/23 Arrival Method: Fax Contact: Ivett Ravi Relationship to Contact: RN Clinical Culinary Assistant at [facility] Date delivered to provider: 10/24/23 Due Date: 10/31/23 Completed Form Instructions: Fax when completed to Ivett Ravi at [phone]. * Christi Walker CMA - 10/24/2023 1:55 PM CDT Call the [facility] and left a message letting them know we can't fill out the orders anymore. I let them know they would have to send to PCP Christi Walker CMA, 10/29/2023 11:22 AM documented in this encounter Plan of Treatment Not on file documented as of this encounter Visit Diagnoses Not on filedocumented in this encounter Care Teams Deicer Kit Assembler Relationship Specialty Start Date End Date Martine Argueta MD [address] [place] [address] PCP - General Internal Medicine 04/08/23 documented as of this encounter
--- OUTSIDE RECORDS SUMMARY | 2024-01-27 14:42 | XMS_ITS | Clinical Summary ---
Author Organization [facility] Address [address] [place] [address] Care Team Providers Care Field Return Repairer Name Role Phone Elsewhere, Pcp Primary Care Provider Unavailabl e Source Comments Patient records contain information from all sites at [facility]. For routine questions regarding patient records, call [phone] during business hours, M-F 8:00 AM - 5:00 PM Central Time. Record requests for emergency care only can be directed to [phone] at any time.[facility] Allergies Active Allergy Reactions Criticality Noted Date Comments Azithromycin Other (see comments) 03/12/2019 Diltiazem Rash 12/29/2013 Erythromycin Rash 10/14/2009 Sotalol Rash 06/24/2014 Sulfa (Sulfonamide Antibiotics) Rash 08/2009 Medications Medication Sig Dispensed Refills Start Date End Date Status fluticasone (for_FLONASE) 50 mcg/actuation nasal spray Administer 1 spray into nostril(s) daily. 12/09/2015 Active [address] tablet Take 81 mg by mouth daily. Active albuterol (Ventolin HFA) 90 mcg/actuation inhaler Inhale 2 puffs 4 (four) times a day as needed for wheezing. 54 g 3 09/16/2019 Active pramipexole (MIRAPEX) 0.25 mg tablet Take 1 tablet (0.25 mg total) by mouth at bedtime. 90 tablet 3 09/24/2019 Active atorvastatin (LIPITOR) 80 mg tablet TAKE 1 TABLET EVERY DAY 90 tablet 10/15/2019 Active metoprolol tartrate (LOPRESSOR) 100 mg tablet TAKE 1 TABLET (100 MG TOTAL) BY MOUTH 2 (TWO) TIMES A DAY. 180 tablet 1 03/04/2020 Active allopurinoL (ZYLOPRIM) 100 mg tablet TAKE 2 TABLETS (200 MG TOTAL) BY MOUTH DAILY. 180 tablet 3 07/01/2020 Active montelukast (SINGULAIR) 10 mg tablet TAKE 1 TABLET EVERY EVENING 90 tablet 3 03/06/2021 Active pantoprazole (PROTONIX) 40 mg EC tablet 40 mg 2 (two) times a day before breakfast and dinner. 06/05/2022 Active finasteride (PROSCAR) 5 mg tablet TAKE 1 TABLET (5 MG TOTAL) BY MOUTH DAILY. 90 tablet 3 12/03/2022 Active umeclidinium-pia anteroL (ANORO ELLIPTA) 62.5-25 mcg/actuation inhaler Inhale 1 puff daily. Active tamsulosin (FLOMAX) 0.4 mg 24 hr capsuleIndicatio ns:Benign Prostatic Hyperplasia Hypertrophy With Obstruction Take 1 capsule (0.4 mg total) by mouth daily. 04/19/2023 Active acetaminophen (TylenoL) 325 mg tablet Take 650 mg by mouth every 4 (four) hours as needed. 01/05/2024 Active budesonide-formo teroL (Symbicort) 160-4.5 mcg/actuation inhaler Inhale 1 puff 2 (two) times a day. Rinse mouth with water after use to reduce aftertaste and incidence of candidiasis. Do not swallow. 01/06/2024 Active multivitamin tablet Take 1 tablet by mouth daily. Active nystatin (Nystop) 100,000 unit/gram powder Apply 1 Application topically daily as needed. Apply to skin rash. 01/06/2024 Active isosorbide mononitrate 20 mg tablet Take 60 mg by mouth daily. Active ferrous sulfate 325 mg (65 mg iron) tablet Take 1 tablet (65 mg of iron total) by mouth daily. 01/22/2024 Active ascorbic acid, vitamin C, (ascorbic acid) 500 mg tablet Take 1 tablet (500 mg total) by mouth daily. 01/22/2024 Active sertraline (Zoloft) 25 mg tablet Take 1 tablet (25 mg total) by mouth daily. 01/22/2024 Active isosorbide mononitrate (IMDUR) 60 mg 24 hr tablet Take 1 tablet (60 mg total) by mouth once daily. 90 tablet 3 07/24/2019 4 Discontinue d(Therapy completed) gabapentin (NEURONTIN) 300 mg capsule Take 3 capsules (900 mg total) by mouth 3 (three) times a day. 810 capsule 3 08/06/2019 4 Discontinue d(Therapy completed) ipratropium-albu teroL (DUO-NEB) 0.5-2.5 mg/3 mL nebulizer solution Take 3 mL by nebulization 4 (four) times a day as needed for wheezing or shortness of breath. Give unit dose ampules if available 1080 mL 3 09/16/2019 4 Discontinue d(Therapy completed) potassium chloride (KLOR-CON M/KDUR) 20 mEq ER tablet 2 (two) times a day with meals. 2 in the morning and 1 in the evening 05/10/2021 4 Discontinue d(Therapy completed) ferrous gluconate (FERGON) 324 mg (38 mg iron) tablet Take 324 mg by mouth. Every Saturday, Saturday, and Saturday 4 Discontinue d(Therapy completed) torsemide (DEMADEX) 20 mg tablet Take 1.5 tablets (30 mg total) by mouth 2 (two) times a day. 20 mg in the a.m. and 10 mg in the early afternoon 04/19/2023 4 Discontinue d(Therapy completed) acetaminophen (Tylenol Extra Strength) 500 mg tablet 1000 mg every 6 hours as needed pain 04/19/2023 4 Discontinue d(Therapy completed) fenofibrate (LOFIBRA) 54 mg tablet Take 1 tablet (54 mg total) by mouth daily. 90 tablet 3 04/19/2023 4 Discontinue d(Therapy completed) sertraline (Zoloft) 100 mg tablet Take 25 mg by mouth daily. 4 Discontinue d(Dose adjustment) melatonin 3 mg tablet Take 1 tablet (3 mg total) by mouth at bedtime as needed for sleep. 04/23/2023 4 Discontinue d(Therapy completed) Active Problems Patient Care Coordination No te Formatting of this note migh t be different from the original. Spouse: no Children: 4, 13 grandkids, 1 great grandkids Work: no SUSHILA on file for: Daughter Aleks Uerña Problem Noted Date Diagnosed Date Anemia Iron Deficiency 01/22/2024 Last Assessment & Plan: Start ferrous sulfate 325 mg 1 tablet daily. Start vitamin-C 500 mg daily. Follow-up with PCP Encephalopathy 01/22/2024 Last Assessment & Plan: Okay to discharge to home where he will live with his son with current meds and treatment plan. Okay for 30 day supply of medications. Okay for home health PT OT to eval and treat. Follow-up with PCP in 1-2 weeks post discharge. Morbid Obesity 01/07/2024 Effusion Pleural 01/07/2024 Frailty Age Related Physical Debility 01/07/2024 Loss Hearing Sensorineural 01/07/2024 Pain Back 01/07/2024 Paresthesia 01/07/2024 Last Assessment & Plan: Patient has been taken off of gabapentin. Continue to monitor Polyp Colon Adenomatous 01/07/2024 Pyogenic Arthritis Unspecified 01/07/2024 Pain Wrist Right 01/07/2024 Last Assessment & Plan: Per discharging note. Continue supportive treatment . CT of extremity at outside hospital had [...] at this time. - Allopurinol 200mg daily Other Intestinal Escherichia Coli Infections Change Mental Status 12/29/2023 Last Assessment & Plan: Patient had significant workup at [facility]. Will have OT and speech do cognitive testing. Insomnia 04/23/2023 Last Assessment & Plan: Start melatonin 3 mg 1 tablet p.o. q.h.s. as needed Problem Related To Housing A nd Economic Circumstances Unspecified 04/19/2023 Other Pulmonary Embolism Without Acute Cor Pulmo nale 04/19/2023 Hypokalemia 04/19/2023 Last Assessment & Plan: Potassium 3.4. Encourage eating a banana daily or foods high in potassium and repeat potassium on follow-up visit with PCP Gammopathy Monoclonal 04/19/2023 Last Assessment & Plan: Continue to follow with Oncology Hematology needs to occur with this diagnosis Hypomagnesemia 07/21/2019 Overview: Low serum magnesium Last Assessment & Plan: Magnesium level pending Embolus Pulmonary Personal History 02/25/2019 History Of Falling 01/28/2019 Last Assessment & Plan: Appropriate for outpatient PT OT to eval and treat Primary Osteoarthritis Knee Right 01/22/2019 Inflammatory Osteoarthritis Hand Left 01/22/2019 Post Traumatic Osteoarthritis Knee Left 12/17/19 19 Overview: Left knee arthritis Last Assessment & Plan: He received an injection by Dr. Wolfe in March. He is now 4 months away from that and is requesting a 2nd injection. Consult for Orthopedics was ordered and he will make appointment to see Dr. Burton and his team. High Risk Medication 10/22/2018 Restless Leg Syndrome 07/23/2018 Last Assessment & Plan: Continue with Mirapex 0.25 mg at bedtime Loss Hearing Bilateral 07/23/2018 Polyp Colon Adenomatous Personal History 018 Chronic Diastolic (Congestive) Heart Failure Overview: Acute on chronic heart failure Last Assessment & Plan: Patient taken off torsemide and potassium. CONGESTIVE HEART FAILURE: Will weigh daily and call for weight gain greater than 3 pounds in 24 hours or 5 pounds in one week. Asthma Mild Intermittent 08/29/2017 Last Assessment & Plan: Continue with Anoro Ellipta, 1 puff Q morning. Patient on Singulair and Flonase nasal spray patient has albuterol inhaler 2 puffs every 4 hours as needed and keep that at bedside. Coronary Arterial Bypass Graft Status Post Perso nal History 07/11/2017 Anemia Chronic 07/11/2017 Last Assessment & Plan: Last hemoglobin 10.5 on 01/02/2024. Will do anemia workup. Used to be on ferrous gluconate which I thought he actually was getting 3 times a week but it turns out he has not. 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 Vital signs currently controlled Hyperlipidemia Mixed 05/06/2017 Overview: Hyperlipidemia Mixed Last Assessment & Plan: Patient on aspirin 81 mg daily, fenofibrate 54 mg daily and Lipitor 80 mg daily Diabetes Mellitus Type 2 With Diabetic Nephropat hy 05/06/2017 Overview: Secondary DM Chronic Renal Disease Stage 2 GFR 60-89 Overview: Secondary DM Chronic Renal Disease Stage 2 GFR 60-89 Last Assessment & Plan: Lab Results Component Value Date HGBA1C 5.6 01/14/2024 Arthropathy Gouty With Tophus Chronic 05/06/2017 Last Assessment & Plan: on allopurinol 200 mg daily. Primary Osteoarthritis Multiple Sites 05/06/2017 Diabetes Mellitus Type 2 05/06/2017 Overview: Overview: Secondary DM Chronic Renal Disease Stage 2 GFR 60-89 Secondary DM Chronic Renal Disease Stage 2 GFR 60-89 Overview: Secondary DM Chronic Renal Disease Stage 2 GFR 60-89 Last Assessment & Plan: Lab Results Component Value Date HGBA1C 6.3 07/20/2018 Hemoglobin A1c is ordered for today Last Assessment & Plan: Currently not on medications continue diet control Lab Results Component Value Date HGBA1C 5.6 01/14/2024 Diastasis Recti 01/25/2017 Depression Anxiety 01/10/2017 Overview: Depression Anxiety Last Assessment & Plan: Continue with Zoloft 25 mg daily. Looks like patient had been on Zoloft as high as 100 mg in 2019. Atrial Fibrillation Paroxysmal 10/31/2016 Overview: Fibrillation Atrial Paroxysmal (PAF) Last Assessment & Plan: on metoprolol tartrate 100 mg b.i.d.. Blood pressure and pulses are stable. Continue with aspirin 81 mg daily Smoking Tobacco Use Personal History 10/22/2016 Overview: quit 2012 Deficiency Of Other Specified B Group Vitamins 1 Bypass Coronary Artery Graft Status Post 016 Last Assessment & Plan: Patient's son states it he had an order for nitroglycerin that he had prior to going into the hospital. On discharge she did not come with at order. In talking the patient he denies episodes of chest pain and states he has not ever taken that medication. His memory may not be correct and I did offer to write the nitro sublingual order that patient's son states he will follow up with PCP if this med is needed Atherosclerotic Heart Diseas e Of [place] Coronary Artery Without Angina Pectoris 12/02/2015 Keratosis Seborrheic 11/24/2015 Dyspnea On Exertion 10/12/2015 Stroke Cerebrovascular Accident Personal History 07/20/2015 Overview: Stroke (CVA) Pers Hx Personal History Of Transien t Ischemic Attack And Cerebral Infarction Without Residual Deficits 07/20/2015 Overview: Overview: Overview: Stroke (CVA) Pers Hx Chronic Pain Syndrome 02/27/2015 Last Assessment & Plan: Continue with extra-strength Tylenol 1000 mg every 6 hours as needed pain. Patient recently seen in Orthopedics for shoulder pain. Cortisone injections did not offer relief. He will need to follow-up with Ortho once he is on outpatient for next steps regarding management of possible rotator cuff injury Gastroesophageal Reflux Disease 02/25/2015 Overview: HH upper endoscopy Last Assessment & Plan: Continue Protonix 40 mg b.i.d. Chronic Obstructive Pulmonary Disease Mild 01/25 Overview: Disease Lung Obstructive Chronic (COPD) Mild [place] Mild Last Assessment & Plan: Anoro Ellipta and Singulair 10 mg daily continue with Flonase nasal spray 2 squirts into affected nostrils as needed and continue with albuterol inhaler 2 puffs every 4 hours as needed. Nodule Pulmonary 01/25/2015 Overview: recheck CT advised 6-12 months Stable benign appearing area on CT scan 07/25/2015 Stenosis Spinal 11/25/2014 Obesity Body Mass Index 30-39.9 Adult 10/15/2014 Last Assessment & Plan: BMI 35.46. 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 Okay to send remaining medications with resident. Okay for home health PT OT to eval and treat as well as nursing to eval and treat. Follow-up with primary provider in 1-2 weeks. Patient to continue to wear the [place] J collar as ordered. Family members will need to be taught how to apply the collar as patient unable to do so himself before he can go home. Patient to follow-up with neurosurgery as ordered which would be around May 07. This has not been scheduled. The number for Neurosurgery at [facility] where he is to follow-up as [phone]. I do have [facility] working on trying to get him in with neurosurgery in [place]. Nurse Beatrice from [facility] will contact nurse web manager at [facility] if this is arranged Fracture Cervical Second Non displaced Subsequent With Routine Healing 04/06/2023 01/07/20 24 Infection Upper Respiratory 07/21/2019 04/19/2023 Chronic Kidney Disease Stage 2 Glomerular Filtration Rate 60 To 89 08/22/2018 01/14/2024 Last Assessment & Plan: Avoid nephrotoxic medications. Will be following creatinine Gout 07/23/2018 10/22/2018 Hypertensive Heart And Chron ic Kidney Disease Without Heart Failure And With End Stage Renal Disease 05/07/2018 05/28/2018 Pneumonia 04/08/2018 04/23/2023 Overview: Left lung pneumonia Last Assessment & Plan: He is here for a follow up exam. EXAM: DX CHEST AP OR PA AND LATERAL 2 VIEWS ?? IMPRESSION: Small left pleural effusion, similar to prior. Left basilar pulmonary opacities could reflect atelectasis or consolidation are similar to prior. Cardiomegaly. Atrial septal closure device. Atherosclerotic vascular disease. July 21, 2019 comparison. ?? He states that he is not coughing up any sputum. He does have a pleural effusion. He is currently taking furosemide 80 mg in the morning and 40 mg in the afternoon. He will do this for another week and then go back to his usual dose of furosemide. He overall is feeling better. He is concerned that he is not bringing up more sputum. I did let him know this because he is better. He continues to have a pleural effusion and atelectasis versus infiltrate in his left lower lobe. He will finish his course of antibiotics. He continues with his nebs. He will take the Mucinex now is needed. Halfway (Current) Anticoagulant Treatment 03/12/2018 06/02/2018 Melena 12/06/2017 04/19/2023 Obesity Body Mass Index 30-39.9 Adult 08/29/2017 05/07/2018 Anticoagulant Therapy [Z79.01] 06/05/2017 06/02/2018 Monitoring For Therapeutic D rug Therapy [Z51.81] 06/05/2017 06/02/2018 Persistent Atrial Fibrillation 05/06/2017 06/02/2018 Overview: Persistent Atrial Fibrillation Chronic Coronary Artery Disease 05/06/2017 05/29/2017 Overview: Chronic Coronary Artery Disease (CAD) Atrial Fibrillation Personal History 07/27/2016 09/04/2017 Overview: Atrial Fibrillation (AF) Pers Hx Prinzmetal angina 06/12/2016 05/30/2018 Overview: Angina Variant Overview: Overview: Angina Variant Coronary Artery Disease With Stable Angina 04/27/2016 10/03/2020 Artery Disorder 02/20/2016 05/30/2018 Flutter Atrial 12/11/2015 05/30/2018 Atrial Fibrillation Unspecified 11/29/2011 04/19/2023 Last Assessment & Plan: I have spoken with Dr. Calix who will plan to see the patient in the next couple of weeks for consideration to cardioversion , given the fact that he is markedly short of breath and now in Afib again.. Asthma NOS 04/01/2003 10/21/2018 Encounters Date Type Department Care Team Description 01/21/2024 9:30 AM CDT External Outreach [facility] in [address] [place] [place] [address] Urszula Quiroga APRN, C.N.P. 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) Chronic Kidney Disease (HCC); Diabetes Mellitus Type 2 (HCC); Diabetes Mellitus Type 2 With Diabetic Nephropathy (HCC); Apnea Sleep Obstructive; Arthropathy Gouty With Tophus Chronic; Benign Prostatic Hyperplasia Hypertrophy With Obstruction; Bypass Coronary Artery Graft Status Post; Chronic Pain Syndrome; Encephalopathy; Hyperlipidemia Mixed; Depression Anxiety; Hypokalemia; Pain Wrist Right; Restless Leg Syndrome; Chronic Diastolic (Congestive) Heart Failure (HCC) 01/14/2024 12:30 PM CDT [facility] Outreach [facility] in [address] [place] [address] Urszula Quiroga APRN, C.N.P. Arthropathy Gouty With Tophus Chronic (Primary Dx); Pyogenic Arthritis Unspecified (HCC); Asthma Mild Intermittent (HCC); Atrial Fibrillation Paroxysmal (HCC); Chronic Diastolic (Congestive) Heart Failure (HCC); Change Mental Status; Hypokalemia; Pain Wrist Right; Paresthesia; Depression Anxiety; Anemia Chronic 01/14/2024 12:24 PM CDT - 01/14/2024 11:59 PM CDT Hospital Encounter Department of Laboratory Medicine in [address] [place] [address] Urszula Quiroga APRN, C.N.P. Hypokalemia; Anemia Chronic; Diabetes Mellitus Type 2 With Diabetic Nephropathy (HCC); Chronic Diastolic (Congestive) Heart Failure (HCC) Discharge Disposition: Home or Self Care 01/07/2024 11:00 AM CDT External Outreach [facility] in [place] [address] [address] [place] [phone] Urszula Quiroga, MATTHEW, C.N.P. Morbid Obesity (HCC) (Primary Dx); Other Pulmonary Embolism Without Acute Cor Pulmonale (HCC); Chronic Obstructive Pulmonary Disease Mild (HCC); Chronic Diastolic (Congestive) Heart Failure (HCC); Diabetes Mellitus Type 2 With Diabetic Nephropathy (HCC); Atrial Fibrillation Paroxysmal (HCC); Asthma Mild Intermittent (HCC); Diabetes Mellitus Type 2 (HCC); Problem Related To Housing And Economic Circumstances Unspecified; History Of Falling; Anemia Chronic; Apnea Sleep Obstructive; Arthropathy Gouty With Tophus Chronic; Benign Prostatic Hyperplasia Hypertrophy With Obstruction; Change Mental Status; Chronic Kidney Disease Stage 2 Glomerular Filtration Rate 60 To 89; Chronic Pain Syndrome; Depression Anxiety; Gammopathy Monoclonal; Gastroesophageal Reflux Disease; Hypokalemia; Restless Leg Syndrome; Pain Wrist Right; Hyperlipidemia Mixed 12/18/2023 2:15 PM CDT Office Visit Department of Orthopedic Surgery in [place], [place] [address] [place] [phone] Maxwell Burton M.D. Pain Shoulder Right (Primary Dx) 11/18/2023 Documentation Department of Orthopedic Surgery in [place], [place] [address] [place] [phone] Maxwell Burton M.D. Arthroplasty (1 year PO; L MARY - Josephine 10/18/22) from Last 3 Months Immunizations Name Administration Dates Next Due H1N1 Inj 08/22/2009 HZV (ZOSTAVAX) 08/09/2015 Influenza Split 04/13/2013, 7,07/31/1996,1995,05/08/1995 Influenza TIV (IM) 04/10/2018, 0,05/20/2009,2006,05/28/2006,05/09/2004,04/21/2001,1 07/22/1999,04/26/1999,05/04/1998, 994 Influenza high dose QV(65 ye ars or older) (PF) 05/02/2022,04/13/2021,05/02/2020 Influenza, Injectable, Quadrivalent 03/2023,04/13/2021,05/02/2020,2018,04/25/2015 Influenza, Seasonal, Injectable 05/09/20 04,04/21/2001,05/22/2000,1998,05/04/1998,04/24/1994 Influenza, Unspecified 05/04/2019,2017,05/06/2017,2015,04/25/2015,04/28/2014,04/12/2014,1 ,05/08/2011,04/28/2010, 010,05/20/2009,05/23/2007,05/28/2006,,04/21/2001,05/22/2000,04/26/19 99,05/04/1998,05/11/1997,07/31/1996,05/1996,05/08/1995,04/24/1994 PCV13 10/18/2014 PPSV23 09/02/2019,01/26/2006 SARS-COV-2 (COVID-19) - PFIZ ER (Discontinued)(12 years or older) 05/30/2021,10/11/2020,09/20/2020 SARS-COV-2 (COVID-19) - PFIZ ER TS(Discontinued)(12 years or older) 01/23/2022 Td Preservative Free (TENIVA C, DECAVAC) 10/18/2014 Td, (Adult) Unspecified 04/27/2001 Tdap 10/18/2014 influenza high dose (65 year s or older) (PF) 05/04/2019 influenza vaccine quad (FLUZONE/FLUARIX) (6 months and older)(PF) 04/13/2018,04/10/2018,04/18/2016,2013,04/02/2013,08/22/2009,05/11/1997,0 07/31/1996,04/24/1996,05/08/1995 Family History Medical History Relation Name Comments Arthritis Brother 1 Heart failure Brother 1 Prostate cancer Brother 1 Prostatic hypertrophy Brother 2 Coronary artery disease Father Hypertension Father Stroke Father No Known Problems Maternal Grandfather No Known Problems Maternal Grandmother Breast cancer Mother Ovarian cancer Mother No Known Problems Paternal Grandfather No Known Problems Paternal Grandmother Relation Name Status Comments Brother 1 Brother 2 Daughter Adelita Alive Father (Age 51) Maternal Grandfather Maternal Grandmother Mother (Age 49) Breast Can cer Paternal Grandfather Paternal Grandmother Social History Tobacco Use Types Packs/Day Years Used Date Smoking Tobacco: Former Cigarettes Q uit: 1982 Smokeless Tobacco: Never Tobacco Cessation:Counseling Given: Not Answered Comments:1 pack per week Alcohol Use Standard Drinks/Week Comments Yes 0 (1 standard drink = 0.6 oz pur e alcohol) rare PHQ-2 Answer Date Recorded PHQ-2 Score 0 08/06/2022 Nutrition Answer Date Recorded Nutrition: EVOO Fat Source 13 04/05 Nutrition: Servings of Fruits/Vegetables per Day Not on file 04/05/2020 Dental Answer Date Recorded Dental: Regular Dentist Unknown 09/07/19 21 Sex and Gender Information Value Date Recorded Sex Assigned at Male 03/03/2018 9:59 AM CDT Gender Identity Male 03/03/2018 9:59 AM CDT Sexual Orientation Straight 03/03/2018 9: 59 AM CDT Last Filed Vital Signs Vital Sign Reading Time Taken Comments Blood Pressure 118/67 01/21/2024 8:02 AM CDT Pulse 70 01/21/2024 8:02 AM CDT Temperature 36.4 ??C (97.6 ??F) 01/21/2024 8:02 AM CD T Respiratory Rate 20 01/21/2024 8:02 AM CDT Oxygen Saturation 96% 01/21/2024 8:02 AM CDT Inhaled Oxygen Concentration - - Weight 80.5 kg (177 lb 8 oz) 01/21/2024 8:02 AM CDT Height 160 cm (5' 2.99) 08/06/2022 10:49 AM STUDENT SERVICES REPRESENTATIVE Body Mass Index 31.45 08/06/2022 10:49 AM STUDENT SERVICES REPRESENTATIVE Plan of Treatment Health Maintenance Due Date Last Done Comments CT Colonography 1950 Cologuard 1950 Diabetic Office Visit with F oot Exam 1950 Dilated Eye Exam 1950 Urine Albumin 1950 Hepatitis B Vaccines (1 of 3 - Risk 3-dose series) 2010 Zoster Vaccines (2 of 3) 10/04/2015 08/09/2015 Lipid (Cholesterol) Screening 03/05/2023, 09/04/2017, 10/29/2016, Additional history exists Colonoscopy 06/18/2023 06/18/2018, 11/2017, 06/18/2018, Additional history exists Colorectal Cancer Surveillance 06/18/2023 Depression Screening (Annual PHQ-2) 07/15/2023 Fall Risk Screen (Annual) 07/15/2023 Influenza Vaccine (#1) 2024 , 05/02/2022, 04/13/2021, Additional history exists Hemoglobin A1C 07/16/2024 01/14/2024 DTaP,Tdap,and Td Vaccines (3 - Td or Tdap) 10/18/2024 10/18/2014, 10/18/2014, 04/27/2001 Creatinine Level (Kidney Fun ction Test) 01/13/2025 01/14/2024, 10/28/2020, 10/03/2020, Additional history exists Office Visit for Blood Press ure Check / Re-check 01/20/2025 01/21/2024 Abdominal Aortic Aneurysm (A AA) Screen Completed 08/18/1997 Hepatitis C Screening Completed 10/30/2002 Pneumococcal vaccine (65+ years) Completed 09/02/2019, 10/18/2014, 01/26/2006 COVID-19 Vaccine Completed 12/11/2023, 03/2023, 01/23/2022, Additional history exists Medical Devices Implanted Type Area Roofing Plant Supervisor Device Identifier Shelf Expiration Date Model / Serial / Lot K-Wire-Ss 4 Smooth .062 - Fan [id number] Implanted:Qty: 3 on 09/26/2001 Hardware e.g. pins/screws /rods [place] Description:Device Manufactu rer - Treasure Sukh.. Device Status Text - [id number]. Hip Implant Hip Implant Bilater al: Hip Implex-Stem Arredondo Md +13 Ext 36nk - Fan [id number] Implanted:Qty: 1 on 07/18/1999 Hip Implant Other/Legacy - See Implant Description Description:Device Manufactu rer - Implex Sukh. Device Status Text - [id number] [id number]. Implex-Head F-100 28mm +9nk - Fan [id number] Implanted:Qty: 1 on 07/18/1999 Hip Implant Other/Legacy - See Implant Description Description:Device Manufactu rer - Implex Sukh. Device Status Text - [id number] [id number]. Implex-Cup Hed Blanca 0 Deg 28x54 - Fan [id number] Implanted:Qty: 1 on 07/18/1999 Hip Implant Other/Legacy - See Implant Description Description:Device Manufactu rer - Implex Sukh. Device Status Text - [id number] [id number]. Conversions - Default Historical Implant Device Implanted:06/26 (Quantity not on file) Hip Implant Description:Device Status Te xt - Hip Imp. Both Hips. Knee Implant- 021 Implanted:05/11 by Maxwell Burton M.D. (Quantity not on file) Knee Implant Right: Knee [place] TRIATHLON / / Knee Implant- 3 Implanted:10/18 by Maxwell Burton M.D. (Quantity not on file) Knee Implant Left: Knee Treasure TRIATHLON / / Asd Closure Device 12mm - Fan [id number] Implanted:Qty: 1 on 01/25/2006 Septal Defect Occluder Device Other/Legacy - See Implant Description Description:Device Manufactu [facility] [employer]. Device Status Text - [id number]. Procedures Procedure Name Priority Date/Time Associated Diagnosis Comments NT-PRO B-TYPE NATRIURETIC PEPTIDE (BNP), S Routine 01/14/2024 9:35 AM CDT Chronic Diastolic (Congestive) Heart Failure (HCC) HEMOGLOBIN A1C, B Routine 01/14/2024 9:3 5 AM CDT Diabetes Mellitus Type 2 With Diabetic Nephropathy (HCC) VITAMIN B12 ASSAY, S Routine 01/14/2024 9:35 AM CDT Anemia Chronic FOLATE, S Routine 01/14/2024 9:35 AM CDT Anemia Chronic FERRITIN, S Routine 01/14/2024 9:35 AM CDT Anemia Chronic IRON AND TOT IRON-BINDING CAPACITY, S/P Routine 01/14/2024 9:35 AM CDT Anemia Chronic CBC WITH DIFFERENTIAL, B Routine 01/14/2024 9:35 AM CDT Anemia Chronic BASIC METABOLIC PANEL, S/P Routine 01/14/2024 9:35 AM CDT Hypokalemia COLONOSCOPY Routine 06/18/2018 LIPID PANEL, S Routine 03/05/2018 9:02 AM CDT Coronary Artery Disease CT ABDOMEN PELVIS WITH IV CONTRAST Routine 08/18/1997 2:56 PM STUDENT SERVICES REPRESENTATIVE from Last 3 Months or Most Recently Relevant to Health Maintenance Results * (ABNORMAL) NT-Pro B-Type Natriuretic Peptide (BNP) (01/14/2024 9:35 AM CDT) NT-Pro BNP 2214(H) <=540 pg/mL 01/14/2024 3:08 PM CDT [facility] Comment: NT-proBNP values less than 300 pg/mL have a 99% negative predictive value for excluding acute congestive heart failure. A cutoff of 1200 pg/mL for patients with an eGFR<60 yields a diagnostic sensitivity and specificity of 89% and 72% for acute congestive heart failure. A diagnostic NT-proBNP cutoff of 900 pg/mL has been suggested in adults 50-75 years of age in the absence of renal failure. Blood (Blood, Venous) 01/14/2024 9:35 AM CDT 01/14/2024 2:45 PM CDT Urszula Quiroga APRN, C.N.P. LAB BLOOD ADD-ON [facility] [address] [place] [address], [facility] [place] [address] [place] [address] * (ABNORMAL) Iron and Total Iron-Binding Capacity (01/14/2024 9:35 AM CDT) Pathologist [facility] Iron 17(L) 50 - 150 mcg/dL 01/14/2024 3:17 PM CDT [facility] Total Iron Binding Capacity 186(L) 250 - 400 mcg/dL 01/14/2024 3:17 PM CDT [facility] Percent Saturation 9(L) 14 - 50 % 01/14/2024 3:17 PM CDT [facility] Blood (Blood, Venous) 01/14/2024 9:35 AM CDT 01/14/2024 2:45 PM CDT Urszula Quiroga APRN, C.N.P. LAB BLOOD ADD-ON [facility] [address] [place] [address], [facility] [place] [address] [place] [address] * (ABNORMAL) CBC with Differential, Blood (01/14/2024 9:35 AM CDT) [facility] Hemoglobin 10.1(L) 13.2 - 16.6 g/dL 01/14/2024 12:43 PM CDT [facility] Hematocrit 31.5(L) 38.3 - 48.6 % 01/14/2024 12:43 PM CDT [facility] Erythrocytes 3.43(L) 4.35 - 5.65 x10(12)/L 01/14/2024 12:43 PM CDT [facility] MCV 91.8 78.2 - 97.9 fL 01/14/2024 12:43 PM CDT [facility] RBC Distrib Width 14.4 11.8 - 14.5 % 01/14/2024 12:43 PM CDT [facility] Platelet Count 377(H) 135 - 317 x10(9)/L 01/14/2024 12:43 PM CDT [facility] Leukocytes 8.1 3.4 - 9.6 x10(9)/L 01/14/2024 12:43 PM CDT [facility] Neutrophils 6.26 1.56 - 6.45 x10(9)/L 01/14/2024 12:43 PM CDT [facility] Lymphocytes 1.25 0.95 - 3.07 x10(9)/L 01/14/2024 12:43 PM CDT [facility] Monocytes 0.54 0.26 - 0.81 x10(9)/L 01/14/2024 12:43 PM CDT [facility] Eosinophils 0.07 0.03 - 0.48 x10(9)/L 01/14/2024 12:43 PM CDT [facility] Basophils <0.04 0.01 - 0.08 x10(9)/L 01/14/2024 12:43 PM CDT [facility] Blood (Blood, Venous) 01/14/2024 9:35 AM CDT 01/14/2024 12:32 PM CDT Urszula Quiroga APRN, C.N.P. LAB BLOOD ADD-ON Performing Organization Address City/[facility]/ZIP Co de Phone Number [facility] [address] [place] [address] [address] [place] [address], [facility] SPTR [facility] in [address] [place] [address] * Hemoglobin A1c (01/14/2024 9:35 AM CDT) Hemoglobin A1c, B 5.6 4.2 - 5.6 % 01/14/2024 3:04 PM CDT [facility] Blood (Blood, Venous) 01/14/2024 9:35 AM CDT 01/14/2024 2:45 PM CDT Urszula Quiroga APRN, C.N.P. LAB BLOOD ADD-ON [facility] [address] [place] [address], [facility] MKTO [facility] [address] [place] [address] * (ABNORMAL) Folate (01/14/2024 9:35 AM CDT) Folate, S 3.4(L) >=4.0 mcg/L 01/14/2024 3:21 PM CDT [facility] Comment: Biotin has been identified by the machine operations supervisor as a potential interfering substance. Higher concentrations of biotin may be found in multivitamins, hair/nail supplements, and workout supplements. If the result does not match clinical observations, repeat testing after patient refrains from the use of supplements for at least 12 hours. Blood (Blood, Venous) 01/14/2024 9:35 AM CDT 01/14/2024 2:45 PM CDT Urszula Quiroga APRN, C.N.P. LAB BLOOD ADD-ON Performing Organization Address [facility] Co de Phone Number [facility] [address] [place] [address], [place] [address] * Ferritin (01/14/2024 9:35 AM CDT) Ferritin, S 256 31 - 409 mcg/L 01/14/2024 3:17 PM CDT [facility] Comment: Biotin has been identified by the machine operations supervisor as a potential interfering substance. Higher concentrations of biotin may be found in multivitamins, hair/nail supplements, and workout supplements. If the result does not match clinical observations, repeat testing after patient refrains from the use of supplements for at least 12 hours. Blood (Blood, Venous) 01/14/2024 9:35 AM CDT 01/14/2024 2:45 PM CDT Urszula Quiroga APRN C.N.P. LAB BLOOD ADD-ON Performing Organization Address City/[facility] Co de Phone Number [facility] [address] [place] [address], [facility] [address] [place] [address] * Vitamin B12 Assay (01/14/2024 9:35 AM CDT) Vitamin B12 Assay, S 570 232 - 1245 ng/L 01/14/2024 3:21 PM CDT [facility] Comment: Biotin has been identified by the machine operations supervisor as a potential interfering substance. Higher concentrations of biotin may be found in multivitamins, hair/nail supplements, and workout supplements. If the result does not match clinical observations, repeat testing after patient refrains from the use of supplements for at least 12 hours. Blood (Blood, Venous) 01/14/2024 9:35 AM CDT 01/14/2024 2:45 PM CDT Urszula Quiroga APRN CJuan JoseN.P. LAB BLOOD ADD-ON [facility] [address] [place] [address], [facility] MKTO [place] [address] * (ABNORMAL) Basic Metabolic Panel (01/14/2024 9:35 AM CDT) Potassium, P 3.4(L) 3.6 - 5.2 mmol/L 01/14/2024 3:08 PM CDT [facility] Sodium, P 134(L) 135 - 145 mmol/L 01/14/2024 3:08 PM CDT [facility] Chloride, P 99 98 - 107 mmol/L 01/14/2024 3:08 PM CDT [facility] Bicarbonate, P 25 22 - 29 mmol/L 01/14/2024 3:08 PM CDT [facility] Anion Gap, P 10 7 - 15 01/14/2024 3:08 PM CDT [facility] BUN (Blood Urea Nitrogen), P 13 8 - 24 mg/dL 01/14/2024 3:08 PM CDT [facility] Creatinine 0.82 0.74 - 1.35 mg/dL 01/14/2024 3:08 PM CDT [facility] Estimated GFR (eGFR) >90 >=60 mL/min/BSA 01/14/2024 3:08 PM CDT [facility] Comment: Estimated GFR calculated using the 2020 CKD_EPI creatinine equation. Calcium, Total, P 8.8 8.8 - 10.2 mg/dL 01/14/2024 3:08 PM CDT [facility] Glucose, P 125 70 - 140 mg/dL 01/14/2024 3:08 PM CDT [facility] Blood (Blood, Venous) 01/14/2024 9:35 AM CDT 01/14/2024 2:45 PM CDT Urszula Quiroga APRN, C.N.P. LAB BLOOD ADD-ON [facility] [address] [place] [address], [facility] MKTO [facility] in [place] [address] [place] [address] * (ABNORMAL) Colonoscopy (06/18/2018) EXT Colonoscopy Abnormal - See Scanned Report for Details(A) Normal - See Scanned Report for Details, HIMS - Report Received and Scanned Comment:Surveillance colonos copy due to a personal history of colon polyps. Good prep. Three adenomas were found and removed-each less than 1 cm in size. I recommend that he have his next screening colonoscopy in 5 years. Historical Provider GI PROCEDURE ORDERAB LES * (ABNORMAL) Lipid Panel (03/05/2018 9:02 AM CDT) Cholesterol, Total 168 mg/dL 2017 11:[address] [facility] Comment: ----REFERENCE VALUE---- Desirable: < 200 Borderline high: 200 - 239 High: > or = 240 Triglycerides 290(H) mg/dL 03/05/2018 11:[address] [facility] Comment: ----REFERENCE VALUE---- Normal: <150 Borderline high: 150-199 High: 200-499 Very high: > or =500 Cholesterol, HDL, S 38(L) >=40 mg/dL 03/05/2018 11:[address] [facility] Calculated LDL 72 mg/dL 03/05/2018 11:[address] [facility] Comment: ----REFERENCE VALUE---- Desirable: <100 Above Desirable: 100-129 Borderline high: 130-159 High: 160-189 Very high: > or =190 Cholesterol, Non-HDL, Calculated 130 mg/dL 03/05/2018 11:[address] [facility] Comment: ----REFERENCE VALUE---- Desirable: <130 Above Desirable: 130-159 Borderline high: 160-189 High: 190-219 Very high: > or =220 Blood (Blood, Venous) 03/05/2018 9:02 AM CDT 03/05/2018 10:47 AM CDT Tavon Calix M.D. LAB BLOOD ADD-ON [facility] [address] [place] [address], [facility] * CT Abdomen Pelvis with IV Contrast (08/18/1997 2:56 PM STUDENT SERVICES REPRESENTATIVE) Anatomical Region Laterality Modality Abdomen, Pelvis N/A Computed Tomogra phy 08/18/1997 2:56 PM STUDENT SERVICES REPRESENTATIVE Narrative 08/18/1997 3:26 PM STUDENT SERVICES REPRESENTATIVE 18-Aug-1997 14:56:00 ??Exam: CT ABDOMEN w & PELVIS w Indications: appendicitis vs diverticulitis ORIGINAL REPORT - 18-Aug-1997 15:26:00 #[id number] ?? CT of the abdomen and pelvis with oral and IV contrast is negative except for prostatic calcification. Ind: 705.000/Dx: ??700.120 ?? (Opt 320/120 cc) Electronically signed by: ?? Elliott ??Rafa BEYER. ??[id number] 18-Aug-1997 15:26 Procedure Note Chase Criag M.D. - 10/21/2017 18-Aug-1997 14:56:00 Exam: CT ABDOMEN w & PELVIS w Indications: appendicitis vs diverticulitis ORIGINAL REPORT - 18-Aug-1997 15:26:00 #[id number] CT of the abdomen and pelvis with oral and IV contrast isnegative except for prostatic calcification. Ind: 705.000/Dx: 700.120(Opt 320/120 cc) Electronically signed by: Elliott Craig MD. [id number] 18-Aug-1997 15:26 Seven Frausto M.D. IMG CT PROCEDURES from Last 3 Months or Most Recently Relevant to Health Maintenance Care Teams Field Return Repairer Relationship Specialty Start Date End Date Elsewhere, Pcp PCP - General Internal Medicine 01/22/24
--- OUTSIDE RECORDS SUMMARY | 2024-01-27 14:42 | XMS_ITS | Encounter Summary ---
Author Organization [facility] Address [address] [place] [address] Phone Care Team Providers Care Contestant Coordinator Name Role Phone Martine Argueta MD Primary Care Provider Encounter Details Date Type Department Care Team (Late st Contact Info) Description 09/18/2023 Documentation Only Unspecified Department [place] Unknown, Provider [...] on filedocumented in this encounter Care Teams Contestant Coordinator Relationship Specialty Start Date End Date Martine Argueta MD [address] [place] [address] PCP - General Internal Medicine 04/08/23 documented as of this encounter
--- OUTSIDE RECORDS SUMMARY | 2024-01-27 14:42 | XMS_ITS | Encounter Summary ---
Author Organization [facility] Address [address] [place] [address] Phone Care Team Providers Care Fur Designer Name Role Phone Martine Argueta MD Primary Care Provider Encounter Details Date Type Department Care Team (Late st Contact Info) Description 07/27/2022 Documentation Only Unspecified Department [place] Unknown, Provider Social History Tobacco Use Types Packs/Day Years Used Date Smoking Tobacco: Never Assessed Humiliation, Afraid, Rape, a nd Kick questionnaire [...] on file Sexual Orientation Not on file COVID-19 Exposure Response Date Recorded In the last 10 days, have yo u been in contact with someone who was confirmed or suspected to have Coronavirus/COVID-19? No / Unsure 07/16/2023 11:04 AM AIRCONDITIONING DRAFTING OFFICER documented as of this encounter Plan of Treatment Not on file documented as of this encounter Procedures Procedure Name Priority Date/Time Associated Diagnosis Comments LEGAL 01/04/2024 8:59 AM CDT documented in this encounter Results * LEGAL (01/04/2024 8:59 AM CDT) Narrative 01/04/2024 8:59 AM CDT Ordered by an unspecified provider. Provider Unknown SCANNED CONSENTS documented in this encounter Visit Diagnoses Not on filedocumented in this encounter Care Teams Fur Designer Relationship Specialty Start Date End Date Martine Argueta MD [address] [place] [address] PCP - General Internal Medicine 04/08/23 documented as of this encounter
--- OUTSIDE RECORDS SUMMARY | 2024-01-27 14:42 | XMS_ITS | Encounter Summary ---
Author Organization [facility] Address [address] [place] [phone] Phone Care Team Providers Care Seed Corn Production Manager Name Role Phone Martine Argueta MD Primary Care Provider Encounter Details Date Type Department Care Team (Late st Contact Info) Description 07/27/2022 Documentation Only Unspecified Department [place] Provider, [facility] [address] Social History Tobacco Use Types Packs/Day Years [...] Coronavirus/COVID-19? No / Unsure 07/16/2023 11:04 AM FAST FOOD WORKER documented as of this encounter Plan of Treatment Not on file documented as of this encounter Procedures Procedure Name Priority Date/Time Associated Diagnosis Comments ADVANCE DIRECTIVES 01/04/2024 9: 55 AM CDT documented in this encounter Results * ADVANCE DIRECTIVES (01/04/2024 9:55 AM CDT) Him Provider ADVANCED DIRECTIVES documented in this encounter Visit Diagnoses Not on filedocumented in this encounter Care Teams Seed Corn Production Manager Relationship Specialty Start Date End Date Martine Argueta MD [address] [place] [address] PCP - General Internal Medicine 04/08/23 documented as of this encounter
--- OUTSIDE RECORDS SUMMARY | 2024-01-27 14:42 | XMS_ITS | Referral Summary ---
Author Organization [facility] Address [address] [place] [address] Care Team Providers Care Learning Manager Name Role Phone Elsewhere, Pcp Primary Care Provider Unavailabl e Source Comments Patient records contain information from all sites at [facility]. For routine questions regarding patient records, call [phone] during business hours, M-F 8:00 AM - 5:00 PM Central Time. Record requests for emergency care only can be directed to [phone] at any time.[facility] Encounters Date Type Department Care Team Description 01/21/2024 9:30 AM CDT External Outreach [facility] in [place] [address] [place] [address] Urszula Quiroga, MATTHEW, C.N.P. Anemia Iron Deficiency (Primary Dx); Asthma [...] Chronic Diastolic (Congestive) Heart Failure (HCC) 01/14/2024 12:24 PM CDT - 01/14/2024 11:59 PM CDT Hospital Encounter Department of Laboratory Medicine in [place], [place] [address] [place] [phone] Urszula Quiroga, MATTHEW, C.N.PJuan Jose Hypokalemia; Anemia Chronic; Diabetes Mellitus Type 2 With Diabetic Nephropathy (HCC); Chronic Diastolic (Congestive) Heart Failure (HCC) Discharge Disposition: Home or Self Care 01/14/2024 12:30 PM CDT External Outreach [facility] in [address] [place] [address] Urszula Quiroga APRN, C.N.Michelle Arthropathy Gouty With Tophus Chronic (Primary Dx); Pyogenic Arthritis Unspecified (HCC); Asthma Mild Intermittent (HCC); Atrial Fibrillation Paroxysmal (HCC); Chronic Diastolic (Congestive) Heart Failure (HCC); Change Mental Status; Hypokalemia; Pain Wrist Right; Paresthesia; Depression Anxiety; Anemia Chronic 01/07/2024 11:00 AM CDT External Outreach [facility] in [address] [place] [address] Urszula Quiroga APRN, C.N.P. Morbid Obesity (HCC) (Primary Dx); Other [...] Office Visit Department of Orthopedic Surgery in [place], [place] [address] [place] [address] Maxwell Burton M.D. Pain Shoulder Right (Primary Dx) 11/18/2023 Documentation Department of Orthopedic Surgery in [place], [place] [address] [place] [phone] Maxwell Burton M.D. Arthroplasty (1 year PO; Juanita MARY - Josephine 10/18/22) from Last 3 Months Allergies Active Allergy [...] grandkids Work: no SUSHILA on file for: Chance Ureña Problem Noted Date Diagnosed Date Anemia Iron [...] & Plan: Patient had significant workup at [facility]. Will have OT and speech do cognitive [...] Tobacco Use Personal History 10/22/2016 Overview: quit 2013 Deficiency Of Other Specified B Group Vitamins [...] is needed Atherosclerotic Heart Diseas e Of [place] Coronary Artery Without Angina Pectoris 12/02/2015 Keratosis [...] Displaced Subsequent With Routine Healing 04/19/2023 01/07/20 Last Assessment & Plan: Okay to discharge to home with current meds and treatment plans. Okay to send remaining medications with resident. Okay for home health PT OT to eval and treat as well as nursing to eval and treat. Follow-up with primary provider in 1-2 weeks. Patient to continue to wear the [employer] J collar as ordered. Family members will need to be taught how to apply the collar as patient unable to do so himself before he can go home. Patient to follow-up with neurosurgery as ordered which would be around May 07. This has not been scheduled. The number for Neurosurgery at [facility] where he is to follow-up as [phone]. I do have [facility] Services working on trying to get him in with neurosurgery in [place]. Nurse Beatrice from Senior Services will contact nurse labor training manager at [facility] if this is arranged Fracture Cervical Second Non displaced Subsequent With Routine Healing 04/06/2023 01/07/20 Infection Upper Respiratory 07/21/2019 04/19/2023 Chronic Kidney [...] will take the Mucinex now is needed. Mcfp (Current) Anticoagulant Treatment 03/12/2018 06/02/2018 Melena 12/06/2017 [...] in Afib again.. Asthma NOS 04/01/2003 10/21/2018 Immunizations Name Administration Dates Next Due H1N1 [...] (FLUZONE/FLUARIX) (6 months and older)(PF) 04/13/2018,04/10/2018,04/18/2016,2013,04/02/2013,08/22/2009,05/11/1997,0 07/31/1996,04/24/1996,05/08/1995 Social History Tobacco Use Types Packs/Day Years [...] 160 cm (5' 2.99) 08/06/2022 10:49 AM MARKETING PROGRAM COORDINATOR Body Mass Index 31.45 08/06/2022 10:49 AM MARKETING PROGRAM COORDINATOR Plan of Treatment Not on file Medical Devices Implanted Type Area Electrical Equipment Assembler Device Identifier Shelf Expiration Date Model / Serial / Lot K-Wire-Ss 4 Smooth .062 - Fan [id number] Implanted:Qty: 3 on 09/26/2001 Hardware e.g. pins/screws /rods Treasure Description:Device Manufactu rer - [employer].. Device Status Text - [id number]. Hip Implant Hip Implant Bilater al: Hip Implex-Stem Arredondo +13 Ext 36nk - Fan [id number] Implanted:Qty: 1 on 07/18/1999 Hip Implant Other/Legacy - See Implant Description Description:Device Manufactu rer - [employer]ukh. Device Status Text - HIP [id number]. Implex-Head F-100 28mm +9nk - Fan [id number] Implanted:Qty: 1 on 07/18/1999 Hip Implant Other/Legacy - See Implant Description Description:Device Manufactu rer - [employer]ukh. Device Status Text - HIP [id number]. Implex-Cup Hed Blanca 0 Deg 28x54 - Fan [id number] Implanted:Qty: 1 on 07/18/1999 Hip Implant Other/Legacy - See Implant Description Description:Device Manufactu rer - [employer]ukh. Device Status Text - HIP [id number]. Conversions - Default Historical Implant Device Implanted:06/26 (Quantity not on file) Hip Implant Description:Device Status Te xt - Hip Imp. Both Hips. Knee Implant- 021 Implanted:05/11 by Maxwell Burton M.D. (Quantity not on file) Knee Implant Right: Knee Treasure TRIATHLON / / Knee Implant- 3 Implanted:10/18 by Maxwell Burton M.D. (Quantity not on file) Knee Implant Left: Knee [employer]ON / / Asd Closure Device 12mm - Fan [id number] Implanted:Qty: 1 on 01/25/2006 Septal Defect Occluder Device Other/Legacy - See Implant Description Description:Device Manufactu rer - [employer]. Device Status Text - [id number]. Procedures Procedure Name Priority Date/Time Associated Diagnosis [...] WITH IV CONTRAST Routine 08/18/1997 2:56 PM MARKETING PROGRAM COORDINATOR from Last 3 Months or Most Recently Relevant to Health Maintenance Results * (ABNORMAL) NT-Pro B-Type Natriuretic Peptide (BNP) (01/14/2024 9:35 AM CDT) NT-Pro BNP 2214(H) <=540 pg/mL 01/14/2024 3:08 PM CDT [facility]TO Comment: NT-proBNP values less than 300 pg/mL [...] Urszula Quiroga APRN, C.N.P. LAB BLOOD ADD-ON [facility] [address] [place] [address], [facility] in [place] [address] [place] [phone] * (ABNORMAL) Iron and Total Iron-Binding Capacity (01/14/2024 9:35 AM CDT) Iron 17(L) 50 - 150 mcg/dL 01/14/2024 3:17 PM CDT [facility] Total Iron Binding Capacity 186(L) 250 - 400 mcg/dL 01/14/2024 3:17 PM CDT [facility] Percent Saturation 9(L) 14 - 50 % 01/14/2024 3:17 PM CDT [facility] Blood (Blood, Venous) 01/14/2024 9:35 AM CDT 01/14/2024 2:45 PM CDT Urszula Quiroga APRN C.N.P. LAB BLOOD ADD-ON [facility] [address] [place] [address], [facility] MKTO [facility] in [place] [address] [place] [address] * (ABNORMAL) CBC with Differential, Blood (01/14/2024 9:35 AM CDT) Hemoglobin 10.1(L) 13.2 - 16.6 g/dL 01/14/2024 [...] C.N.P. LAB BLOOD ADD-ON Performing Organization Address City/[facility]/ZIP Co de Phone Number [facility] [address] [place] [address] [address] [place] [address], [facility] SPTR [facility] in [place] [address] [place] [address] [address] [place] [address] * Hemoglobin A1c (01/14/2024 9:35 AM CDT) Hemoglobin A1c, B 5.6 4.2 - 5.6 % 01/14/2024 3:04 PM CDT [facility] Blood (Blood, Venous) 01/14/2024 9:35 AM CDT 01/14/2024 2:45 PM CDT Urszula Quiroga APRN, C.N.P. LAB BLOOD ADD-ON [facility] [address] [place] [address], [place] MKTO [facility] [address] [place] [id number] * (ABNORMAL) Folate (01/14/2024 9:35 AM CDT) Folate, S 3.4(L) >=4.0 mcg/L 01/14/2024 3:21 PM CDT [facility] Comment: Biotin has been identified by the slitter and rewinder machine operator as a potential interfering substance. Higher concentrations of biotin may be found in multivitamins, hair/nail supplements, and workout supplements. If the result does not match clinical observations, repeat testing after patient refrains from the use of supplements for at least 12 hours. Blood (Blood, Venous) 01/14/2024 9:35 AM CDT 01/14/2024 2:45 PM CDT Urszula Quiroga APRN, C.N.P. LAB BLOOD ADD-ON Performing Organization Address [facility] Co de Phone Number [facility] [address] [place] [address], [place] [address] * Ferritin (01/14/2024 9:35 AM CDT) Ferritin, S 256 31 - 409 mcg/L 01/14/2024 3:17 PM CDT [facility] Comment: Biotin has been identified by the slitter and rewinder machine operator as a potential interfering substance. Higher concentrations of biotin may be found in multivitamins, hair/nail supplements, and workout supplements. If the result does not match clinical observations, repeat testing after patient refrains from the use of supplements for at least 12 hours. Blood (Blood, Venous) 01/14/2024 9:35 AM CDT 01/14/2024 2:45 PM CDT Urszula Quiroga APRN, C.N.P. LAB BLOOD ADD-ON Performing Organization Address [facility] Co de Phone Number [facility] [address] [place] [address], [place] [address] * Vitamin B12 Assay (01/14/2024 9:35 AM CDT) Vitamin B12 Assay, S 570 232 - 1245 ng/L 01/14/2024 3:21 PM CDT [facility] Comment: Biotin has been identified by the slitter and rewinder machine operator as a potential interfering substance. Higher concentrations of biotin may be found in multivitamins, hair/nail supplements, and workout supplements. If the result does not match clinical observations, repeat testing after patient refrains from the use of supplements for at least 12 hours. Blood (Blood, Venous) 01/14/2024 9:35 AM CDT 01/14/2024 2:45 PM CDT Urszula Quiroga APRN, C.N.P. LAB BLOOD ADD-ON [facility] [address] [place] [address], [facility] MKTO [facility] in [place] [address] [place] [address] * (ABNORMAL) Basic Metabolic Panel (01/14/2024 9:35 [...] Urszula Quiroga APRN, C.N.P. LAB BLOOD ADD-ON [facility] [address] [place] [address], [facility] MKTO [facility] in [place] [address] [place] [address] * (ABNORMAL) Colonoscopy (06/18/2018) EXT Colonoscopy Abnormal [...] Total 168 mg/dL 2017 11:46 AM CDT [facility] Comment: ----REFERENCE VALUE---- Desirable: < 200 Borderline high: 200 - 239 High: > or = 240 Triglycerides 290(H) mg/dL 03/05/2018 11:46 AM CDT [facility] Comment: ----REFERENCE VALUE---- Normal: <150 Borderline high: 150-199 High: 200-499 Very high: > or =500 Cholesterol, HDL, S 38(L) >=40 mg/dL 03/05/2018 11:46 AM CDT [facility] Calculated LDL 72 mg/dL 03/05/2018 11:46 AM CDT [facility] Comment: ----REFERENCE VALUE---- Desirable: <100 Above Desirable: 100-129 Borderline high: 130-159 High: 160-189 Very high: > or =190 Cholesterol, Non-HDL, Calculated 130 mg/dL 03/05/2018 11:46 AM CDT [facility] Comment: ----REFERENCE VALUE---- Desirable: <130 Above Desirable: 130-159 Borderline high: 160-189 High: 190-219 Very high: > or =220 Blood (Blood, Venous) 03/05/2018 9:02 AM CDT 03/05/2018 10:47 AM CDT Tavon Calix M.D. LAB BLOOD ADD-ON [facility] [address] [id number], [facility] * CT Abdomen Pelvis with IV Contrast (08/18/1997 2:56 PM MARKETING PROGRAM COORDINATOR) Anatomical Region Laterality Modality Abdomen, Pelvis N/A Computed Tomogra phy 08/18/1997 2:56 PM MARKETING PROGRAM COORDINATOR Narrative 08/18/1997 3:26 PM MARKETING PROGRAM COORDINATOR 18-Aug-1997 14:56:00 ??Exam: CT ABDOMEN w & PELVIS w Indications: appendicitis vs diverticulitis ORIGINAL REPORT - 18-Aug-1997 15:26:00 #[id number] ?? CT of the abdomen and pelvis with oral and IV contrast is negative except for prostatic calcification. Ind: 705.000/Dx: ??700.120 ?? (Opt 320/120 cc) Electronically signed by: ?? Elliott ??Rafa BEYER. ??[id number] 18-Aug-1997 15:26 Procedure Note Chase Craig M.D. - 10/21/2017 18-Aug-1997 14:56:00 Exam: CT ABDOMEN w & PELVIS w Indications: appendicitis vs diverticulitis ORIGINAL REPORT - 18-Aug-1997 15:26:00 #[id number] CT of the abdomen and pelvis with oral and IV contrast isnegative except for prostatic calcification. Ind: 705.000/Dx: 700.120(Opt 320/120 cc) Electronically signed by: Elliott Craig MD. [id number] 18-Aug-1997 15:26 Seven Frausto M.D. IMAlis CT PROCEDURES from Last 3 Months or Most Recently Relevant to Health Maintenance Care Teams Learning Manager Relationship Specialty Start Date End Date Elsewhere, Pcp PCP - General Internal Medicine 01/22/24
--- OUTSIDE RECORDS SUMMARY | 2024-01-27 14:43 | XMS_ITS | Encounter Summary ---
Author Organization [facility] Address [address] [place] [address] Care Team Providers Care Locomotive Oiler Name Role Phone Urszula Quiroga APRN, C.N.P. Primary Care Pro vider Encounter Details Date Type Department Care Team (Latest Contact Info) Description 01/14/2024 12:30 PM CDT External Outreach [facility] [place] [address] [place] [address] Urszula Quiroga APRN, C.N.P. [address] [place] [address] Arthropathy Gouty With Tophus Chronic (Primary Dx); Pyogenic Arthritis Unspecified (HCC); Asthma Mild Intermittent (HCC); Atrial Fibrillation Paroxysmal (HCC); Chronic Diastolic (Congestive) Heart Failure (HCC); Change Mental Status; Hypokalemia; Pain Wrist Right; Paresthesia; Depression Anxiety; Anemia Chronic Social History Tobacco Use Types Packs/Day Years Used Date Smoking Tobacco: Former Cigarettes Q uit: 1981 Smokeless Tobacco: Never Tobacco Cessation:Counseling Given: Not [...] Orientation Straight 03/03/2018 9: 59 AM CDT documented as of this encounter Last Filed Vital Signs Vital Sign Reading Time Taken Comments Blood Pressure 111/68 01/14/2024 8:28 AM CDT Pulse 94 01/14/2024 8:28 AM CDT Temperature 36.5 ??C (97.7 ??F) 01/14/2024 8:28 AM CD T Respiratory Rate 18 01/14/2024 8:28 AM CDT Oxygen Saturation 98% 01/14/2024 8:28 AM CDT Inhaled Oxygen Concentration - - Weight 88.5 kg (195 lb 3.2 oz) 01/14/2024 8:28 A M CDT Height - - Body Mass Index 34.59 08/06/2022 10:49 AM USER EXPERIENCE ARCHITECT documented in this encounter Progress Notes * Urszula Quiroga, MATTHEW, C.N.P. - 01/14/2024 12:30 PM CDT CHIEF COMPLAINT / REASON FOR VISIT Follow-up visit SENIOR CARE SITE: [place], [place] Admission Visit Visit Type: In Person: Face to Face SUBJECTIVE HISTORY OF PRESENT ILLNESS Anthony Bowles is a 72 y.o. male with a past medical history of chronic kidney disease stage 2, BPH, dysphagia, depression, anemia, obstructive sleep apnea on CPAP, polyneuropathy, hypertension, AFib, hyperlipidemia, anxiety, CHF, COPD GERD without esophagitis , C2 type 2 odontoid fracture04/09/2023 status post C1-3 fusion was performed without complication, with recurrent falls was yana perez hospitalized at [facility] for acute encephalopathy. Patient was discharged to [facility] for short-term rehab therapy I am asked to see patient today for #1 acute encephalopathy. Patient still is having some confusion. In talking to him he thought he was in [place] any did not know the name the nursing that he is currently at. He had some history right regarding his current situation with his right wrist that was worked up and not found to have any fractures even though there is a deformity.US of the wrist revealed only tenosynovitis so steroidtreatment was deferred. Patient does feel that his right wrist is improving. He was put on allopurinol. Due to the confusion he was taken off gabapentin. He is denying any increased numbness and tinglingin hands or feet. #2 Depression. Patient was started on Zoloft 25 mg daily. He is very sad given his current health situation wants to return to his own home but most likely he will end up living with his son #3 Hypokalemia. Patient has been taken off of torsemide and having a potassium checked today #4 Anemia. While in the hospital patient was found to have hemoglobin of 10.4. His last hemoglobin that we have an epic is greater than 4 years ago and his hemoglobin was greater than 14 at the time.He has not having any signs and symptoms of bleeding. He was taking Feosol 3 times a week but no longer is on that medication. #5 CHF. Patient taken off torsemide while in hospital. His admit weight was 195.2. He has not had any increased signs and symptoms of shortness a breath difficulty breathing, hypoxia and or lower legedema Information obtained from: Patient and Nursing: SNF data reviewed:clinical notes, lab results REVIEW OF SYSTEMS Complete review of systems was performed, as allowable by patient's cognitive status, and incorporating collateral history if applicable. Relevant positives are noted elsewhere in this note, otherwise negative. OBJECTIVE Vital signs provided by facility: BP 111/68 Pulse 94 Temp 36.5 ??C Resp 18 Wt 88.5 kg SpO2 98% BMI 34.59 kg/m?? PHYSICAL EXAM HENT Head: Normocephalic and atraumatic. Nose: Nose normal. Eyes Conjunctiva/sclera: Conjunctivae normal. Pupils: Pupils are equal, round, and reactive to light. Cardiovascular Rate and Rhythm: Normal rate and regular rhythm. Heart sounds: Normal heart sounds. Pulmonary Effort: Pulmonary effort is normal. Breath sounds: Normal breath sounds. Abdominal General: Bowel sounds are normal. Palpations: Abdomen is soft. Musculoskeletal General: Deformity (Lateral right wrist shows a deformity that appears to be bony. Firm to touch. Has limited range of motion of the right wrist.) present. Normal range of motion. Cervical back: Normal range of motion and neck supple. Skin General: Skin is warm and dry. Neurological Comments: Alert to his name. He thought he was in [place]. Not sure he is currently located Psychiatric Behavior: Behavior normal. DIAGNOSTICS: Results for orders placed or performed during the hospital encounter of 01/14/24 CBC with Differential, Blood Result Value Ref Range Hemoglobin 10.1 (L) 13.2 - 16.6 g/dL Hematocrit 31.5 (L) 38.3 - 48.6 % Erythrocytes 3.43 (L) 4.35 - 5.65 x10(12)/L MCV 91.8 78.2 - 97.9 fL RBC Distrib Width 14.4 11.8 - 14.5 % Platelet Count 377 (H) 135 - 317 x10(9)/L Leukocytes 8.1 3.4 - 9.6 x10(9)/L Neutrophils 6.26 1.56 - 6.45 x10(9)/L Lymphocytes 1.25 0.95 - 3.07 x10(9)/L Monocytes 0.54 0.26 - 0.81 x10(9)/L Eosinophils 0.07 0.03 - 0.48 x10(9)/L Basophils <0.04 0.01 - 0.08 x10(9)/L *Note: Due to a large number of results and/or encounters for the requested time period, some results have not been displayed. A complete set of results can be found in Results Review. .lastpro ASSESSMENT / PLAN Pertinent changes to the care plan based on today's evaluation are explicitly discussed below, otherwise listed problems are stable and present management will be continued. The following medical problems were actively reviewed (including updating overview sections as necessary) and addressed as part of today's visit: #1 Pyogenic Arthritis Unspecified (HCC) Comments: This was ruled out. Continue to #2 Asthma Mild Intermittent (HCC) Assessment & Plan: Continue with Anoro Ellipta, 1 puff Q morning. Patient on Singulair and Flonase nasal spray patienthas albuterol inhaler 2 puffs every 4 hours as needed and keep that at bedside. #3 Atrial Fibrillation Paroxysmal (HCC) Assessment & Plan: on metoprolol tartrate 100 mg b.i.d.. Blood pressure and pulses are stable. Continue with aspirin 81 mg daily #4 Chronic Diastolic (Congestive) Heart Failure (HCC) Assessment & Plan: Patient taken off torsemide and potassium. ProBNP and potassium level drawn today. Waiting for results. Continue to weigh daily re-evaluate in a week CONGESTIVE HEART FAILURE: Will weigh daily and call for weight gain greater than 3 pounds in 24 hours or 5 pounds in one week. #5 Arthropathy Gouty With Tophus Chronic Assessment & Plan: on allopurinol 200 mg daily. Will continue to re-evaluate as needed #6 Change Mental Status Assessment & Plan: Patient had significant workup at [facility]. Will have OT and speech do cognitive testing. #7 Hypokalemia Assessment & Plan: Last potassium was 3.3. He was just taken off of torsemide in his potassium supplement. Potassium being checked today #8 Pain Wrist Right Assessment & Plan: Per discharging note. OT is evaluating for right wrist supportive device and evaluate and treat . CT of extremity at outside hospital [...] at this time. - Allopurinol 200mg daily #9 Paresthesia Assessment & Plan: Patient has been taken off of gabapentin. Continue to monitor #10 Depression Anxiety Assessment & Plan: Continue with Zoloft 25 mg daily. Looks like patient had been on Zoloft as high as 100 mg in 2019. PHQ-9 re-evaluate in a month or sooner if needed #11 Anemia Chronic Assessment & Plan: Last hemoglobin 10.5 on 01/02/2024. Will do anemia workup. Used to be on ferrous gluconate which I thought he actually was getting 3 times a week but it turns out he has not. Extensive Chart review completed Billing based on: Medical decision-making. See clinical note for justification. Any additional supporting information is noted below. Billing based on: Medical decision making including the following tasks: reviewing the electronic medical record, updating the EPIC Problem List, reviewing written facility-provided information, reviewing information in facility EMR, medication reconciliation, obtaining collateral history from facil ity staff, Interviewing and examining the patient, consulting resources (e.g. journal articles, UpToDate, AskMayoExpert) to guide medical decision-making, communicating with specialty service(s), placing orders, communicating orders to facility, providing education/counseling to patient, family, and/or facility staff. documented in this encounter Miscellaneous Notes * Assessment & Plan Note - Urszula Quiroga APRN, C.N.P. - 01/14/2024 1:07 PM CDTAssociated Problem(s): Anemia Chronic Last hemoglobin 10.5 on 01/02/2024. Will do anemia workup. Used to be on ferrous gluconate which I thought he actually was getting 3 times a week but it turns out he has not. * Assessment & Plan Note - Urszula Quiroga APRN, C.N.P. - 01/14/2024 1:07 PM CDTAssociated Problem(s): Depression Anxiety Continue with Zoloft 25 mg daily. Looks like patient had been on Zoloft as high as 100 mg in 2019. PHQ-9 re-evaluate in a month or sooner if needed * Assessment & Plan Note - Urszula Quiroga APRN, C.N.P. - 01/14/2024 1:06 PM CDTAssociated Problem(s): Paresthesia Patient has been taken off of gabapentin. Continue to monitor * Assessment & Plan Note - Urszula Quiroga APRN, C.N.P. - 01/14/2024 1:06 PM CDTAssociated Problem(s): Pain Wrist Right Per discharging note. OT is evaluating for right wrist supportive device and evaluate and treat . CT of extremity at outside hospital [...] at this time. - Allopurinol 200mg daily * Assessment & Plan Note - Urszula Quiroga APRN, C.N.P. - 01/14/2024 1:06 PM CDTAssociated Problem(s): Hypokalemia Last potassium was 3.3. He was just taken off of torsemide in his potassium supplement. Potassium being checked today * Assessment & Plan Note - Urszula Quiroga APRN, C.N.P. - 01/14/2024 1:05 PM CDTAssociated Problem(s): Chronic Diastolic (Congestive) Heart Failure (HCC) Patient taken off torsemide and potassium. ProBNP and potassium level drawn today. Waiting for results. Continue to weigh daily re-evaluate in a week CONGESTIVE HEART FAILURE: Will weigh daily and call for weight gain greater than 3 pounds in 24 hours or 5 pounds in one week. * Assessment & Plan Note - Urszula Quiroga APRN, C.N.P. - 01/14/2024 1:05 PM CDTAssociated Problem(s): Change Mental Status Patient had significant workup at [facility]. Will have OT and speech do cognitive testing. * Assessment & Plan Note - Urszula Quiroga APRN, C.N.P. - 01/14/2024 1:04 PM CDTAssociated Problem(s): Atrial Fibrillation Paroxysmal (HCC) on metoprolol tartrate 100 mg b.i.d.. Blood pressure and pulses are stable. Continue with aspirin 81 mg daily * Assessment & Plan Note - Urszula Quiroga APRN, C.N.P. - 01/14/2024 1:04 PM CDTAssociated Problem(s): Asthma Mild Intermittent (HCC) Continue with Anoro Ellipta, 1 puff Q morning. Patient on Singulair and Flonase nasal spray patienthas albuterol inhaler 2 puffs every 4 hours as needed and keep that at bedside. * Assessment & Plan Note - Urszula Quiroga APRN, C.N.P. - 01/14/2024 1:04 PM CDTAssociated Problem(s): Arthropathy Gouty With Tophus Chronic on allopurinol 200 mg daily. Will continue to re-evaluate as needed documented in this encounter Plan of Treatment Not on file documented as of this encounter Visit Diagnoses Diagnosis Arthropathy Gouty With Tophus Chronic- Primary Pyogenic Arthritis Unspecified (HCC) Asthma Mild Intermittent (HCC) Atrial Fibrillation Paroxysmal (HCC) Chronic Diastolic (Congestive) Heart Failure (HCC) Change Mental Status Hypokalemia Pain Wrist Right Paresthesia Depression Anxiety Anemia Chronic documented in this encounter Additional Health Concerns Assessment Noted Time PHQ-9 Depression Total Score: 3 07/02/20 9:35 AM USER EXPERIENCE ARCHITECT documented as of this encounter Care Teams Locomotive Oiler Relationship Specialty Start Date End Date Urszula Quiroag APRN, C.N.P. [address] [place] [address] PCP - General Family Medicine 01/06/24 01/21/24 documented as of this encounter
--- OUTSIDE RECORDS SUMMARY | 2024-01-27 14:43 | XMS_ITS | Encounter Summary ---
Author Organization [facility] Address [address] [place] [address] Care Team Providers Care Valuation Consultant Name Role Phone Urszula Quiroga APRN, C.N.P. Primary Care Pro vider Encounter Details Date Type Department Care Team (Latest Contact Info) Description 01/14/2024 12:24 PM CDT - 01/14/2024 11:59 PM CDT Hospital Encounter Department of Laboratory Medicine in [place], [place] [address] [place] [address] Urszula Quiroga APRN, C.N.P. [address] [place] [address] Hypokalemia; Anemia Chronic; Diabetes Mellitus Type 2 With Diabetic Nephropathy (HCC); Chronic Diastolic (Congestive) Heart Failure (HCC) Discharge Disposition: Home or Self Care Social History Tobacco Use Types Packs/Day Years Used Date Smoking Tobacco: Former Cigarettes Q uit: 1982 Smokeless Tobacco: Never Comments:1 pack per week Alcohol Use Standard [...] AM CDT documented as of this encounter Medications at Time of Discharge Medication Sig Dispensed Refills Start Date End Date acetaminophen (TylenoL) 325 mg tablet Take 650 mg by mouth every 4 (four) hours as needed. 01/05/2024 albuterol (Ventolin HFA) 90 mcg/actuation inhaler Inhale 2 puffs 4 (four) times a day as needed for wheezing. 54 g 3 09/16/2019 allopurinoL (ZYLOPRIM) 100 mg tablet TAKE 2 TABLETS (200 MG TOTAL) BY MOUTH DAILY. 180 tablet 3 07/01/[address] tablet Take 81 mg by mouth daily. atorvastatin (LIPITOR) 80 mg tablet TAKE 1 TABLET EVERY DAY 90 tablet 10/15/2019 budesonide-formoteroL (Symbicort) 160-4.5 mcg/actuation inhaler Inhale 1 puff 2 (two) times a day. Rinse mouth with water after use to reduce aftertaste and incidence of candidiasis. Do not swallow. 01/06/2024 finasteride (PROSCAR) 5 mg tablet TAKE 1 TABLET (5 MG TOTAL) BY MOUTH DAILY. 90 tablet 3 12/03/2022 fluticasone (for_FLONASE) 50 mcg/actuation nasal spray Administer 1 spray into nostril(s) daily. 12/09/2015 isosorbide mononitrate 20 mg tablet Take 60 mg by mouth daily. metoprolol tartrate (LOPRESSOR) 100 mg tablet TAKE 1 TABLET (100 MG TOTAL) BY MOUTH 2 (TWO) TIMES A DAY. 180 tablet 1 03/04/2020 montelukast (SINGULAIR) 10 mg tablet TAKE 1 TABLET EVERY EVENING 90 tablet 3 03/06/2021 multivitamin tablet Take 1 tablet by mouth daily. nystatin (Nystop) 100,000 unit/gram powder Apply 1 Application topically daily as needed. Apply to skin rash. 01/06/2024 pantoprazole (PROTONIX) 40 mg EC tablet 40 mg 2 (two) times a day before breakfast and dinner. 06/05/2022 pramipexole (MIRAPEX) 0.25 mg tablet Take 1 tablet (0.25 mg total) by mouth at bedtime. 90 tablet 3 09/24/2019 tamsulosin (FLOMAX) 0.4 mg 24 hr capsuleIndications:Be nign Prostatic Hyperplasia Hypertrophy With Obstruction Take 1 capsule (0.4 mg total) by mouth daily. 04/19/2023 umeclidinium-vilanter oL (ANORO ELLIPTA) 62.5-25 mcg/actuation inhaler Inhale 1 puff daily. sertraline (Zoloft) 100 mg tablet Take 25 mg by mouth daily. 01/22/2024 documented as of this encounter Miscellaneous Notes * Result Encounter Note - Urszula Quiroga APRN, C.N.P. - 01/21/2024 2:36 PM CDT Patient started on iron and vitamin-C. Patient being discharged from intermediate. Will need follow-up with PCP to re-evaluate iron in hemoglobin on follow- up visit * Result Encounter Note - Urszula Quiroga APRN, C.N.P. - 01/14/2024 12:54 PM CDT I have ordered an anemia workup that is being done today documented in this encounter Plan of Treatment Not on file documented as of this encounter Procedures Procedure Name Priority Date/Time Associated Diagnosis Comments NT-PRO B-TYPE NATRIURETIC PEPTIDE (BNP), S Routine 01/14/2024 9:35 AM CDT Chronic Diastolic (Congestive) Heart Failure (HCC) IRON AND TOT IRON-BINDING CAPACITY, S/P Routine 01/14/2024 9:35 AM CDT Anemia Chronic CBC WITH DIFFERENTIAL, B Routine 01/14/2024 9:35 AM CDT Anemia Chronic HEMOGLOBIN A1C, B Routine 01/14/2024 9:3 5 AM CDT Diabetes Mellitus Type 2 With Diabetic Nephropathy (HCC) FOLATE, S Routine 01/14/2024 9:35 AM CDT Anemia Chronic FERRITIN, S Routine 01/14/2024 9:35 AM CDT Anemia Chronic VITAMIN B12 ASSAY, S Routine 01/14/2024 9:35 AM CDT Anemia Chronic BASIC METABOLIC PANEL, S/P Routine 01/14/2024 9:35 AM CDT Hypokalemia documented in this encounter Results * (ABNORMAL) NT-Pro B-Type Natriuretic Peptide (BNP) (01/14/2024 9:35 AM CDT) NT-Pro BNP 2214(H) <=540 pg/mL 01/14/2024 3:08 PM CDT TO Comment: NT-proBNP values less than 300 pg/mL [...] Urszula Quiroga APRN, C.N.P. LAB BLOOD ADD-ON [facility] [place] [address], [facility] [place] [address] [place] [address] * Hemoglobin A1c (01/14/2024 9:35 AM CDT) Hemoglobin A1c, B 5.6 4.2 - 5.6 % 01/14/2024 3:04 PM CDT [facility] Blood (Blood, Venous) 01/14/2024 9:35 AM CDT 01/14/2024 2:45 PM CDT Urszula uQiroga APRN, C.N.P. LAB BLOOD ADD-ON [facility] [address] [place] [address], [facility] [place] [address] [place] [address] * Vitamin B12 Assay (01/14/2024 9:35 AM CDT) Vitamin B12 Assay, S 570 232 - 1245 ng/L 01/14/2024 3:21 PM CDT [facility] Comment: Biotin has been identified by the bottle house quality control technician as a potential interfering substance. Higher concentrations of biotin may be found in multivitamins, hair/nail supplements, and workout supplements. If the result does not match clinical observations, repeat testing after patient refrains from the use of supplements for at least 12 hours. Blood (Blood, Venous) 01/14/2024 9:35 AM CDT 01/14/2024 2:45 PM CDT Urszula Quiroga APRN, C.N.P. LAB BLOOD ADD-ON [facility] [address] [place] [address], [facility] [place] [address] * (ABNORMAL) Folate (01/14/2024 9:35 AM CDT) Folate, S 3.4(L) >=4.0 mcg/L 01/14/2024 3:21 PM CDT [facility] Comment: Biotin has been identified by the bottle house quality control technician as a potential interfering substance. Higher concentrations of biotin may be found in multivitamins, hair/nail supplements, and workout supplements. If the result does not match clinical observations, repeat testing after patient refrains from the use of supplements for at least 12 hours. Blood (Blood, Venous) 01/14/2024 9:35 AM CDT 01/14/2024 2:45 PM CDT Urszula Quiroga APRN, C.N.P. LAB BLOOD ADD-ON Performing Organization Address City/[facility]/ZIP Co de Phone Number [facility] [address] [place] [address], [place] [address] * Ferritin (01/14/2024 9:35 AM CDT) Ferritin, S 256 31 - 409 mcg/L 01/14/2024 3:17 PM CDT [facility] Comment: Biotin has been identified by the bottle house quality control technician as a potential interfering substance. Higher concentrations of biotin may be found in multivitamins, hair/nail supplements, and workout supplements. If the result does not match clinical observations, repeat testing after patient refrains from the use of supplements for at least 12 hours. Blood (Blood, Venous) 01/14/2024 9:35 AM CDT 01/14/2024 2:45 PM CDT Urszula Quiroga APRN, C.N.P. LAB BLOOD ADD-ON Performing Organization Address City/[facility]/ZIP Co de Phone Number [facility] [address] [place] [address], [place] [address] * (ABNORMAL) Iron and Total Iron-Binding Capacity (01/14/2024 9:35 AM CDT) Iron 17(L) 50 - 150 mcg/dL 01/14/2024 3:17 PM CDT [facility] Total Iron Binding Capacity 186(L) 250 - 400 mcg/dL 01/14/2024 3:17 PM CDT TO Percent Saturation 9(L) 14 - 50 % 01/14/2024 3:17 PM CDT TO Blood (Blood, Venous) 01/14/2024 9:35 AM CDT 01/14/2024 2:45 PM CDT Urszula Julia Quiroga APRN, C.N.P. LAB BLOOD ADD-ON [facility] [address] [place] [address], [facility] [place] [address] [place] [address] * (ABNORMAL) CBC with Differential, Blood (01/14/2024 [...] 9:35 AM CDT 01/14/2024 12:32 PM CDT Cristiane Tolentino APRNN.P. LAB BLOOD ADD-ON [facility] [address] [facility] [address] [place] [address], [place] SPTR [facility] [place] [address] [facility] [address] [place] [address] * (ABNORMAL) Basic Metabolic Panel (01/14/2024 9:35 [...] 9:35 AM CDT 01/14/2024 2:45 PM CDT Yelena Tolentino APRN.N.P. LAB BLOOD ADD-ON [facility] [address] [place] [address], [facility] [place] [address] [place] [address] documented in this encounter Visit Diagnoses Diagnosis Hypokalemia Anemia Chronic Diabetes Mellitus Type 2 With Diabetic Nephropathy (HCC) Chronic Diastolic (Congestive) Heart Failure (HCC) documented in this encounter Additional Health Concerns Assessment Noted Time PHQ-9 Depression Total Score: 3 07/02/20 19 9:35 AM GIS TECHNICIAN documented as of this encounter Care Teams Valuation Consultant Relationship Specialty Start Date End Date Urszula Quiroga APRN, C.N.P. [address] [place] [phone] PCP - General Family Medicine 01/06/24 01/21/24 documented as of this encounter
--- OUTSIDE RECORDS SUMMARY | 2024-01-27 14:43 | XMS_ITS ---
Author Organization [facility] Address [address] [place] [address] Care Team Providers Care Utility Worker Name Role Phone Unavailable Unavailable Unavailable Surgery Details Not on file Complications Check Surgery Details section. Procedure Estimated Blood Loss Check Surgery Details section. Procedure Findings Check Surgery Details section. Procedure Specimens Taken Check Surgery Details section.
--- OUTSIDE RECORDS SUMMARY | 2024-01-27 14:43 | XMS_ITS | Encounter Summary ---
Author Organization [facility] Address [address] [place] [address] Care Team Providers Care Retort Or Condenser Press Operator Name Role Phone Elsewhere, Pcp Primary Care Provider Unavailabl e Reason for Visit * Reason Comments Arthroplasty 1 year PO; L TKA - P erkinson 10/18/22 Encounter Details Date Type Department Care Team (Late st Contact Info) Description 11/18/2023 Documentation Department of Orthopedic Surgery in [place], [place] [address] [phone] Maxwell Burton M.D. [address] [phone] Arthroplasty (1 year PO; L TKA - Perkinson 10/18/22) Social History Tobacco Use Types Packs/Day Years [...] AM CDT documented as of this encounter Progress Notes * Valerie Magana - 11/18/2023 2:52 PM CDT 1 year PO; Juanita Burton 10/18/22 documented in this encounter Plan of Treatment Not on file documented as of this encounter Visit Diagnoses Not on filedocumented in this encounter Additional Health Concerns Assessment Noted Time PHQ-9 Depression Total Score: 3 07/02/20 19 9:35 AM EXCHANGE UNDERWRITING CONSULTANT documented as of this encounter Care Teams Retort Or Condenser Press Operator Relationship Specialty Start Date End Date Elsewhere, Pcp PCP - General Internal Medicine 04/26/23 01/05/24 documented as of this encounter
--- OUTSIDE RECORDS SUMMARY | 2024-01-27 14:43 | XMS_ITS | Encounter Summary ---
Author Organization [facility] Address [address] [place] [address] Care Team Providers Care Environmental Epidemiologist Name Role Phone Urszula Quiroga APRN, C.N.P. Primary Care Pro vider Encounter Details Date Type Department Care Team (Latest Contact Info) Description 01/21/2024 9:30 AM CDT External [facility] [place] [address] [place] [address] Urszula Quiroga APRN, C.N.P. 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 - 01/21/2024 9:30 AM CDT CHIEF COMPLAINT / REASON FOR VISIT Discharge H&P RETIREMENT SITE: [place], [place] Admission Visit Visit Type: In Person: [...] recurrent falls was yana perez hospitalized at [facility] for acute encephalopathy. Patient was discharged to [facility] for short-term rehab therapy I am asked to see patient today for #1 Discharge H&P. Patient will be going home to live with his son. Home health needs: In-home physical and occupational therapy are order to eval and treat. Physical therapy recommended with the goal to promote patient's ability to move, reduce pain, restore function and prevent disability. Occupational therapy recommended with goal to enable people to participate in activities of daily living. Patient is homebound as there exists a normal inability to leave home and, consequently leaving hisor her home requires a considerable and taxing effort. If the patient does, in fact leave the home,the absences from the home are infrequent or for periods of relatively short duration and most often for the purpose of receiving medical treatment. #2 acute encephalopathy. Improved. He was taken off gabapentin while in the hospital. Not having increase in neuropathy symptoms. He does have some underlying confusion but is able to make needs known. Has some short-term memory recall. Is excited to be going home. #3 Right wrist pain. Pain was worked up and thought to be possibly tenosynovitis. He was put on allopurinol daily. He does feel like the pain in the right wrist is improving but in general has aches and pains throughout his body #4 Depression. Patient was started on Zoloft 25 mg daily. #5 Hypokalemia. Patient has been taken off of torsemide and potassium has come back at 3.4 today. #6 Anemia. While in the hospital patient was found to have hemoglobin of 10.4. His last hemoglobin that we have an epic is greater than 4 years ago and his hemoglobin was greater than 14 at the time.He has not having any signs and symptoms of bleeding. He was taking Feosol 3 times a week but no longer is on that medication. #7 CHF. Patient taken off torsemide while in hospital. He has not had any increased signs and symptoms of shortness a breath difficulty breathing, hypoxia and or lower leg edema Information obtained from: Patient and Nursing: SNF data reviewed:clinical notes, lab results REVIEW OF SYSTEMS Complete review of systems was performed, as allowable by patient's cognitive status, and incorporating collateral history if applicable. Relevant positives are noted elsewhere in this note, otherwise negative. OBJECTIVE Vital signs provided by facility: BP 118/67 Pulse 70 Temp 36.4 ??C Resp 20 Wt 80.5 kg SpO2 96% BMI 31.45 kg/m?? PHYSICAL EXAM HENT Head: Normocephalic and atraumatic. Nose: Nose normal. Eyes Conjunctiva/sclera: Conjunctivae normal. Pupils: Pupils are equal, round, and reactive to light. Cardiovascular Rate and Rhythm: Normal rate and regular rhythm. Heart sounds: Normal heart sounds. Pulmonary Effort: Pulmonary effort is normal. Breath sounds: Normal breath sounds. Abdominal General: Bowel sounds are normal. Palpations: Abdomen is soft. Musculoskeletal General: Deformity (right wrist minda deformity non tender to touch, no erythema) present. Normal range of motion. Cervical back: Normal range of motion and neck supple. Skin General: Skin is warm and dry. Psychiatric Behavior: Behavior normal. DIAGNOSTICS: Results for orders placed or performed during the hospital encounter of 01/14/24 Basic Metabolic Panel Result Value Ref Range Potassium, P 3.4 (L) 3.6 - 5.2 mmol/L Sodium, P 134 (L) 135 - 145 mmol/L Chloride, P 99 98 - 107 mmol/L Bicarbonate, P 25 22 - 29 mmol/L Anion Gap, P 10 7 - 15 BUN (Blood Urea Nitrogen), P 13 8 - 24 mg/dL Creatinine 0.82 0.74 - 1.35 mg/dL Estimated GFR (eGFR) >90 >=60 mL/min/BSA Calcium, Total, P 8.8 8.8 - 10.2 mg/dL Glucose, P 125 70 - 140 mg/dL CBC with Differential, Blood Result Value Ref [...] x10(9)/L Basophils <0.04 0.01 - 0.08 x10(9)/L Iron and Total Iron-Binding Capacity Result Value Ref Range Iron 17 (L) 50 - 150 mcg/dL Total Iron Binding Capacity 186 (L) 250 - 400 mcg/dL Percent Saturation 9 (L) 14 - 50 % Ferritin Result Value Ref Range Ferritin, S 256 31 - 409 mcg/L Folate Result Value Ref Range Folate, S 3.4 (L) >=4.0 mcg/L Vitamin B12 Assay Result Value Ref Range Vitamin B12 Assay, S 570 232 - 1245 ng/L Hemoglobin A1c Result Value Ref Range Hemoglobin A1c, B 5.6 4.2 - 5.6 % NT-Pro B-Type Natriuretic Peptide (BNP) Result Value Ref Range NT-Pro BNP 2214 (H) <=540 pg/mL *Note: Due to a large number of [...] addressed as part of today's visit: #1 Asthma Mild Intermittent (HCC) Assessment & Plan: Continue with Anoro Ellipta, 1 puff Q morning. Patient on Singulair and Flonase nasal spray patienthas albuterol inhaler 2 puffs every 4 hours as needed and keep that at bedside. #2 Atrial Fibrillation Paroxysmal (HCC) Assessment & Plan: on metoprolol tartrate 100 mg b.i.d.. Blood pressure and pulses are stable. 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 Start vitamin-C 500 mg daily. Follow-up with PCP #7 Apnea Sleep Obstructive Assessment & Plan: Continue with home CPAP settings, reported that patient does not use CPAP #8 Arthropathy Gouty With Tophus Chronic Assessment & Plan: on allopurinol 200 mg daily. #9 Benign Prostatic Hyperplasia Hypertrophy With Obstruction Assessment & Plan: Continue with Flomax 0.4 mg daily and Proscar 5 mg daily #10 Bypass Coronary Artery Graft Status Post Assessment & Plan: Patient's son states it he had an order for nitroglycerin that he had prior to going into the hospital. On discharge she did not come with at order. In talking the patient he denies episodes of chestpain and states he has not ever taken that medication. His memory may not be correct and I did offer to write the nitro sublingual order that patient's son states he will follow up with PCP if this med is needed #11 Chronic Pain Syndrome Assessment & Plan: Continue with extra-strength Tylenol 1000 mg every 6 hours as needed pain. Patient recently seen inOrthopedics for shoulder pain. Cortisone injections did not offer relief. He will need to follow-upwith Ortho once he is on outpatient for next steps regarding management of possible rotator cuff injury #12 Encephalopathy Assessment & Plan: Okay to discharge to home where he will live with his son with current meds and treatment plan. Okay for 30 day supply of medications. Okay for home health PT OT to eval and treat. Follow-up with PCPin 1-2 weeks post discharge. #13 Hyperlipidemia Mixed Assessment & Plan: Patient on aspirin 81 mg daily, fenofibrate 54 mg daily and Lipitor 80 mg daily #14 Depression Anxiety Assessment & Plan: Continue with Zoloft 25 mg daily. Looks like patient had been on Zoloft as high as 100 mg in 2019. #15 Hypokalemia Assessment & Plan: Potassium 3.4. Encourage eating a banana daily or foods high in potassium and repeat potassium on follow-up visit with PCP #16 Pain Wrist Right Assessment & Plan: Per discharging note. Continue [...] at this time. - Allopurinol 200mg daily #17 Restless Leg Syndrome Assessment & Plan: Continue with Mirapex 0.25 mg at bedtime #18 Chronic Diastolic (Congestive) Heart Failure (HCC) Assessment & Plan: Patient taken off torsemide and potassium. CONGESTIVE HEART FAILURE: Will weigh daily and call for weight gain greater than 3 pounds in 24 hours or 5 pounds in one week. Other orders - ferrous sulfate 325 mg (65 mg iron) tablet; Take 1 tablet (65 mg of iron total) by mouth daily., Starting Sat01/22/2024, No Print - ascorbic acid, vitamin C, (ascorbic acid) 500 mg tablet; Take 1 tablet (500 mg total) by mouth daily., Starting Sat01/22/2024, No Print - sertraline (Zoloft) 25 mg tablet; Take 1 tablet (25 mg total) by mouth daily., Starting Sat01/22/2024, No Print Extensive Chart review completed Billing based on: [...] Note - Urszula Quiroga APRN, C.N.P. - 01/22/2024 9:57 AM CDTAssociated Problem(s): Chronic Diastolic (Congestive) Heart Failure (HCC) Patient taken off torsemide and potassium. CONGESTIVE HEART FAILURE: Will weigh daily and call for weight gain greater than 3 pounds in 24 hours or 5 pounds in one week. * Assessment & Plan Note - Urszula Quiroga APRN, C.N.P. - 01/22/2024 9:55 AM CDTAssociated Problem(s): Encephalopathy Okay to discharge to home where he will live with his son with current meds and treatment plan. Okay for 30 day supply of medications. Okay for home health PT OT to eval and treat. Follow-up with PCPin 1-2 weeks post discharge. * Assessment & Plan Note - Urszula Quiroga APRN, C.N.P. - 01/22/2024 9:54 AM CDTAssociated Problem(s): Restless Leg Syndrome Continue with Mirapex 0.25 mg at bedtime * Assessment & Plan Note - Urszula Quiroga APRN, C.N.P. - 01/22/2024 9:54 AM CDTAssociated Problem(s): Pain Wrist Right Per discharging note. Continue supportive treatment . [...] Note - Urszula Quiroga APRN, C.N.P. - 01/22/2024 9:53 AM CDTAssociated Problem(s): Hypokalemia Potassium 3.4. Encourage eating a banana daily or foods high in potassium and repeat potassium on follow-up visit with PCP * Assessment & Plan Note - Urszula Quiroga APRN, C.N.P. 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 Vital signs currently controlled * Assessment & Plan Note - Urszula Quiroga APRN, C.N.P. - 01/22/2024 9:53 AM CDTAssociated Problem(s): Hyperlipidemia Mixed Patient on aspirin 81 mg daily, fenofibrate 54 mg daily and Lipitor 80 mg daily * Assessment & Plan Note - Urszula Quiroga APRN, C.N.P. - 01/22/2024 9:52 AM CDTAssociated Problem(s): Diabetes Mellitus Type 2 With Diabetic Nephropathy (HCC) Lab Results Component Value Date HGBA1C 5.6 01/14/2024 * Assessment & Plan Note - rUszula Quiroga APRN, C.N.P. - 01/22/2024 9:52 AM CDTAssociated Problem(s): Diabetes Mellitus Type 2 (HCC) Currently not on medications continue diet control Lab Results Component Value Date HGBA1C 5.6 01/14/2024 * Assessment & Plan Note - Urszula Quiroga APRN, C.N.P. - 01/22/2024 9:52 AM CDTAssociated Problem(s): Depression Anxiety Continue with Zoloft 25 mg daily. Looks like patient had been on Zoloft as high as 100 mg in 2019. * Assessment & Plan Note - Urszula Quiroga APRN, C.N.P. - 01/22/2024 9:52 AM CDTAssociated Problem(s): Chronic Pain Syndrome Continue with extra-strength Tylenol 1000 mg every 6 hours as needed pain. Patient recently seen inOrthopedics for shoulder pain. Cortisone injections did not offer relief. He will need to follow-upwith Ortho once he is on outpatient for next steps regarding management of possible rotator cuff injury * Assessment & Plan Note - Urszula Quiroga APRN, C.N.P. - 01/22/2024 9:51 AM CDTAssociated Problem(s): Bypass Coronary Artery Graft Status Post Patient's son states it he had an order for nitroglycerin that he had prior to going into the hospital. On discharge she did not come with at order. In talking the patient he denies episodes of chestpain and states he has not ever taken that medication. His memory may not be correct and I did offer to write the nitro sublingual order that patient's son states he will follow up with PCP if this med is needed * Assessment & Plan Note - Urszula Quiroga APRN, C.N.P. - 01/22/2024 9:50 AM CDTAssociated Problem(s): Benign Prostatic Hyperplasia Hypertrophy With Obstruction Continue with Flomax 0.4 mg daily and Proscar 5 mg daily * Assessment & Plan Note - Urszula Quiroga APRN, C.N.P. - 01/22/2024 9:50 AM CDTAssociated Problem(s): Atrial Fibrillation Paroxysmal (HCC) on metoprolol tartrate 100 mg b.i.d.. Blood pressure and pulses are stable. Continue with aspirin 81 mg daily * Assessment & Plan Note - Urszula Quiroga APRN, C.N.P. - 01/22/2024 9:50 AM CDTAssociated Problem(s): Asthma Mild Intermittent (HCC) Continue with Anoro Ellipta, 1 puff Q morning. Patient on Singulair and Flonase nasal spray patienthas albuterol inhaler 2 puffs every 4 hours as needed and keep that at bedside. * Assessment & Plan Note - Urszula Quiroga APRN, C.N.P. - 01/22/2024 9:50 AM CDTAssociated Problem(s): Arthropathy Gouty With Tophus Chronic on allopurinol 200 mg daily. * Assessment & Plan Note - Urszula Quiroga APRN, C.N.P. - 01/22/2024 9:49 AM CDTAssociated Problem(s): Apnea Sleep Obstructive Continue with home CPAP settings, reported that patient does not use CPAP * Assessment & Plan Note - Urszula Quiroga APRN, C.N.P. - 01/22/2024 9:48 AM CDTAssociated Problem(s): Anemia Iron Deficiency Start ferrous sulfate 325 mg 1 tablet daily. Start vitamin-C 500 mg daily. 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) Chronic Kidney Disease (HCC) Diabetes Mellitus Type 2 (HCC) Diabetes Mellitus Type 2 With Diabetic Nephropathy (HCC) Apnea Sleep Obstructive Arthropathy Gouty With Tophus Chronic Benign Prostatic Hyperplasia Hypertrophy With Obstruction Bypass Coronary Artery Graft Status Post Chronic Pain Syndrome Encephalopathy Hyperlipidemia Mixed Depression Anxiety Hypokalemia Pain Wrist Right Restless Leg Syndrome Chronic Diastolic (Congestive) Heart Failure (HCC) documented in this encounter Additional Health Concerns Assessment Noted Time PHQ-9 Depression Total Score: 3 07/02/20 19 9:35 AM 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 [address] [place] [phone] PCP - General Family Medicine 01/06/24 01/21/24 documented as of this encounter
--- OUTSIDE RECORDS SUMMARY | 2024-01-27 14:43 | XMS_ITS | Encounter Summary ---
Author Organization [facility] Address [address] [place] [address] Care Team Providers Care Crusher Loader Operator Name Role Phone Elsewhere, Pcp Primary Care Provider Unavailabl e Reason for Referral * Outpatient (Routine) - Authorized Specialty Diagnoses / Procedures Referred By Contac t Referred To Contact Orthopedic Surgery Ricardo Patel P.A.-C. [address] [phone] Maxwell Burton M.D. [address] [phone] Referral ID Status Reason Start Date Expiration Date V isits Requested Visits Authorized [id number] Authorized 12/18/2023 06/18/2025 1 1 * MRI/CAT/PET Scan (Routine) - Authorized Specialty Diagnoses / Procedures Referred By Contac t Referred To Contact Radiology Diagnoses Pain Shoulder Right Procedures MR Shoulder Right without IV Contrast Ricardo Patel P.A.-C. [address] [phone] [facility] Region Referral ID Status Reason Start Date Expiration Date V isits Requested Visits Authorized [id number] Authorized 12/18/2023 12/17/2024 1 1 Reason for Visit * Reason Comments Pain Encounter Details Date Type Department Care Team (Late st Contact Info) Description 12/18/2023 2:15 PM CDT Office Visit Department of Orthopedic Surgery in [place], [place] [address] [facility] [place] [phone] Maxwell Burton M.D. [address] [place] [address] Pain Shoulder Right (Primary Dx) Social History Tobacco Use Types [...] as of this encounter Progress Notes * Ricardo Patel P.A.-C. - 12/18/2023 2:15 PM CDT SUBJECTIVE HPI: Anthony returns to clinic today for continued follow up of right shoulder pain. He was last seen forhis shoulder on 07/18/2022. At that time he received a right shoulder subacromial cortisone injection by Dr. Burton. He reports he got very little relief with that cortisone injection. He is noticed persistent pain and decreased range of motion is shoulder. He denies any numbness or tingling. Heis currently in physical therapy for his lower extremity. OBJECTIVE PHYSICAL EXAM: Examination of the right shoulder reveals pain with palpation of the shoulder globally. Demonstrates active forward flexion of proximally 60??. Abduction of 30??. Active assisted range of motion is approximately 90??. Positive empty can test. Positive drop-arm test. IMAGING: X-rays of the right shoulder were reviewed from 07/18/2022. IMPRESSION: Right shoulder is negative for acute fracture or joint dislocation. Osteopenia. Calcification adjacent to greater tuberosity is compatible with rotator cuff calcific tendinitis. Subacromial spur with adjacent dystrophic calcification. Moderate glenohumeral and acromioclavicular degenerative joint disease. 1 cm sclerotic lesion projecting over the spine of the scapula is indeterminate, though likely benign in the absence of known metastasizing malignancy. Sternotomy. ASSESSMENT / PLAN ASSESSMENT AND PLAN: #1 Pain Shoulder Right Bharat has continued right shoulder pain that did not improve with his previous cortisone injection.He would like to do further imaging to figure out if he has a significant rotator cuff tear. He would like to do the imaging in [place] and then follow-up either in [place] or [place]. We will see him back once the test results are available. Associated attestation - Maxwell Burton M.D. - 12/18/2023 3:05 PM CDT Patient seen and examined with Physician Spring Coiling Machine Setter. Agree with above assessment and plan. documented in this encounter Plan of Treatment Scheduled Orders Name Type Priority Associated Diagnoses Orde r Schedule MR Shoulder Right without IV Contrast Imaging RAD - Routine (most inpatients and all outpatients) Pain Shoulder Right Expected: 12/18/2023, Expires: 12/17/2024 Scheduled Referrals Name Type Priority Associated Diagnoses Order Schedule Orthopedic Surgery office visit (clinic) Outpatient Referral Routine 1 Occurrence s starting 12/18/2023 until 03/19/2025 documented as of this encounter Visit Diagnoses Diagnosis Pain Shoulder Right- Primary documented in this encounter Additional Health Concerns Assessment Noted Time PHQ-9 Depression Total Score: 3 07/02/20 19 9:35 AM CLERICAL ASSOCIATE documented as of this encounter Care Teams Crusher Loader Operator Relationship Specialty Start Date End Date Elsewhere, Pcp PCP - General Internal Medicine 04/26/23 01/05/24 documented as of this encounter
--- OUTSIDE RECORDS SUMMARY | 2024-01-27 14:43 | XMS_ITS | Encounter Summary ---
Author Organization [facility] Address [address] [place] [address] Care Team Providers Care Edge Stainer Name Role Phone Urszula Quiroga APRN, C.N.P. Primary Care Pro vider Encounter Details Date Type Department Care Team (Latest Contact Info) Description 01/07/2024 11:00 AM CDT External [facility] [place] [address] [place] [address] Urszula Quiroga APRN, C.N.P. [address] [place] [address] Morbid Obesity (HCC) (Primary Dx); Other Pulmonary [...] Leg Syndrome; Pain Wrist Right; Hyperlipidemia Mixed Social History Tobacco Use Types Packs/Day Years Used Date Smoking Tobacco: Former Cigarettes Q uit: 1981 Smokeless Tobacco: Never Tobacco Cessation:Counseling Given: Yes Comments:1 pack per week Alcohol Use Standard [...] Sign Reading Time Taken Comments Blood Pressure 139/76 01/07/2024 7:30 AM CDT Pulse 79 01/07/2024 7:30 AM CDT Temperature 36.8 ??C (98.2 ??F) 01/07/2024 7:30 AM CD T Respiratory Rate 19 01/07/2024 7:30 AM CDT Oxygen Saturation 99% 01/07/2024 7:30 AM CDT Inhaled Oxygen Concentration - - Weight 88.5 kg (195 lb 3.2 oz) 01/07/2024 7:30 A M CDT Height - - Body Mass Index 34.59 08/06/2022 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 - 01/07/2024 11:00 AM CDT SNF VISIT for New Admission visit New Admission to the facility. Recent Hospital admission: Yes,This resident was recently hospitalized at: Outside Hospital [facility] Date of hospitalization: 12/29/23--01/06/24 Reason for hospitalization: acute encephalopathy He was noted to have enteropathogenic e. Coli infection and was treated with supportive care. Initially there was some concern for an injury to the right wrist. XR revealed some findings of CPPD. US of the wrist revealed only tenosynovitis so steroid treatment was deferred. Patient also was intermittently requiring potassium replacement for hypokalemia. He was previously on a potassium supplementbut had not likely taken it for several days per his son's report. Recommend the following- Repeat BMP in 3-5 days- d/t Hypokalemia and Hypomagnesium * Urszula Quiroga APRN, C.N.P. - 01/07/2024 11:00 AM CDT CHIEF COMPLAINT / REASON FOR VISIT New admission LONGTERM SITE: [place], [place] Admission Visit Visit Type: In Person: [...] performed without complication, with recurrent falls was recen tly hospitalized at [facility] for acute encephalopathy. Patient was discharged to [facility] for short-term rehab therapy I am asked to see patient today for #1 SNF VISIT for New Admission visit New Admission to the facility. Recent Hospital admission: Yes,This resident was recently hospitalized at: Outside Hospital [facility] Date of hospitalization: 12/29/23--01/06/24 Reason for hospitalization: acute encephalopathy He was noted to have enteropathogenic e. Coli infection and was treated with supportive care. Initially there was some concern for an injury to the right wrist. XR revealed some findings of CPPD. US of the wrist revealed only tenosynovitis so steroid treatment was deferred. Patient also was intermittently requiring potassium replacement for hypokalemia. He was previously on a potassium supplementbut had not likely taken it for several days per his son's report. While in the hospital patient was taken off gabapentin, had allopurinol started at 200 mg daily. Torsemide was stopped as well as potassium was stopped. Recommend the following- Repeat BMP in 3-5 days- d/t Hypokalemia and Hypomagnesium #2 Right wrist pain. Patient continues to plain that his right wrist hurts. It looks deformed to inspection. He has limited range of motion to that right wrist. Arthritic changes noted in bilateral hands. #3 POLST If the patient has a pulse and is breathing: The patient elects full treatment including life support measures in the intensive care unit. In addition to comfort measures and limited treatment, use intubation, advanced airway means, and mechanical ventilation as indicated. Transfer to Hospital and/or intensive care unit if indicated. ARTIFICIALLY ADMINISTERED NUTRITION Offer food by mouth if feasible. [] Long-term artificial nutrition by tube. [x] Defined trial period of artificial nutrition by tube. [] No artificial nutrition by tube. ANTIBIOTICS [x] Use IV/IM antibiotic treatment. [] Oral antibiotics only (no IV/IM). [] No antibiotics. Use other methods to relieve symptoms when possible. Information obtained from: Patient and Nursing: SNF data reviewed:clinical notes, lab results REVIEW OF SYSTEMS Complete review of systems was performed, as allowable by patient's cognitive status, and incorporating collateral history if applicable. Relevant positives are noted elsewhere in this note, otherwise negative. OBJECTIVE Vital signs provided by facility: BP 139/76 Pulse 79 Temp 36.8 ??C Resp 19 Wt 88.5 kg SpO2 99% BMI 34.59 kg/m?? PHYSICAL EXAM HENT Head: [...] limited range of motion of the right wrist. He does not want to open up his fingers all the way due to arthritic changes in pain) present. Normal range of motion. Cervical back: Normal range of motion and neck supple. Skin General: Skin is warm and dry. Neurological Mental Status: He is oriented to person, place, and time. Psychiatric Behavior: Behavior normal. DIAGNOSTICS: none ordered today Lab Results Component Value Date WBC 7.22 01/02/2024 RBC 3.68 (L) 01/02/2024 HGB 10.5 (L) 01/02/2024 HCT 33.0 (L) 01/02/2024 PLT 299 01/02/2024 Lab Results Component Value Date NA 137 01/04/2024 K 3.3 (L) 01/04/2024 CHLORIDE 96 01/04/2024 CO2 26 01/04/2024 GLU 100 01/04/2024 UN 26 (H) 01/04/2024 CR 1.32 (H) 01/04/2024 CA 9.2 01/04/2024 ASSESSMENT / PLAN Pertinent changes to the care plan based on today's evaluation are explicitly discussed below, otherwise listed problems are stable and present management will be continued. The following medical problems were actively reviewed (including updating overview sections as necessary) and addressed as part of today's visit: #1 Morbid Obesity (HCC) #2 Other Pulmonary Embolism Without Acute Cor Pulmonale (HCC) #3 Chronic Obstructive Pulmonary Disease Mild (HCC) Assessment & Plan: Anoro Ellipta and Singulair 10 mg daily continue with Flonase nasal spray 2 squirts into affected nostrils as needed and continue with albuterol inhaler 2 puffs every 4 hours as needed. #4 Chronic Diastolic (Congestive) Heart Failure (HCC) Assessment & Plan: Patient taken off torsemide and potassium. CONGESTIVE HEART FAILURE: Will weigh daily and call for weight gain greater than 3 pounds in 24 hours or 5 pounds in one week. 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 Blood pressure and pulses are stable. Continue with aspirin 81 mg daily #7 Asthma Mild Intermittent (HCC) Assessment & Plan: Continue with Anoro Ellipta, 1 puff Q morning. Patient on Singulair and Flonase nasal spray patienthas albuterol inhaler 2 puffs every 4 hours as needed and keep that at bedside. #8 Diabetes Mellitus Type 2 (HCC) Assessment & Plan: Currently not on medications continue diet control Lab Results Component Value Date HGBA1C 6.3 07/20/2018 #9 Problem Related To Housing And Economic Circumstances Unspecified #10 History Of Falling #11 Anemia Chronic Assessment & Plan: Last hemoglobin 10.5 on 01/02/2024. Continue with ferrous gluconate 324 mg 1 tablet every Saturday and Saturday. Will continue to monitor #12 Apnea Sleep Obstructive Assessment & Plan: Continue with home CPAP settings, reported that patient does not use CPAP. 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 Will continue to re-evaluate as needed #14 Benign Prostatic Hyperplasia Hypertrophy With Obstruction Assessment & Plan: Continue with Flomax 0.4 mg daily and Proscar 5 mg daily #15 Change Mental Status Assessment & Plan: Patient had significant workup at [facility]. Will have OT and speech do cognitive testing #16 Chronic Kidney Disease Stage 2 Glomerular Filtration Rate 60 To 89 Assessment & Plan: Avoid nephrotoxic medications. Will be following creatinine #17 Chronic Pain Syndrome Assessment & Plan: Continue with extra-strength Tylenol 1000 mg every 6 hours as needed pain. Patient recently seen inOrthopedics for shoulder pain. Cortisone injections did not offer relief. He will need to follow-upwith Ortho once he is on outpatient for next steps regarding management of possible rotator cuff injury #18 Depression Anxiety Assessment & Plan: Start Zoloft 25 mg daily. Looks like patient had been on Zoloft as high as 100 mg in 2019. 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 #21 Hypokalemia Assessment & Plan: Last potassium was 3.3. He was just taken off of torsemide in his potassium supplement. Will recheck Chem 8 in 1 week #22 Restless Leg Syndrome Assessment & Plan: Continue with Mirapex 0.25 mg at bedtime #23 Pain Wrist Right Assessment & Plan: Per discharging note. Will have OT evaluate for right wrist supportive device and evaluate [...] at this time. - Allopurinol 200mg daily #24 Hyperlipidemia Mixed Assessment & Plan: Patient on aspirin 81 mg daily, fenofibrate 54 mg daily and Lipitor 80 mg daily Extensive Chart review completed Billing based on: [...] Note - Urszula Quiroga APRN, C.N.P. - 01/07/2024 3:57 PM CDTAssociated Problem(s): Hyperlipidemia Mixed Patient on aspirin 81 mg daily, fenofibrate 54 mg daily and Lipitor 80 mg daily * Assessment & Plan Note - Urszula Quiroga APRN, C.N.P. - 01/07/2024 3:55 PM CDTAssociated Problem(s): Pain Wrist Right Per discharging note. Will have OT evaluate for right wrist supportive device and evaluate [...] Note - Urszula Quiroga APRN, C.N.P. - 01/07/2024 3:53 PM CDTAssociated Problem(s): Restless Leg Syndrome Continue with Mirapex 0.25 mg at bedtime * Assessment & Plan Note - Urszula Quiroga APRN, C.N.P. - 01/07/2024 3:53 PM CDTAssociated Problem(s): Hypokalemia Last potassium was 3.3. He was just taken off of torsemide in his potassium supplement. Will recheck Chem 8 in 1 week * Assessment & Plan Note - Urszula Quiroga APRN, C.N.P. - 01/07/2024 3:52 PM CDTAssociated Problem(s): Gastroesophageal Reflux Disease Continue Protonix 40 mg b.i.d. * Assessment & Plan Note - Urszula Quiroga APRN, C.N.P. - 01/07/2024 3:52 PM CDTAssociated Problem(s): Gammopathy Monoclonal Continue to follow with Oncology Hematology needs to occur with this diagnosis * Assessment & Plan Note - Urszula Quiroga APRN, C.N.P. - 01/07/2024 3:51 PM CDTAssociated Problem(s): Diabetes Mellitus Type 2 (HCC) Currently not on medications continue diet control Lab Results Component Value Date HGBA1C 6.3 07/20/2018 * Assessment & Plan Note - Urszula Quiroga APRN, C.N.P. - 01/07/2024 3:50 PM CDTAssociated Problem(s): Depression Anxiety Start Zoloft 25 mg daily. Looks like patient had been on Zoloft as high as 100 mg in 2019. PHQ-9 re-evaluate in a month or sooner if needed * Assessment & Plan Note - Urszula Quiroga APRN, C.N.P. - 01/07/2024 3:50 PM CDTAssociated Problem(s): Chronic Pain Syndrome Continue with extra-strength Tylenol 1000 mg every 6 hours as needed pain. Patient recently seen inOrthopedics for shoulder pain. Cortisone injections did not offer relief. He will need to follow-upwith Ortho once he is on outpatient for next steps regarding management of possible rotator cuff injury * Assessment & Plan Note - Urszula Quiroga APRN, C.N.P. - 01/07/2024 3:49 PM CDTAssociated Problem(s): Chronic Obstructive Pulmonary Disease Mild (HCC) Anoro Ellipta and Singulair 10 mg daily continue with Flonase nasal spray 2 squirts into affected nostrils as needed and continue with albuterol inhaler 2 puffs every 4 hours as needed. * Assessment & Plan Note - Urszula Quiroga APRN, C.N.P. - 01/07/2024 3:48 PM CDTAssociated Problem(s): Chronic Kidney Disease Stage 2 Glomerular Filtration Rate 60 To 89 (01/14/2024) Avoid nephrotoxic medications. Will be following creatinine * Assessment & Plan Note - Urszula Quiroga APRN, C.N.P. - 01/07/2024 3:48 PM CDTAssociated Problem(s): Chronic Diastolic (Congestive) Heart Failure (HCC) Patient taken off torsemide and potassium. CONGESTIVE HEART FAILURE: Will weigh daily and call for weight gain greater than 3 pounds in 24 hours or 5 pounds in one week. * Assessment & Plan Note - Urszula Quiroga APRN, C.N.P. - 01/07/2024 3:48 PM CDTAssociated Problem(s): Change Mental Status Patient had significant workup at [facility]. Will have OT and speech do cognitive testing * Assessment & Plan Note - Urszula Quiroga APRN, C.N.P. - 01/07/2024 3:48 PM CDTAssociated Problem(s): Benign Prostatic Hyperplasia Hypertrophy With Obstruction Continue with Flomax 0.4 mg daily and Proscar 5 mg daily * Assessment & Plan Note - Urszula Quiroga APRN, C.N.P. - 01/07/2024 3:48 PM CDTAssociated Problem(s): Atrial Fibrillation Paroxysmal (HCC) on metoprolol tartrate 100 mg b.i.d.. Blood pressure and pulses are stable. Continue with aspirin 81 mg daily * Assessment & Plan Note - Urszula Quiroga APRN, C.N.P. - 01/07/2024 3:47 PM CDTAssociated Problem(s): Asthma Mild Intermittent (HCC) Continue with Anoro Ellipta, 1 puff Q morning. Patient on Singulair and Flonase nasal spray patienthas albuterol inhaler 2 puffs every 4 hours as needed and keep that at bedside. * Assessment & Plan Note - Urszula Quiroga APRN, C.N.P. - 01/07/2024 3:47 PM CDTAssociated Problem(s): Arthropathy Gouty With Tophus Chronic Patient started on allopurinol 200 mg daily. Will continue to re-evaluate as needed * Assessment & Plan Note - Urszula Quiroga APRN, C.N.P. - 01/07/2024 3:46 PM CDTAssociated Problem(s): Apnea Sleep Obstructive Continue with home CPAP settings, reported that patient does not use CPAP. Continue to monitor and if hypoxic Notify provider for next steps * Assessment & Plan Note - Urszula Quiroga APRN, C.N.P. - 01/07/2024 3:46 PM CDTAssociated Problem(s): Anemia Chronic Last hemoglobin 10.5 on 01/02/2024. Continue with ferrous gluconate 324 mg 1 tablet every Saturday and Saturday. Will continue to monitor documented in this encounter Plan of Treatment Not on file documented as of this encounter Visit Diagnoses Diagnosis Morbid Obesity (HCC)- Primary Other Pulmonary Embolism Without Acute Cor Pulmonale (HCC) Chronic Obstructive Pulmonary Disease Mild (HCC) Chronic Diastolic (Congestive) Heart Failure (HCC) Diabetes Mellitus Type 2 With Diabetic Nephropathy (HCC) Atrial Fibrillation Paroxysmal (HCC) Asthma Mild Intermittent (HCC) Diabetes Mellitus Type 2 (HCC) Problem Related To Housing And Economic Circumstances Unspecified History Of Falling Anemia Chronic Apnea Sleep Obstructive Arthropathy Gouty With Tophus Chronic Benign Prostatic Hyperplasia Hypertrophy With Obstruction Change Mental Status Chronic Kidney Disease Stage 2 Glomerular Filtration Rate 60 To 89 Chronic Pain Syndrome Depression Anxiety Gammopathy Monoclonal Gastroesophageal Reflux Disease Hypokalemia Restless Leg Syndrome Pain Wrist Right Hyperlipidemia Mixed documented in this encounter Additional Health Concerns Assessment Noted Time PHQ-9 Depression Total Score: 3 07/02/20 19 9:35 AM 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 [address] [place] [phone] PCP - General Family Medicine 01/06/24 01/21/24 documented as of this encounter
== END 2024-01-27 14:19 | disposition home or self-care (01) ==
PROVIDERS: PCP Internal Medicine; Visit Provider Internal Medicine
DX: E83.42 Hypomagnesemia (principal); I50.9 Heart failure, unspecified
CPT/HCPCS: 80048; 83735

== ENCOUNTER 2024-03-23 11:53 | Outpatient (CLI) | payer MEDICARE, BC, SELFPAY ==
--- OUTSIDE RECORDS SUMMARY | 2024-03-23 11:57 | XMS_ITS | Clinical Summary ---
Author Organization [employer] Address [facility] [place] [address] Phone Care Team Providers Care Investment Banking Manager Name Role Phone Martine Argueta MD Primary Care Provider Source Comments [employer] is fully rolled out on [employer]. Last update 12/17/08.[employer] Allergies Active Allergy Reactions Criticality Noted Date [...] by mouth twice daily. 60 tablet 04/12/2023 Active aspirin, ASA EC, 81 mg oral tablet Take 1 tablet (81 mg) by mouth daily. 04/15/2023 Active allopurinol (ZYLOPRIM) 100 mg oral TABS Take 2 tablets (200 mg) by mouth daily. 04/15/2023 Active atorvastatin (LIPITOR) 80 mg oral tablet Take 1 tablet (80 mg) by mouth daily. 04/15/2023 Active finasteride (PROSCAR) 5 mg oral TABS Take 1 tablet (5 mg) by mouth daily. 04/15/2023 Active fluticasone propionate (FLONASE) 50 mcg/act nasal suspension 1 spray by Nasal route daily. 04/15/2023 Active isosorbide mononitrate cr (IMDUR) 60 mg oral tablet 24 HR Take 1 tablet (60 mg) by mouth daily. 04/15/2023 Active montelukast (SINGULAIR) 10 mg oral TABS Take 1 tablet (10 mg) by mouth daily. 04/15/2023 Active pantoprazole (PROTONIX) 40 mg oral tablet Take 1 tablet (40 mg) by mouth twice daily. 04/15/2023 Active pramipexole (MIRAPEX) 0.25 mg oral TABS Take 1 tablet (0.25 mg) by mouth at bedtime. 04/15/2023 Active tamsulosin (FLOMAX) 0.4 mg oral capsule Take 1 capsule (0.4 mg) by mouth daily after meal. 04/15/2023 Active Additional Information Patient not taking.Reported on 12/29/2023 sertraline (ZOLOFT) 100 mg oral tablet Take 1 tablet (100 mg) by mouth daily. Active tamsulosin (FLOMAX) 0.4 mg oral capsule Take 1 capsule (0.4 mg) by mouth daily after meal.Take 30 minutes after same meal each day. Do NOT crush or chew. 01/06/2024 Active acetaminophen (TYLENOL) 325 mg oral tablet Take 2 tablets (650 mg) by mouth every 4 hours as needed for Moderate Pain. 01/05/2024 Active budesonide-formoter ol (SYMBICORT) 160-4.5 mcg/puff inhalation inhaler Inhale 1 puff twice daily. 01/05/2024 Active multivitamin + minerals (CEROVITE SENIOR) oral Take 1 tablet by mouth daily. 01/06/2024 Active nystatin externally powder Apply to skin 1 each twice daily as needed (rash). 01/05/2024 Active umeclidinium-vilant matthew (ANORO ELLIPTA) 62.5-25 mcg/ACT inhaler Inhale 1 puff daily. 01/06/2024 Active Active Problems Problem Noted Date Diagnosed Date E coli enteritis 01/01/2024 Type 2 diabetes mellitus wit h diabetic nephropathy, without long-term current use of insulin ([facility]) 01/01/2024 Anemia in chronic kidney disease 12/29/2023 Asthma ([facility]) 12/29/2023 Hypokalemia 04/19/2023 Overview: Last Assessment & Plan: Continue with potassium 40 mEq in the morning and 20 in the afternoon. Chem 8 has been drawn this morning Closed nondisplaced fracture of second cervical vertebra, unspecified fracture morphology, initial encounter ([facility]) 04/06/2023 Severe tricuspid valve regurgitation 11/24/2021 Hypomagnesemia 07/21/2019 Overview: Low serum magnesium Last Assessment & Plan: Magnesium level pending Chronic gout 02/25/2019 Other pulmonary embolism wit hout acute cor pulmonale ([facility]) 02/25/2019 Chronic kidney disease, stage 2 (mild) 9 Overview: Last Assessment & Plan: Avoid nephrotoxic medications. Will be following creatinine Gastrointestinal hemorrhage with melena 12/07/19 Acute on chronic diastolic c ongestive heart failure ([facility]) 09/04/2017 Overview: Acute on chronic heart failure [...] 2 diabetes mellitus wit h diabetic nephropathy ([facility]) 05/06/2017 Overview: Overview: Secondary DM Chronic Renal Disease Stage 2 GFR 60-89 Secondary DM Chronic Renal Disease Stage 2 GFR 60-89 Overview: Secondary DM Chronic Renal Disease Stage 2 GFR 60-89 Last Assessment & Plan: Lab Results Component Value Date HGBA1C 6.3 07/20/2018 Hemoglobin A1c is ordered for today Carotid artery disease ([facility]) 02/20/2016 Postsurgical aortocoronary bypass status 016 Atrial flutter ([facility]) 12/11/2015 Obstructive sleep apnea (adult) (pediatric) 11/13 Overview: Last Assessment & Plan: Continue with home CPAP settings Atherosclerotic heart diseas e of [place] coronary artery without angina pectoris 12/02/2015 Personal history of transien t ischemic attack (TIA), and cerebral infarction without residual deficits 07/20/2015 Overview: Overview: Stroke (CVA) Pers Hx Stroke (CVA) Pers Hx Chronic obstructive pulmonar y disease, unspecified ([facility]) 01/25/2015 Overview: Overview: Disease Lung Obstructive Chronic (COPD) Mild [place] Mild Disease Lung Obstructive Chronic (COPD) Mild [place] Mild Last Assessment & Plan: Started on Anoro Ellipta. Patient did require oxygen while in the hospital. Continue to monitor vital signs and sats per shelter notify if changes occur Paroxysmal atrial fibrillation ([facility]) 012 Overview: Fibrillation Atrial Paroxysmal (PAF) Last Assessment & Plan: Patient started on metoprolol tartrate 100 mg b.i.d.. Blood pressure and pulses are stable Patent foramen ovale ([facility]) 10/05/2005 Hyperlipidemia 07/06/2003 Resolved Problems Problem Noted Date Diagnosed Date Resolved Date Altered mental status, unspe cified altered mental status type 12/29/2023 02/09/2024 Encounters Date Type Department Care Team Description 01/02/2024 [facility] [phone] Luis Alberto Sin DO 12/30/2023 Orders Only [facility] Film Room [facility] Radiology Department [place] [address] [place] [address] Provider, Outside Referral of patient (Primary Dx) 12/29/2023 11:55 AM CDT - 01/06/2024 10:57 AM CDT Hospital Encounter [facility] Medicine [address] [place] [address] Lori Billingsley MD Wieland, MD Joshua Potter, MD León Crystal Rosemary, MD Becker, MD Sandeep Farias, Mitra Dumont MD Hypomagnesemia Discharge Disposition: Discharged/transd to SNF with Medicare certification 12/29/2023 Documentation Only Unspecified Department [place] Unknown, Provider 12/29/2023 Documentation Only Unspecified Department [place] Unknown, Provider 12/29/2023 Documentation Only Unspecified Department [place] Unknown, Provider 12/29/2023 Documentation Only Unspecified Department [place] Unknown, Provider 12/29/2023 Documentation Only Unspecified Department [place] Unknown, Provider 12/29/2023 Documentation Only Unspecified Department [place] Unknown, Provider 12/29/2023 Orders Only [facility] [phone] Dru Bui MD Wrist pain, right (Primary Dx) 12/29/2023 Travel from Last 3 Months Immunizations Name Administration Dates Next Due COVID-19 MRNA Vaccine (Pfizer/COMIRNATY) suspension 01/23/2022,05/30/2021,10/11/2020,2020 COVID-19 Vaccine Monovalent (PFIZER) 12 Years and Older 01/23/2022 Diphtheria and Tetanus Toxoi d - Adult (Grifols Td) 04/27/2001 H1N1 INFLUENZA VACCINE-(3 YE ARS +); 0.5ml 08/22/2009 INFLUENZA VACCINE - MDV (6 MONTHS-ADULT) 04/22/2023,04/25/2015 Influenza Vaccine - (3 Years +) Trivalent 04/25/2012,04/26/2010,05/20/2009,2006,05/28/2006,05/09/2004,04/21/2001,1 07/22/1999,04/26/1999,05/04/1998, 997,07/31/1996,04/24/1996,05/08/1995, Influenza Vaccine - High-Dos e, Trivalent, Preservative Free 05/04/2019,05/06/2017 Influenza Vaccine 6 Months t hrough Adult - Prefilled 04/13/2018,04/10/2018,04/18/2016,2013,04/12/2014,04/02/2013,08/22/2009 Influenza Vaccine, High Dose , Quadrivalent 05/02/2022,04/13/2021,05/02/2020 [...] 1950 Hepatitis C Screening 1950 Sigmoidoscopy 1950 Diabetes Education 1951 Diabetes Eye Exam 1951 Diabetes Foot Exam 1951 Diabetes Microalbumin Screening 1951 Diabetic Education Protocol (CDE) 1951 Diabetic Lab Protocol 1951 Periodontal Maintenance 1964 Medicare Annual Wellness 1968 PREVENTATIVE VISIT 1968 HEALTH MAINTENANCE PROTOCOL 1969 Imm: DTaP/Tdap (3 - Td or Tdap) 04/19/2015 10/18/2014, 10/18/2014, 04/27/2001 Osteoporosis Screening (Dexa Scan) 2015 Imm: Zoster (1 of 2) 10/04/2015 Diabetes HGB A1C Q 3 Months (Goal <7) 10/18/2018 07/20/2018 Colorectal Cancer Screening 12/06/2018 iFOB/FIT 12/06/2018 12/06/2017, 12/06/2017 Imm: Pneumonia greater than 65 years (3 of 3 - PCV) 09/02/2020 09/02/2019, 01/26/2006 Lipid Screening 03/05/2023 03/05/2018 Imm: Flu (#1) 03/15/2024 04/22/2023, 04/14, 04/13/2021, Additional history exists Imm: COVID-19 Completed 12/11/2023, 110 03/2023, 01/23/2022, Additional history exists Imm: HPV Aged Out No longer eligi ble based on patient's age to complete this topic Imm: HepA Aged Out No longer eligi ble based on patient's age to complete this topic Imm: HepB Aged Out No longer eligi ble based on patient's age to complete this topic Imm: Hib Aged Out No longer eligi ble based on patient's age to complete this topic Imm: Meningitis Aged Out No longer el igible based on patient's age to complete this topic Medical Devices Implanted Type Area Tankage Grinder Operator Device Identifier Shelf Expiration Date Model / Serial / Lot Infuse Bmp Small Kit [id number] Implanted:Qty: 1 on 04/09/2023 by Dallas Fontana MD at [facility] Bone Graft N/A: Cervical Posterior 12/13/2024 [id number] / / [id number] D Lateral/Closed [id number] Implanted:Qty: 2 on 04/09/2023 by Alfonzo Wong MD at [facility] Connector N/A: Cervical Posterior [employer] [id number] / / 40mm [id number] Implanted:Qty: 2 on 04/09/2023 by Alfonzo Wong MD at [facility] Doug N/A: Cervical Posterior [employer] [id number] / / 16mm [id number] Implanted:Qty: 2 on 04/09/2023 by Alfonzo Wong MD at [facility] Screw/[place] N/A: Cervical Posterior [employer] [id number] / / Set Screw [id number] Implanted:Qty: 6 on 04/09/2023 by Alfonzo Wong MD at [facility] Screw/[place] N/A: Cervical Posterior [employer] SOFAMOR DANEK [id number] / / Mastergraft Putty Implanted:Qty: 2 on 04/09/2023 by Alfonzo Wong MD at [facility] N/A: Cervical Posterior [employer] 02/11/2026 [id number] / / [id number] Partially Threaded Multi Axial Screw Implanted:Qty: 2 on 04/09/2023 by Alfonzo Wong MD at [facility] N/A: Cervical Posterior [employer] 01/16/2031 [id number] / / [id number] 4.5 X 30 Screw Implanted:Qty: 2 on 04/09/2023 by Alfonzo Wong MD at [facility] N/A: Cervical Posterior [employer] [id number] / / Procedures Procedure Name Priority Date/Time [...] Routine 12/29/2023 8:58 PM CDT PC CULTURE,BACTERIAL,DEFI RED DEVIL,AEROBIC;BLOOD STAT 12/29/2023 7:01 PM CDT PC CULTURE,BACTERIAL,DEFI RED DEVIL,AEROBIC;BLOOD STAT 12/29/2023 7:01 PM CDT CK, TOTAL [...] of patient CT SPINE OUTSIDE FILMS Routine 8:05 PM CDT Referral of patient CT HEAD OUTSIDE FILMS Routine 12/28/2023 8:05 PM CDT Referral of patient from Last 3 Months Results * (ABNORMAL) PANEL BASIC METABOLIC (BMP) (01/06/2024 8:52 AM CDT) Only the most recent of8 resultswithin the time period is included. Sodium 136 135 - 148 mmol/L [facility] Potassium 3.5 3.5 - 5.3 mmol/L [facility] Chloride 96 92 - 108 mmol/L [facility] CO2 26 22 - 30 mmol/L [facility] AnGap 14 8 - 16 mmol/L [facility] Glucose 98 70 - 100 mg/dL [facility] BUN 29(H) 8 - 23 mg/dL [facility] Creatinine 1.38(H) 0.70 - 1.25 mg/dL [facility] Calcium 9.2 8.8 - 10.2 mg/dL [facility] eGFR (2020 CKD-EPI) 54(L) >=60 ml/min/1.7 3m2 [facility] Comment: The estimated glomerular filtration rate (eGFR) was calculated using the CKD-EPI 2020 creatinine equation, which does not include race as a factor. This equation is validated in individuals 18 years of age and older, and eGFR is normalized to a body surface area of 1.73m^2. Blood 01/06/2024 8:52 AM CDT 01/06/2024 9:17 AM CDT Mauricio Simpson MD LABORATORY Performing Organization Address City/[facility] Co de Phone Number [address] [address] * ADVANCE DIRECTIVES (01/04/2024 9:55 AM CDT) Him Provider ADVANCED DIRECTIVES * LEGAL (01/04/2024 8:59 AM CDT) Narrative 01/04/2024 8:59 AM CDT Ordered by an unspecified provider. Provider Unknown SCANNED CONSENTS * PHOSPHORUS (01/04/2024 4:00 AM CDT) Only the most recent of6 resultswithin the time period is included. Phosphorus 3.0 2.5 - 4.5 mg/dL [facility] Blood 01/04/2024 4:00 AM CDT 01/04/2024 4:14 AM CDT Mauricio Simpson MD LABORATORY Performing Organization Address [facility] Co de Phone Number [address] [address] * MAGNESIUM (01/04/2024 4:00 AM CDT) Only the most recent of7 resultswithin the time period is included. Magnesium 1.7 1.6 - 2.4 mg/dL [facility] Blood 01/04/2024 4:00 AM CDT 01/04/2024 4:14 AM CDT Mauricio Simpson MD LABORATORY Performing Organization Address City/[facility]/ZIP Co de Phone Number [facility] [address] [address] * (ABNORMAL) CBC WITH PLATELET (01/02/2024 6:01 AM CDT) Only the most recent of4 resultswithin the time period is included. WBC 7.22 4.00 - 10.00 k/cmm [facility] RBC 3.68(L) 4.60 - 6.00 m/cmm [facility] Hgb 10.5(L) 13.1 - 17.5 g/dL [facility] Hematocrit 33.0(L) 40.0 - 51.0 % [facility] MCV 89.7 80.0 - 100.0 fL [facility] MCH 28.5 25.0 - 32.0 pg [facility] MCHC 31.8 31.0 - 36.0 g/dL [facility] RDW 14.8(H) 11.5 - 14.5 % [facility] Plt 299 150 - 400 k/cmm [facility] MPV 10.3 6.5 - 12.5 fL [facility] Blood 01/02/2024 6:01 AM CDT 01/02/2024 6:11 AM CDT Mauricio Simpson MD LABORATORY Performing Organization Address City/[facility]/ZIP Co de Phone Number [facility] [address] [address] * ULT VENOUS UPPER EXTREMITY RIGHT (12/30/2023 [...] Reading Radiologist: Matias Lenz Reading Resident: Gaston Conrteras Mauricio Simpson MD RAD ULT * EXTERNAL MED REC-IMAGING (12/30/2023 4:01 PM CDT) Only the most recent of6 resultswithin the time period is included. Anatomical Region Laterality Modality Other Narrative 12/30/2023 4:01 PM CDT Ordered by an unspecified provider. Provider Unknown RAD CT BODY * (ABNORMAL) STOOL GI PANEL (12/30/2023 12:35 PM CDT) Campylobacter DNA Not Detected Not Detected [facility] Plesiomonas shigelloides DNA Not Detected Not Detected [facility] Salmonella DNA Not Detected Not Detected [facility] Vibrio DNA Not Detected Not Detected [facility] Vibrio cholerae DNA Not Detected Not Detected [facility] Yersinia enterocolitica DNA Not Detected Not Detected [facility] Enteroaggregative Escherichia coli DNA Not Detected Not Detected [facility] Enteropathogenic Escherichia coli DNA Detected(A) Not Detected [facility] Enterotoxogenic Escherichia coli DNA Not Detected Not Detected [facility] Shiga-like toxin-producing E. coli stx1/stx2 DNA Not Detected Not Detected [facility] Escherichia coli 0157 DNA Not Reported Not Detected [facility] Shigella/Enteroinvas patricia E coli DNA Not Detected Not Detected [facility] Cryptosporidium DNA Not Detected Not Detected [facility] Cyclospora cayetanensis DNA Not Detected Not Detected [facility] Entamoeba histolytica DNA Not Detected Not Detected [facility] Giardia duodenalis DNA Not Detected Not Detected [facility] Adenovirus F 40/41 DNA Not Detected Not Detected [facility] Astrovirus RNA Not Detected Not Detected [facility] Norovirus GI/GII RNA Not Detected Not Detected [facility] Rotavirus RNA Not Detected Not Detected [facility] Sapovirus (I, II, IV, V) RNA Not Detected Not Detected [facility] Comment:This is a multiplex reverse transcriptase two-stage PCR nucleic acid assay. This gastrointestinal panel is FDA approved. Feces 12/30/2023 12:3 5 PM CDT 12/30/2023 1:48 PM CDT Narrative [facility] - 12/30/2023 3:37 PM CDT Critical value for Stool GI panel electronically reported to and acknowledged by Kerri Evans MD in [address] at 12/30/2023 15:37:34 CDT by Paul Guzman MLS. Mauricio Simpson MD LAB MICROBIOLOGY [facility] [address] [address] * CT OUTSIDE READ MSK/NON NEURO (12/30/2023 [...] carpi ulnaris tenosynovitis. Reading Radiologist: Alejandro Ocampo Narrative 12/30/2023 12:06 PM CDT Indication: ??Patient transferred from [facility]. ??No initial report accompanied the patient and/or Dr. ??MAURICIO SIMPSON requested an interpretation by me. Technique: ??CT scan of the right wrist done on 12/28/23 with IV contrast. ??3 mm axial, sagittal and coronal reconstructions reviewed in soft tissue and bone windows, per the local institution's scanning protocols, which may differ from the [facility] trauma protocols. Findings: ?? Bones and joints: [...] MD - 12/30/2023 Indication: Patient transferred from [facility]. No initialreport accompanied the patient and/or Dr. MAURICIO SIMPSON requested aninterpretation by me. Technique: CT scan of the right wrist done on 12/28/23 with IV contrast.3 mm axial, sagittal and coronal reconstructions reviewed in soft tissueand bone windows, per the local institution's scanning protocols, whichmay differ from the [facility] trauma protocols. Findings: Bones and joints: Chondrocalcinosis [...] Simpson MD RAD CT BODY * VITAMIN P14-HAQPOR TO MMA (12/30/2023 10:01 AM CDT) B12 922 211 - 946 pg/mL [facility] Blood 12/30/2023 10:0 1 AM CDT 12/30/2023 10:28 AM CDT Dimas Resendiz MD LABORATORY Performing Organization Address City/[facility]/ZIP Co de Phone Number [facility] [address] [address] * TSH WITH REFLEX TO FREE T4 (12/30/2023 10:01 AM CDT) TSH 1.33 0.27 - 4.20 mIU/L [facility] Blood 12/30/2023 10:0 1 AM CDT 12/30/2023 10:27 AM CDT Dimas Resendiz MD LABORATORY [facility] [address] [address] * HIV COMBO (12/30/2023 10:01 AM CDT) HIV Antigen-Antibody Nonreactive Nonreactive [facility] Comment:Performance characte ristics have not been established with this test on patients less than 2 years of age. Blood 12/30/2023 10:0 1 AM CDT 12/30/2023 10:27 AM CDT Dimas Resendiz MD LABORATORY [facility] [address] [address] * RETIC COUNT (12/30/2023 10:01 AM CDT) Retic Count 1.2 0.5 - 1.8 % [facility] Blood 12/30/2023 10:0 1 AM CDT 12/30/2023 10:27 AM CDT Dimas Resendiz MD LABORATORY Performing Organization Address [facility] Co de Phone Number [facility] [address] [address] * (ABNORMAL) PANEL HEPATIC FUNCTION (12/30/2023 10:01 AM CDT) Only the most recent of2 resultswithin the time period is included. [facility] Total Protein 7.0 6.4 - 8.3 g/dL [facility] Albumin 3.2(L) 3.8 - 5.1 g/dL [facility] Bili Total 0.8 <=1.2 mg/dL [facility] Bili Direct 0.4(H) <=0.3 mg/dL [facility] Alk Phos 72 40 - 129 IU/L [facility] Comment:No reference range e stablished for patients <18 years old. ALT (SGPT) 8 <=41 IU/L [facility] AST(SGOT) 13 5 - 40 IU/L [facility] Blood 12/30/2023 10:0 1 AM CDT 12/30/2023 10:27 AM CDT Lori Billingsley MD LABORATORY Performing Organization Address City/[facility]/ZIP Co de Phone Number [facility] [address] [address] * LD (LDH) (12/30/2023 1:21 AM CDT) Pathologist [facility] LD 216 135 - 225 IU/L [facility] Blood 12/30/2023 1:21 AM CDT 12/30/2023 1:28 AM CDT Dimas Resendiz MD LABORATORY Performing Organization Address [facility] Co de Phone Number [address] [address] * POTASSIUM (12/30/2023 1:21 AM CDT) Potassium 4.3 3.5 - 5.3 mmol/L [facility] Blood 12/30/2023 1:21 AM CDT 12/30/2023 1:28 AM CDT Dimas Resendiz MD LABORATORY Performing Organization Address [facility] de Phone Number [address] [address] * (ABNORMAL) HAPTOGLOBIN (12/30/2023 1:21 AM CDT) Haptoglobin 400(H) 32 - 197 mg/dL [facility] Blood 12/30/2023 1:21 AM CDT 12/30/2023 1:28 AM CDT Dimas Resendiz MD LABORATORY Performing Organization Address [facility] de Phone Number [address] [address] * ULT GALLBLADDER (12/29/2023 10:24 PM CDT) [...] Uric Acid 4.6 3.4 - 7.0 mg/dL [facility] Blood 12/29/2023 10:2 4 PM CDT 12/29/2023 10:34 PM CDT Dafne Holcomb PA-C LABORATORY [facility] [address] [address] * ED US ABDOMINAL/GALLBLADDER (12/29/2023 9:31 PM [...] pulmonary arterial embolism. Reading Radiologist: Xin Moy Narrative 12/29/2023 9:16 PM CDT Exam: CT of the chest, abdomen and pelvis. Comparison: No Indication: sepsis, rising bili, possible cholangitis ?? Technique: Volumetric helical acquisition of CT images from the lung apices through symphysis pubis after the administration of intravenous contrast. DOSE: ?Total DLP = 1064.6 mGy.cm (accession [id number]), 462 mGy.cm (accession [id number]). ?? Findings: FINDINGS: Beam hardening artifact limits [...] DOSE: Total DLP = 1064.6 mGy.cm (accession [id number]), 462 mGy.cm(accession [id number]). Findings: FINDINGS: Beam hardening artifact limits evaluation [...] pulmonary arterial embolism. Reading Radiologist: Xin Moy Narrative 12/29/2023 9:16 PM CDT Exam: CT of the chest, abdomen and pelvis. Comparison: No Indication: sepsis, rising bili, possible cholangitis ?? Technique: Volumetric helical acquisition of CT images from the lung apices through symphysis pubis after the administration of intravenous contrast. DOSE: ?Total DLP = 1064.6 mGy.cm (accession [id number]), 462 mGy.cm (accession [id number]). ?? Findings: FINDINGS: Beam hardening artifact limits [...] DOSE: Total DLP = 1064.6 mGy.cm (accession [id number]), 462 mGy.cm(accession [id number]). Findings: FINDINGS: Beam hardening artifact limits evaluation [...] PM CDT) 6H Trop 20 <=35 ng/L [facility] 6H Delta Not Significant Not Significant [facility] Blood 12/29/2023 7:01 PM CDT 12/29/2023 7:49 PM CDT Lori Billingsley MD LABORATORY [facility] [address] [address] * (ABNORMAL) ED CHEMISTRY LABS(NA,K,CL,CO2,GLU,CREAT,CA-IONIZED,ANION GAP) (12/29/2023 7:01 PM CDT) Only the most recent of2 resultswithin the time period is included. Sodium 140 135 - 148 mmol/L [facility] Chloride 101 92 - 108 mmol/L [facility] AnGap 11 8 - 16 mmol/L [facility] Glucose 126(H) 70 - 100 mg/dL [facility] ICA, Actual 4.47 4.40 - 5.20 mg/dL [facility] ICA, pH Corrected 4.52 4.40 - 5.20 mg/dL [facility] Creatinine 1.05 0.70 - 1.25 mg/dL [facility] BICARB 28(H) 22 - 26 mEq/L [facility] eGFR (2020 CKD-EPI) 75 >=60 ml/min/1.7 3m2 [facility] Comment: The estimated glomerular filtration rate (eGFR) was calculated using the CKD-EPI 2020 creatinine equation, which does not include race as a factor. This equation is validated in individuals 18 years of age and older, and eGFR is normalized to a body surface area of 1.73m^2. Potassium 3.2(L) 3.5 - 5.3 mmol/L [facility] Blood 12/29/2023 7:01 PM CDT 12/29/2023 7:25 PM CDT Dafne Holcomb PA-C LABORATORY Performing Organization Address [facility] Co de Phone Number [facility] [address] [address] * LACTATE (LACTIC ACID) (12/29/2023 7:01 PM CDT) Only the most recent of3 resultswithin the time period is included. Lactate 1.0 0.7 - 2.1 mmol/L [facility] Blood 12/29/2023 7:01 PM CDT 12/29/2023 7:25 PM CDT Narrative [facility] - 12/29/2023 7:26 PM CDT Send specimen on ice! Dafne Holcomb PA-C LABORATORY Performing Organization Address City/[facility]/ZIP Co de Phone Number [facility] [address] [address] * CK, TOTAL (12/29/2023 7:01 PM CDT) CK 95 39 - 308 IU/L [facility] Blood 12/29/2023 7:01 PM CDT 12/29/2023 10:12 PM CDT Dafne Holcomb PA-C LABORATORY Performing Organization Address City/State/[facility] Co de Phone Number [address] [address] * BLOOD AEROBIC/ANAEROBIC CULTURE (12/29/2023 7:01 PM CDT) Only the most recent of2 resultswithin the time period is included. Final Report No growth after 5 days. [facility] Blood (Peripheral) 12/29/2023 7:01 PM CDT 12/30/2023 1:44 AM CDT Dafne Holcomb PA-C LAB MICROBIOLOGY Performing Organization Address [facility] Co de Phone Number [address] [address] * (ABNORMAL) ED POTASSIUM (12/29/2023 5:35 PM CDT) Potassium 3.3(L) 3.5 - 5.3 mmol/L [facility] Blood 12/29/2023 5:35 PM CDT 12/29/2023 5:47 PM CDT Rey Brady MD LABORATORY Performing Organization Address [facility] Co de Phone Number [address] [address] * ED US CARDIAC (12/29/2023 4:51 PM CDT) Anatomical Region Laterality Modality Ultrasound Narrative 12/29/2023 8:21 PM CDT ED Cardiac Ultrasound Body Areas Imaged: Heart, Chest Wall/Lungs, and Inferior Vena Cava Indications:Tachycardia Window: Subxiphoid, Parasternal Short Bowbells, Parasternal Long Bowbells, Apical 4-Chamber, IVC, and Bilateral Lungs Findings: [...] (12/29/2023 4:28 PM CDT) Procalcitonin 0.62 ng/mL [facility] Comment: Results <0.50 ng/mL represent a low risk of severe sepsis and/or septic shock. Results >2.0 ng/mL represent a high risk of severe sepsis and/or septic shock. Blood 12/29/2023 4:28 PM CDT 12/29/2023 5:08 PM CDT Dafne Holcomb PA-C LABORATORY [facility] [address] [address] * TROP 4H (12/29/2023 4:28 PM CDT) 4H Trop 19 <=35 ng/L [facility] 4H Delta Not Significant Not Significant [facility] Blood 12/29/2023 4:28 PM CDT 12/29/2023 5:08 PM CDT Lori Billingsley MD LABORATORY [facility] [address] [address] * TROP 2H (12/29/2023 2:32 PM CDT) 2H Trop 21 <=35 ng/L [facility] 2H Delta Not Significant Not Significant [facility] Blood 12/29/2023 2:32 PM CDT 12/29/2023 2:40 PM CDT Lori Billingsley MD LABORATORY Performing Organization Address [facility] Co de Phone Number [facility] [address] [address] * (ABNORMAL) URINE DRUG SCREEN (12/29/2023 1:40 PM CDT) Acetaminophen Ur POS(A) <=10 mcg/mL [facility] Amphetamine Ur NEG <=500 ng/mL [facility] Barbiturate Ur NEG <=200 ng/mL [facility] Benzodiazipine NEG <=100 ng/mL [facility] Buprenorphine Ur NEG <=5 ng/mL [facility] Cocaine Metab Ur NEG <=300 ng/mL [facility] Fentanyl, Urine NEG <=4 ng/mL [facility] LSD Ur NEG <=500 pg/mL [facility] Methadone Ur NEG <=300 ng/mL [facility] Opiate Ur NEG <=300 ng/mL [facility] Oxycodone Ur NEG <=100 ng/mL [facility] PCP Urine NEG <=25 ng/mL [facility] Propox Ur NEG <=300 ng/mL [facility] Salicylate Ur NEG <=10 mg/dL [facility] Creat Urine 89 >=20 mg/dL [facility] Mass Spectrometry Urine Acetaminophen , Diphenhydrami ne, Sertraline and Sertraline metabolite present. [facility] Urine 12/29/2023 1:40 PM CDT 12/31/2023 1:51 AM CDT Dimas Resendiz MD LABORATORY Performing Organization Address [facility] Co de Phone Number [facility] [address] [address] * URINE CULTURE (12/29/2023 1:40 PM CDT) Urine Cult No growth. [facility] Urine Cath URINE / Unknown 12/29/2023 1 :40 PM CDT 12/29/2023 2:40 PM CDT Narrative [facility] - 12/30/2023 12:27 PM CDT ED Patient: Yes Lori Billingsley MD LAB MICROBIOLOGY Performing Organization Address City/[facility]/ZIP Co de Phone Number [facility] [address] [address] * (ABNORMAL) URINALYSIS,TOTAL (12/29/2023 1:40 PM CDT) Color YELLOW YELLOW [facility] Appearance CLEAR CLEAR [facility] Urine Glucose NEGATIVE NEGATIVE mg/dL [facility] Bili UA NEGATIVE NEGATIVE [facility] Ketones NEGATIVE NEGATIVE [facility] Specific Boyd 1.039(A) 1.003 - 1.030 [facility] Blood Ur SMALL(A) Neg-Trace [facility] PH Urine 6.0 5.0 - 7.0 [facility] Protein Ur 70(A) Neg-Trace [facility] Urobilinogen NORMAL NORMAL EU/dL [facility] Nitrite Ur NEGATIVE NEGATIVE [facility] Leuk Est NEGATIVE Neg-Trace [facility] WBC Ur 0-5 0 - 5 perHPF [facility] RBC Ur 0-3 0 - 3 perHPF [facility] Urinalysis Performed at: [facility] Urine 12/29/2023 1:40 PM CDT 12/29/2023 1:45 PM CDT Lori Billingsley MD LABORATORY Performing Organization Address [facility] Co de Phone Number [facility] [address] [address] * HS TROPONIN (12/29/2023 1:15 PM CDT) Pathologist [facility] HS Troponin I 23 <=35 ng/L [facility] Blood 12/29/2023 1:15 PM CDT 12/29/2023 1:24 PM CDT Narrative [facility] - 12/29/2023 1:52 PM CDT If ordering as an add-on lab, you must call the lab. Lori Billingsley MD LABORATORY Performing Organization Address City/[facility]/ZIP Co de Phone Number [facility] [address] [address] * BUN (UREA NITROGEN) (12/29/2023 1:15 PM CDT) BUN 17 8 - 23 mg/dL [facility] Blood 12/29/2023 1:15 PM CDT 12/29/2023 1:24 PM CDT Lori Billingsley MD LABORATORY Performing Organization Address [facility] Co de Phone Number [facility] [address] [address] * (ABNORMAL) SED RATE (ESR) (12/29/2023 1:15 PM CDT) Sed Rate 120(H) 2 - 10 mm/hr [facility] Blood 12/29/2023 1:15 PM CDT 12/29/2023 2:04 PM CDT Lori Billingsley MD LABORATORY Performing Organization Address [facility] de Phone Number [facility] [address] [address] * RPR SYPHILIS SCREEN (12/29/2023 1:15 PM CDT) RPR Screen Non-Reactive Non-Reacti ve [facility] RPR Titer Not Reflexed [facility] Blood 12/29/2023 1:15 PM CDT 12/29/2023 1:24 PM CDT Lori Billingsley MD LABORATORY Performing Organization Address [facility] Co de Phone Number [facility] [address] [address] * (ABNORMAL) AMMONIA (12/29/2023 1:15 PM CDT) Ammonia 13(L) 16 - 60 mcmol/L [facility] Blood 12/29/2023 1:15 PM CDT 12/29/2023 1:25 PM CDT Narrative [facility] - 12/29/2023 1:50 PM CDT Send specimen on ice! Lori Billingsley MD LABORATORY [facility] [address] [address] * LIPASE (12/29/2023 1:15 PM CDT) Lipase 30 13 - 60 IU/L [facility] Blood 12/29/2023 1:15 PM CDT 12/29/2023 1:24 PM CDT Lori Billingsley MD LABORATORY Performing Organization Address City/[facility]/ZIP Co de Phone Number [address] [address] * (ABNORMAL) BLOOD GASES (12/29/2023 1:15 PM CDT) PH Greg 7.46(H) 7.32 - 7.42 [facility] PCO2 Greg 40(L) 41 - 51 mmHG [facility] PO2 Greg 39 25 - 40 mmHG [facility] Bicarb Greg 28 24 - 28 mEq/L [facility] O2 Sat Greg 73 % [facility] Base Exc Greg 3.4(H) -10.0 - 2.0 mmol/L [facility] Blood Venous 12/29/2023 1:15 PM CDT 12/29/2023 1:21 PM CDT Lori Billingsley MD LABORATORY Performing Organization Address City/[facility]/ZIP Co de Phone Number [facility] [address] [address] * (ABNORMAL) C-REACTIVE PROTEIN (12/29/2023 1:15 PM CDT) C-Reactive Protein 229(H) <=4 mg/L [facility] Blood 12/29/2023 1:15 PM CDT 12/29/2023 2:04 PM CDT Lori Billingsley MD LABORATORY [facility] [address] [place] [address] * ED EKG (12-LEAD) (12/29/2023 12:43 PM CDT) 12/29/2023 12:4 3 PM CDT Impressions [facility] CVIS EKG ORDERS - 12/29/2023 12:43 PM CDT ATRIAL FIBRILLATION INCOMPLETE RIGHT BUNDLE BRANCH BLOCK ??[90+ ms QRS DURATION, TERMINAL R IN V1/V2, 40+ ms S IN I/aVL/V4/V5/V6] MODERATE ST DEPRESSION ??[0.05+ mV ST DEPRESSION] ABNORMAL ECG P-R Interval 0 ms QRS Interval 98 ms QT Interval 374 ms QTC Interval 428 ms P Bowbells undef QRS Bowbells 22 T Wave Bowbells 40 Narrative Procedure Note Jose C Quintero MD - 12/29/2023 IMPRESSION ATRIAL FIBRILLATION INCOMPLETE RIGHT BUNDLE BRANCH BLOCK [90+ ms QRS DURATION, TERMINAL R INV1/V2, 40+ ms S IN I/aVL/V4/V5/V6] MODERATE ST DEPRESSION [0.05+ mV ST DEPRESSION] ABNORMAL ECG P-R Interval 0 ms QRS Interval 98 ms QT Interval 374 ms QTC Interval 428 ms P Bowbells undef QRS Bowbells 22 T Wave Bowbells 40 Lori Billingsley MD EKG Performing Organization Address [facility] de Phone [facility] * EXTRA TUBE - DARK GREEN (12/29/2023 12:15 PM CDT) DARK GREEN TUBE Stored [facility] Comment:Dark Green tubes (Li thium Heparin) are stored in the lab for 1 day from the collection date. Blood 12/29/2023 12:1 5 PM CDT 12/29/2023 1:23 PM CDT Lori Billingsley MD LABORATORY Performing Organization Address [facility] Co de Phone Number [facility] [address] [place] [phone] * EXTRA TUBE - LIGHT GREEN (12/29/2023 12:15 PM CDT) LIGHT GREEN TUBE Stored [facility] Comment:Green tubes ([place] Heparin) are stored in the lab for 3 days from the collection date. Blood 12/29/2023 12:1 5 PM CDT 12/29/2023 1:23 PM CDT Lori Billingsley MD LABORATORY [facility] [address] [address] * (ABNORMAL) CBC WITH PLTS/AUTO DIFF (12/29/2023 12:15 PM CDT) Pathologist [facility] WBC 8.86 4.00 - 10.00 k/cmm [facility] RBC 3.70(L) 4.60 - 6.00 m/cmm [facility] Hgb 10.6(L) 13.1 - 17.5 g/dL [facility] Hematocrit 33.0(L) 40.0 - 51.0 % [facility] MCV 89.2 80.0 - 100.0 fL [facility] MCH 28.6 25.0 - 32.0 pg [facility] MCHC 32.1 31.0 - 36.0 g/dL [facility] RDW 14.7(H) 11.5 - 14.5 % [facility] Plt 216 150 - 400 k/cmm [facility] MPV 11.0 6.5 - 12.5 fL [facility] Automated Abs Neutrophil 7.46(H) 1.70 - 6.50 k/cmm [facility] Comment:Preliminary ANC, Fin al Result to Follow Abs Immature Granulocyte 0.03 0.00 - 0.09 k/cmm [facility] Comment:The Immature Granulo cyte Absolute count contains metamyelocytes and myelocytes. Abs Neutrophil 7.46(H) 1.70 - 6.50 k/cmm [facility] Abs Lymphocyte 0.75(L) 0.80 - 4.00 k/cmm [facility] Abs Monocyte 0.58 0.20 - 1.00 k/cmm [facility] Abs Eosinophil 0.02 0.00 - 0.60 k/cmm [facility] Abs Basophil 0.02 0.00 - 0.20 k/cmm [facility] Blood 12/29/2023 12:1 5 PM CDT 12/29/2023 1:44 PM CDT Lori Billingsley MD LABORATORY Performing Organization Address [facility] Co de Phone Number [facility] [address] [address] * (ABNORMAL) PROTHROMBIN (PT) & INR (12/29/2023 12:15 PM CDT) PT 15.6(H) 9.0 - 12.5 sec [facility] INR 1.4(H) 0.8 - 1.1 [facility] Comment: Warfarin Therapeutic Range: Standard Intensity: 2.0 - 3.0 High Intensity: 2.5 - 3.5 Blood 12/29/2023 12:1 5 PM CDT 12/29/2023 1:44 PM CDT Lori Billingsley MD LABORATORY Performing Organization Address City/[facility] Co de Phone Number [facility] [address] [address] * XR CHEST OUTSIDE FILMS (12/28/2023 9:26 PM CDT) Ernestine User, [id number] - 12/30/2023 6:28 AM CDT Outside Film Only Outside Provider RAD OUTSIDE FILMS * XR UPPER EXTREMITY OUTSIDE FILMS (12/28/2023 8:29 PM CDT) Only the most recent of2 resultswithin the time period is included. 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 Not discussed Care Teams Investment Banking Manager Relationship Specialty Start Date End Date Martine Argueta MD [address] [place] [address] PCP - General Internal Medicine 04/08/23
--- OUTSIDE RECORDS SUMMARY | 2024-03-23 11:58 | XMS_ITS | Referral Summary ---
Author Organization [facility] Address [address] [place] [address] Phone Care Team Providers Care Mems Process Engineer Name Role Phone Martine Argueta MD Primary Care Provider Source Comments [employer] is fully rolled out on [employer]. Last update 12/17/08.[facility] Encounters Date Type Department Care Team Description 12/29/2023 11:55 AM CDT - 01/06/2024 10:57 AM CDT Hospital Encounter [facility] [address] [place] [address] Lori Billingsley MD Wieland, MD Joshua Potter, MD León Crystal Rosemary, MD Becker, MD Sandeep Farias, Mitra Dumont MD Hypomagnesemia Discharge Disposition: Discharged/transd to SNF with Medicare certification 01/02/2024 [facility] [place] [phone] Luis Alberto Sin, 12/30/2023 Orders Only [facility] Film Room [facility] Radiology Department [facility] [address] [place], [place] [address] Provider, Outside Referral of patient (Primary Dx) 12/29/2023 Documentation Only Unspecified Department [place] Unknown, Provider 12/29/2023 Documentation Only Unspecified Department [place] Unknown, Provider 12/29/2023 Documentation Only Unspecified Department [place] Unknown, Provider 12/29/2023 Documentation Only Unspecified Department [place] Unknown, Provider 12/29/2023 Documentation Only Unspecified Department [place] Unknown, Provider 12/29/2023 Documentation Only Unspecified Department [place] Unknown, Provider 12/29/2023 Orders Only [facility] [place] [phone] Dru Bui MD Wrist pain, right (Primary Dx) 12/29/2023 Travel from Last 3 Months Allergies Active Allergy [...] nephropathy, without long-term current use of insulin ([facility]) 01/01/2024 Anemia in chronic kidney disease 12/29/2023 Asthma ([facility]) 12/29/2023 Hypokalemia 04/19/2023 Overview: Last Assessment & Plan: Continue with potassium 40 mEq in the morning and 20 in the afternoon. Chem 8 has been drawn this morning Closed nondisplaced fracture of second cervical vertebra, unspecified fracture morphology, initial encounter ([facility]) 04/06/2023 Severe tricuspid valve regurgitation 11/24/2021 Hypomagnesemia 07/21/2019 Overview: Low serum magnesium Last Assessment & Plan: Magnesium level pending Chronic gout 02/25/2019 Other pulmonary embolism wit hout acute cor pulmonale ([facility]) 02/25/2019 Chronic kidney disease, stage 2 (mild) 9 Overview: Last Assessment & Plan: Avoid nephrotoxic medications. 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 ([facility]) 05/06/2017 Overview: Overview: Secondary DM Chronic Renal Disease Stage 2 GFR 60-89 Secondary DM Chronic Renal Disease Stage 2 GFR 60-89 Overview: Secondary DM Chronic Renal Disease Stage 2 GFR 60-89 Last Assessment & Plan: Lab Results Component Value Date HGBA1C 6.3 07/20/2018 Hemoglobin A1c is ordered for today Carotid artery disease ([facility]) 02/20/2016 Postsurgical aortocoronary bypass status 016 Atrial flutter ([facility]) 12/11/2015 Obstructive sleep apnea (adult) (pediatric) 11/13 Overview: Last Assessment & Plan: Continue with home CPAP settings Atherosclerotic heart diseas e of [place] coronary artery without angina pectoris 12/02/2015 Personal history of transien t ischemic attack (TIA), and cerebral infarction without residual deficits 07/20/2015 Overview: Overview: Stroke (CVA) Pers Hx Stroke (CVA) Pers Hx Chronic obstructive pulmonar y disease, unspecified ([facility]) 01/25/2015 Overview: Overview: Disease Lung Obstructive Chronic (COPD) Mild [place] Mild Disease Lung Obstructive Chronic (COPD) Mild [place] Mild Last Assessment & Plan: Started on Anoro Ellipta. Patient did require oxygen while in the hospital. Continue to monitor vital signs and sats per residential notify if changes occur Paroxysmal atrial fibrillation ([facility]) 012 Overview: Fibrillation Atrial Paroxysmal (PAF) Last Assessment & Plan: Patient started on metoprolol tartrate 100 mg b.i.d.. Blood pressure and pulses are stable Patent foramen ovale ([facility]) 10/05/2005 Hyperlipidemia 07/06/2003 Resolved Problems Problem Noted Date Diagnosed Date Resolved Date Altered mental status, unspe cified altered mental status type 12/29/2023 02/09/2024 Immunizations Name Administration Dates Next Due COVID-19 [...] on file Medical Devices Implanted Type Area Special Loan Officer Device Identifier Shelf Expiration Date Model / Serial / Lot Infuse Bmp Small Kit [id number] Implanted:Qty: 1 on 04/09/2023 by Dallas Fontana MD at [facility] Bone Graft N/A: Cervical Posterior 12/13/2024 [id number] / / [id number] Lateral/Closed [id number] Implanted:Qty: 2 on 04/09/2023 by Alfonzo Wong MD at [facility] Connector N/A: Cervical Posterior [employer] [id number] / / 40mm [id number] Implanted:Qty: 2 on 04/09/2023 by Alfonzo Wong MD at [facility] Doug N/A: Cervical Posterior [employer] [id number] / / 16mm [id number] Implanted:Qty: 2 on 04/09/2023 by Alfonzo Wong MD at [facility] Screw/[place] N/A: Cervical Posterior [employer] [id number] / / Set Screw [id number] Implanted:Qty: 6 on 04/09/2023 by Alfonzo Wong MD at [facility] Screw/[place] N/A: Cervical Posterior [employer] SOFAMOR DANEK [id number] / / Mastergraft Putty Implanted:Qty: 2 on 04/09/2023 by Alfonzo Wong MD at [facility] N/A: Cervical Posterior [employer] 02/11/2026 [id number] / / [id number] Partially Threaded Multi Axial Screw Implanted:Qty: 2 on 04/09/2023 by Alfonzo Wong MD at [facility] N/A: Cervical Posterior [employer] 01/16/2031 [id number] / / [id number] 4.5 X 30 Screw Implanted:Qty: 2 on 04/09/2023 by Alfonzo Wong MD at [facility] N/A: Cervical Posterior [employer] [id number] / / Procedures Procedure Name Priority Date/Time [...] Routine 12/29/2023 8:58 PM CDT PC CULTURE,BACTERIAL,DEFI METLAKATLA,AEROBIC;BLOOD STAT 12/29/2023 7:01 PM CDT PC CULTURE,BACTERIAL,DEFI METLAKATLA,AEROBIC;BLOOD STAT 12/29/2023 7:01 PM CDT CK, TOTAL [...] included. Sodium 136 135 - 148 mmol/L [facility] Potassium 3.5 3.5 - 5.3 mmol/L [facility] Chloride 96 92 - 108 mmol/L [facility] CO2 26 22 - 30 mmol/L [facility] AnGap 14 8 - 16 mmol/L [facility] Glucose 98 70 - 100 mg/dL [facility] BUN 29(H) 8 - 23 mg/dL [facility] Creatinine 1.38(H) 0.70 - 1.25 mg/dL [facility] Calcium 9.2 8.8 - 10.2 mg/dL [facility] eGFR (2020 CKD-EPI) 54(L) >=60 ml/min/1.7 3m2 [facility] Comment: The estimated glomerular filtration rate (eGFR) was calculated using the CKD-EPI 2020 creatinine equation, which does not include race as a factor. This equation is validated in individuals 18 years of age and older, and eGFR is normalized to a body surface area of 1.73m^2. Blood 01/06/2024 8:52 AM CDT 01/06/2024 9:17 AM CDT Mauricio Simpson MD LABORATORY [address] [address] * ADVANCE DIRECTIVES (01/04/2024 9:55 AM CDT) Him Provider ADVANCED DIRECTIVES * LEGAL (01/04/2024 8:59 AM CDT) Narrative 01/04/2024 8:59 AM CDT Ordered by an unspecified provider. Provider Unknown SCANNED CONSENTS * PHOSPHORUS (01/04/2024 4:00 AM CDT) Only the most recent of6 resultswithin the time period is included. Phosphorus 3.0 2.5 - 4.5 mg/dL [facility] Blood 01/04/2024 4:00 AM CDT 01/04/2024 4:14 AM CDT Mauricio Simpson MD LABORATORY Performing Organization Address City/[facility]/ZIP Co de Phone Number [facility] [address] [address] * MAGNESIUM (01/04/2024 4:00 AM CDT) Only the most recent of7 resultswithin the time period is included. Magnesium 1.7 1.6 - 2.4 mg/dL [facility] Blood 01/04/2024 4:00 AM CDT 01/04/2024 4:14 AM CDT Mauricio Simpson MD LABORATORY Performing Organization Address City/[facility] Co de Phone Number [facility] [address] [address] * (ABNORMAL) CBC WITH PLATELET (01/02/2024 6:01 AM CDT) Only the most recent of4 resultswithin the time period is included. WBC 7.22 4.00 - 10.00 k/cmm [facility] RBC 3.68(L) 4.60 - 6.00 m/cmm [facility] Hgb 10.5(L) 13.1 - 17.5 g/dL [facility] Hematocrit 33.0(L) 40.0 - 51.0 % [facility] MCV 89.7 80.0 - 100.0 fL [facility] MCH 28.5 25.0 - 32.0 pg [facility] MCHC 31.8 31.0 - 36.0 g/dL [facility] RDW 14.8(H) 11.5 - 14.5 % [facility] Plt 299 150 - 400 k/cmm [facility] MPV 10.3 6.5 - 12.5 fL [facility] Blood 01/02/2024 6:01 AM CDT 01/02/2024 6:11 AM CDT Mauricio Simpson MD LABORATORY Performing Organization Address City/[facility]/ZIP Co de Phone Number [facility] [address] [address] * ULT VENOUS UPPER EXTREMITY RIGHT (12/30/2023 [...] CDT) Campylobacter DNA Not Detected Not Detected [facility] Plesiomonas shigelloides DNA Not Detected Not Detected [facility] Salmonella DNA Not Detected Not Detected [facility] Vibrio DNA Not Detected Not Detected [facility] Vibrio cholerae DNA Not Detected Not Detected [facility] Yersinia enterocolitica DNA Not Detected Not Detected [facility] Enteroaggregative Escherichia coli DNA Not Detected Not Detected [facility] Enteropathogenic Escherichia coli DNA Detected(A) Not Detected [facility] Enterotoxogenic Escherichia coli DNA Not Detected Not Detected [facility] Shiga-like toxin-producing E. coli stx1/stx2 DNA Not Detected Not Detected [facility] Escherichia coli 0157 DNA Not Reported Not Detected [facility] Shigella/Enteroinvas patricia E coli DNA Not Detected Not Detected [facility] Cryptosporidium DNA Not Detected Not Detected [facility] Cyclospora cayetanensis DNA Not Detected Not Detected [facility] Entamoeba histolytica DNA Not Detected Not Detected [facility] Giardia duodenalis DNA Not Detected Not Detected [facility] Adenovirus F 40/41 DNA Not Detected Not Detected [facility] Astrovirus RNA Not Detected Not Detected [facility] Norovirus GI/GII RNA Not Detected Not Detected [facility] Rotavirus RNA Not Detected Not Detected [facility] Sapovirus (I, II, IV, V) RNA Not Detected Not Detected [facility] Comment:This is a multiplex reverse transcriptase two-stage PCR nucleic acid assay. This gastrointestinal panel is FDA approved. Feces 12/30/2023 12:3 5 PM CDT 12/30/2023 1:48 PM CDT Narrative [facility] - 12/30/2023 3:37 PM CDT Critical value for Stool GI panel electronically reported to and acknowledged by Kerri Evans MD in [address] at 12/30/2023 15:37:34 CDT by Paul Guzman MLS. Mauricio Simpson MD LAB MICROBIOLOGY [facility] [address] [address] * CT OUTSIDE READ MSK/NON NEURO (12/30/2023 [...] 12:06 PM CDT Indication: ??Patient transferred from [facility]. ??No initial report accompanied the patient and/or Dr. ??MAURICIO SIMPSON requested an interpretation by me. Technique: ??CT scan of the right wrist done on 12/28/23 with IV contrast. ??3 mm axial, sagittal and coronal reconstructions reviewed in soft tissue and bone windows, per the local institution's scanning protocols, which may differ from the [facility] trauma protocols. Findings: ?? Bones and joints: [...] MD - 12/30/2023 Indication: Patient transferred from [facility]. No initialreport accompanied the patient and/or . MAURICIO SIMPSON requested aninterpretation by me. Technique: CT scan of the right wrist done on 12/28/23 with IV contrast.3 mm axial, sagittal and coronal reconstructions reviewed in soft tissueand bone windows, per the local institution's scanning protocols, whichmay differ from the [facility] trauma protocols. Findings: Bones and joints: Chondrocalcinosis [...] Simpson MD RAD CT BODY * VITAMIN U47-[id number] TO MMA (12/30/2023 10:01 AM CDT) Pathologist [facility] B12 922 211 - 946 pg/mL [facility] Blood 12/30/2023 10:0 1 AM CDT 12/30/2023 10:28 AM CDT Dimas Resendiz MD LABORATORY Performing Organization Address City/[facility] Co de Phone Number [facility] [address] [address] * TSH WITH REFLEX TO FREE T4 (12/30/2023 10:01 AM CDT) Pathologist [facility] TSH 1.33 0.27 - 4.20 mIU/L [facility] Blood 12/30/2023 10:0 1 AM CDT 12/30/2023 10:27 AM CDT Dimas Resendiz MD LABORATORY [facility] [address] [address] * HIV COMBO (12/30/2023 10:01 AM CDT) Pathologist [facility] HIV Antigen-Antibody Nonreactive Nonreactive [facility] Comment:Performance characte ristics have not been established with this test on patients less than 2 years of age. Blood 12/30/2023 10:0 1 AM CDT 12/30/2023 10:27 AM CDT Dimas Resendiz MD LABORATORY Performing Organization Address City/[facility] Co de Phone Number [facility] [address] [address] * RETIC COUNT (12/30/2023 10:01 AM CDT) Retic Count 1.2 0.5 - 1.8 % [facility] Blood 12/30/2023 10:0 1 AM CDT 12/30/2023 10:27 AM CDT Dimas Resendiz MD LABORATORY Performing Organization Address [facility] de Phone Number [facility] [address] [address] * (ABNORMAL) PANEL HEPATIC FUNCTION (12/30/2023 10:01 AM CDT) Only the most recent of2 resultswithin the time period is included. Pathologist [facility] Total Protein 7.0 6.4 - 8.3 g/dL [facility] Albumin 3.2(L) 3.8 - 5.1 g/dL [facility] Bili Total 0.8 <=1.2 mg/dL [facility] Bili Direct 0.4(H) <=0.3 mg/dL [facility] Alk Phos 72 40 - 129 IU/L [facility] Comment:No reference range e stablished for patients <18 years old. ALT (SGPT) 8 <=41 IU/L [facility] AST(SGOT) 13 5 - 40 IU/L [facility] Blood 12/30/2023 10:0 1 AM CDT 12/30/2023 10:27 AM CDT Lori Billingsley MD LABORATORY Performing Organization Address [facility] Co de Phone Number [facility] [address] [address] * LD (LDH) (12/30/2023 1:21 AM CDT) LD 216 135 - 225 IU/L [facility] Blood 12/30/2023 1:21 AM CDT 12/30/2023 1:28 AM CDT Dimas Resendiz MD LABORATORY Performing Organization Address City/[facility] Co de Phone Number [facility] [address] [address] * POTASSIUM (12/30/2023 1:21 AM CDT) Potassium 4.3 3.5 - 5.3 mmol/L [facility] Blood 12/30/2023 1:21 AM CDT 12/30/2023 1:28 AM CDT Dimas Resendiz MD LABORATORY Performing Organization Address [facility] Co de Phone Number [address] [address] * (ABNORMAL) HAPTOGLOBIN (12/30/2023 1:21 AM CDT) Haptoglobin 400(H) 32 - 197 mg/dL [facility] Blood 12/30/2023 1:21 AM CDT 12/30/2023 1:28 AM CDT Dimas Resendiz MD LABORATORY Performing Organization Address [facility] de Phone Number [address] [address] * ULT GALLBLADDER (12/29/2023 10:24 PM CDT) [...] Uric Acid 4.6 3.4 - 7.0 mg/dL [facility] Blood 12/29/2023 10:2 4 PM CDT 12/29/2023 10:34 PM CDT Dafne Holcomb PA-C LABORATORY [facility] [address] [address] * ED US ABDOMINAL/GALLBLADDER (12/29/2023 9:31 PM [...] DOSE: ?Total DLP = 1064.6 mGy.cm (accession [id number]), 462 mGy.cm (accession [id number]). ?? Findings: FINDINGS: Beam hardening artifact limits [...] DOSE: Total DLP = 1064.6 mGy.cm (accession [id number]), 462 mGy.cm(accession [id number]). Findings: FINDINGS: Beam hardening artifact limits evaluation [...] DOSE: ?Total DLP = 1064.6 mGy.cm (accession [id number]), 462 mGy.cm (accession [id number]). ?? Findings: FINDINGS: Beam hardening artifact limits [...] DOSE: Total DLP = 1064.6 mGy.cm (accession [id number]), 462 mGy.cm(accession [id number]). Findings: FINDINGS: Beam hardening artifact limits evaluation [...] PM CDT) 6H Trop 20 <=35 ng/L [facility] 6H Delta Not Significant Not Significant [facility] Blood 12/29/2023 7:01 PM CDT 12/29/2023 7:49 PM CDT Lori Billingsley MD LABORATORY [facility] [address] [address] * (ABNORMAL) ED CHEMISTRY LABS(NA,K,CL,CO2,GLU,CREAT,CA-IONIZED,ANION GAP) (12/29/2023 7:01 PM CDT) Only the most recent of2 resultswithin the time period is included. Sodium 140 135 - 148 mmol/L [facility] Chloride 101 92 - 108 mmol/L [facility] AnGap 11 8 - 16 mmol/L [facility] Glucose 126(H) 70 - 100 mg/dL [facility] ICA, Actual 4.47 4.40 - 5.20 mg/dL [facility] ICA, pH Corrected 4.52 4.40 - 5.20 mg/dL [facility] Creatinine 1.05 0.70 - 1.25 mg/dL [facility] BICARB 28(H) 22 - 26 mEq/L [facility] eGFR (2020 CKD-EPI) 75 >=60 ml/min/1.7 3m2 [facility] Comment: The estimated glomerular filtration rate (eGFR) was calculated using the CKD-EPI 2020 creatinine equation, which does not include race as a factor. This equation is validated in individuals 18 years of age and older, and eGFR is normalized to a body surface area of 1.73m^2. Potassium 3.2(L) 3.5 - 5.3 mmol/L [facility] Blood 12/29/2023 7:01 PM CDT 12/29/2023 7:25 PM CDT Dafne Holcomb PA-C LABORATORY Performing Organization Address City/[facility]/ZIP Co de Phone Number [address] [address] * LACTATE (LACTIC ACID) (12/29/2023 7:01 PM CDT) Only the most recent of3 resultswithin the time period is included. Lactate 1.0 0.7 - 2.1 mmol/L [facility] Blood 12/29/2023 7:01 PM CDT 12/29/2023 7:25 PM CDT Narrative [facility] - 12/29/2023 7:26 PM CDT Send specimen on ice! Dafne Holcomb PA-C LABORATORY [address] [address] * CK, TOTAL (12/29/2023 7:01 PM CDT) CK 95 39 - 308 IU/L [facility] Blood 12/29/2023 7:01 PM CDT 12/29/2023 10:12 PM CDT Dafne Holcomb PA-C LABORATORY Performing Organization Address City/[facility]/ZIP Co de Phone Number [facility] [address] [address] * BLOOD AEROBIC/ANAEROBIC CULTURE (12/29/2023 7:01 PM CDT) Only the most recent of2 resultswithin the time period is included. Final Report No growth after 5 days. [facility] Blood (Peripheral) 12/29/2023 7:01 PM CDT 12/30/2023 1:44 AM CDT Dafne Holcomb PA-C LAB MICROBIOLOGY Performing Organization Address [facility] Co de Phone Number [facility] [address] [address] * (ABNORMAL) ED POTASSIUM (12/29/2023 5:35 PM CDT) Potassium 3.3(L) 3.5 - 5.3 mmol/L [facility] Blood 12/29/2023 5:35 PM CDT 12/29/2023 5:47 PM CDT Rey Brady MD LABORATORY Performing Organization Address [facility] Co de Phone Number [facility] [address] [address] * ED US CARDIAC (12/29/2023 4:51 PM CDT) Anatomical Region Laterality Modality Ultrasound Narrative 12/29/2023 8:21 PM CDT ED Cardiac Ultrasound Body Areas Imaged: Heart, Chest Wall/Lungs, and Inferior Vena Cava Indications:Tachycardia Window: Subxiphoid, Parasternal Short [place], Parasternal Long [place], Apical 4-Chamber, IVC, and Bilateral Lungs Findings: [...] (12/29/2023 4:28 PM CDT) Procalcitonin 0.62 ng/mL [facility] Comment: Results <0.50 ng/mL represent a low risk of severe sepsis and/or septic shock. Results >2.0 ng/mL represent a high risk of severe sepsis and/or septic shock. Blood 12/29/2023 4:28 PM CDT 12/29/2023 5:08 PM CDT Dafne Holcomb PA-C LABORATORY Performing Organization Address City/[facility]/ZIP Co de Phone Number [facility] [address] [address] * TROP 4H (12/29/2023 4:28 PM CDT) 4H Trop 19 <=35 ng/L [facility] 4H Delta Not Significant Not Significant [facility] Blood 12/29/2023 4:28 PM CDT 12/29/2023 5:08 PM CDT Lori Billingsley MD LABORATORY [facility] [address] [address] * TROP 2H (12/29/2023 2:32 PM CDT) 2H Trop 21 <=35 ng/L [facility] [facility] Delta Not Significant Not Significant [facility] Blood 12/29/2023 2:32 PM CDT 12/29/2023 2:40 PM CDT Lori Billingsley MD LABORATORY Performing Organization Address [facility] Co de Phone Number [facility] [address] [address] * (ABNORMAL) URINE DRUG SCREEN (12/29/2023 1:40 PM CDT) Acetaminophen Ur POS(A) <=10 mcg/mL [facility] Amphetamine Ur NEG <=500 ng/mL [facility] Barbiturate Ur NEG <=200 ng/mL [facility] Benzodiazipine NEG <=100 ng/mL [facility] Buprenorphine Ur NEG <=5 ng/mL [facility] Cocaine Metab Ur NEG <=300 ng/mL [facility] Fentanyl, Urine NEG <=4 ng/mL [facility] LSD Ur NEG <=500 pg/mL [facility] Methadone Ur NEG <=300 ng/mL [facility] Opiate Ur NEG <=300 ng/mL [facility] Oxycodone Ur NEG <=100 ng/mL [facility] PCP Urine NEG <=25 ng/mL [facility] Propox Ur NEG <=300 ng/mL [facility] Salicylate Ur NEG <=10 mg/dL [facility] Creat Urine 89 >=20 mg/dL [facility] Mass Spectrometry Urine Acetaminophen , Diphenhydrami ne, Sertraline and Sertraline metabolite present. [facility] Urine 12/29/2023 1:40 PM CDT 12/31/2023 1:51 AM CDT Dimas Resendiz MD LABORATORY [facility] [address] [address] * URINE CULTURE (12/29/2023 1:40 PM CDT) Urine Cult No growth. [facility] Urine Cath URINE / Unknown 12/29/2023 1 :40 PM CDT 12/29/2023 2:40 PM CDT Narrative [facility] - 12/30/2023 12:27 PM CDT ED Patient: Yes Lori Billingsley MD LAB MICROBIOLOGY Performing Organization Address [facility]/ZIP Co de Phone Number [facility] [address] [address] * (ABNORMAL) URINALYSIS,TOTAL (12/29/2023 1:40 PM CDT) Color YELLOW YELLOW [facility] Appearance CLEAR CLEAR [facility] Urine Glucose NEGATIVE NEGATIVE mg/dL [facility] Bili UA NEGATIVE NEGATIVE [facility] Ketones NEGATIVE NEGATIVE [facility] Specific [place] 1.039(A) 1.003 - 1.030 [facility] Blood Ur SMALL(A) Neg-Trace [facility] PH Urine 6.0 5.0 - 7.0 [facility] Protein Ur 70(A) Neg-Trace [facility] Urobilinogen NORMAL NORMAL EU/dL [facility] Nitrite Ur NEGATIVE NEGATIVE [facility] Leuk Est NEGATIVE Neg-Trace [facility] WBC Ur 0-5 0 - 5 perHPF [facility] RBC Ur 0-3 0 - 3 perHPF [facility] Urinalysis Performed at: [facility] Urine 12/29/2023 1:40 PM CDT 12/29/2023 1:45 PM CDT Lori Billingsley MD LABORATORY Performing Organization Address [facility] Co de Phone Number [facility] [address] [address] * HS TROPONIN (12/29/2023 1:15 PM CDT) HS Troponin I 23 <=35 ng/L [facility] Blood 12/29/2023 1:15 PM CDT 12/29/2023 1:24 PM CDT Narrative [facility] - 12/29/2023 1:52 PM CDT If ordering as an add-on lab, you must call the lab. Lori Billingsley MD LABORATORY Performing Organization Address City/[facility]/ZIP Co de Phone Number [facility] [address] [address] * BUN (UREA NITROGEN) (12/29/2023 1:15 PM CDT) BUN 17 8 - 23 mg/dL [facility] Blood 12/29/2023 1:15 PM CDT 12/29/2023 1:24 PM CDT Lori Billingsley MD LABORATORY Performing Organization Address [facility] Co de Phone Number [facility] [address] [address] * (ABNORMAL) SED RATE (ESR) (12/29/2023 1:15 PM CDT) Pathologist [facility] Sed Rate 120(H) 2 - 10 mm/hr [facility] Blood 12/29/2023 1:15 PM CDT 12/29/2023 2:04 PM CDT Lori Billingsley MD LABORATORY Performing Organization Address [facility] Co de Phone Number [facility] [address] [address] * RPR SYPHILIS SCREEN (12/29/2023 1:15 PM CDT) Pathologist [facility] RPR Screen Non-Reactive Non-Reacti ve [facility] RPR Titer Not Reflexed [facility] Blood 12/29/2023 1:15 PM CDT 12/29/2023 1:24 PM CDT Lori Billingsley MD LABORATORY Performing Organization Address [facility] Co de Phone Number [facility] [address] [address] * (ABNORMAL) AMMONIA (12/29/2023 1:15 PM CDT) Pathologist [facility] Ammonia 13(L) 16 - 60 mcmol/L [facility] Blood 12/29/2023 1:15 PM CDT 12/29/2023 1:25 PM CDT Narrative [facility] - 12/29/2023 1:50 PM CDT Send specimen on ice! Lori Billingsley MD LABORATORY [facility] [address] [address] * LIPASE (12/29/2023 1:15 PM CDT) Lipase 30 13 - 60 IU/L [facility] Blood 12/29/2023 1:15 PM CDT 12/29/2023 1:24 PM CDT Lori Billingsley MD LABORATORY Performing Organization Address City/[facility]/ZIP Co de Phone Number [facility] [address] [address] * (ABNORMAL) BLOOD GASES (12/29/2023 1:15 PM CDT) PH Greg 7.46(H) 7.32 - 7.42 [facility] PCO2 Greg 40(L) 41 - 51 mmHG [facility] PO2 Greg 39 25 - 40 mmHG [facility] Bicarb Greg 28 24 - 28 mEq/L [facility] O2 Sat Greg 73 % [facility] Base Exc Greg 3.4(H) -10.0 - 2.0 mmol/L [facility] Blood Venous 12/29/2023 1:15 PM CDT 12/29/2023 1:21 PM CDT Lori Billingsley MD LABORATORY [facility] [address] [address] * (ABNORMAL) C-REACTIVE PROTEIN (12/29/2023 1:15 PM CDT) C-Reactive Protein 229(H) <=4 mg/L [facility] Blood 12/29/2023 1:15 PM CDT 12/29/2023 2:04 PM CDT Lori Billingsley MD LABORATORY Performing Organization Address [facility] Co de Phone Number [facility] [address] [place] [phone] * ED EKG (12-LEAD) (12/29/2023 12:43 PM CDT) 12/29/2023 12:4 3 PM CDT Impressions [facility] E[facility] ORDERS - 12/29/2023 12:43 PM CDT ATRIAL FIBRILLATION INCOMPLETE RIGHT BUNDLE BRANCH BLOCK ??[90+ ms QRS DURATION, TERMINAL R IN V1/V2, 40+ ms S IN I/aVL/V4/V5/V6] MODERATE ST DEPRESSION ??[0.05+ mV ST DEPRESSION] ABNORMAL ECG P-R Interval 0 ms QRS Interval 98 ms QT Interval 374 ms QTC Interval 428 ms P [place] undef QRS [place] 22 T Wave [place] 40 Narrative Procedure Note Jose C Quintero MD - 12/29/2023 IMPRESSION ATRIAL FIBRILLATION INCOMPLETE RIGHT BUNDLE BRANCH BLOCK [90+ ms QRS DURATION, TERMINAL R INV1/V2, 40+ ms S IN I/aVL/V4/V5/V6] MODERATE ST DEPRESSION [0.05+ mV ST DEPRESSION] ABNORMAL ECG P-R Interval 0 ms QRS Interval 98 ms QT Interval 374 ms QTC Interval 428 ms P [place] undef QRS [place] 22 T Wave [place] 40 Lori Billingsley MD EKG Performing Organization Address [facility] de Phone Number [facility] EKG ORDERS * EXTRA TUBE - DARK GREEN (12/29/2023 12:15 PM CDT) DARK GREEN TUBE Stored [facility] Comment:Dark Green tubes (Li thium Heparin) are stored in the lab for 1 day from the collection date. Blood 12/29/2023 12:1 5 PM CDT 12/29/2023 1:23 PM CDT Lori Billingsley MD LABORATORY Performing Organization Address [facility] Co de Phone Number [facility] [address] [place] [phone] * EXTRA TUBE - LIGHT GREEN (12/29/2023 12:15 PM CDT) Pathologist [facility] LIGHT GREEN TUBE Stored [facility] Comment:Green tubes ([place] Heparin) are stored in the lab for 3 days from the collection date. Blood 12/29/2023 12:1 5 PM CDT 12/29/2023 1:23 PM CDT Lori Billingsley MD LABORATORY [facility] [address] [address] * (ABNORMAL) CBC WITH PLTS/AUTO DIFF (12/29/2023 12:15 PM CDT) Pathologist [facility] WBC 8.86 4.00 - 10.00 k/cmm [facility] RBC 3.70(L) 4.60 - 6.00 m/cmm [facility] Hgb 10.6(L) 13.1 - 17.5 g/dL [facility] Hematocrit 33.0(L) 40.0 - 51.0 % [facility] MCV 89.2 80.0 - 100.0 fL [facility] MCH 28.6 25.0 - 32.0 pg [facility] MCHC 32.1 31.0 - 36.0 g/dL [facility] RDW 14.7(H) 11.5 - 14.5 % [facility] Plt 216 150 - 400 k/cmm [facility] MPV 11.0 6.5 - 12.5 fL [facility] Automated Abs Neutrophil 7.46(H) 1.70 - 6.50 k/cmm [facility] Comment:Preliminary ANC, Fin al Result to Follow Abs Immature Granulocyte 0.03 0.00 - 0.09 k/cmm [facility] Comment:The Immature Granulo cyte Absolute count contains metamyelocytes and myelocytes. Abs Neutrophil 7.46(H) 1.70 - 6.50 k/cmm [facility] Abs Lymphocyte 0.75(L) 0.80 - 4.00 k/cmm [facility] Abs Monocyte 0.58 0.20 - 1.00 k/cmm [facility] Abs Eosinophil 0.02 0.00 - 0.60 k/cmm [facility] Abs Basophil 0.02 0.00 - 0.20 k/cmm [facility] Blood 12/29/2023 12:1 5 PM CDT 12/29/2023 1:44 PM CDT Lori Billingsley MD LABORATORY Performing Organization Address [facility] Co de Phone Number [facility] [address] [address] * (ABNORMAL) PROTHROMBIN (PT) & INR (12/29/2023 12:15 PM CDT) PT 15.6(H) 9.0 - 12.5 sec [facility] INR 1.4(H) 0.8 - 1.1 [facility] Comment: Warfarin Therapeutic Range: Standard Intensity: 2.0 - 3.0 High Intensity: 2.5 - 3.5 Blood 12/29/2023 12:1 5 PM CDT 12/29/2023 1:44 PM CDT Lori Billingsley MD LABORATORY Performing Organization Address City/[facility] Co de Phone Number [facility] [address] [address] * XR CHEST OUTSIDE FILMS (12/28/2023 9:26 PM CDT) Ernestine User, [id number] - 12/30/2023 6:28 AM CDT Outside Film Only Outside Provider RAD OUTSIDE FILMS * XR UPPER EXTREMITY OUTSIDE FILMS (12/28/2023 8:29 PM CDT) Only the most recent of2 resultswithin the time period is included. Ernestine User [id number] - 12/30/2023 6:28 AM CDT Outside Film Only Outside Provider RAD OUTSIDE FILMS * CT SPINE OUTSIDE FILMS (12/28/2023 8:05 PM CDT) Ernestine User [id number] - 12/30/2023 6:30 AM CDT Outside Film Only Outside Provider RAD OUTSIDE FILMS * CT HEAD OUTSIDE FILMS (12/28/2023 8:05 PM CDT) Ernestine Indu [id number] - 12/30/2023 6:30 AM CDT Outside Film Only Outside Provider RAD OUTSIDE FILMS from Last 3 Months Advance Directives For more information, please contact: [phone] Documents on File Type Date Recorded Patient [employer] Guid[employer] Counselor Expl anation Advanced Directives 07/27/2022 ADVANCE DIRECTIVE [...] Status With Whom? Not discussed Care Teams Mems Process Engineer Relationship Specialty Start Date End Date Martine Argueta MD [address] [place] [id number] PCP - General Internal Medicine 04/08/23
--- OUTSIDE RECORDS SUMMARY | 2024-03-23 11:58 | XMS_ITS | Encounter Summary ---
Author Organization [facility] Address [address] [place] [address] Phone Care Team Providers Care Telecommunications Linesworker Name Role Phone Martine Argueta MD Primary Care Provider Reason for Referral * Consult/Test/Treat (Routine) - New Request Specialty Diagnoses / Procedures Referred By Joaquina hodges Referred To Contact Speech Pathology Diagnoses Altered mental status, unspecified altered mental status type Jossie Short MD [address] [place] [address] Jossie Short MD [address] [place] [id number] Referral ID Status Reason Start Date Expiration Date V isits Requested Visits Authorized [id number] New Request 01/05/2024 01/05/2025 1 1 * Consult/Test/Treat (Routine) - New Request Specialty Diagnoses / Procedures Referred By Joaquina hodges Referred To Contact Diagnoses Altered mental status, unspecified altered mental status type Jossie Short MD [address] [place] [address] Jossie Short MD [address] [place] [address] 85[address] Referral ID Status Reason Start Date Expiration Date V isits Requested Visits Authorized [id number] New Request 01/05/2024 01/05/2025 1 1 * Consult/Test/Treat (Routine) - New Request Specialty Diagnoses / Procedures Referred By Contac t Referred To Contact Physical Therapy / PHYSICAL THERAPY Diagnoses Altered mental status, unspecified altered mental status type Jossie Short MD [address] [place] [address] Jossie Short MD [address] [place] [address] Referral ID Status Reason Start Date Expiration Date V isits Requested Visits Authorized [id number] New Request 01/05/2024 01/05/2025 1 1 Reason for Visit * Reason Comments Confusion Wrist Pain * Auth/Cert (Routine) Specialty Diagnoses / Procedures Referred By Contac t Referred To Contact MEDICINE Diagnoses Fall, initial encounter Altered mental status, unspecified altered mental status type Rey Brady MD [address] [place] [address] Medicine 4 Inpt [address] [facility] R5.800 [place] [address] Referral ID Status Reason Start Date Expiration Date Visits Re quested Visits Authorized [id number] 1 1 Encounter Details Date Type Department Care Team (Latest Contact Info) Description 12/29/2023 11:55 AM CDT - 01/06/2024 10:57 AM CDT Hospital Encounter [facility] Medicine 4 701 [facility] R5.800 [place], [place] [id number] Lori Billingsley MD [address] [place] [address] [id number] Dimas Resendiz MD [address] [place], [place] [id number] Mauricio Simpson MD [address] [place] [address] [phone] Lashell Traore MD [address] [id number] Jeanine Uriarte MD [address] [place] [address] [phone] Mitra Hopkins MD [address] [place], [place] [phone] Hypomagnesemia Discharge Disposition: Discharged/transd to SNF with [...] 01/06/2024 Dispostion: Health Care Facility Attending Physician: Jenaine Uriarte MD Primary care physician: Martine Argueta [...] of EPEC. - Nutrition consult - Stop SACK LIFTER torsemide and K supplement. - Repeat BMP in 3-5 days Normocytic Anemia hx of anemia of CKD - stable Chronic Aflutter Severe TR HFpEF HTN SACK LIFTER Imdur 60mg daily, Metoprolol tartrate 100mg BID, Torsemide 40mg bid. Patient has hx of GI bleedso underwent atrial appendage closure. - Continue SACK LIFTER imdur. - Continue Metoprolol - Hold torsemide as above. COPD DEMI Reported that he does not use a CPAP. On 3L but satting 97%. - Oxygen 88-92% - Montelukast 10mg daily - Resume SACK LIFTER anoro ellipta - Albuterol PRN Rhabdomyolysis, ruled [...] daily - Fenofibrate 54mg daily DMII No SACK LIFTER medications - daily BMP BPH Urinary retention, resolved - Finasteride 5mg daily - SACK LIFTER tamsulosin 0.4 mg daily. Neuropathy - Gabapentin [...] % Wt Change from Adm: 0 % Newell Body Wt (IBW) Male (kg): 70.7 kg PENDING TESTS RESULTS: None RECOMMENDATIONS AND FOLLOWUP: - BMP recheck in 3-5 days. - Stop torsemide and SACK LIFTER K supplement. RECOMMENDATIONS OF ANY SUB-SPECIALTY CONSULTANTS: None READMISSION PLANNED WITHIN 30 DAYS OF DISCHARGE? No Packaging Clerk Needed: no Active Problems: Hypomagnesemia Overview: Low serum magnesium Last Assessment & Plan: Magnesium level pending Altered mental status, unspecified altered mental status type E coli enteritis Type 2 diabetes mellitus with diabetic nephropathy, without long-term current use of insulin ([facility]) Resolved Problems: * No resolved hospital problems. [...] equipment/supplies recommended: None Final discharge destination: Subacute senior care with rehab care (SNF) R: The patient [...] qAM Chronic Aflutter Severe TR HFpEF HTN SACK LIFTER Imdur 60mg daily, Metoprolol tartrate 100mg BID, Torsemide 40mg bid. Patient has hx of GI bleedso underwent atrial appendage closure. - Continue SACK LIFTER imdur. - Continue Metoprolol, torsemide- hold Sun [...] daily - Fenofibrate 54mg daily DMII No SACK LIFTER medications - daily BMP BPH Urinary retention, resolved - Finasteride 5mg daily - SACK LIFTER tamsulosin 0.4 mg daily. Neuropathy - Gabapentin [...] qAM Chronic Aflutter Severe TR HFpEF HTN SACK LIFTER Imdur 60mg daily, Metoprolol tartrate 100mg BID, Torsemide 40mg bid. Patient has hx of GI bleedso underwent atrial appendage closure. - Continue SACK LIFTER imdur. - Continue Metoprolol, torsemide COPD DEMI [...] daily - Fenofibrate 54mg daily DMII No SACK LIFTER medications - daily BMP BPH Urinary retention, resolved - Finasteride 5mg daily - SACK LIFTER tamsulosin 0.4 mg daily. Neuropathy - Gabapentin 300mg tid held due to altered mental status Hx of GI bleed - Protonix 40mg BID Bilirubinemia, improving Discharge planning: Awaiting [facility] placement Jossie Short MD, 01/04/2024 4:07 PM * Shayy Galvez RN - 01/03/2024 6:22 PM CDT Alert to self and family, confusion and forgetfulness observed. Denies pain or discomfort, VSS Is CAHTO encouraged to wear super ears. Ate well w/ adequate liquids. Uses bedside urinal. No concerns at this time will continue POC updating providers as necessary.Shayy Galvez, RN, 01/03/2024 6:24 PM * Yajaira Geronimo CMA - 01/03/2024 4:05 PM CDT Preadmission Screening Submitter InformationPerson Being ReferredMedical InformationADL'Unity HospitalSubmitResults Results Thank you for submitting a [...] help, contact the Senior LinkAge Line at [phone] or click to contact us. Print this page You have successfully submitted the preadmission screening (PAS) to the Senior LinkAge Line on: Created On 01/03/2024 3:56 PM Your confirmation number is: [id number] Results Level of Care: Based on the information you provided, it appears this person meets level of care for purposes of MA payment. OBRA: It appears this person does not need an OBRA Level II assessment. Submitter Information Form Type PAS Submitter First and Last Name Yajaira Geronimo Direct Email [email or web address] Agency [facility] Service Type [facility] [address] [place] [address] Zip Code [facility] Is your Agency outside [place]? Person Being Admitted to Nursing Facility Legal first name Anthony Last name Jelena Date of 1950 Age 73 Gender Male Marital Status D= Race A = B = Black or N = or [place]an [place] = [place] or W = White U = Unable to Determine Ethnicity Not / Currently living with: 01 Living Alone Planned living with 01 Living Alone Housing Type Home or apartment, including assisted living () Mailing Address [address] [place] [address] [address] [facility] Medical Information Reason for nursing facility [...] facility the person will admit to?Yes Provider [facility] Nursing [facility] Nursing [facility] Service Type [address] [place] [address] Zip Code [address] [facility] If your provider is not listed check [...] Sahu RN - 01/03/2024 3:51 PM CDT [facility] Transportation Medical Necessity Certification Statement Request Form (please print for transportation vendor) Transport Date: 01/06/2024 @1200 Section 1 - Beneficiary Information Name: Anthony Bowles Insurance: MEDICARE Diagnosis: Altered mental status, unspecified altered mental status type E coli enteritis Hypomagnesemia Type 2 diabetes mellitus with diabetic nephropathy, without long-term current use of insulin ([facility]) Transportation Stretcher: [employer] Company Name/Phone : [facility] [phone] Facility of Origin: [address] [address] Patient's Unit: [facility] Medicine 4 Department Phone Number: Dept: [phone] Patient's Room Number: R5 824/R5 824 01 Destination: Selected Continued Care - Admitted Since 12/29/2023 Destination No services have been selected for the patient. [facility]: [address] [place] [address] Home Medical Care No services have been [...] Joan Sahu Name (printed): Joan Sahu Credentials: [] []DO []PA []REAL ESTATE REP []HOT BALLER [x]RN []WARP DRESSER []Sql Data Analyst [x]Fish Bait Processing Supervisor [x]Performance Architect (SW/CC/RN) : RN Date: 01/03/2024 NPI: Yajaira Geronimo CMA, 01/03/2024 3:54 PM * Yajaira Geronimo CMA - 01/03/2024 3:48 PM CDT Transportation set for patient as follows: Date and time () of patient departure: 01/06/2024 @1200 Destination: [facility]: [address] [place] [address] Type of ride: stretcher. Reason for stretcher: Altered mental status High fall risk Transportation vendor of [facility] [phone] If this ride needs to be rescheduled [...] Clinical Coordinators will be informed via a TelKobo page. PCS form was completed in Progress Notes and is ready to be signed and routed to vendor by requestor(for stretcher rides only). Yajaira Geronimo CMA, 01/03/2024 3:48 PM Patient name: Anthony Bowles Date of : 1950 Patient Admitting diagnosis: Patient Active Problem List Diagnosis Closed nondisplaced fracture of second cervical vertebra, unspecified fracture morphology, initial encounter ([facility]) Acute on chronic diastolic congestive heart failure ([facility]) Anemia in chronic kidney disease Asthma ([facility]) Atherosclerotic heart disease of [place] coronary artery without angina pectoris Atrial flutter (CMS/[facility]HS) Carotid artery disease ([facility]) Chronic gout Chronic kidney disease, stage 2 (mild) Chronic obstructive pulmonary disease, unspecified ([facility]) Gastrointestinal hemorrhage with melena Hypokalemia Hypomagnesemia Hyperlipidemia Obstructive sleep apnea (adult) (pediatric) Other polyosteoarthritis Other pulmonary embolism without acute cor pulmonale ([facility]) Paroxysmal atrial fibrillation ([facility]) Patent foramen ovale ([facility]) Personal history of transient ischemic attack (TIA), 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 Severe tricuspid valve regurgitation Type 2 diabetes mellitus with diabetic nephropathy ([facility]) Altered mental status, unspecified altered mental status type E coli enteritis Type 2 diabetes mellitus with diabetic nephropathy, without long-term current use of insulin ([facility]) Attending provider: Mauricio Simpson MD Insurance: MEDICARE Secondary insurance: [employer] (COST PLAN) Height: Height: 175.3 cm (5' 9) Weight: Weight: 88.5 kg (195 lb 1.7 oz) * Joan Sahu RN - 01/03/2024 2:55 PM CDT Clinical Coordinator Note Patient's son Mich brought in patient's POA and health care directive paperwork. RNCC made copiesof both documents and put the copies in the bin to be scanned into patient's chart. ANDRIY Phillips, RN Clinical Coordinator [phone] Telmediq * Joan Sahu RN - 01/03/2024 [...] of pertinent information: [facility] RNCC contacted patient's daughter with information on accepting facilities. Daughter decided on [facility] as patient has been there before. RNCC contacted facility to accept the bed and informed them of a possible discharge on Saturday. Current Discharge Placement Information: Continued Care and Services - Admitted Since 12/29/2023 Destination Service Provider Request Status Selected Services Address Phone Fax Patient Preferred [facility] Accepted N/A [address] [facility] [address] [phone] -- Internal Comment last updated by Yajaira Geronimo CMA 01/03/2024 1153 01/02 : Called spoke and he offered pt a bed.Yajaira Geronimo CMA, 01/03/2024 11:53 AM [facility] Pending - Request Sent N/A [address] [facility]? [facility] [address] [phone] -- Internal Comment last updated by Yajaira Geronimo CMA 01/03/2024 1150 01/02 : Called [facility] for admissions.Yajaira Geronimo CMA, 01/03/2024 11:50 AM [facility] Pending - Request Sent N/A [address] [address] [phone] -- Home Medical Care No active coordination exists for this encounter. Joan Sahu RN, 01/03/2024 2:48 PM * Lencho Myla, PT - 01/03/2024 2:30 PM CDT Physical [...] Participation Significantly Limited?: No Intervention: Positioning;Performed Exercises O:Packaging Clerk Used: None needed Mental Status Mental Status: [...] transfer supine to/from sit with (6) Modified [place] with HOB flat and no rails in order to safely and independently mobilize at home by 01/17/24. Outcome: In progress Goal: Patient will transfer sit to/from stand Description: Patient will transfer sit to/from stand with (6) Modified [place] and LRAD in order to safely and independently mobilize at home by 01/17/24. Outcome: In progress Problem: Decreased Ambulatory Skills Goal: Improve gait Description: Ambulate >20 meters using LRAD with (6) Modified [place] in order to safely and independently navigate distances necessary for home by 01/17/24. Outcome: In progress Goal: Improve gait on stairs Description: Ascend/descend 5-10 stairs using LRAD and/or 1-2 rails with (6) Modified [place] in order to safely and independently navigate home environment by 01/17/24. Outcome: In progress P: Patient will be seen 2-4x/week until goals are met or patient is discharged. Next visit the planis to work on bed mobility with HOB flat, sit<>stands with FWW, sitting vs standing LE therex, prolonged ambulation, stairs as appropriate. SACK LIFTER Appropriate: Yes Myla Musa, PT 01/03/2024 Pager: [...] qAM Chronic Aflutter Severe TR HFpEF HTN SACK LIFTER Imdur 60mg daily, Metoprolol tartrate 100mg BID, Torsemide 40mg bid. Patient has hx of GI bleedso underwent atrial appendage closure. - Continue SACK LIFTER imdur. - Continue Metoprolol, torsemide COPD DEMI [...] daily - Fenofibrate 54mg daily DMII No SACK LIFTER medications - daily BMP BPH Urinary retention, resolved - Finasteride 5mg daily - SACK LIFTER tamsulosin 0.4 mg daily. Neuropathy - Gabapentin [...] Evans DO, 01/03/2024 11:43 AM Charge Capture Hvac Mechanical Engineer Associated attestation - Mauricio Simpson MD - [...] sure if patient actually has an infection. [place] scan is negative, urinalysis negative, procal not [...] qAM Chronic Aflutter Severe TR HFpEF HTN SACK LIFTER Imdur 60mg daily, Metoprolol tartrate 100mg BID, Torsemide 40mg bid. Patient has hx of GI bleedso underwent atrial appendage closure. - Continue SACK LIFTER imdur. - Continue Metoprolol, torsemide COPD DEMI [...] daily - Fenofibrate 54mg daily DMII No SACK LIFTER medications - daily BMP BPH - Finasteride 5mg daily - Restarted SACK LIFTER tamsulosin 0.4 mg daily. Neuropathy - Gabapentin [...] Alert, oriented, calm, cooperative. Kerri Evans DO, 01/02/2024 2:52 PM Charge Capture Hvac Mechanical Engineer Associated attestation - Lashell Traore MD - [...] he wants his son (who lives in [place]) to be his HCPOA and his daughter in [place] (who currently has HCPOA) to be second [...] 14) Gout - allopurinol 15) Malnutrition - drug inspector to see 16) Disposition - from [place], needs [facility] High complexity illness, checked > [...] Selected Services Address Phone Fax Patient Preferred [facility] Pending - Request Sent N/A [address] [place] [address]?? [facility] [address] [phone] -- [facility] Pending - Request Sent N/A [address] [place] [address] [phone] -- [facility] Pending - Request Sent N/A [address] [place] [address] [phone] -- Home Medical Care No active coordination exists for this encounter. Joan Sahu RN, 01/02/2024 12:28 PM * Joan Sahu RN - 01/01/2024 1:44 PM CDT Clinical Coordinator Note RNCC spoke with patient's daughter and medical POA Adelita [phone] who stated she would like to get updates about her dad instead of her brother. Adelita also stated she would like to look into the placement process and let software writer know about facilities of choice, based on her dad's preference and also on her experience working as a state manager placement. She will reach out to software writer either today or by tomorrow 01/01 at the latest. RNCC will wait to receive list of preferences prior to sending referrals for placement. ANDRIY Phillips, RN Clinical Coordinator [phone] Telmedi * Myla Musa, PT - 01/01/2024 1:30 [...] Significantly Limited?: No Intervention: Positioning;Applied Ice;Notified RN O:Packaging Clerk Used: None needed Mental Status Mental Status: [...] transfer supine to/from sit with (6) Modified [place] with HOB flat and no rails in order to safely and independently mobilize at home by 01/17/24. Outcome: In progress Goal: Patient will transfer sit to/from stand Description: Patient will transfer sit to/from stand with (6) Modified [place] and LRAD in order to safely and independently mobilize at home by 01/17/24. Outcome: In progress Problem: Decreased Ambulatory Skills Goal: Improve gait Description: Ambulate >20 meters using LRAD with (6) Modified [place] in order to safely and independently navigate distances necessary for home by 01/17/24. Outcome: In progress Goal: Improve gait on stairs Description: Ascend/descend 5-10 stairs using LRAD and/or 1-2 rails with (6) Modified [place] in order to safely and independently navigate home environment by 01/17/24. Outcome: In progress P: Patient will be seen 2-4x/week until goals are met or patient is discharged. Next visit the planis to work on bed mobility with HOB flat, sit<>stands with FWW, standing tolerance and pre-gait, short distance ambulation as able. SACK LIFTER Appropriate: No (needs mobility progressed) Myla Musa, [...] AM Chronic Aflutter Severe TR HFpEF HTN SACK LIFTER Imdur 60mg daily, Metoprolol tartrate 100mg BID, Torsemide 40mg bid. Patient has hx of GI bleedso underwent atrial appendage closure. - Continue SACK LIFTER imdur. - Continue Metoprolol, torsemide COPD DEMI [...] daily - Fenofibrate 54mg daily DMII No SACK LIFTER medications - daily BMP BPH - Finasteride [...] limbs adequately. PSYCHIATRIC: Unable to assess. Kerri Evans DO, 01/01/2024 10:48 AM Charge Capture Hvac Mechanical Engineer Associated attestation - Mauricio Simpson MD - [...] for placement. ANDRIY Phillips, RN Clinical Coordinator [phone] Telmediq * Kerri Evans DO - 12/31/2023 [...] AM Chronic Aflutter Severe TR HFpEF HTN SACK LIFTER Imdur 60mg daily, Metoprolol tartrate 100mg BID, Torsemide 40mg bid. Patient has hx of GI bleedso underwent atrial appendage closure. - Restart SACK LIFTER imdur. - Continue Metoprolol, torsemide COPD DEMI [...] daily - Fenofibrate 54mg daily DMII No SACK LIFTER medications - daily BMP BPH - Finasteride [...] Evans DO, 12/31/2023 1:49 PM Charge Capture Hvac Mechanical Engineer Associated attestation - Mauricio Simpson MD - [...] Greg Meza MDIV, 12/30/2023 2:25 PM Number: [phone] * Kerri Evans DO - 12/30/2023 12:41 PM CDT MEDICINE PROGRESS NOTE Anthony Bowles : 1950 Sex: male Patient Summary: Atnhony Bowles is a 73 y.o. male with [...] AM Chronic Aflutter Severe TR HFpEF HTN SACK LIFTER Imdur 60mg daily, Metoprolol tartrate 100mg BID, Torsemide 40mg bid. Patient has hx of GI bleedso underwent atrial appendage closure. - Restart SACK LIFTER imdur. - Continue Metoprolol, torsemide COPD DEMI [...] daily - Fenofibrate 54mg daily DMII No SACK LIFTER medications - daily BMP BPH - Finasteride [...] Evans, DO, 12/30/2023 12:43 PM Charge Capture Hvac Mechanical Engineer Associated attestation - Mauricio Simpson MD - [...] wrist is swollen. Skin is intact. Karina Grove RN, 12/29/2023 11:29 PM documented in this encounter H&P Notes * Macho Ortiz DO - 12/29/2023 10:02 PM CDT MEDICINE HISTORY [...] AM Chronic Aflutter Severe TR HFpEF HTN SACK LIFTER Imdur 60mg daily, Metoprolol tartrate 100mg BID, [...] daily - Fenofibrate 54mg daily DMII No SACK LIFTER medications - Glucose check BPH - Finasteride [...] slurring his words. Originally patient seen at [facility] ED with a fever. Head CT negative. Hand CT with possibleeffusion/lesions (concerning for multiple myeloma rather than septic arthritis - worked up by heme onc, told it isn't cancer but required infusions). There had been concern for rhabdo and septic arthritis requiring transfer to [facility]. Per ED provider, for the last few [...] received Zosyn, Tylenol, Potassium replacement. [facility]en by [facility] who are not concerned for septic arthritis. Patient states that as far as he is aware he tripped over his dog the other day and landed on his wrist. He goes on to state that he was told that he has bone cancer and needed to see the oncologist and [place]. Patient then denied any fevers, chills, headaches, [...] Speech normal. Behavior: Behavior is cooperative. PCP: Martine Argueta MD Associated attestation - Mitra Hopkins [...] CDT OCCUPATIONAL THERAPY ACUTE INITIAL EVALUATION Anthony Jamari Bowles 12/30/2023 OT Discharge Recommendations Discharge Recommendations: Post-acute [...] AM Chronic Aflutter Severe TR HFpEF HTN SACK LIFTER Imdur 60mg daily, Metoprolol tartrate 100mg BID, Torsemide 40mg bid. Patient has hx of GI bleedso underwent atrial appendage closure. - Restart SACK LIFTER imdur. - Continue Metoprolol, torsemide COPD DEMI [...] daily - Fenofibrate 54mg daily DMII No SACK LIFTER medications - daily BMP BPH - Finasteride [...] using AD (comments) Prior Therapies: none Evaluation Packaging Clerk Used: None needed Subjective: I can't remember [...] mgmt/ADL: 20 minutes Therapist: AVERY Moffett Pager: [employer] Occupational Therapy Department * Myla Musa, PT - 12/30/2023 3:15 PM CDT Images from the original note were not included. PHYSICAL THERAPY OBSERVATION EVALUATION Anthony Jamari Bowles was seen 12/30/2023 for a Physical [...] cervical vertebra, unspecified fracture morphology, initial encounter ([facility]) Acute on chronic diastolic congestive heart failure ([facility]) Anemia in chronic kidney disease Asthma ([facility]) Atherosclerotic heart disease of [place] coronary artery without angina pectoris Atrial flutter ([facility]) Carotid artery disease ([facility]) Chronic gout Chronic kidney disease, stage 2 (mild) Chronic obstructive pulmonary disease, unspecified ([facility]) Gastrointestinal hemorrhage with melena Hypokalemia Hypomagnesemia Hyperlipidemia Obstructive sleep apnea (adult) (pediatric) Other polyosteoarthritis Other pulmonary embolism without acute cor pulmonale ([facility]) Paroxysmal atrial fibrillation ([facility]) Patent foramen ovale ([facility]) Personal history of transient ischemic attack (TIA), 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 Severe tricuspid valve regurgitation Type 2 diabetes mellitus with diabetic nephropathy ([facility]) Altered mental status, unspecified altered mental status type PT Treatment Diagnosis: Difficulty in Walking R 26.2 Impaired Mobility Z 74.09 Activity Intolerance Z 73.89 Unsteadiness on Feet R 26.81 History of Falling Z 91.81 Acute Pain due to Trauma G 89.11 PRECAUTIONS Falls Hazardous to Handle Full Code Packaging Clerk Used: None needed ACTIVITY Up ad Goldie [...] AM Chronic Aflutter Severe TR HFpEF HTN SACK LIFTER Imdur 60mg daily, Metoprolol tartrate 100mg BID, Torsemide 40mg bid. Patient has hx of GI bleedso underwent atrial appendage closure. - Restart SACK LIFTER imdur. - Continue Metoprolol, torsemide COPD DEMI [...] daily - Fenofibrate 54mg daily DMII No SACK LIFTER medications - daily BMP BPH - Finasteride [...] minutes Treatment Time: 14 minutes: Functional Activities (56679): see transfers and bed mobility above fordetails. ASSESSMENT Anthony Bowles is a 73 y.o. male presents to IP PT s/p admission for AMS. PMH significant [...] continued skilled PT services for Functional Activities (59811), Gait Training (54590), Therapeutic Exercises (69677), Neuromuscular Re-education (65154), Manual Therapy - MFR/STM/JT.MOBS (07865), Orthotics Management and Training (80071), and Self Care/Home Management/ADL (03764) to progress towards goals and maximize independence. Goals: 1: Patient will transfer supine to/from sit with (6) Modified [place] with HOB flat and no rails in order to safely and independently mobilize at home by 01/17/24. 2: Patient will transfer sit to/from stand with (6) Modified [place] and LRAD in order to safely and independently mobilize at home by 01/17/24. 3: Ambulate >20 meters using LRAD with (6) Modified [place] in order to safely and independently navigate distances necessary for home by 01/17/24. 4: Ascend/descend 5-10 stairs using LRAD and/or 1-2 rails with (6) Modified [place] in order to safely and independently navigate home environment by 01/17/24. PLAN Patient will be seen 2-4x/week until goals are met or patient is discharged. Next visit the plan isto work on bed mobility with HOB flat, sit<>stands with FWW, short distance gait with FWW as able, up to chair. SACK LIFTER Appropriate: No (needs mobility progressed) Participated in [...] Physician PT/OT evaluations Estimated Nutritional Needs: Calories: 1307-3489 Protein: 95 grams/day Fluid: 2000 mL/day Nutrition-Related [...] Anthropometrics Ht Readings from Last 1 Encounters: 12/30/23 1.753 m (5' 9) Admission weight: 88.5 kg (195 lb 1.7 oz) Current Weight: 88.5 kg (195 lb 1.7 oz) (12/29/23 2326) Body mass index is 28.81 kg/m??. [place] body weight: 73 kg Weight history: 07/16/23 88.5 kg (195 lb) 04/12/23 93 kg (205 lb) Lab Results Component Value Date NA 140 12/29/2023 K 4.3 12/30/2023 GLU 126 (H) 12/29/2023 UN 17 12/29/2023 CR 1.05 12/29/2023 PO4 3.8 04/15/2023 MG 1.1 (L) 12/30/2023 Nutrition Risk Level: moderate Dayana Cadena RD, LD, [facility] [employer] * Dru Bui MD - 12/30/2023 6:18 AM CDTAssociated Order(s): CONSULT TO ORTHOPAEDIC Ortho Consult Note Date of service: 12/29/2023 CC: Reason for consultation: Rule out right septic wrist HPI: Anthony Bowles is 73 y.o. male who presents with right wrist pain reportedly transferred to [facility] due to concerns of a septic arthritis. [...] Sepulveda MD - 12/29/2023 5:58 PM CDT Hospitality Job Titles of the Day (MOD) Triage/Communication Note Sign out received from [facility] (team center/clinic). Requested unit: any med floor (choose from: any medicine floor, specific medicine floor with rationale, CaRe, RTU, MICU). Patient status: INPT. (Obs v. Inpt) Cardiac telemetry needed? yes (specify if remote telemetry OK). Summary of verbal sign out given by ED/clinic MEAT SOAKER: Fever, AMS, right wrist swelling, elevated bilirubin 73yo transferred here from [place]. Falls at home and AMS. Febrile to 100.3 there and had red painful wrist. Transferred here for possible septic arthritis. Ortho saw here - doesn't look like septic arthritis. Has lytic lesions on CT -- this has been worked up as outpatiet per his son. Has chronic AFib. CT head neg. CXR and urinalysis negative. LFTs elevated (bilirubin). Got vanc and zosyn at [place] Not febrile here. Sed rate and procal elevated -- ED planning to start abx but unclear what is being treated. -- Given AMS, fever and elevated bilirubin of unclear etiology, does not seem appropriate for RTU bc additional workup is needed. Consider liver imaging for cholangitis. Unable to access [facility] records Ai Sepulveda MD, 12/29/2023 5:58 PM [...] words Febrile to 100.3 F Seen at [facility] yesterday then sent to us today Transferred for concern for septic arthritis of right wrist ED Course CT at outside facility with lytic lesions to distal radius and carpal bones (multiple myeloma rather than septic arthritis) Received Vancomycin and Zosyn at [facility] Elevated LFTs at outside, possible rhabdo Negative [...] in real time. Please contact me via [employer] staff message if you note any errors [...] nephropathy, without long-term current use of insulin ([facility]) 4. Hypomagnesemia 5. E coli enteritis This note may serve as the Observation H&P Arabella Carbone MD Emergency Medicine PGY-1 Dictation Disclaimer: Some notes are completed with voice-recognition dictation software. As a result, there may be errors in the script that have gone undetected. Errors are generally corrected in real time. Please contact me via [employer] staff message if you note any errors requiring clarification. * Cait Garcia RN - 12/29/2023 11:59 AM CDT [facility] from [facility]. Brought in yesterday by son. Son found patient at home and more confused. Noted to have swollen right hand/wrist. 147/70, HR=low 100's chronic afib. * Carmenza Rome RN - 12/29/2023 2:06 AM CDT Nurse report from [place]: Patient is 75 y/o male that normall [...] storm and lack of transport may be 0700 Saturday. documented in this encounter Miscellaneous Notes * [...] continue to monitor and follow POC. Shira Tesfaye, RN, 01/06/2024 11:13 AM Neurologic/Cognitive Assessment Within [...] Physical Therapy Inpatient Discharge Summary Anthony Bowles [id number] Diagnosis Patient Active Problem List Diagnosis Closed nondisplaced fracture of second cervical vertebra, unspecified fracture morphology, initial encounter ([facility]) Acute on chronic diastolic congestive heart failure ([facility]) Anemia in chronic kidney disease Asthma ([facility]) Atherosclerotic heart disease of [place] coronary artery without angina pectoris Atrial flutter ([facility]) Carotid artery disease ([facility]) Chronic gout Chronic kidney disease, stage 2 (mild) Chronic obstructive pulmonary disease, unspecified ([facility]) Gastrointestinal hemorrhage with melena Hypokalemia Hypomagnesemia Hyperlipidemia Obstructive sleep apnea (adult) (pediatric) Other polyosteoarthritis Other pulmonary embolism without acute cor pulmonale ([facility]) Paroxysmal atrial fibrillation ([facility]) Patent foramen ovale ([facility]) Personal history of transient ischemic attack (TIA), 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 Severe tricuspid valve regurgitation Type 2 diabetes mellitus with diabetic nephropathy ([facility]) Altered mental status, unspecified altered mental status type E coli enteritis Type 2 diabetes mellitus with diabetic nephropathy, without long-term current use of insulin ([facility]) Precautions: Weight Bearing Restrictions: n/a (01/03/24 143) Precautions: Other (01/03/24 143) Complies w/ Precautions?: Yes (falls, H2H, full code) (01/03/24 143) Pain at final sessions: Participation Significantly Limited?: No (01/03/24 143) Transfer & Bed Mobility Roll Left: Moderate assist (01/01/24 1330) Roll Right: Moderate assist (01/01/24 1330) Supine to/from Sit: Minimal assist (01/03/24 1430) Sit to/from Stand: Stand by assist (completes x10 consecutively for strengthening, x4 additional throughout session) (01/03/24 143) Sit to/from Stand - Method: From standard seat height;w/ Assistive device (FWW) (01/03/24 143) Scooting: Stand by assist (to boost in bed) (01/03/24 143) Gait Distance (m): 25 m (01/03/24 143) Device: Front wheeled walker (01/03/24 1430) Assistance: Minimal assist (01/03/24 1430) Gait Quality (General): Unsteady (mildly unsteady) (01/03/24 143) Equipment Status: Patient will provide own equipment;Equipment needs to be determined at next level of care (430) Front wheeled walker;Cane (01/03/24 143) Status of progress toward established goals: All goals discharged with plan in place (continued physical assist and rehabilitation services at [facility]). Problem: Decreased Transfer Skills Goal: Patient will transfer supine to/from sit Description: Patient will transfer supine to/from sit with (6) Modified [place] with HOB flat and no rails in order to safely and independently mobilize at home by 01/17/24. Outcome: In progress Goal: Patient will transfer sit to/from stand Description: Patient will transfer sit to/from stand with (6) Modified [place] and LRAD in order to safely and independently mobilize at home by 01/17/24. Outcome: In progress Problem: Decreased Ambulatory Skills Goal: Improve gait Description: Ambulate >20 meters using LRAD with (6) Modified [place] in order to safely and independently navigate distances necessary for home by 01/17/24. Outcome: In progress Goal: Improve gait on stairs Description: Ascend/descend 5-10 stairs using LRAD and/or 1-2 rails with (6) Modified [place] in order to safely and independently navigate [...] needs known. * Nursing Assessment - Fifi Gonzalez RN - 01/04/2024 10:51 PM CDT Nursing Assessment Head to Toe Head to Toe Assessment Shift Summary Shift Summary Potassium at 0400 on 01/04/24 is 3.3. Message sent to [email or web address]. Neurologic/Cognitive Neurologic/Cognitive HEENT HEENT Cardiac Cardiac Respiratory [...] Psychosocial Psychosocial * Nursing Assessment - Fifi Gonzalez, RN - 01/04/2024 5:07 PM CDT Nursing [...] Intentional roundings completed & current POC continues.Christina George RN, 01/04/2024 7:40 AM Neurologic/Cognitive Assessment Within [...] Defined Limits * Nursing Assessment - Gonzalez Tucker, RN - 01/02/2024 8:18 PM CDT Nursing [...] to Toe Assessment Shift Summary On the production supervisor off shift D-Pt A/O x 3 and up with [...] monitor for safety, monitor skin integrity. Franck Gonzalez RN, 01/02/2024 5:45 AM Neurologic/Cognitive Assessment Within Defined [...] 01/01/24 20:04 * Nursing Assessment - Melina Bernardo, SIMRAN - 01/01/2024 2:10 PM CDT Nursing Assessment Head to Toe Head to Toe Assessment Shift Summary Shift Summary Day Shift Note [id number] Data: Pt is A/Ox4, VSS, RA. Can make needs known. Denies pain, SOB, n/v. Pt has a rectal tube placed. Urinal at bedside. Does use call light but will also yell for staff. Repositioning offered when pt allows. CAHTO and uses super ears. TAHIR swelling noted. [...] cooperative. Plan: Plan of care ongoing. Melina Bernardo, RN, 01/01/2024 2:09 PM Neurologic/Cognitive Within Defined [...] PA review pt switched to INPT. Contacted CHANNELING MACHINE RUNNER to deliver IMM form needed * Utilization Management - Eileen Kilpatrick - 01/01/2024 7:39 AM CDT 1118 Paged team X2 Paged [place] team to switch to INPT per PA recommendation * Nursing Assessment - Franck Gonzalez RN - 01/01/2024 5:35 AM CDT Nursing Assessment Head to Toe Head to Toe Assessment Shift Summary On the production supervisor off shift D-Pt A/O x 3 and up with [...] monitor for safety, monitor skin integrity. Franck Gonzalez RN, 01/01/2024 5:38 AM Neurologic/Cognitive Assessment Within Defined [...] Shift Summary Shift Summary Day Shift Note [id number] Data: Pt is A/Ox4, VSS, RA. Can make needs known. Denies pain, SOB, n/v. Pt had a rectal tube placed due to very watery stools. Pt had a moderate BM x3 during shift. Urinal at bedside. Does use call light but will also yell for staff. Repositioning offered when pt allows. CAHTO and uses super ears. TAHIR swelling noted. [...] Peripheral IV 12/29/23 20 gauge Anterior;Left Forearm 12/29/235 -- 1 Fecal Management/Containment System 12/31/23 1116 [...] Limits * Nursing Assessment - Cristopher Rodrigez, RN - 12/30/2023 2:09 PM CDT Nursing Assessment [...] Defined Limits * Nursing Assessment - Karina Grove, RN - 12/30/2023 5:16 AM CDT Images from the original note were not included. Nursing Assessment Head to Toe Head to Toe Assessment Shift Summary TRANSFER IN NOTE D: Patient transferred in to [facility] 3 Room 714 from ED at 2300. Patient condition on arrival: Stable. Patient Belonging 12/29/2023 2326 Reason for Inventory: Admission Medications brought in [...] per Care Plan and orders. Karina Grove, SIMRAN, 12/30/2023 5:16 AM Neurologic/Cognitive Assessment Within Defined [...] slurring his words. Originally patient seen at [facility] ED with a fever. Head CT negative. Hand CT with possible effusion/lesions (concerning for multiple myeloma rather than septic arthritis - worked up by heme onc, told it isn't cancer but required infusions). There had been concern for rhabdo and septic arthritis requiring transfer to [facility]. Per ED provider, for the last few [...] above. Please page the [facility] Team via [employer] with clinical updates or status changes. Note [...] lytic bone lesions. He was transferred to [facility] from [facility] for treatment and evaluation for potential septic [...] nephropathy, without long-term current use of insulin ([facility]) 4. Hypomagnesemia 5. E coli enteritis Lori [...] with ortho closer to his home in [place]. Jesus Soto MD ortho PGY3 documented in [...] Routine 12/29/2023 7:01 PM CDT PC CULTURE,BACTERIAL,DEFI CHITIMACHA,AEROBIC;BLOOD STAT 12/29/2023 7:01 PM CDT PC CULTURE,BACTERIAL,DEFI CHITIMACHA,AEROBIC;BLOOD STAT 12/29/2023 7:01 PM CDT PC POTASSIUM;SERUM [...] PM CDT PROTHROMBIN (PT) & INR STAT 4 12:15 PM CDT documented in this encounter Results * (ABNORMAL) PANEL BASIC METABOLIC (BMP) (01/06/2024 8:52 AM CDT) Sodium 136 135 - 148 mmol/L [facility] Potassium 3.5 3.5 - 5.3 mmol/L [facility] Chloride 96 92 - 108 mmol/L [facility] CO2 26 22 - 30 mmol/L [facility] AnGap 14 8 - 16 mmol/L [facility] Glucose 98 70 - 100 mg/dL [facility] BUN 29(H) 8 - 23 mg/dL [facility] Creatinine 1.38(H) 0.70 - 1.25 mg/dL [facility] Calcium 9.2 8.8 - 10.2 mg/dL [facility] eGFR (2020 CKD-EPI) 54(L) >=60 ml/min/1.7 3m2 [facility] Comment: The estimated glomerular filtration rate (eGFR) was calculated using the CKD-EPI 2020 creatinine equation, which does not include race as a factor. This equation is validated in individuals 18 years of age and older, and eGFR is normalized to a body surface area of 1.73m^2. Blood 01/06/2024 8:52 AM CDT 01/06/2024 9:17 AM CDT Mauricio Simpson MD LABORATORY [facility] [address] [address] * (ABNORMAL) PANEL BASIC METABOLIC (BMP) (01/05/2024 7:51 AM CDT) Sodium 137 135 - 148 mmol/L [facility] Potassium 3.3(L) 3.5 - 5.3 mmol/L [facility] Chloride 95 92 - 108 mmol/L [facility] CO2 29 22 - 30 mmol/L [facility] AnGap 13 8 - 16 mmol/L [facility] Glucose 98 70 - 100 mg/dL [facility] BUN 26(H) 8 - 23 mg/dL [facility] Creatinine 1.27(H) 0.70 - 1.25 mg/dL [facility] Calcium 9.3 8.8 - 10.2 mg/dL [facility] eGFR (2020 CKD-EPI) 60 >=60 ml/min/1.7 3m2 [facility] Comment: The estimated glomerular filtration rate (eGFR) was calculated using the CKD-EPI 2020 creatinine equation, which does not include race as a factor. This equation is validated in individuals 18 years of age and older, and eGFR is normalized to a body surface area of 1.73m^2. Blood 01/05/2024 7:51 AM CDT 01/05/2024 7:57 AM CDT Jossie Short MD LABORATORY Performing Organization Address City/[facility]/ZIP Co de Phone Number [address] [address] * PHOSPHORUS (01/04/2024 4:00 AM CDT) Phosphorus 3.0 2.5 - 4.5 mg/dL [facility] Blood 01/04/2024 4:00 AM CDT 01/04/2024 4:14 AM CDT Mauricio Simpson MD LABORATORY Performing Organization Address City/[facility] Co de Phone Number [facility] [address] [address] * MAGNESIUM (01/04/2024 4:00 AM CDT) Magnesium 1.7 1.6 - 2.4 mg/dL [facility] Blood 01/04/2024 4:00 AM CDT 01/04/2024 4:14 AM CDT Mauricio Simspon MD LABORATORY Performing Organization Address City/[facility] Co de Phone Number [facility] [address] [address] * (ABNORMAL) PANEL BASIC METABOLIC (BMP) (01/04/2024 4:00 AM CDT) Sodium 137 135 - 148 mmol/L [facility] Potassium 3.3(L) 3.5 - 5.3 mmol/L [facility] Chloride 96 92 - 108 mmol/L [facility] AnGap 15 8 - 16 mmol/L [facility] CO2 26 22 - 30 mmol/L [facility] Glucose 100 70 - 100 mg/dL [facility] BUN 26(H) 8 - 23 mg/dL [facility] Creatinine 1.32(H) 0.70 - 1.25 mg/dL [facility] Calcium 9.2 8.8 - 10.2 mg/dL [facility] eGFR (2020 CKD-EPI) 57(L) >=60 ml/min/1.7 3m2 [facility] Comment: The estimated glomerular filtration rate (eGFR) was calculated using the CKD-EPI 2020 creatinine equation, which does not include race as a factor. This equation is validated in individuals 18 years of age and older, and eGFR is normalized to a body surface area of 1.73m^2. Blood 01/04/2024 4:00 AM CDT 01/04/2024 4:14 AM CDT Mauricio Simpson MD LABORATORY [facility] [address] [address] * (ABNORMAL) PANEL BASIC METABOLIC (BMP) (01/03/2024 7:27 AM CDT) Sodium 136 135 - 148 mmol/L [facility] Potassium 3.3(L) 3.5 - 5.3 mmol/L [facility] Chloride 97 92 - 108 mmol/L [facility] AnGap 11 8 - 16 mmol/L [facility] CO2 28 22 - 30 mmol/L [facility] Glucose 96 70 - 100 mg/dL [facility] BUN 24(H) 8 - 23 mg/dL [facility] Creatinine 1.19 0.70 - 1.25 mg/dL [facility] Calcium 9.1 8.8 - 10.2 mg/dL [facility] eGFR (2020 CKD-EPI) 64 >=60 ml/min/1.7 3m2 [facility] Comment: The estimated glomerular filtration rate (eGFR) was calculated using the CKD-EPI 2020 creatinine equation, which does not include race as a factor. This equation is validated in individuals 18 years of age and older, and eGFR is normalized to a body surface area of 1.73m^2. Blood 01/03/2024 7:27 AM CDT 01/03/2024 7:28 AM CDT Mauricio Simpson MD LABORATORY Performing Organization Address City/[facility] Co de Phone Number [address] [address] * MAGNESIUM (01/03/2024 7:27 AM CDT) Magnesium 1.7 1.6 - 2.4 mg/dL [facility] Blood 01/03/2024 7:27 AM CDT 01/03/2024 8:17 AM CDT Mauricio Simpson MD LABORATORY Performing Organization Address [facility] Co de Phone Number [address] [address] * PHOSPHORUS (01/03/2024 7:27 AM CDT) Phosphorus 3.1 2.5 - 4.5 mg/dL [facility] Blood 01/03/2024 7:27 AM CDT 01/03/2024 8:17 AM CDT Mauricio Simpson MD LABORATORY Performing Organization Address City/[facility] Co de Phone Number [address] [address] * PHOSPHORUS (01/02/2024 6:01 AM CDT) Phosphorus 3.5 2.5 - 4.5 mg/dL [facility] Blood 01/02/2024 6:01 AM CDT 01/02/2024 6:10 AM CDT Mauricio Simpson MD LABORATORY Performing Organization Address City/[facility] Co de Phone Number [facility] [address] [address] * MAGNESIUM (01/02/2024 6:01 AM CDT) Magnesium 1.8 1.6 - 2.4 mg/dL [facility] Blood 01/02/2024 6:01 AM CDT 01/02/2024 6:10 AM CDT Maruicio Simpson MD LABORATORY Performing Organization Address City/[facility]/ZIP Co de Phone Number [facility] [address] [address] * (ABNORMAL) PANEL BASIC METABOLIC (BMP) (01/02/2024 6:01 AM CDT) Sodium 137 135 - 148 mmol/L [facility] Potassium 3.5 3.5 - 5.3 mmol/L [facility] Chloride 97 92 - 108 mmol/L [facility] CO2 27 22 - 30 mmol/L [facility] AnGap 13 8 - 16 mmol/L [facility] Glucose 110(H) 70 - 100 mg/dL [facility] BUN 20 8 - 23 mg/dL [facility] Creatinine 1.16 0.70 - 1.25 mg/dL [facility] Calcium 9.0 8.8 - 10.2 mg/dL [facility] eGFR (2020 CKD-EPI) 67 >=60 ml/min/1.7 3m2 [facility] Comment: The estimated glomerular filtration rate (eGFR) was calculated using the CKD-EPI 2020 creatinine equation, which does not include race as a factor. This equation is validated in individuals 18 years of age and older, and eGFR is normalized to a body surface area of 1.73m^2. Blood 01/02/2024 6:01 AM CDT 01/02/2024 6:10 AM CDT Mauricio Simpson MD LABORATORY [facility] [address] [address] * (ABNORMAL) CBC WITH PLATELET (01/02/2024 6:01 AM CDT) WBC 7.22 4.00 - 10.00 k/cmm [facility] RBC 3.68(L) 4.60 - 6.00 m/cmm [facility] Hgb 10.5(L) 13.1 - 17.5 g/dL [facility] Hematocrit 33.0(L) 40.0 - 51.0 % [facility] MCV 89.7 80.0 - 100.0 fL [facility] MCH 28.5 25.0 - 32.0 pg [facility] MCHC 31.8 31.0 - 36.0 g/dL [facility] RDW 14.8(H) 11.5 - 14.5 % [facility] Plt 299 150 - 400 k/cmm [facility] MPV 10.3 6.5 - 12.5 fL [facility] Blood 01/02/2024 6:01 AM CDT 01/02/2024 6:11 AM CDT Mauricio Simpson MD LABORATORY [facility] [address] [address] * PHOSPHORUS (01/01/2024 8:43 AM CDT) Phosphorus 2.7 2.5 - 4.5 mg/dL [facility] Blood 01/01/2024 8:43 AM CDT 01/01/2024 9:10 AM CDT Mauricio Simpson MD LABORATORY [facility] [address] [address] * MAGNESIUM (01/01/2024 8:43 AM CDT) Magnesium 2.0 1.6 - 2.4 mg/dL [facility] Blood 01/01/2024 8:43 AM CDT 01/01/2024 9:10 AM CDT Mauricio Simpson MD LABORATORY [facility] [address] [address] * (ABNORMAL) PANEL BASIC METABOLIC (BMP) (01/01/2024 8:43 AM CDT) Sodium 136 135 - 148 mmol/L [facility] Potassium 3.7 3.5 - 5.3 mmol/L [facility] Chloride 97 92 - 108 mmol/L [facility] CO2 29 22 - 30 mmol/L [facility] AnGap 10 8 - 16 mmol/L [facility] Glucose 108(H) 70 - 100 mg/dL [facility] BUN 18 8 - 23 mg/dL [facility] Creatinine 1.12 0.70 - 1.25 mg/dL [facility] Calcium 9.0 8.8 - 10.2 mg/dL [facility] eGFR (2020 CKD-EPI) 69 >=60 ml/min/1.7 3m2 [facility] Comment: The estimated glomerular filtration rate (eGFR) was calculated using the CKD-EPI 2020 creatinine equation, which does not include race as a factor. This equation is validated in individuals 18 years of age and older, and eGFR is normalized to a body surface area of 1.73m^2. Blood 01/01/2024 8:43 AM CDT 01/01/2024 9:10 AM CDT Mauricio Simpson MD LABORATORY Performing Organization Address [facility] Co de Phone Number [facility] [address] [address] * (ABNORMAL) CBC WITH PLATELET (01/01/2024 8:43 AM CDT) WBC 7.08 4.00 - 10.00 k/cmm [facility] RBC 3.68(L) 4.60 - 6.00 m/cmm [facility] Hgb 10.5(L) 13.1 - 17.5 g/dL [facility] Hematocrit 33.0(L) 40.0 - 51.0 % [facility] MCV 89.7 80.0 - 100.0 fL [facility] MCH 28.5 25.0 - 32.0 pg [facility] MCHC 31.8 31.0 - 36.0 g/dL [facility] RDW 14.8(H) 11.5 - 14.5 % [facility] Plt 279 150 - 400 k/cmm [facility] MPV 10.5 6.5 - 12.5 fL [facility] Blood 01/01/2024 8:43 AM CDT 01/01/2024 9:09 AM CDT Mauricio Simpson MD LABORATORY Performing Organization Address City/[facility] Co de Phone Number [facility] [address] [address] * PHOSPHORUS (12/31/2023 7:11 AM CDT) Pathologist [facility] Phosphorus 2.6 2.5 - 4.5 mg/dL [facility] Blood 12/31/2023 7:11 AM CDT 12/31/2023 7:35 AM CDT Mauricio Simpson MD LABORATORY Performing Organization Address City/[facility] Co de Phone Number [facility] [address] [address] * MAGNESIUM (12/31/2023 7:11 AM CDT) Pathologist [facility] Magnesium 1.6 1.6 - 2.4 mg/dL [facility] Blood 12/31/2023 7:11 AM CDT 12/31/2023 7:35 AM CDT Mauricio Simpson MD LABORATORY Performing Organization Address [facility] Co de Phone Number [facility] [address] [address] * (ABNORMAL) PANEL BASIC METABOLIC (BMP) (12/31/2023 7:11 AM CDT) Sodium 137 135 - 148 mmol/L [facility] Potassium 3.0(AA) 3.5 - 5.3 mmol/L [facility] Comment:Critical Result Low Chloride 97 92 - 108 mmol/L [facility] CO2 28 22 - 30 mmol/L [facility] AnGap 12 8 - 16 mmol/L [facility] Glucose 94 70 - 100 mg/dL [facility] BUN 15 8 - 23 mg/dL [facility] Creatinine 1.04 0.70 - 1.25 mg/dL [facility] Calcium 8.6(L) 8.8 - 10.2 mg/dL [facility] eGFR (2020 CKD-EPI) 76 >=60 ml/min/1.7 3m2 [facility] Comment: The estimated glomerular filtration rate (eGFR) was calculated using the CKD-EPI 2020 creatinine equation, which does not include race as a factor. This equation is validated in individuals 18 years of age and older, and eGFR is normalized to a body surface area of 1.73m^2. Blood 12/31/2023 7:11 AM CDT 12/31/2023 7:35 AM CDT Narrative [facility] - 12/31/2023 8:17 AM CDT Critical value for Potassium called to and read back by Kerri Evans MD in [facility] at 12/31/2023 08:17:00 CDT by Trinity Macdonald MLS. Mauricio Simpson MD LABORATORY [facility] [address] [address] * (ABNORMAL) CBC WITH PLATELET (12/31/2023 7:11 AM CDT) WBC 7.09 4.00 - 10.00 k/cmm [facility] RBC 3.34(L) 4.60 - 6.00 m/cmm [facility] Hgb 9.5(L) 13.1 - 17.5 g/dL [facility] Hematocrit 30.1(L) 40.0 - 51.0 % [facility] MCV 90.1 80.0 - 100.0 fL [facility] MCH 28.4 25.0 - 32.0 pg [facility] MCHC 31.6 31.0 - 36.0 g/dL [facility] RDW 14.9(H) 11.5 - 14.5 % [facility] Plt 262 150 - 400 k/cmm [facility] MPV 10.8 6.5 - 12.5 fL [facility] Blood 12/31/2023 7:11 AM CDT 12/31/2023 7:35 AM CDT Mauricio Simpson MD LABORATORY [facility] [address] [place] [address] * ULT VENOUS UPPER EXTREMITY RIGHT (12/30/2023 [...] by the resident/fellow. Reading Radiologist: Matias Lenz Resident: Gaston Contreras Narrative 12/30/2023 9:16 PM [...] DNA Not Detected Not Detected [facility] Shiga-like toxin-producing E. coli stx1/stx2 DNA Not Detected Not Detected [facility] Escherichia coli 0157 DNA Not Reported Not Detected [facility] Shigella/Enteroinvas patricia E coli DNA Not Detected Not Detected [facility] Cryptosporidium DNA Not Detected Not Detected [facility] Cyclospora cayetanensis DNA Not Detected Not Detected [facility] Entamoeba histolytica DNA Not Detected Not Detected [facility] Giardia duodenalis DNA Not Detected Not Detected [facility] Adenovirus F 40/41 DNA Not Detected Not Detected [facility] Astrovirus RNA Not Detected Not Detected [facility] Norovirus GI/GII RNA Not Detected Not Detected [facility] Rotavirus RNA Not Detected Not Detected [facility] Sapovirus (I, II, IV, V) RNA Not Detected Not Detected [facility] Comment:This is a multiplex reverse transcriptase two-stage PCR nucleic acid assay. This gastrointestinal panel is FDA approved. Feces 12/30/2023 12:3 5 PM CDT 12/30/2023 1:48 PM CDT Narrative [facility] - 12/30/2023 3:37 PM CDT Critical value for Stool GI panel electronically reported to and acknowledged by Kerri Evans MD in [address] at 12/30/2023 15:37:34 CDT by Paul Guzman MLS. Mauricio Simpson MD LAB MICROBIOLOGY [facility] [address] [address] * CT OUTSIDE READ MSK/NON NEURO (12/30/2023 [...] 12:06 PM CDT Indication: ??Patient transferred from [facility]. ??No initial report accompanied the patient and/or Dr. ??MAURICIO SIMPSON requested an interpretation by me. Technique: ??CT scan of the right wrist done on 12/28/23 with IV contrast. ??3 mm axial, sagittal and coronal reconstructions reviewed in soft tissue and bone windows, per the local institution's scanning protocols, which may differ from the [facility] trauma protocols. Findings: ?? Bones and joints: [...] MD - 12/30/2023 Indication: Patient transferred from [facility]. No initialreport accompanied the patient and/or Dr. MAURICIO SIMPSON requested aninterpretation by me. Technique: CT scan of the right wrist done on 12/28/23 with IV contrast.3 mm axial, sagittal and coronal reconstructions reviewed in soft tissueand bone windows, per the local institution's scanning protocols, whichmay differ from the [facility] trauma protocols. Findings: Bones and joints: Chondrocalcinosis [...] Simpson MD RAD CT BODY * VITAMIN [id number] TO MMA (12/30/2023 10:01 AM CDT) Pathologist [facility] B12 922 211 - 946 pg/mL [facility] Blood 12/30/2023 10:0 1 AM CDT 12/30/2023 10:28 AM CDT Dimas Resendiz MD LABORATORY Performing Organization Address City/[facility]/ZIP Co de Phone Number [facility] [address] [address] * HIV COMBO (12/30/2023 10:01 AM CDT) Pathologist [facility] HIV Antigen-Antibody Nonreactive Nonreactive [facility] Comment:Performance characte ristics have not been established with this test on patients less than 2 years of age. Blood 12/30/2023 10:0 1 AM CDT 12/30/2023 10:27 AM CDT Dimas Resendiz MD LABORATORY [facility] [address] [address] * TSH WITH REFLEX TO FREE T4 (12/30/2023 10:01 AM CDT) Pathologist [facility] TSH 1.33 0.27 - 4.20 mIU/L [facility] Blood 12/30/2023 10:0 1 AM CDT 12/30/2023 10:27 AM CDT Dimas Resendiz MD LABORATORY Performing Organization Address City/[facility] Co de Phone Number [facility] [address] [address] * RETIC COUNT (12/30/2023 10:01 AM CDT) Retic Count 1.2 0.5 - 1.8 % [facility] Blood 12/30/2023 10:0 1 AM CDT 12/30/2023 10:27 AM CDT Dimas Resendiz MD LABORATORY Performing Organization Address [facility] de Phone Number [address] [address] * (ABNORMAL) PHOSPHORUS (12/30/2023 10:01 AM CDT) Phosphorus 1.7(L) 2.5 - 4.5 mg/dL [facility] Blood 12/30/2023 10:0 1 AM CDT 12/30/2023 10:27 AM CDT Lori Billingsley MD LABORATORY Performing Organization Address [facility] Co de Phone Number [facility] [address] [address] * MAGNESIUM (12/30/2023 10:01 AM CDT) Magnesium 1.6 1.6 - 2.4 mg/dL [facility] Blood 12/30/2023 10:0 1 AM CDT 12/30/2023 10:27 AM CDT Lori Billingsley MD LABORATORY Performing Organization Address [facility] Co de Phone Number [address] [address] * (ABNORMAL) PANEL HEPATIC FUNCTION (12/30/2023 10:01 AM CDT) Total Protein 7.0 6.4 - 8.3 g/dL [facility] Albumin 3.2(L) 3.8 - 5.1 g/dL [facility] Bili Total 0.8 <=1.2 mg/dL [facility] Bili Direct 0.4(H) <=0.3 mg/dL [facility] Alk Phos 72 40 - 129 IU/L [facility] Comment:No reference range e stablished for patients <18 years old. ALT (SGPT) 8 <=41 IU/L [facility] AST(SGOT) 13 5 - 40 IU/L [facility] Blood 12/30/2023 10:0 1 AM CDT 12/30/2023 10:27 AM CDT Lori Billingsley MD LABORATORY [facility] [address] [address] * (ABNORMAL) PANEL BASIC METABOLIC (BMP) (12/30/2023 10:01 AM CDT) Pathologist [facility] Sodium 137 135 - 148 mmol/L [facility] Potassium 3.9 3.5 - 5.3 mmol/L [facility] Chloride 101 92 - 108 mmol/L [facility] CO2 26 22 - 30 mmol/L [facility] AnGap 10 8 - 16 mmol/L [facility] Glucose 161(H) 70 - 100 mg/dL [facility] BUN 13 8 - 23 mg/dL [facility] Creatinine 0.87 0.70 - 1.25 mg/dL [facility] Calcium 9.2 8.8 - 10.2 mg/dL [facility] eGFR (2020 CKD-EPI) 91 >=60 ml/min/1.7 3m2 [facility] Comment: The estimated glomerular filtration rate [...] Lori Billingsley MD LABORATORY Performing Organization Address City/[facility] Co de Phone Number [facility] [address] [address] * (ABNORMAL) CBC WITH PLATELET (12/30/2023 10:01 AM CDT) WBC 10.83(H) 4.00 - 10.00 k/cmm [facility] RBC 3.60(L) 4.60 - 6.00 m/cmm [facility] Hgb 10.4(L) 13.1 - 17.5 g/dL [facility] Hematocrit 32.6(L) 40.0 - 51.0 % [facility] MCV 90.6 80.0 - 100.0 fL [facility] MCH 28.9 25.0 - 32.0 pg [facility] MCHC 31.9 31.0 - 36.0 g/dL [facility] RDW 15.0(H) 11.5 - 14.5 % [facility] Plt 233 150 - 400 k/cmm [facility] MPV 11.2 6.5 - 12.5 fL [facility] Blood 12/30/2023 10:0 1 AM CDT 12/30/2023 10:27 AM CDT Lori Billingsley MD LABORATORY Performing Organization Address [facility] Co de Phone Number [facility] [address] [address] * LD (LDH) (12/30/2023 1:21 AM CDT) LD 216 135 - 225 IU/L [facility] Blood 12/30/2023 1:21 AM CDT 12/30/2023 1:28 AM CDT Dimas Resendiz MD LABORATORY Performing Organization Address City/[facility]/ZIP Co de Phone Number [facility] [address] [address] * (ABNORMAL) HAPTOGLOBIN (12/30/2023 1:21 AM CDT) Haptoglobin 400(H) 32 - 197 mg/dL [facility] Blood 12/30/2023 1:21 AM CDT 12/30/2023 1:28 AM CDT Dimas Resendiz MD LABORATORY Performing Organization Address City/[facility] Co de Phone Number [address] [address] * (ABNORMAL) MAGNESIUM (12/30/2023 1:21 AM CDT) Pathologist [facility] Magnesium 1.1(L) 1.6 - 2.4 mg/dL [facility] Blood 12/30/2023 1:21 AM CDT 12/30/2023 1:28 AM CDT Dimas Resendiz MD LABORATORY Performing Organization Address [facility] Co de Phone Number [address] [address] * POTASSIUM (12/30/2023 1:21 AM CDT) Pathologist [facility] Potassium 4.3 3.5 - 5.3 mmol/L [facility] Blood 12/30/2023 1:21 AM CDT 12/30/2023 1:28 AM CDT Dimas Resendiz MD LABORATORY Performing Organization Address [facility] Co de Phone Number [address] [address] * ULT GALLBLADDER (12/29/2023 10:24 PM CDT) [...] Uric Acid 4.6 3.4 - 7.0 mg/dL [facility] Blood 12/29/2023 10:2 4 PM CDT 12/29/2023 10:34 PM CDT Dafne Holcmob PA-C LABORATORY [facility] [address] [address] * ED US ABDOMINAL/GALLBLADDER (12/29/2023 9:31 PM [...] DOSE: ?Total DLP = 1064.6 mGy.cm (accession [id number]), 462 mGy.cm (accession [id number]). ?? Findings: FINDINGS: Beam hardening artifact limits [...] DOSE: Total DLP = 1064.6 mGy.cm (accession [id number]), 462 mGy.cm(accession [id number]). Findings: FINDINGS: Beam hardening artifact limits evaluation [...] DOSE: ?Total DLP = 1064.6 mGy.cm (accession [id number]), 462 mGy.cm (accession [id number]). ?? Findings: FINDINGS: Beam hardening artifact limits [...] DOSE: Total DLP = 1064.6 mGy.cm (accession [id number]), 462 mGy.cm(accession [id number]). Findings: FINDINGS: Beam hardening artifact limits evaluation [...] CDT) CK 95 39 - 308 IU/L [facility] Blood 12/29/2023 7:01 PM CDT 12/29/2023 10:12 PM CDT Dafne Holcomb PA-C LABORATORY [facility] [address] [address] * LACTATE (LACTIC ACID) (12/29/2023 7:01 PM CDT) Lactate 1.0 0.7 - 2.1 mmol/L [facility] Blood 12/29/2023 7:01 PM CDT 12/29/2023 7:25 PM CDT Narrative [facility] - 12/29/2023 7:26 PM CDT Send specimen on ice! Dafne Holcomb PA-C LABORATORY Performing Organization Address [facility]/ZIP Co de Phone Number [facility] [address] [address] * (ABNORMAL) ED CHEMISTRY LABS(NA,K,CL,CO2,GLU,CREAT,CA-IONIZED,ANION GAP) (12/29/2023 7:01 PM CDT) Sodium 140 135 - 148 mmol/L [facility] Chloride 101 92 - 108 mmol/L [facility] AnGap 11 8 - 16 mmol/L [facility] Glucose 126(H) 70 - 100 mg/dL [facility] ICA, Actual 4.47 4.40 - 5.20 mg/dL [facility] ICA, pH Corrected 4.52 4.40 - 5.20 mg/dL [facility] Creatinine 1.05 0.70 - 1.25 mg/dL [facility] BICARB 28(H) 22 - 26 mEq/L [facility] eGFR (2020 CKD-EPI) 75 >=60 ml/min/1.7 3m2 [facility] Comment: The estimated glomerular filtration rate (eGFR) was calculated using the CKD-EPI 2020 creatinine equation, which does not include race as a factor. This equation is validated in individuals 18 years of age and older, and eGFR is normalized to a body surface area of 1.73m^2. Potassium 3.2(L) 3.5 - 5.3 mmol/L [facility] Blood 12/29/2023 7:01 PM CDT 12/29/2023 7:25 PM CDT Dafne Holcomb PA-C LABORATORY Performing Organization Address City/[facility]/ZIP Co de Phone Number [facility] [address] [address] * BLOOD AEROBIC/ANAEROBIC CULTURE (12/29/2023 7:01 PM CDT) Final Report No growth after 5 days. [facility] Blood (Peripheral) 12/29/2023 7:01 PM CDT 12/30/2023 1:44 AM CDT Dafne Holcomb PA-C LAB MICROBIOLOGY Performing Organization Address [facility]/ZIP Co de Phone Number [facility] [address] [address] * BLOOD AEROBIC/ANAEROBIC CULTURE (12/29/2023 7:01 PM CDT) Final Report No growth after 5 days. [facility] Blood (Peripheral) 12/29/2023 7:01 PM CDT 12/30/2023 1:44 AM CDT Dafne Holcomb PA-C LAB MICROBIOLOGY Performing Organization Address [facility] Co de Phone Number [facility] [address] [address] * TROP 6H (12/29/2023 7:01 PM CDT) 6H Trop 20 <=35 ng/L [facility] 6H Delta Not Significant Not Significant [facility] Blood 12/29/2023 7:01 PM CDT 12/29/2023 7:49 PM CDT Lori Billingsley MD LABORATORY Performing Organization Address [facility] Co de Phone Number [facility] [address] [address] * (ABNORMAL) ED POTASSIUM (12/29/2023 5:35 PM CDT) Potassium 3.3(L) 3.5 - 5.3 mmol/L [facility] Blood 12/29/2023 5:35 PM CDT 12/29/2023 5:47 PM CDT Rey Brady MD LABORATORY Performing Organization Address [facility]/ZIP Co de Phone Number [facility] [address] [address] * ED US CARDIAC (12/29/2023 4:51 PM CDT) Anatomical Region Laterality Modality Ultrasound Narrative 12/29/2023 8:21 PM CDT ED Cardiac Ultrasound Body Areas Imaged: Heart, Chest Wall/Lungs, and Inferior Vena Cava Indications:Tachycardia Window: Subxiphoid, Parasternal Short [place], Parasternal Long [place], Apical 4-Chamber, IVC, and Bilateral Lungs Findings: [...] (12/29/2023 4:28 PM CDT) Procalcitonin 0.62 ng/mL [facility] Comment: Results <0.50 ng/mL represent a low risk of severe sepsis and/or septic shock. Results >2.0 ng/mL represent a high risk of severe sepsis and/or septic shock. Blood 12/29/2023 4:28 PM CDT 12/29/2023 5:08 PM CDT Dafne Holcomb PA-C LABORATORY [facility] [address] [address] * TROP 4H (12/29/2023 4:28 PM CDT) 4H Trop 19 <=35 ng/L [facility] 4H Delta Not Significant Not Significant [facility] Blood 12/29/2023 4:28 PM CDT 12/29/2023 5:08 PM CDT Lori Billingsley MD LABORATORY Performing Organization Address [facility] Co de Phone Number [facility] [address] [address] * TROP 2H (12/29/2023 2:32 PM CDT) 2H Trop 21 <=35 ng/L [facility] 2H Delta Not Significant Not Significant [facility] Blood 12/29/2023 2:32 PM CDT 12/29/2023 2:40 PM CDT Lori Billingsley MD LABORATORY Performing Organization Address [facility] de Phone Number [facility] [address] [address] * LACTATE (LACTIC ACID) (12/29/2023 2:32 PM CDT) Lactate 1.0 0.7 - 2.1 mmol/L [facility] Blood 12/29/2023 2:32 PM CDT 12/29/2023 2:41 PM CDT Narrative [facility] - 12/29/2023 2:41 PM CDT Send specimen on ice! Lori Billingsley MD LABORATORY Performing Organization Address [facility] Co de Phone Number [facility] [address] [address] * (ABNORMAL) URINE DRUG SCREEN (12/29/2023 1:40 PM CDT) Acetaminophen Ur POS(A) <=10 mcg/mL [facility] Amphetamine Ur NEG <=500 ng/mL [facility] Barbiturate Ur NEG <=200 ng/mL [facility] Benzodiazipine NEG <=100 ng/mL [facility] Buprenorphine Ur NEG <=5 ng/mL [facility] Cocaine Metab Ur NEG <=300 ng/mL [facility] Fentanyl, Urine NEG <=4 ng/mL [facility] LSD Ur NEG <=500 pg/mL [facility] Methadone Ur NEG <=300 ng/mL [facility] Opiate Ur NEG <=300 ng/mL [facility] Oxycodone Ur NEG <=100 ng/mL [facility] PCP Urine NEG <=25 ng/mL [facility] Propox Ur NEG <=300 ng/mL [facility] Salicylate Ur NEG <=10 mg/dL [facility] Creat Urine 89 >=20 mg/dL [facility] Mass Spectrometry Urine Acetaminophen , Diphenhydrami ne, Sertraline and Sertraline metabolite present. [facility] Urine 12/29/2023 1:40 PM CDT 12/31/2023 1:51 AM CDT Dimas Resendiz MD LABORATORY Performing Organization Address [facility] Co de Phone Number [facility] [address] [address] * URINE CULTURE (12/29/2023 1:40 PM CDT) Pathologist [facility] Urine Cult No growth. [facility] Urine Cath URINE / Unknown 12/29/2023 1 :40 PM CDT 12/29/2023 2:40 PM CDT Narrative [facility] - 12/30/2023 12:27 PM CDT ED Patient: Yes Lori Billingsley MD LAB MICROBIOLOGY Performing Organization Address [facility] Co de Phone Number [facility] [address] [address] * (ABNORMAL) URINALYSIS,TOTAL (12/29/2023 1:40 PM CDT) Color YELLOW YELLOW [facility] Appearance CLEAR CLEAR [facility] Urine Glucose NEGATIVE NEGATIVE mg/dL [facility] Bili UA NEGATIVE NEGATIVE [facility] Ketones NEGATIVE NEGATIVE [facility] Specific [place] 1.039(A) 1.003 - 1.030 [facility] Blood Ur SMALL(A) Neg-Trace [facility] PH Urine 6.0 5.0 - 7.0 [facility] Protein Ur 70(A) Neg-Trace [facility] Urobilinogen NORMAL NORMAL EU/dL [facility] Nitrite Ur NEGATIVE NEGATIVE [facility] Leuk Est NEGATIVE Neg-Trace [facility] WBC Ur 0-5 0 - 5 perHPF [facility] RBC Ur 0-3 0 - 3 perHPF [facility] Urinalysis Performed at: [facility] Urine 12/29/2023 1:40 PM CDT 12/29/2023 1:45 PM CDT Lori Billingsley MD LABORATORY [facility] [address] [id number] * (ABNORMAL) SED RATE (ESR) (12/29/2023 1:15 PM CDT) [facility] Sed Rate 120(H) 2 - 10 mm/hr [facility] Blood 12/29/2023 1:15 PM CDT 12/29/2023 2:04 PM CDT Lori Billingsley MD LABORATORY Performing Organization Address [facility] Co de Phone Number [facility] [address] [address] * (ABNORMAL) C-REACTIVE PROTEIN (12/29/2023 1:15 PM CDT) [facility] C-Reactive Protein 229(H) <=4 mg/L [facility] Blood 12/29/2023 1:15 PM CDT 12/29/2023 2:04 PM CDT Lori Billingsley MD LABORATORY Performing Organization Address [facility] Co de Phone Number [facility] [address] [address] * (ABNORMAL) BLOOD GASES (12/29/2023 1:15 PM CDT) PH Greg 7.46(H) 7.32 - 7.42 [facility] PCO2 Greg 40(L) 41 - 51 [facility] PO2 Greg 39 25 - 40 mm[facility] Bicarb Greg 28 24 - 28 mEq/L [facility] O2 Sat Greg 73 % [facility] Base Exc Greg 3.4(H) -10.0 - 2.0 mmol/L [facility] Blood Venous 12/29/2023 1:15 PM CDT 12/29/2023 1:21 PM CDT Lori Billingsley MD LABORATORY Performing Organization Address [facility] Co de Phone Number [facility] [address] [address] * LIPASE (12/29/2023 1:15 PM CDT) Lipase 30 13 - 60 IU/L [facility] Blood 12/29/2023 1:15 PM CDT 12/29/2023 1:24 PM CDT Lori Billingsley MD LABORATORY Performing Organization Address [facility] Co de Phone Number [facility] [address] [address] * (ABNORMAL) AMMONIA (12/29/2023 1:15 PM CDT) Ammonia 13(L) 16 - 60 mcmol/L [facility] Blood 12/29/2023 1:15 PM CDT 12/29/2023 1:25 PM CDT Narrative [facility] - 12/29/2023 1:50 PM CDT Send specimen on ice! Lori Billingsley MD LABORATORY Performing Organization Address [facility] Co de Phone Number [facility] [address] [address] * BUN (UREA NITROGEN) (12/29/2023 1:15 PM CDT) BUN 17 8 - 23 mg/dL [facility] Blood 12/29/2023 1:15 PM CDT 12/29/2023 1:24 PM CDT Lori Billingsley MD LABORATORY Performing Organization Address City/[facility]/ZIP Co de Phone Number [facility] [address] [address] * (ABNORMAL) PANEL HEPATIC FUNCTION (12/29/2023 1:15 PM CDT) [facility] Total Protein 6.2(L) 6.4 - 8.3 g/dL [facility] Albumin 3.1(L) 3.8 - 5.1 g/dL [facility] Bili Total 1.4(H) <=1.2 mg/dL [facility] Bili Direct 0.8(H) <=0.3 mg/dL [facility] Alk Phos 67 40 - 129 IU/L [facility] Comment:No reference range e stablished for patients <18 years old. ALT (SGPT) 6 <=41 IU/L [facility] AST(SGOT) 12 5 - 40 IU/L [facility] Blood 12/29/2023 1:15 PM CDT 12/29/2023 1:24 PM CDT Lori Billingsley MD LABORATORY Performing Organization Address [facility] Co de Phone Number [facility] [address] [address] * HS TROPONIN (12/29/2023 1:15 PM CDT) [facility] HS Troponin I 23 <=35 ng/L [facility] Blood 12/29/2023 1:15 PM CDT 12/29/2023 1:24 PM CDT Narrative [facility] - 12/29/2023 1:52 PM CDT If ordering as an add-on lab, you must call the lab. Lori Billingsley MD LABORATORY Performing Organization Address City/[facility]/ZIP Co de Phone Number [facility] [address] [address] * RPR SYPHILIS SCREEN (12/29/2023 1:15 PM CDT) [facility] RPR Screen Non-Reactive Non-Reacti ve [facility] RPR Titer Not Reflexed [facility] Blood 12/29/2023 1:15 PM CDT 12/29/2023 1:24 PM CDT Lori Billingsley MD LABORATORY Performing Organization Address [facility] Co de Phone Number [facility] [address] [address] * LACTATE (LACTIC ACID) (12/29/2023 1:15 PM CDT) Pathologist [facility] Lactate 1.1 0.7 - 2.1 mmol/L [facility] Blood 12/29/2023 1:15 PM CDT 12/29/2023 1:20 PM CDT Narrative [facility] - 12/29/2023 1:26 PM CDT Send specimen on ice! Lori Billingsley MD LABORATORY Performing Organization Address [facility] Co de Phone Number [facility] [address] [address] * (ABNORMAL) ED CHEMISTRY LABS(NA,K,CL,CO2,GLU,CREAT,CA-IONIZED,ANION GAP) (12/29/2023 1:15 PM CDT) Sodium 138 135 - 148 mmol/L [facility] Potassium 2.7(AA) 3.5 - 5.3 mmol/L [facility] Comment:Critical Result Low Chloride 99 92 - 108 mmol/L [facility] AnGap 12 8 - 16 mmol/L [facility] Glucose 88 70 - 100 mg/dL [facility] ICA, Actual 4.30(L) 4.40 - 5.20 mg/dL [facility] ICA, pH Corrected 4.43 4.40 - 5.20 mg/dL [facility] Creatinine 1.15 0.70 - 1.25 mg/dL [facility] BICARB 28(H) 22 - 26 mEq/L [facility] eGFR (2020 CKD-EPI) 67 >=60 ml/min/1.7 3m2 [facility] Comment: The estimated glomerular filtration rate (eGFR) was calculated using the CKD-EPI 2020 creatinine equation, which does not include race as a factor. This equation is validated in individuals 18 years of age and older, and eGFR is normalized to a body surface area of 1.73m^2. Blood 12/29/2023 1:15 PM CDT 12/29/2023 1:20 PM CDT Narrative [facility] - 12/29/2023 1:27 PM CDT Critical value for Potassium called to and read back by Arabella Carbone RN in ER at 12/29/2023 13:27:25 CDT by Seferino Sharma. Lori Billingsley MD LABORATORY Performing Organization Address [facility] Co de Phone Number [facility] [address] [address] * ED EKG (12-LEAD) (12/29/2023 12:43 PM CDT) 12/29/2023 12:4 3 PM CDT Impressions [facility] EKG ORDERS - 12/29/2023 12:43 PM CDT ATRIAL FIBRILLATION INCOMPLETE RIGHT BUNDLE BRANCH BLOCK ??[90+ ms QRS DURATION, TERMINAL R IN V1/V2, 40+ ms S IN I/aVL/V4/V5/V6] MODERATE ST DEPRESSION ??[0.05+ mV ST DEPRESSION] ABNORMAL ECG P-R Interval 0 ms QRS Interval 98 ms QT Interval 374 ms QTC Interval 428 ms P Hemingway undef QRS Hemingway 22 T Wave [place] 40 Narrative Procedure Note Jose C Quintero MD - 12/29/2023 IMPRESSION ATRIAL FIBRILLATION INCOMPLETE RIGHT BUNDLE BRANCH BLOCK [90+ ms QRS DURATION, TERMINAL R INV1/V2, 40+ ms S IN I/aVL/V4/V5/V6] MODERATE ST DEPRESSION [0.05+ mV ST DEPRESSION] ABNORMAL ECG P-R Interval 0 ms QRS Interval 98 ms QT Interval 374 ms QTC Interval 428 ms P Hemingway undef QRS [place] 22 T Wave [place] 40 Lori Billingsley MD EKG Performing Organization Address [facility]/ZIP Co de Phone Number [facility] CVIS EKG ORDERS * EXTRA TUBE - DARK GREEN (12/29/2023 12:15 PM CDT) DARK GREEN TUBE Stored [facility] Comment:Dark Green tubes (Li thium Heparin) are stored in the lab for 1 day from the collection date. Blood 12/29/2023 12:1 5 PM CDT 12/29/2023 1:23 PM CDT Lori Billingsley MD LABORATORY Performing Organization Address [facility] Co de Phone Number [facility] [address] [address] * EXTRA TUBE - LIGHT GREEN (12/29/2023 12:15 PM CDT) LIGHT GREEN TUBE Stored [facility] Comment:Green tubes (Fowler Heparin) are stored in the lab for 3 days from the collection date. Blood 12/29/2023 12:1 5 PM CDT 12/29/2023 1:23 PM CDT Lori Billingsley MD LABORATORY Performing Organization Address [facility] de Phone Number [facility] [address] [address] * (ABNORMAL) PROTHROMBIN (PT) & INR (12/29/2023 12:15 PM CDT) PT 15.6(H) 9.0 - 12.5 sec [facility] INR 1.4(H) 0.8 - 1.1 [facility] Comment: Warfarin Therapeutic Range: Standard Intensity: 2.0 - 3.0 High Intensity: 2.5 - 3.5 Blood 12/29/2023 12:1 5 PM CDT 12/29/2023 1:44 PM CDT Lori Billingsley MD LABORATORY Performing Organization Address [facility] Co de Phone Number [facility] [address] [address] * (ABNORMAL) CBC WITH PLTS/AUTO DIFF (12/29/2023 12:15 PM CDT) WBC 8.86 4.00 - 10.00 k/cmm [facility] RBC 3.70(L) 4.60 - 6.00 m/cmm [facility] Hgb 10.6(L) 13.1 - 17.5 g/dL [facility] Hematocrit 33.0(L) 40.0 - 51.0 % [facility] MCV 89.2 80.0 - 100.0 fL [facility] MCH 28.6 25.0 - 32.0 pg [facility] MCHC 32.1 31.0 - 36.0 g/dL [facility] RDW 14.7(H) 11.5 - 14.5 % [facility] Plt 216 150 - 400 k/cmm [facility] MPV 11.0 6.5 - 12.5 fL [facility] Automated Abs Neutrophil 7.46(H) 1.70 - 6.50 k/cmm [facility] Comment:Preliminary ANC, Fin al Result to Follow Abs Immature Granulocyte 0.03 0.00 - 0.09 k/cmm [facility] Comment:The Immature Granulo cyte Absolute count contains metamyelocytes and myelocytes. Abs Neutrophil 7.46(H) 1.70 - 6.50 k/cmm [facility] Abs Lymphocyte 0.75(L) 0.80 - 4.00 k/cmm [facility] Abs Monocyte 0.58 0.20 - 1.00 k/cmm [facility] Abs Eosinophil 0.02 0.00 - 0.60 k/cmm [facility] Abs Basophil 0.02 0.00 - 0.20 k/cmm [facility] Blood 12/29/2023 12:1 5 PM CDT 12/29/2023 1:44 PM CDT Lori Billingsley MD LABORATORY [facility] [address] [address] documented in this encounter Visit Diagnoses Diagnosis Fall, initial encounter- Primary Altered mental status, unspecified altered mental status type Type 2 diabetes mellitus with diabetic nephropathy, without long-term current use of insulin ([facility]) Hypomagnesemia Disorders of magnesium metabolism E coli enteritis Infectious diarrhea Altered mental status, unspecified altered mental status type Hypomagnesemia Disorders of magnesium metabolism E coli enteritis Infectious diarrhea Type 2 diabetes mellitus with diabetic nephropathy, without long-term current use of insulin ([facility]) documented in this encounter Administered Medications Inactive [...] 1 puff, Inhalation, BID, First dose on [place] 12/29/23 at 2300, Until Discontinued Given 01/06/2024 [...] over 1 Hours, On Sat12/30/23 at 0330 [facility] 12/30/2023 3:48 AM CDT 2 g 50 mL/hr magnesium sulfate 2 g IVPB 2 g, Intravenous, ONE TIME, Administer over 1 Hours, On Sat12/30/23 at 1300 [facility] 12/30/2023 12:59 PM CDT 2 g 50 [...] 01/04/2024 9:42 AM CDT 1 tablet nystatin 930752 unit/g powder Topical, BID PRN, Starting on [...] mg, Oral, DAILY PC, First dose on Jasmin 01/02/24 at 0900, Until Discontinued Given 01/06/2024 8:55 [...] RN) 0855 (Given - Provider: Shira Tesfaye, RN) atorvastatin (LIPITOR) tablet 80 mg 80 mg, [...] 0854 (Given - Provider: Shira Tesfaye, RN) [facility] REC REVIEW BY PHARMACY(Linked Group 1) [...] dose on Sat12/30/23 at 1300, Until Discontinued 0813 (Given - Provider: Janet Wakefield RN) 0813 (Given - Provider: Janet Wakefield RN) 0855 (Given - Provider: Shira Tesfaye RN) finasteride (PROSCAR) tablet 5 mg 5 mg, [...] 0855 (Given - Provider: Shira Tesfaye, SIMRAN) melatonin tablet 3 mg(Linked Group 2) 3 mg, Oral, Q EVENING, First dose on Sat12/30/23 at 0010, Until Discontinued 2019 (Given - Provider: Fifi Carter RN) 2008 (Given - Provider: Fifi Carter, SIMRAN) metoprolol tartrate (LOPRESSOR) tablet 100 mg 100 mg, Oral, BID, First dose on Sat12/30/23 at 0800, Until Discontinued 0942 (Given - Provider: Janet Wakefield RN)2017 (Given - Provider: Fifi Carter RN) 08 (Given - Provider: Janet Wakefield RN)2008 (Given - Provider: Fifi Carter, SIMRAN) 0855 (Given - Provider: Shira Tesfaye, SIMRAN) montelukast (SINGULAIR) tablet 10 mg 10 mg, Oral, DAILY, First dose on Sat12/30/23 at 0800, Until Discontinued 817 (Given - Provider: Janet Wakefield RN) 08 (Given - Provider: Janet Wakefield RN) 0855 (Given - Provider: Shira Tesfaye RN) multivitamin + minerals (CEROVITE SENIOR) 1 tablet 1 tablet, Oral, DAILY, First dose on Sat12/30/23 at 0800, Until Discontinued 0942 (Given - Provider: Janet Wakefield RN) 08 (Given - Provider: Janet Wakefield RN) 0855 (Given - Provider: Shira Tesfaye RN) pantoprazole (PROTONIX) tablet 40 mg 40 mg, Oral, BID, First dose on Sat12/29/23 at 2300, Until Discontinued 0818 (Given - Provider: Janet Wakefield RN)2017 (Given - Provider: Fifi Carter RN) 0815 (Given - Provider: Janet Wakefield RN)2007 (Given [...] 2259, Until Sat01/06/24 at 1358, Bronchospasms nystatin 220670 unit/g powder Topical, BID PRN, Starting on [...] documented as of this encounter Care Teams Telecommunications Linesworker Relationship Specialty Start Date End Date Martine Argueta MD [address] [place] [address] PCP - General Internal Medicine 04/08/23 documented as of this encounter
--- OUTSIDE RECORDS SUMMARY | 2024-03-23 11:58 | XMS_ITS | Encounter Summary ---
Author Organization [facility][Note 3] Address [address] [facility] [place] [address] Phone Care Team Providers Care Lamp Replacer Name Role Phone Martine Argueta MD Primary Care Provider [phone] Encounter Details Date Type Department Care Team (Late st Contact Info) Description 01/02/2024 DEX MED HOSPITALIST SERV ID [phone] Luis Alberto Sin, DO [address] [address] Social History Tobacco Use Types Packs/Day Years [...] on filedocumented in this encounter Care Teams Lamp Replacer Relationship Specialty Start Date End Date Martine Argueta MD [address] [place] [address] PCP - General Internal Medicine 04/08/23 documented as of this encounter
--- OUTSIDE RECORDS SUMMARY | 2024-03-23 11:59 | XMS_ITS | Encounter Summary ---
Author Organization [facility] Address [address] [place] [address] Phone Care Team Providers Care Communication Specialist Name Role Phone Martine Argueta MD Primary Care Provider [phone] Encounter Details Date Type Department Care Team (Late st Contact Info) Description 12/30/2023 Orders Only [facility] Film Room [facility] Radiology Department SUSHILA [address] [address] Provider, [place] [address] Referral of patient (Primary Dx) Social History [...] FILMS (12/28/2023 9:26 PM CDT) Ernestine User [id number] - 12/30/2023 6:28 AM CDT Outside Film Only Outside Provider RAD OUTSIDE FILMS * XR UPPER EXTREMITY OUTSIDE FILMS (12/28/2023 8:29 PM CDT) Narrative User, [id number] - 12/30/2023 6:28 AM CDT Outside Film Only Outside Provider RAD OUTSIDE FILMS * XR UPPER EXTREMITY OUTSIDE FILMS (12/28/2023 8:28 PM CDT) Narrative User, [id number] - 12/30/2023 6:29 AM CDT Outside Film Only Outside Provider RAD OUTSIDE FILMS * CT SPINE OUTSIDE FILMS (12/28/2023 8:05 PM CDT) Narrative User, [id number] - 12/30/2023 6:30 AM CDT Outside Film Only Outside Provider RAD OUTSIDE FILMS * CT HEAD OUTSIDE FILMS (12/28/2023 8:05 PM CDT) Narrative User, [id number]-Jtwhhlaxs - 12/30/2023 6:30 AM CDT Outside Film Only Outside Provider RAD OUTSIDE FILMS documented in this encounter Visit Diagnoses Diagnosis Referral of patient- Primary Referral of patient without examination or treatment documented in this encounter Care Teams Communication Specialist Relationship Specialty Start Date End Date Martine Argueta MD [address] [place] [address] PCP - General Internal Medicine 04/08/23 documented as of this encounter
--- OUTSIDE RECORDS SUMMARY | 2024-03-23 11:59 | XMS_ITS | Encounter Summary ---
Author Organization [facility] Address [address] [place] [address] Phone Care Team Providers Care Engineering Associate Name Role Phone Martine Argueta MD Primary Care Provider [phone] Encounter Details Date Type Department Care Team (Late st Contact Info) Description 07/27/2022 Documentation Only Unspecified Department [place] Provider, [facility] [id number] Social History Tobacco Use Types Packs/Day Years [...] Coronavirus/COVID-19? No / Unsure 07/16/2023 11:04 AM NATURAL RESOURCES ENGINEER documented as of this encounter Plan of Treatment Not on file documented as of this encounter Procedures Procedure Name Priority Date/Time Associated Diagnosis Comments ADVANCE DIRECTIVES 01/04/2024 9: 55 AM CDT documented in this encounter Results * ADVANCE DIRECTIVES (01/04/2024 9:55 AM CDT) Him Provider ADVANCED DIRECTIVES documented in this encounter Visit Diagnoses Not on filedocumented in this encounter Care Teams Engineering Associate Relationship Specialty Start Date End Date Martine Argueta MD [address] [place] [address] PCP - General Internal Medicine 04/08/23 documented as of this encounter
--- OUTSIDE RECORDS SUMMARY | 2024-03-23 11:59 | XMS_ITS | Encounter Summary ---
Author Organization [facility] Address [address] [place] [address] Phone Care Team Providers Care Volleyball Player Name Role Phone Martine Argueta MD Primary [...] on filedocumented in this encounter Care Teams Volleyball Player Relationship Specialty Start Date End Date Martine Argueta MD [address] [place] [address] PCP - General Internal Medicine 04/08/23 documented as of this encounter
--- OUTSIDE RECORDS SUMMARY | 2024-03-23 11:59 | XMS_ITS | Clinical Summary ---
Author Organization [facility] Address [place], [place] [address] Care Team Providers Care Field Case Manager Name Role Phone Yobany Martinez Unavailable Martine Argueta MD Primary Care Provider [phone] [facility], [facility] Unavailable [phone] Allergies Active Allergy Reactions Criticality Noted Date [...] Active metoprolol tartrate (LOPRESSOR) 50 mg tabletIndications:ac washoe myocardial infarction Take 100 mg by mouth [...] per actuation) nasal solution (FLONASE) Inhale 1 [place] in the nostril(s) once daily. Active pramipexole [...] 10/11/2021 Active torsemide (DEMADEX) 20 mg tabletIndications:Ac was[place] diastolic heart failure (HC) Take by mouth. 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 05/06/2017 Overview (12/19/2017): Overview: Hypertension (HTN) And CKD Stage 2 & Heart Disease With HF Diabetic nephropathy 05/06/2017 Overview (12/19/2017): Overview: Secondary DM Chronic Renal Disease Stage 2 GFR 60-89 Mixed anxiety depressive disorder 01/10/2017 Overview (12/19/2017): Overview: Depression Anxiety Prinzmetal angina 06/12/2016 Overview (12/19/2017): Overview: Angina Variant Anemia of chronic disease 05/04/2016 Vitamin B12 deficiency 05/04/2016 Carotid artery disease 02/20/2016 Lytic bone lesions on xray 01/11/2016 History of coronary artery bypass surgery 2015 Other malaise 12/14/2015 Atrial flutter 12/11/2015 DEMI 11/30/2015 AHI-22 12/06/2015 Coronary artery disease 12/02/2015 History of stroke 07/20/2015 Overview (12/19/2017): Overview: Stroke (CVA) Pers Hx Mild chronic obstructive pulmonary disease 01/25 Overview (12/19/2017): Overview: Disease Lung Obstructive Chronic (COPD) Mild [place] Mild Solitary pulmonary nodule 01/25/2015 Overview (04/09/2018): Overview: recheck CT advised 6-12 months Stable [...] - 12/23/2023 11:59 PM CDT [facility] [address] [address] Martine Argueta MD Iverson, Ryan, PT 12/23/2023 Travel from Last 3 Months Immunizations Name Administration Dates Next Due COVID-19 Vaccine Spikevax (M oderna 50mcg/0.5mL) 12YO+ 5034-9102 Formula PF 12/11/2023 Influenza, Inactivated IIV3 (Age [...] history exists Medical Devices Implanted Type Area Control System Computer Scientist Device Identifier Shelf Expiration Date Model / Serial / Lot [id number] - [id number] Implanted:Qty: 1 on 12/30/2013 by Moises Mazariegos MD at [facility] Total Joint Right: Hip DEPUY 12/01/2018 1221-36-4 52 / / [id number] - [id number] Implanted:Qty: 1 on 12/30/2013 by Moises Mazariegos MD at [facility] Right: Hip DEPUY 08/03/2023 1246-03-0 00 / / [id number] - [id number] Implanted:Qty: 1 on 12/30/2013 by Moises Mazariegos MD at [facility] Right: Hip DEPUY 11/02/2023 1217-32-0 52 / 1217-32-0 52 / [id number] - [id number] Implanted:Qty: 1 on 12/30/2013 by Moises Mazariegos MD at [facility] Right: Hip DEPUY 04/13/2018 [id number] / / [id number] Description:KHO12 CORAIL REF : [id number], lot:[id number] - [id number] Implanted:Qty: 1 on 12/30/2013 by Moises Mazariegos MD at [facility] Right: Hip DEPUY 09/11/2018 1365-36-3 10 / / [id number] Description:Biolox delta cer amic femoral head +1.5 36mm GEOFF 06/27 TAPER Patella S33x9 Triathlon Tritanium Symmetrical Metal Backed - [id number] Implanted:Qty: 1 on 05/11/2021 by Maxwell Burton MD at [facility] Right: Knee [facility] 01/23/2026 5556-L-33 9 / / [id number] Insert Tib Sz 4 9mm Knee X3 Condylar Stabilizing Triathlon - [id number] Implanted:Qty: 1 on 05/11/2021 by Maxwell Burton MD at [facility] Right: Knee [facility] 02/13/2026 5531-G-40 9-E / / [id number] Fem Rt 5 Triathlon Beaded W/Pa - [id number] Implanted:Qty: 1 on 05/11/2021 by Maxwell Burton MD at [facility] Right: Knee [facility] 01/19/2026 5517-F-50 2 / / [id number] Baseplate Tib Univ Sz 4 Triathlon Keeled Ingrowth Pors Tritan - [id number] Implanted:Qty: 1 on 05/11/2021 by Maxwell Burton MD at [facility] Right: Knee [facility] 01/26/2026 5536-B-40 0 / / [id number] Patella S33x9 Triathlon Tritanium Symmetrical Metal Backed - [id number] Implanted:Qty: 1 on 10/18/2022 by Maxwell Burton MD at [facility] Left: Knee [facility] 08/25/2027 5556-L-33 9 / / [id number] Insert Tib Sz 4 9mm Knee X3 Condylar Stabilizing Triathlon - [id number] Implanted:Qty: 1 on 10/18/2022 by Maxwell Burton MD at [facility] Left: Knee [facility] 07/03/2027 5531-G-40 9-E / / [id number] Baseplate Tib Univ Sz 4 Triathlon Keeled Ingrowth Pors Tritan - [id number] Implanted:Qty: 1 on 10/18/2022 by Maxwell Burton MD at [facility] Left: Knee [facility] 07/21/2027 5536-B-40 0 / / [id number] Fem Lt 5 Triathlon Beaded W/Pa - [id number] Implanted:Qty: 1 on 10/18/2022 by Maxwell Burton MD at [facility] Left: Knee [facility] 09/02/2027 5517-F-50 1 / / [id number] Explanted Type Area Control System Computer Scientist Device Identifier Shelf Expiration Date Model / Serial / Lot Pin Bone Fix [id number] Strl - [id number] Explanted:Qty: 1 on 10/18/2022 at [facility] 10/19/2024 [id number] / / [id number] Pin Bone Fix [id number] - [id number] Explanted:Qty: 1 on 10/18/2022 at [facility] [employer] 07/12/2027 [id number] / / [id number] Procedures Procedure Name Priority Date/Time Associated Diagnosis Comments OCCULT BLOOD IFOBT STOOL Today 12/06/2017 11:33 AM CDT from Last 3 Months or Most Recently Relevant to Health Maintenance Results * (ABNORMAL) OCCULT BLOOD IFOBT STOOL (12/06/2017 11:33 AM CDT) STOOL BLOOD ,IFOBT Positive(A ) Negative 12/06/2017 11:50 AM CDT [facility] Stool STOOL SPECIMEN / Unknown Non-Blood / Unknown 12/06/2017 11:33 AM CDT 12/06/2017 11:38 AM CDT Jose Lauren MD LABORATORY Performing Organization Address City/State/[facility] Co de Phone Number [facility] [address] [place] [address] from Last 3 Months or Most Recently [...] Comments Code Status Discussion: Discussed Care Teams Field Case Manager Relationship Specialty Start Date End Date Martine Argueta MD [address] [place] [address] PCP - General Internal Medicine 09/28/22 Yobany Martinez LSW [address] [place] [id number] Shift Lab Technician 04/09/18 [facility] [address] [place] [address] 10/19/22
--- OUTSIDE RECORDS SUMMARY | 2024-03-23 11:59 | XMS_ITS | Encounter Summary ---
Author Organization [facility] [place] [address] [place] [phone] Phone Care Team Providers Care Blending Coordinator Name Role Phone Martine Argueta MD [...] on filedocumented in this encounter Care Teams Blending Coordinator Relationship Specialty Start Date End Date Martine Argueta MD [address] [place] [address] PCP - General Internal Medicine 04/08/23 documented as of this encounter
--- OUTSIDE RECORDS SUMMARY | 2024-03-23 11:59 | XMS_ITS | Encounter Summary ---
Author Organization [facility] Address [address] [place] [phone] Phone Care Team Providers Care Film Processing Supervisor Name Role Phone Martine Argueta MD Primary [...] filedocumented in this encounter Care Teams Film Processing Supervisor Relationship Specialty Start Date End Date Martine Argueta MD [address] [place] [address] PCP - General Internal Medicine 04/08/23 documented as of this encounter
--- OUTSIDE RECORDS SUMMARY | 2024-03-23 11:59 | XMS_ITS | Encounter Summary ---
Author Organization [facility] Address [address] [place] [phone] Phone Care Team Providers Care Manager Heart Name Role Phone Martine Argueta MD Primary [...] on filedocumented in this encounter Care Teams Manager Heart Relationship Specialty Start Date End Date Martine Argueta MD [address] [place] [address] PCP - General Internal Medicine 04/08/23 documented as of this encounter
--- OUTSIDE RECORDS SUMMARY | 2024-03-23 11:59 | XMS_ITS | Encounter Summary ---
Author Organization [facility] Address [address] [place] [phone] Phone Care Team Providers Care Compliance Specialist Name Role Phone Martine Argueta MD [...] Coronavirus/COVID-19? No / Unsure 07/16/2023 11:04 AM EMERGENCY MEDICINE NURSE PRACTITIONER documented as of this encounter Plan of [...] on filedocumented in this encounter Care Teams Compliance Specialist Relationship Specialty Start Date End Date Martine Argueta MD [address] [place] [phone] PCP - General Internal Medicine 04/08/23 documented as of this encounter
--- OUTSIDE RECORDS SUMMARY | 2024-03-23 11:59 | XMS_ITS | Encounter Summary ---
Author Organization [facility] Address [address] [place] [address] Phone Care Team Providers Care Red Mud Thickener Operator Name Role Phone Martine Argueta MD [...] on filedocumented in this encounter Care Teams Red Mud Thickener Operator Relationship Specialty Start Date End Date Martine Argueta MD [address] [place] [address] PCP - General Internal Medicine 04/08/23 documented as of this encounter
--- OUTSIDE RECORDS SUMMARY | 2024-03-23 11:59 | XMS_ITS | Encounter Summary ---
Author Organization [facility] Address [address] [place] [address] Phone Care Team Providers Care Segment Assembler Name Role Phone Martine Argueta MD Primary Care Provider Encounter Details Date Type Department Care Team (Late st Contact Info) Description 12/29/2023 Orders Only [facility] [phone] Dru Bui MD [address] [place], [place] [phone] Wrist pain, right (Primary Dx) Social History [...] forearm documented in this encounter Care Teams Segment Assembler Relationship Specialty Start Date End Date Martine Argueta MD [address] [place] [address] PCP - General Internal Medicine 04/08/23 documented as of this encounter
--- OUTSIDE RECORDS SUMMARY | 2024-03-23 11:59 | XMS_ITS | Encounter Summary ---
Author Organization [facility] Address [address] [place] [address] Phone Care Team Providers Care Group Leader Name Role Phone Martine Argueta MD Primary Care Provider [phone] Encounter Details Date Type Department Care Team [...] on filedocumented in this encounter Care Teams Group Leader Relationship Specialty Start Date End Date Martine Argueta MD [address] [place] [address] PCP - General Internal Medicine 04/08/23 documented as of this encounter
--- OUTSIDE RECORDS SUMMARY | 2024-03-23 11:59 | XMS_ITS | Encounter Summary ---
Author Organization [facility] Address [address] [place] [address] Phone Care Team Providers Care Commodity Specialist Name Role Phone Martine Argueta MD Primary Care Provider [phone] Encounter Details Date Type Department Care Team [...] on filedocumented in this encounter Care Teams Commodity Specialist Relationship Specialty Start Date End Date Martine Argueta MD [address] [place] [address] PCP - General Internal Medicine 04/08/23 documented as of this encounter
--- OUTSIDE RECORDS SUMMARY | 2024-03-23 12:00 | XMS_ITS | Encounter Summary ---
Author Organization [facility] Address [address] [place] [address] Care Team Providers Care Lead Handler Name Role Phone Urszula Quiroga APRN, C.N.P. Primary Care Pro vider Encounter Details Date Type Department Care Team (Latest Contact Info) Description 01/07/2024 11:00 AM CDT External Outreach [facility] [place] [address] [place] [address] Urszula Quiroga APRN, C.N.P. [address] [place] [address] Morbid Obesity (HCC) (Primary Dx); [...] Body Mass Index 34.59 08/06/2022 10:49 AM DIGITAL FIELD SERVICE TECHNICIAN documented in this encounter Progress Notes * Verito Gr, L.P.N. - 01/07/2024 11:00 AM CDT SNF VISIT for New Admission visit New Admission to the facility. Recent Hospital admission: Yes,This resident was recently hospitalized at: Outside Hospital [facility] Date of hospitalization: 12/29/23--01/06/24 Reason for hospitalization: [...] COMPLAINT / REASON FOR VISIT New admission GROUP HOME SITE: [place], [place] Admission Visit Visit Type: In Person: [...] recurrent falls was recen tly hospitalized at [facility] for acute encephalopathy. Patient was discharged to [facility] for short-term rehab therapy I am asked to see patient today for #1 SNF VISIT for New Admission visit New Admission to the facility. Recent Hospital admission: Yes,This resident was recently hospitalized at: Outside Hospital [facility] Date of hospitalization: 12/29/23--01/06/24 Reason for hospitalization: [...] & Plan: Patient had significant workup at [facility]. Will have OT and speech do cognitive [...] * Assessment & Plan Note - Urszula Quiorga APRN, C.N.P. - 01/07/2024 3:50 PM CDTAssociated [...] Mental Status Patient had significant workup at [facility]. Will have OT and speech do cognitive [...] Total Score: 3 07/02/20 19 9:35 AM DIGITAL FIELD SERVICE TECHNICIAN documented as of this encounter Care Teams Lead Handler Relationship Specialty Start Date End Date Urszula Quiroga APRN, C.N.P. [address] [place] [phone] PCP - General Family Medicine 01/06/24 01/21/24 documented as of this encounter
--- OUTSIDE RECORDS SUMMARY | 2024-03-23 12:00 | XMS_ITS | Clinical Summary ---
Author Organization [facility] Address [address] [place] [address] Care Team Providers Care Automation Engineer Name Role Phone Elsewhere, Pcp Primary Care Provider Unavailabl e Source Comments Patient records contain information from all sites at [facility]. For routine questions regarding patient records, call [phone] during business hours, M-F 8:00 AM - 5:00 PM Central Time. Record requests for emergency care only can be directed to [phone] at any time.[facility] Allergies Active Allergy Reactions Criticality Noted Date [...] MOUTH DAILY. 90 tablet 3 12/03/2022 Active umeclidinium-vilant Jaida (ANORO ELLIPTA) 62.5-25 mcg/actuation inhaler Inhale 1 puff daily. Active tamsulosin (FLOMAX) 0.4 mg 24 hr capsuleIndications: Benign Prostatic Hyperplasia Hypertrophy With Obstruction Take 1 capsule (0.4 mg total) by mouth daily. 04/19/2023 Active acetaminophen (TylenoL) 325 mg tablet Take 650 mg by mouth every 4 (four) hours as needed. 01/05/2024 Active budesonide-formoter oL (Symbicort) 160-4.5 mcg/actuation inhaler Inhale 1 puff [...] mg total) by mouth daily. 01/22/2024 Active Active Problems Patient Care Coordination No te Formatting of this note migh t be different from the original. Spouse: no Children: 4, 13 grandkids, 1 great grandkids Work: no SUSHILA on file for: Daughter Aleks Ureña Problem Noted Date Diagnosed Date Anemia Iron Deficiency 01/22/2024 Assessment & Plan (01/22/2024 9:48 AM CDT): Start ferrous sulfate 325 mg 1 tablet daily. Start vitamin-C 500 mg daily. Follow-up with PCP Encephalopathy 01/22/2024 Assessment & Plan (01/22/2024 9:55 AM CDT): Okay to discharge to home where he [...] Sensorineural 01/07/2024 Pain Back 01/07/2024 Paresthesia 01/07/2024 Assessment & Plan (01/14/2024 1:06 PM CDT): Patient has been taken off of gabapentin. Continue to monitor Polyp Colon Adenomatous 01/07/2024 Pyogenic Arthritis Unspecified 01/07/2024 Pain Wrist Right 01/07/2024 Assessment & Plan (01/22/2024 9:54 AM CDT): Per discharging note. Continue supportive treatment . [...] at this time. - Allopurinol 200mg daily Assessment & Plan (01/14/2024 1:06 PM CDT): Per discharging note. OT is evaluating for [...] at this time. - Allopurinol 200mg daily Assessment & Plan (01/07/2024 3:55 PM CDT): Per discharging note. Will have OT evaluate [...] Escherichia Coli Infections Change Mental Status 12/29/2023 Assessment & Plan (01/14/2024 1:05 PM CDT): Patient had significant workup at [facility]. Will have OT and speech do cognitive testing. Assessment & Plan (01/07/2024 3:48 PM CDT): Patient had significant workup at [facility]. Will have OT and speech do cognitive testing Insomnia 04/23/2023 Assessment & Plan (04/23/2023 11:06 AM CDT): Start melatonin 3 mg 1 tablet p.o. q.h.s. as needed Problem Related To Housing A nd Economic Circumstances Unspecified 04/19/2023 Other Pulmonary Embolism Without Acute Cor Pulmo nale 04/19/2023 Hypokalemia 04/19/2023 Assessment & Plan (01/22/2024 9:53 AM CDT): Potassium 3.4. Encourage eating a banana daily or foods high in potassium and repeat potassium on follow-up visit with PCP Assessment & Plan (01/14/2024 1:06 PM CDT): Last potassium was 3.3. He was just taken off of torsemide in his potassium supplement. Potassium being checked today Assessment & Plan (01/07/2024 3:53 PM CDT): Last potassium was 3.3. He was just taken off of torsemide in his potassium supplement. Will recheck Chem 8 in 1 week Assessment & Plan (04/23/2023 11:04 AM CDT): Continue with potassium 40 mEq in the morning and 20 in the afternoon. Chem 8 has been drawn this morning Assessment & Plan (04/19/2023 12:27 PM CDT): Continue with potassium 40 mEq in the morning and 20 in the afternoon. Will check a potassium level next scheduled lab draw Gammopathy Monoclonal 04/19/2023 Assessment & Plan (01/07/2024 3:52 PM CDT): Continue to follow with Oncology Hematology needs to occur with this diagnosis Assessment & Plan (04/23/2023 11:03 AM CDT): I was able to talk to patient's son and daughter and they were going to check back with his primary care provider but they believe that this has resolved. Patient's son understands that at follow-up visit they need to clarify if further workup and or referral to Oncology Hematology needs to occur with this diagnosis Assessment & Plan (04/19/2023 12:34 PM CDT): Reviewing chart this diagnosis was part of his past medical history it was added to his chart spring at [facility]. Will ask patient if he is following with Oncology Hypomagnesemia 07/21/2019 Overview (07/21/2019): Low serum magnesium Assessment & Plan (04/23/2023 11:04 AM CDT): Magnesium level pending Assessment & Plan (04/19/2023 12:21 PM CDT): Patient has a history of requiring Mag oxide as far back as 2020. Will check a magnesium level next scheduled lab draw Assessment & Plan (07/21/2019 1:16 PM INSIDE ACCOUNT EXECUTIVE): He recently had his magnesium supplement increased to 400 mg twice a day. The etiology of hypomagnesemia can be the use of a proton pump inhibitor with diuretics. His Protonix will be discontinued and he will be started on famotidine 20 mg daily. He will have his Magnesium level checked when he returns for follow up. Embolus Pulmonary Personal History 02/25/2019 History Of Falling 01/28/2019 Assessment & Plan (04/23/2023 11:03 AM CDT): Appropriate for outpatient PT OT to eval and treat Primary Osteoarthritis Knee Right 01/22/2019 Inflammatory Osteoarthritis Hand Left 01/22/2019 Post Traumatic Osteoarthritis Knee Left 12/17/19 19 Overview (07/28/2019): Left knee arthritis Assessment & Plan (07/28/2019 3:20 PM INSIDE ACCOUNT EXECUTIVE): He received an injection by Dr. Wolfe in March. He is now 4 months away from that and is requesting a 2nd injection. Consult for Orthopedics was ordered and he will make appointment to see Dr. Burton and his team. High Risk Medication 10/22/2018 Restless Leg Syndrome 07/23/2018 Assessment & Plan (01/22/2024 9:54 AM CDT): Continue with Mirapex 0.25 mg at bedtime Assessment & Plan (01/07/2024 3:53 PM CDT): Continue with Mirapex 0.25 mg at bedtime Assessment & Plan (04/23/2023 11:06 AM CDT): Continue with Mirapex 0.25 mg at bedtime Assessment & Plan (04/19/2023 12:26 PM CDT): Continue with Mirapex 0.25 mg at bedtime Loss Hearing Bilateral 07/23/2018 Polyp Colon Adenomatous Personal History 018 Chronic Diastolic (Congestive) Heart Failure Overview (07/21/2019): Acute on chronic heart failure Assessment & Plan (01/22/2024 9:57 AM CDT): Patient taken off torsemide and potassium. CONGESTIVE HEART FAILURE: Will weigh daily and call for weight gain greater than 3 pounds in 24 hours or 5 pounds in one week. Assessment & Plan (01/14/2024 1:05 PM CDT): Patient taken off torsemide and potassium. ProBNP and potassium level drawn today. Waiting for results. Continue to weigh daily re-evaluate in a week CONGESTIVE HEART FAILURE: Will weigh daily and call for weight gain greater than 3 pounds in 24 hours or 5 pounds in one week. Assessment & Plan (01/07/2024 3:48 PM CDT): Patient taken off torsemide and potassium. CONGESTIVE HEART FAILURE: Will weigh daily and call for weight gain greater than 3 pounds in 24 hours or 5 pounds in one week. Assessment & Plan (04/23/2023 10:57 AM CDT): Patient is now on torsemide 30 mg b.i.d.. Weight is stable. Patient having lab work done today for follow-up Chem 8.CONGESTIVE HEART FAILURE: Will weigh daily and call primary care provider for weight gain greater than 3 pounds in 24 hours or 5 pounds in one week. Assessment & Plan (04/19/2023 12:06 PM CDT): Patient is now on torsemide 30 mg b.i.d.. Will recheck a Chem 8 and proBNP next scheduled lab draw due to exacerbation hospital Assessment & Plan (07/21/2019 1:09 PM INSIDE ACCOUNT EXECUTIVE): BN AP was done today and was elevated at 1413. His x-ray showed bilateral pleural effusions with the left lower lobe infiltrate. I will have him increase his Lasix to 40 mg twice a day for 7 days then continue on the 40 mg Asthma Mild Intermittent 08/29/2017 Assessment & Plan (01/22/2024 9:50 AM CDT): Continue with Anoro Ellipta, 1 puff Q morning. Patient on Singulair and Flonase nasal spray patient has albuterol inhaler 2 puffs every 4 hours as needed and keep that at bedside. Assessment & Plan (01/14/2024 1:04 PM CDT): Continue with Anoro Ellipta, 1 puff Q morning. Patient on Singulair and Flonase nasal spray patient has albuterol inhaler 2 puffs every 4 hours as needed and keep that at bedside. Assessment & Plan (01/07/2024 3:47 PM CDT): Continue with Anoro Ellipta, 1 puff Q morning. Patient on Singulair and Flonase nasal spray patient has albuterol inhaler 2 puffs every 4 hours as needed and keep that at bedside. Assessment & Plan (04/23/2023 10:58 AM CDT): Continue with Anoro Ellipta, 1 puff Q morning. Patient on Singulair and Flonase nasal spray patient has albuterol inhaler 2 puffs every 4 hours as needed and keep that at bedside. Continue with DuoNeb every 4 hours as needed Assessment & Plan (04/19/2023 12:28 PM CDT): Okay for Anoro Ellipta, 1 puff Q morning. Patient on Singulair and Flonase nasal spray Okay for albuterol inhaler 2 puffs every 4 hours as needed and keep that at bedside. Okay for DuoNeb every 4 hours as needed Coronary Arterial Bypass Graft Status Post Perso nal History 07/11/2017 Anemia Chronic 07/11/2017 Assessment & Plan (01/14/2024 1:07 PM CDT): Last hemoglobin 10.5 on 01/02/2024. Will do anemia workup. Used to be on ferrous gluconate which I thought he actually was getting 3 times a week but it turns out he has not. Assessment & Plan (01/07/2024 3:54 PM CDT): Last hemoglobin 10.5 on 01/02/2024. Continue with ferrous gluconate 324 mg 1 tablet every Saturday and Saturday. Will continue to monitor Assessment & Plan (04/23/2023 10:58 AM CDT): Patient started on ferrous gluconate 1 tablet daily for 30 days. Patient will be due for recheck hemoglobin in 1 month Assessment & Plan (04/19/2023 12:06 PM CDT): Patient started on ferrous gluconate 1 tablet daily for 30 days. Will recheck hemoglobin in 1 month Apnea Sleep Obstructive 07/11/2017 Assessment & Plan (01/22/2024 9:49 AM CDT): Continue with home CPAP settings, reported that patient does not use CPAP Assessment & Plan (01/07/2024 3:56 PM CDT): Continue with home CPAP settings, reported that patient does not use CPAP. 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 Vital signs currently controlled Assessment & Plan (04/23/2023 11:04 AM CDT): Continue with isosorbide 60 mg daily, metoprolol tartrate 100 b.i.d.. Vital signs currently controlled Assessment & Plan (04/19/2023 12:26 PM CDT): Continue with isosorbide 60 mg daily, metoprolol tartrate 100 b.i.d.. Vital signs currently controlled Hyperlipidemia Mixed 05/06/2017 Overview (05/18/2017): Hyperlipidemia Mixed Assessment & Plan (01/22/2024 9:53 AM CDT): Patient on aspirin 81 mg daily, fenofibrate 54 mg daily and Lipitor 80 mg daily Assessment & Plan (01/07/2024 3:57 PM CDT): Patient on aspirin 81 mg daily, fenofibrate 54 mg daily and Lipitor 80 mg daily Assessment & Plan (04/19/2023 12:25 PM CDT): On Lipitor 80 mg daily and fenofibrate 54 mg daily. Will check a fasting lipid panel Diabetes Mellitus Type 2 With Diabetic Nephropat hy 05/06/2017 Overview (04/05/2021): Secondary DM Chronic Renal Disease Stage 2 GFR 60-89 Overview: Secondary DM Chronic Renal Disease Stage 2 GFR 60-89 Assessment & Plan (01/22/2024 9:52 AM CDT): Lab Results Component Value Date HGBA1C 5.6 01/14/2024 Assessment & Plan (04/23/2023 11:00 AM CDT): Lab Results Component Value Date HGBA1C 6.3 07/20/2018 Hemoglobin A1c is ordered for today Assessment & Plan (04/19/2023 12:20 PM CDT): Lab Results Component Value Date HGBA1C 6.3 07/20/2018 Patient may have had hemoglobin A1c not listed in epic. 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 Assessment & Plan (01/14/2024 1:04 PM CDT): on allopurinol 200 mg daily. Will continue to re-evaluate as needed Assessment & Plan (01/07/2024 3:47 PM CDT): Patient started on allopurinol 200 mg daily. Will continue to re-evaluate as needed Primary Osteoarthritis Multiple Sites 05/06/2017 Diabetes Mellitus Type 2 05/06/2017 Overview (01/07/2024): Overview: Secondary DM Chronic Renal Disease Stage 2 GFR 60-89 Secondary DM Chronic Renal Disease Stage 2 GFR 60-89 Overview: Secondary DM Chronic Renal Disease Stage 2 GFR 60-89 Last Assessment & Plan: Lab Results Component Value Date HGBA1C 6.3 07/20/2018 Hemoglobin A1c is ordered for today Assessment & Plan (01/22/2024 9:52 AM CDT): Currently not on medications continue diet control Lab Results Component Value Date HGBA1C 5.6 01/14/2024 Assessment & Plan (01/07/2024 3:51 PM CDT): Currently not on medications continue diet control Lab Results Component Value Date HGBA1C 6.3 07/20/2018 Diastasis Recti 01/25/2017 Depression Anxiety 01/10/2017 Overview (01/29/2017): Depression Anxiety Assessment & Plan (01/22/2024 9:52 AM CDT): Continue with Zoloft 25 mg daily. Looks like patient had been on Zoloft as high as 100 mg in 2019. Assessment & Plan (01/14/2024 1:07 PM CDT): Continue with Zoloft 25 mg daily. Looks like patient had been on Zoloft as high as 100 mg in 2019. PHQ-9 re-evaluate in a month or sooner if needed Assessment & Plan (01/07/2024 3:50 PM CDT): Start Zoloft 25 mg daily. Looks like patient had been on Zoloft as high as 100 mg in 2019. PHQ-9 re-evaluate in a month or sooner if needed Assessment & Plan (04/19/2023 12:19 PM CDT): Start Zoloft 25 mg daily. Looks like patient had been on Zoloft as high as 100 mg in 2019. Currently not on any antidepressant medication. sawmill production worker to administer PHQ-9 re-evaluate in a month or sooner if needed Atrial Fibrillation Paroxysmal 10/31/2016 Overview (12/04/2016): Fibrillation Atrial Paroxysmal (PAF) Assessment & Plan (01/22/2024 9:50 AM CDT): on metoprolol tartrate 100 mg b.i.d.. Blood pressure and pulses are stable. Continue with aspirin 81 mg daily Assessment & Plan (01/14/2024 1:04 PM CDT): on metoprolol tartrate 100 mg b.i.d.. Blood pressure and pulses are stable. Continue with aspirin 81 mg daily Assessment & Plan (01/07/2024 3:48 PM CDT): on metoprolol tartrate 100 mg b.i.d.. Blood pressure and pulses are stable. Continue with aspirin 81 mg daily Assessment & Plan (04/23/2023 10:59 AM CDT): Patient started on metoprolol tartrate 100 mg b.i.d.. Blood pressure and pulses are stable Assessment & Plan (04/19/2023 12:11 PM CDT): Patient started on metoprolol tartrate 100 mg b.i.d.. Will re-evaluate blood pressure and pulses in week Smoking Tobacco Use Personal History 10/22/2016 Overview (03/03/2018): quit 2013 Deficiency Of Other Specified B Group Vitamins 1 Bypass Coronary Artery Graft Status Post 016 Assessment & Plan (01/22/2024 9:51 AM CDT): Patient's son states it he had an [...] is needed Atherosclerotic Heart Diseas e Of [place] Coronary Artery Without Angina Pectoris 12/02/2015 Keratosis Seborrheic 11/24/2015 Dyspnea On Exertion 10/12/2015 Stroke Cerebrovascular Accident Personal History 07/20/2015 Overview (12/04/2016): Stroke (CVA) Pers Hx Personal History Of Transien t Ischemic Attack And Cerebral Infarction Without Residual Deficits 07/20/2015 Overview (03/03/2018): Overview: Overview: Stroke (CVA) Pers Hx Chronic Pain Syndrome 02/27/2015 Assessment & Plan (01/22/2024 9:52 AM CDT): Continue with extra-strength Tylenol 1000 mg every 6 hours as needed pain. Patient recently seen in Orthopedics for shoulder pain. Cortisone injections did not offer relief. He will need to follow-up with Ortho once he is on outpatient for next steps regarding management of possible rotator cuff injury Assessment & Plan (01/07/2024 3:50 PM CDT): Continue with extra-strength Tylenol 1000 mg every 6 hours as needed pain. Patient recently seen in Orthopedics for shoulder pain. Cortisone injections did not offer relief. He will need to follow-up with Ortho once he is on outpatient for next steps regarding management of possible rotator cuff injury Assessment & Plan (04/23/2023 11:00 AM CDT): Continue with extra-strength Tylenol 1000 mg every 6 hours as needed pain Assessment & Plan (04/19/2023 12:18 PM CDT): Okay for extra-strength Tylenol 1000 mg every 6 hours as needed pain Gastroesophageal Reflux Disease 02/25/2015 Overview (03/03/2018): upper endoscopy Assessment & Plan (01/07/2024 3:52 PM CDT): Continue Protonix 40 mg b.i.d. Assessment & Plan (04/23/2023 11:03 AM CDT): Continue Protonix 40 mg b.i.d. Assessment & Plan (04/19/2023 12:21 PM CDT): Continue Protonix 40 mg b.i.d. Assessment & Plan (07/28/2019 3:17 PM INSIDE ACCOUNT EXECUTIVE): He had been on Protonix for many years. He ended up with hypomagnesium presumably from the Protonix. He has been taking Pepcid 20 mg daily. He was told to take 20 twice a day but he did not do that he states the 20 mg in the morning is not holding him. Going forward he will take 20 mg twice a day prescription was sent to [facility]. Chronic Obstructive Pulmonary Disease Mild 01/25 Overview (12/04/2016): Disease Lung Obstructive Chronic (COPD) Mild [place] Mild Assessment & Plan (01/07/2024 3:49 PM CDT): Anoro Ellipta and Singulair 10 mg daily continue with Flonase nasal spray 2 squirts into affected nostrils as needed and continue with albuterol inhaler 2 puffs every 4 hours as needed. Assessment & Plan (04/19/2023 12:14 PM CDT): Started on Anoro Ellipta. Patient did require oxygen while in the hospital. Continue to monitor vital signs and sats per [facility] notify if changes occur Nodule Pulmonary 01/25/2015 Overview (03/03/2018): recheck CT advised 6-12 months Stable benign appearing area on CT scan 07/25/2015 Stenosis Spinal 11/25/2014 Obesity Body Mass Index 30-39.9 Adult 10/15/2014 Assessment & Plan (04/19/2023 12:23 PM CDT): BMI 35.46. No changes Pain Low Back Chronic 10/15/2014 Edema 07/30/2014 Polyp Colon 12/01/2013 Carpal Tunnel Syndrome 09/17/2013 Overview (03/03/2018): mod severe left EMG Radiculopathy Cervical 09/17/2013 Overview (03/03/2018): C6-C& mild chronic EMG Proteinuria 05/30/2011 Benign Prostatic Hyperplasia Hypertrophy With Ob struction 05/07/2011 Assessment & Plan (01/22/2024 9:50 AM CDT): Continue with Flomax 0.4 mg daily and Proscar 5 mg daily Assessment & Plan (01/07/2024 3:54 PM CDT): Continue with Flomax 0.4 mg daily and Proscar 5 mg daily Assessment & Plan (04/23/2023 10:59 AM CDT): Continue with Flomax 0.4 mg daily Assessment & Plan (04/19/2023 12:13 PM CDT): Continue with Flomax 0.4 mg daily Cancer Prostate Family History 05/07/2011 Tinnitus 03/23/2011 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 Okay to send remaining medications with resident. Okay for home health PT OT to eval and treat as well as nursing to eval and treat. Follow-up with primary provider in 1-2 weeks. Patient to continue to wear the [place] collar as ordered. Family members will need to be taught how to apply the collar as patient unable to do so himself before he can go home. Patient to follow-up with neurosurgery as ordered which would be around May 07. This has not been scheduled. The number for Neurosurgery at [facility] where he is to follow-up as [phone]. I do have [facility] working on trying to get him in with neurosurgery in [place]. Nurse Beatrice from Senior Services will contact nurse lending manager at [facility] if this is arranged Assessment & Plan (04/19/2023 12:33 PM CDT): Patient appropriate for short-term rehab therapy. Continue to work with PT OT therapy. Neurosurgery appointment needs to be rescheduled will ask patient where he would like to go back to [place] or referral to [place] [facility]. Continue to wear [place] collar as ordered. Will add in extra-strength Tylenol 1000 mg every 6 hours as needed for pain. Patient also on gabapentin. He had his [place] discontinued on discharge Fracture Cervical Second Non displaced Subsequent With Routine Healing 04/06/2023 01/07/20 Infection Upper Respiratory 07/21/2019 04/19/2023 Chronic Kidney Disease Stage 2 Glomerular Filtration Rate 60 To 89 08/22/2018 01/14/2024 Assessment & Plan (01/07/2024 3:48 PM CDT): Avoid nephrotoxic medications. Will be following creatinine Assessment & Plan (04/19/2023 12:14 PM CDT): Avoid nephrotoxic medications. Will be following creatinine Gout 07/23/2018 10/22/2018 Hypertensive Heart And Chron ic Kidney Disease Without Heart Failure With Stage 5 Chronic Kidney Disease Or End Stage Renal Disease 05/07/2018 05/28/2018 Pneumonia 04/08/2018 04/23/2023 Overview (07/21/2019): Left lung pneumonia Assessment & Plan (07/28/2019 3:15 PM INSIDE ACCOUNT EXECUTIVE): He is here for a follow up [...] will take the Mucinex now is needed. Assessment & Plan (07/21/2019 1:20 PM INSIDE ACCOUNT EXECUTIVE): X-ray shows left lung pneumonia with leukocytosis. He will be placed on doxycycline 100 mg twice a day. He will also take his duo nebs 4 times a day scheduled and take Mucinex 600 mg every 12 hours. He is to make a follow-up appointment in 10 days. He agreed to have speech therapy and a swallow evaluation with Dipak Kulkarni to determine if aspiration has been causing recurrent pneumonias. A referral was sent and he'll be contacted by Dipak to set up an appointment Topper Packer (Current) Anticoagulant Treatment 03/12/2018 06/02/2018 Melena 12/06/2017 04/19/2023 Obesity Body Mass Index 30-39.9 Adult 08/29/2017 05/07/2018 Anticoagulant Therapy [Z79.01] 06/05/2017 06/02/2018 Monitoring For Therapeutic D rug Therapy [Z51.81] 06/05/2017 06/02/2018 Persistent Atrial Fibrillation 05/06/2017 06/02/2018 Overview (05/18/2017): Persistent Atrial Fibrillation Chronic Coronary Artery Disease 05/06/2017 05/29/2017 Overview (05/18/2017): Chronic Coronary Artery Disease (CAD) Atrial Fibrillation Personal History 07/27/2016 09/04/2017 Overview (12/04/2016): Atrial Fibrillation (AF) Pers Hx Prinzmetal angina 06/12/2016 05/30/2018 Overview (03/03/2018): Angina Variant Overview: Overview: Angina Variant Coronary Artery Disease With Stable Angina 04/27/2016 10/03/2020 Artery Disorder 02/20/2016 05/30/2018 Flutter Atrial 12/11/2015 05/30/2018 Atrial Fibrillation Unspecified 11/29/2011 04/19/2023 Assessment & Plan (01/28/2019 5:12 PM CDT): I have spoken with Dr. Calix who will plan to see the patient in the next couple of weeks for consideration to cardioversion , given the fact that he is markedly short of breath and now in Afib again.. Asthma NOS 04/01/2003 10/21/2018 Encounters Date Type Department Care Team Description 02/03/2024 Clinical Communication Department of Family Medicine in [place], [place] [address] [place] [id number] Corie Ramirez M.D. [facility] (Darlene Order [id number]) 01/21/2024 9:30 AM CDT External Outreach [facility] in [place] [address] [place], [place] [address] [place] [address] Urszula Quiroga APRN, C.N.P. Anemia Iron Deficiency [...] PM CDT External Outreach [facility] [address] FORMERLY [facility] & [place] [address] Urszula Quiroga APRN, C.N.P. Arthropathy Gouty With Tophus Chronic (Primary Dx); Pyogenic Arthritis Unspecified (HCC); Asthma Mild Intermittent (HCC); Atrial Fibrillation Paroxysmal (HCC); Chronic Diastolic (Congestive) Heart Failure (HCC); Change Mental Status; Hypokalemia; Pain Wrist Right; Paresthesia; Depression Anxiety; Anemia Chronic 01/14/2024 12:24 PM CDT - 01/14/2024 11:59 PM CDT Hospital Encounter Department of Laboratory Medicine in [place], [place] [facility] [address] [address] Urszula Quiroga APRN, C.N.P. Hypokalemia; Anemia Chronic; Diabetes Mellitus Type 2 With Diabetic Nephropathy (HCC); Chronic Diastolic (Congestive) Heart Failure (HCC) Discharge Disposition: Home or Self Care 01/07/2024 11:00 AM CDT External Outreach [facility] in [place] [facility] [address] [address] Urszula Quiroga APRN C.N.P. Morbid Obesity (HCC) (Primary Dx); Other [...] Leg Syndrome; Pain Wrist Right; Hyperlipidemia Mixed from Last 3 Months Immunizations Name Administration [...] Td, (Adult) Unspecified 04/27/2001 Tdap 10/18/2014 influenza trivalent high dos e (HD)(PF) 05/04/2019 influenza vaccine quad (FLUZONE/FLUARIX) (6 months [...] 160 cm (5' 2.99) 08/06/2022 10:49 AM INSIDE ACCOUNT EXECUTIVE Body Mass Index 31.45 08/06/2022 10:49 AM INSIDE ACCOUNT EXECUTIVE Plan of Treatment Health Maintenance Due Date [...] 04/13/2021, Additional history exists Hemoglobin A1C 07/16/2024 01/14/2024, 07/20/2018 DTaP,Tdap,and Td Vaccines (3 - Td or [...] history exists Medical Devices Implanted Type Area Locomotive Oiler Device Identifier Shelf Expiration Date Model / Serial / Lot K-Wire-Ss 4 Smooth .062 - Fan [id number] Implanted:Qty: 3 on 09/26/2001 Hardware e.g. pins/screws /rods Treasure Description:Device Manufactu rer - [employer].. Device Status Text - [id number]. Hip Implant Hip Implant Bilater al: Hip Implex-Stem Arredondo Md +13 Ext 36nk - Fan [id number] Implanted:Qty: 1 on 07/18/1999 Hip Implant Other/Legacy - See Implant Description Description:Device Manufactu rer - [employer]ukh. Device Status Text - HIP [id number]. Implex-Head F-100 28mm +9nk - Fan [id number] Implanted:Qty: 1 on 07/18/1999 Hip Implant Other/Legacy - See Implant Description Description:Device Manufactu rer - [employer]ukh. Device Status Text - HIP [id number]. Implex-Cup Hed Blanca 0 Deg 28x54 - Fan [id number] Implanted:Qty: 1 on 07/18/1999 Hip Implant Other/Legacy - See Implant Description Description:Device Manufactu rer - [employer]uk[employer]. Device Status Text - HIP [id number]. Conversions - Default Historical Implant Device Implanted:06/26 (Quantity not on file) Hip Implant Description:Device Status Te xt - Hip Imp. Both Hips. Knee Implant- 021 Implanted:05/11 by Maxwell Burton M.D. (Quantity not on file) Knee Implant Right: Knee Axson TRIATHLON / / Knee Implant- 3 Implanted:10/18 by Maxwell Burton M.D. (Quantity not on file) Knee Implant Left: Knee [employer]son TRIATHLON / / Asd Closure Device 12mm - Fan [id number] Implanted:Qty: 1 on 01/25/2006 Septal Defect Occluder Device Other/Legacy - See Implant Description Description:Device Manufactu rer - [facility]. Device Status Text - [id number]. Procedures Procedure Name Priority Date/Time Associated Diagnosis [...] WITH IV CONTRAST Routine 08/18/1997 2:56 PM INSIDE ACCOUNT EXECUTIVE from Last 3 Months or Most Recently [...] 9:35 AM CDT 01/14/2024 2:45 PM CDT Urszlua Quiroga APRN, C.N.P. LAB BLOOD ADD-ON Performing Organization Address [facility]/State/ZIP Co de Phone Number [facility] [address] [place] [address], [place] [address] * (ABNORMAL) Iron and Total Iron-Binding Capacity (01/14/2024 9:35 AM CDT) Iron 17(L) 50 - 150 mcg/dL 01/14/2024 3:17 PM CDT TO Total Iron Binding Capacity 186(L) 250 - 400 mcg/dL 01/14/2024 3:17 PM CDT TO Percent Saturation 9(L) 14 - 50 % 01/14/2024 3:17 PM CDT TO Blood (Blood, Venous) 01/14/2024 9:35 AM CDT 01/14/2024 2:45 PM CDT Urszula Quiroga APRN, C.N.P. LAB BLOOD ADD-ON [facility] [address] [place] [address], [place] [facility] [place] [address] [place] [address] * (ABNORMAL) CBC with Differential, Blood (01/14/2024 [...] CDT 01/14/2024 12:32 PM CDT Urszula Quiroga APRN C.N.P. LAB BLOOD ADD-ON [facility] [address] [place] [address], [facility] [place] [address] [place] [address] * Hemoglobin A1c (01/14/2024 9:35 AM CDT) Hemoglobin A1c, B 5.6 4.2 - 5.6 % 01/14/2024 3:04 PM CDT [facility] Blood (Blood, Venous) 01/14/2024 9:35 AM CDT 01/14/2024 2:45 PM CDT Urszula Quiroga APRN C.N.P. LAB BLOOD ADD-ON Performing Organization Address [facility] Co de Phone Number [facility] [address] [place] [address], [facility] [place] [address] [phone] * (ABNORMAL) Folate (01/14/2024 9:35 AM CDT) Folate, S 3.4(L) >=4.0 mcg/L 01/14/2024 3:21 PM CDT [facility] Comment: Biotin has been identified by the manager community relations as a potential interfering substance. Higher concentrations of biotin may be found in multivitamins, hair/nail supplements, and workout supplements. If the result does not match clinical observations, repeat testing after patient refrains from the use of supplements for at least 12 hours. Blood (Blood, Venous) 01/14/2024 9:35 AM CDT 01/14/2024 2:45 PM CDT Urszula Quiroga APRN, C.N.P. LAB BLOOD ADD-ON Performing Organization Address City/[facility]/ZIP Co de Phone Number [facility] [address] [place] [address] * Ferritin (01/14/2024 9:35 AM CDT) Pathologist [facility] Ferritin, S 256 31 - 409 mcg/L 01/14/2024 3:17 PM CDT [facility] Comment: Biotin has been identified by the manager community relations as a potential interfering substance. Higher concentrations of biotin may be found in multivitamins, hair/nail supplements, and workout supplements. If the result does not match clinical observations, repeat testing after patient refrains from the use of supplements for at least 12 hours. Blood (Blood, Venous) 01/14/2024 9:35 AM CDT 01/14/2024 2:45 PM CDT Urszula Quiroga APRN, C.N.P. LAB BLOOD ADD-ON Performing Organization Address [facility]/ZIP Co de Phone Number [facility] [address] [place] [address] * Vitamin B12 Assay (01/14/2024 9:35 AM CDT) [facility] Vitamin B12 Assay, S 570 232 - 1245 ng/L 01/14/2024 3:21 PM CDT [facility] Comment: Biotin has been identified by the manager community relations as a potential interfering substance. Higher concentrations of biotin may be found in multivitamins, hair/nail supplements, and workout supplements. If the result does not match clinical observations, repeat testing after patient refrains from the use of supplements for at least 12 hours. Blood (Blood, Venous) 01/14/2024 9:35 AM CDT 01/14/2024 2:45 PM CDT Urszula Quiroga APRN, C.N.P. LAB BLOOD ADD-ON [facility] [address] [place] [address] [place] [address] * (ABNORMAL) Basic Metabolic Panel (01/14/2024 9:35 [...] Urszula Quiroga APRN, C.N.P. LAB BLOOD ADD-ON [facility] [address] [place] [address], [facility] [place] in [address] [address] * (ABNORMAL) Colonoscopy (06/18/2018) Pathologist [facility] EXT Colonoscopy Abnormal - See Scanned Report [...] Total 168 mg/dL 2017 11:46 AM CDT [facility] Comment: ----REFERENCE VALUE---- Desirable: < 200 Borderline high: 200 - 239 High: > or = 240 Triglycerides 290(H) mg/dL 03/05/2018 11:46 AM CDT [facility] Comment: ----REFERENCE VALUE---- Normal: <150 Borderline high: 150-199 High: 200-499 Very high: > or =500 Cholesterol, HDL, S 38(L) >=40 mg/dL 03/05/2018 11:46 AM CDT [facility] Calculated LDL 72 mg/dL 03/05/2018 11:46 AM CDT [facility] Comment: ----REFERENCE VALUE---- Desirable: <100 Above Desirable: 100-129 Borderline high: 130-159 High: 160-189 Very high: > or =190 Cholesterol, Non-HDL, Calculated 130 mg/dL 03/05/2018 11:46 AM CDT [facility] Comment: ----REFERENCE VALUE---- Desirable: <130 Above Desirable: 130-159 Borderline high: 160-189 High: 190-219 Very high: > or =220 Blood (Blood, Venous) 03/05/2018 9:02 AM CDT 03/05/2018 10:47 AM CDT Tavon Calix M.D. LAB BLOOD ADD-ON [facility] [address] [place] [address], [place] * CT Abdomen Pelvis with IV Contrast (08/18/1997 2:56 PM INSIDE ACCOUNT EXECUTIVE) Anatomical Region Laterality Modality Abdomen, Pelvis N/A Computed Tomogra phy 08/18/1997 2:56 PM INSIDE ACCOUNT EXECUTIVE Narrative 08/18/1997 3:26 PM INSIDE ACCOUNT EXECUTIVE 18-Aug-1997 14:56:00 ??Exam: CT ABDOMEN w & PELVIS w Indications: appendicitis vs diverticulitis ORIGINAL REPORT - 18-Aug-1997 15:26:00 #[id number] ?? CT of the abdomen and pelvis with oral and IV contrast is negative except for prostatic calcification. Ind: 705.000/Dx: ??700.120 ?? (Opt 320/120 cc) Electronically signed by: ?? Elliott ??Rafa BEYER. ??[id number] 18-Aug-1997 15:26 Procedure Note Chase Craig M.D. - 10/21/2017 18-Aug-1997 14:56:00 Exam: CT ABDOMEN w & PELVIS w Indications: appendicitis vs diverticulitis ORIGINAL REPORT - 18-Aug-1997 15:26:00 #[id number] CT of the abdomen and pelvis with oral and IV contrast isnegative except for prostatic calcification. Ind: 705.000/Dx: 700.120(Opt 320/120 cc) Electronically signed by: Elliott Craig MD. [id number] 18-Aug-1997 15:26 Seven Frausto M.D. IMG CT PROCEDURES from Last 3 Months or Most Recently Relevant to Health Maintenance Care Teams Automation Engineer Relationship Specialty Start Date End Date Elsewhere, Pcp PCP - General Internal Medicine 01/22/24
--- OUTSIDE RECORDS SUMMARY | 2024-03-23 12:00 | XMS_ITS | Referral Summary ---
Author Organization [facility] Address [address] [place] [address] Care Team Providers Care High Lead Yarder Name Role Phone Elsewhere, Pcp Primary Care Provider Unavailabl e Source Comments Patient records contain information from all sites at [facility]. For routine questions regarding patient records, call [phone] during business hours, M-F 8:00 AM - 5:00 PM Central Time. Record requests for emergency care only can be directed to [phone] at any time.[facility] Encounters Date Type Department Care Team Description 02/03/2024 Clinical Communication Department of Family Medicine in [place], [place] [address] [place] [address] Corie Ramirez M.D. PandaDo Form (Darlene Order [id number]) 01/21/2024 9:30 AM CDT External Outreach Senior Services in [place] [address] [place] [address] Urszula Quiroga, MATTHEW, C.N.P. Anemia Iron Deficiency [...] Hospital Encounter Department of Laboratory Medicine in [address] [place] [address] Urszula Quiroga APRN, C.N.P. Hypokalemia; Anemia Chronic; Diabetes Mellitus Type 2 With Diabetic Nephropathy (HCC); Chronic Diastolic (Congestive) Heart Failure (HCC) Discharge Disposition: Home or Self Care 01/14/2024 12:30 PM CDT External Outreach [facility] in [address] [place] [address] Urszula Quiroga APRN, C.N.PJuan Jose Arthropathy Gouty With Tophus Chronic (Primary Dx); Pyogenic Arthritis Unspecified (HCC); Asthma Mild Intermittent (HCC); Atrial Fibrillation Paroxysmal (HCC); Chronic Diastolic (Congestive) Heart Failure (HCC); Change Mental Status; Hypokalemia; Pain Wrist Right; Paresthesia; Depression Anxiety; Anemia Chronic 01/07/2024 11:00 AM CDT External Outreach Senior [facility] in [address] [place] [address] Urszula Quiroga APRN, C.N.P. Morbid Obesity (HCC) [...] Right; Hyperlipidemia Mixed from Last 3 Months Allergies Active Allergy Reactions Criticality Noted Date Comments Azithromycin Other (see comments) 03/12/2019 Diltiazem Rash 12/29/2013 Erythromycin Rash 10/14/2009 Sotalol Rash 06/24/2014 Sulfa (Sulfonamide Antibiotics) Rash /08/2009 Medications Medication Sig Dispensed Refills Start Date [...] PM CDT): Patient had significant workup at [facility]. Will have OT and speech do cognitive testing. Assessment & Plan (01/07/2024 3:48 PM CDT): Patient had significant workup at [facility]. Will have OT and speech do cognitive testing Insomnia 04/23/2023 Assessment & Plan (04/23/2023 11:06 AM CDT): Start melatonin 3 mg 1 tablet p.o. q.h.s. as needed Problem Related To Housing A ar Economic Circumstances Unspecified 04/19/2023 Other Pulmonary Embolism [...] was added to his chart spring at [facility]. Will ask patient if he is following with Oncology Hypomagnesemia 07/21/2019 Overview (07/21/2019): Low serum magnesium Assessment & Plan (04/23/2023 11:04 AM CDT): Magnesium level pending Assessment & Plan (04/19/2023 12:21 PM CDT): Patient has a history of requiring Mag oxide as far back as 2020. Will check a magnesium level next scheduled lab draw Assessment & Plan (07/21/2019 1:16 PM DIRECTOR DATA ANALYTICS): He recently had his magnesium supplement increased [...] arthritis Assessment & Plan (07/28/2019 3:20 PM DIRECTOR DATA ANALYTICS): He received an injection by Dr. Wolfe [...] hospital Assessment & Plan (07/21/2019 1:09 PM DIRECTOR DATA ANALYTICS): BN AP was done today and was [...] 2019. Currently not on any antidepressant medication. post tensioning ironworker to administer PHQ-9 re-evaluate in a month [...] Use Personal History 10/22/2016 Overview (03/03/2018): quit 2012 Deficiency Of Other Specified B [...] is needed Atherosclerotic Heart Diseas e Of [place] Coronary Artery Without Angina Pectoris 12/02/2015 Keratosis [...] b.i.d. Assessment & Plan (07/28/2019 3:17 PM DIRECTOR DATA ANALYTICS): He had been on Protonix for many [...] twice a day prescription was sent to [facility]. Chronic Obstructive Pulmonary Disease Mild 01/25 Overview [...] Displaced Subsequent With Routine Healing 04/19/2023 01/07/20 Assessment & Plan (04/23/2023 11:02 AM CDT): Okay to discharge to home with current meds and treatment plans. Okay to send remaining medications with resident. Okay for home health PT OT to eval and treat as well as nursing to eval and treat. Follow-up with primary provider in 1-2 weeks. Patient to continue to wear the [place] J collar as ordered. Family members will need to be taught how to apply the collar as patient unable to do so himself before he can go home. Patient to follow-up with neurosurgery as ordered which would be around May 07. This has not been scheduled. The number for Neurosurgery at [facility] where he is to follow-up as [phone]. I do have Senior Services working on trying to get him in with neurosurgery in [place]. Nurse Beatrice from Senior Services will contact nurse power plant manager at [facility] if this is arranged Assessment & Plan (04/19/2023 12:33 PM CDT): Patient appropriate for short-term rehab therapy. Continue to work with PT OT therapy. Neurosurgery appointment needs to be rescheduled will ask patient where he would like to go back to [place] or referral to [place] [facility]. Continue to wear [place] J collar as ordered. Will add in extra-strength Tylenol 1000 mg every 6 hours as needed for pain. Patient also on gabapentin. He had his Wiggins discontinued on discharge Fracture Cervical Second Non [...] pneumonia Assessment & Plan (07/28/2019 3:15 PM DIRECTOR DATA ANALYTICS): He is here for a follow up [...] needed. Assessment & Plan (07/21/2019 1:20 PM DIRECTOR DATA ANALYTICS): X-ray shows left lung pneumonia with leukocytosis. [...] by Dipak to set up an appointment Bean Weigher (Current) Anticoagulant Treatment 03/12/2018 06/02/2018 Melena 12/06/2017 [...] Date Recorded Dental: Regular Dentist Unknown 09/07/19 Sex and Gender Information Value Date Recorded [...] 160 cm (5' 2.99) 08/06/2022 10:49 AM DIRECTOR DATA ANALYTICS Body Mass Index 31.45 08/06/2022 10:49 AM DIRECTOR DATA ANALYTICS Plan of Treatment Not on file Medical Devices Implanted Type Area Voice Network Engineer Device Identifier Shelf Expiration Date Model / Serial / Lot K-Wire-Ss 4 Smooth .062 - Fan [id number] Implanted:Qty: 3 on 09/26/2001 Hardware e.g. pins/screws /rods Treasure Description:Device Manufactu rer - GRAVIDI Sukh.. Device Status Text - [id number]. Hip Implant Hip Implant Bilater al: Hip Implex-Stem Arredondo Md +13 Ext 36nk - Fan [id number] Implanted:Qty: 1 on 07/18/1999 Hip Implant Other/Legacy - See Implant Description Description:Device Manufactu rer - Implex Sukh. Device Status Text - HIP [id number]. Implex-Head F-100 28mm +9nk - Fan [id number] Implanted:Qty: 1 on 07/18/1999 Hip Implant Other/Legacy - See Implant Description Description:Device Manufactu rer - Implex Sukh. Device Status Text - HIP [id number]. Implex-Cup Hed Blanca 0 Deg 28x54 - Fan [id number] Implanted:Qty: 1 on 07/18/1999 Hip Implant Other/Legacy - See Implant Description Description:Device Manufactu rer - Implex Sukh. Device Status Text - HIP [id number]. Conversions - Default Historical Implant Device Implanted:06/26 (Quantity not on file) Hip Implant Description:Device Status Te xt - Hip Imp. Both Hips. Knee Implant- 021 Implanted:05/11 by Maxwell Burton M.D. (Quantity not on file) Knee Implant Right: Knee Treasure TRIATHLON / / Knee Implant- 3 Implanted:10/18 by Maxwell Burton M.D. (Quantity not on file) Knee Implant Left: Knee Casper TRIATHLON / / Asd Closure Device 12mm - Fan [id number] Implanted:Qty: 1 on 01/25/2006 Septal Defect Occluder Device Other/Legacy - See Implant Description Description:Device Manufactu rer - [facility]. Device Status Text - [id number]. Procedures Procedure Name Priority Date/Time Associated Diagnosis [...] WITH IV CONTRAST Routine 08/18/1997 2:56 PM DIRECTOR DATA ANALYTICS from Last 3 Months or Most Recently [...] C.N.P. LAB BLOOD ADD-ON Performing Organization Address City/[facility]/ZIP Co de Phone Number [facility] [address] [place] [address], [place] [address] * (ABNORMAL) Iron and Total Iron-Binding Capacity [...] C.N.P. LAB BLOOD ADD-ON Performing Organization Address City/[facility]/ZIP Co de Phone Number [facility] [address] [place], [place] [id number] [place] [address] [place] [address] [place] [phone] * (ABNORMAL) CBC with Differential, Blood (01/14/2024 [...] Urszula Quiroga APRN, C.N.P. LAB BLOOD ADD-ON [facility] [address] [place] [address] [place] [address], [facility] SPTR [facility] in [place] [address] [place] [address] [place] [address] * Hemoglobin A1c (01/14/2024 9:35 AM CDT) Hemoglobin A1c, B 5.6 4.2 - 5.6 % 01/14/2024 3:04 PM CDT [facility] Blood (Blood, Venous) 01/14/2024 9:35 AM CDT 01/14/2024 2:45 PM CDT Urszula Quiroga APRN C.N.P. LAB BLOOD ADD-ON Performing Organization Address City/[facility]/ZIP Co de Phone Number [facility] [address] [place] [address] * (ABNORMAL) Folate (01/14/2024 9:35 AM CDT) Folate, S 3.4(L) >=4.0 mcg/L 01/14/2024 3:21 PM CDT MKTO Comment: Biotin has been identified by the set up operator tool as a potential interfering substance. Higher concentrations of biotin may be found in multivitamins, hair/nail supplements, and workout supplements. If the result does not match clinical observations, repeat testing after patient refrains from the use of supplements for at least 12 hours. Blood (Blood, Venous) 01/14/2024 9:35 AM CDT 01/14/2024 2:45 PM CDT Urszula Quiroga APRN, C.N.P. LAB BLOOD ADD-ON [facility] [address] [place] [address], [place] [address] * Ferritin (01/14/2024 9:35 AM CDT) Ferritin, S 256 31 - 409 mcg/L 01/14/2024 3:17 PM CDT [facility] Comment: Biotin has been identified by the set up operator tool as a potential interfering substance. Higher concentrations of biotin may be found in multivitamins, hair/nail supplements, and workout supplements. If the result does not match clinical observations, repeat testing after patient refrains from the use of supplements for at least 12 hours. Blood (Blood, Venous) 01/14/2024 9:35 AM CDT 01/14/2024 2:45 PM CDT Urszula Quiroga APRN, C.N.P. LAB BLOOD ADD-ON Performing Organization Address [facility] [place] [address] * Vitamin B12 Assay (01/14/2024 9:35 AM CDT) Vitamin B12 Assay, S 570 232 - 1245 ng/L 01/14/2024 3:21 PM CDT MKTO Comment: Biotin has been identified by the set up operator tool as a potential interfering substance. Higher concentrations of biotin may be found in multivitamins, hair/nail supplements, and workout supplements. If the result does not match clinical observations, repeat testing after patient refrains from the use of supplements for at least 12 hours. Blood (Blood, Venous) 01/14/2024 9:35 AM CDT 01/14/2024 2:45 PM CDT Urszula Quiroga APRN, C.N.P. LAB BLOOD ADD-ON Performing Organization Address City/[facility] Co de Phone Number [facility] [address] [place] [address] * (ABNORMAL) Basic Metabolic Panel (01/14/2024 9:35 [...] Urszula Quiroga APRN, C.N.P. LAB BLOOD ADD-ON [facility] [address] [place] [address], [facility] MKTO [facility] [place] [address] * (ABNORMAL) Colonoscopy (06/18/2018) EXT Colonoscopy Abnormal [...] Total 168 mg/dL 2017 11:46 AM CDT [facility] Comment: ----REFERENCE VALUE---- Desirable: < 200 Borderline high: 200 - 239 High: > or = 240 Triglycerides 290(H) mg/dL 03/05/2018 11:46 AM CDT [facility] biopharmaceuticalsATOEvolverA [facility] Comment: ----REFERENCE VALUE---- Normal: <150 Borderline high: 150-199 High: 200-499 Very high: > or =500 Cholesterol, HDL, S 38(L) >=40 mg/dL 03/05/2018 11:46 AM CDT [facility] Calculated LDL 72 mg/dL 03/05/2018 11:46 AM CDT [facility]armaceuticalsATOMACOA [facility] Comment: ----REFERENCE VALUE---- Desirable: <100 Above Desirable: 100-129 Borderline high: 130-159 High: 160-189 Very high: > or =190 Cholesterol, Non-HDL, Calculated 130 mg/dL 03/05/2018 11:46 AM CDT [facility]- [facility] Comment: ----REFERENCE VALUE---- Desirable: <130 Above Desirable: 130-159 Borderline high: 160-189 High: 190-219 Very high: > or =220 Blood (Blood, Venous) 03/05/2018 9:02 AM CDT 03/05/2018 10:47 AM CDT Tavon Calix M.D. LAB BLOOD ADD-ON [facility]hamJOSEPHV[facility]CL[facility] [address] [place] [address], [facility] * CT Abdomen Pelvis with IV Contrast (08/18/1997 2:56 PM DIRECTOR DATA ANALYTICS) Anatomical Region Laterality Modality Abdomen, Pelvis N/A Computed Tomogra phy 08/18/1997 2:56 PM DIRECTOR DATA ANALYTICS Narrative 08/18/1997 3:26 PM DIRECTOR DATA ANALYTICS 18-Aug-1997 14:56:00 ??Exam: CT ABDOMEN w & PELVIS w Indications: appendicitis vs diverticulitis ORIGINAL REPORT - 18-Aug-1997 15:26:00 #[id number] ?? CT of the abdomen and pelvis with oral and IV contrast is negative except for prostatic calcification. Ind: 705.000/Dx: ??700.120 ?? (Opt 320/120 cc) Electronically signed by: ?? Elliott ??Rafa BEYER. ??[id number] 18-Aug-1997 15:26 Procedure Note Chase Craig M.D. - 10/21/2017 18-Aug-1997 14:56:00 Exam: CT ABDOMEN w & PELVIS w Indications: appendicitis vs diverticulitis ORIGINAL REPORT - 18-Aug-1997 15:26:00 #[id number] CT of the abdomen and pelvis with oral and IV contrast isnegative except for prostatic calcification. Ind: 705.000/Dx: 700.120(Opt 320/120 cc) Electronically signed by: Elliott Craig MD. [id number] 18-Aug-1997 15:26 Seven Frausto M.D. IMG CT PROCEDURES from Last 3 Months or Most Recently Relevant to Health Maintenance Care Teams High Lead Yarder Relationship Specialty Start Date End Date Elsewhere, Pcp PCP - General Internal Medicine 01/22/24
--- OUTSIDE RECORDS SUMMARY | 2024-03-23 12:00 | XMS_ITS | Encounter Summary ---
Author Organization [facility] Address [address] [place] [address] Care Team Providers Care Wedding Planner Name Role Phone Urszula Quiroga APRN, C.N.P. Primary Care Pro vider Encounter Details Date Type Department Care Team (Latest Contact Info) Description 01/21/2024 9:30 AM CDT External Outreach Senior Services in [place] [address] [place] [address] Urszula Quiroga APRN, C.N.P. [address] [place] [address] Anemia Iron Deficiency (Primary Dx); [...] Body Mass Index 31.45 08/06/2022 10:[address] documented in this encounter Progress Notes * Urszula Quiroga, MATTHEW, C.N.P. - 01/21/2024 9:30 AM CDT CHIEF COMPLAINT / REASON FOR VISIT Discharge [facility]&P SENIOR LIVING SITE: [place], [place] Admission Visit Visit Type: In Person: [...] recurrent falls was yana perez hospitalized at [facility] for acute encephalopathy. Patient was discharged to [facility] for short-term rehab therapy I am asked [...] Kidney Disease With Heart Failure And Stage 1To 4 Chronic Kidney Disease Or Unspecified Chronic Kidney Disease (HCC) Continue with isosorbide [...] Total Score: 3 07/02/20 19 9:[address] documented as of this encounter Care Teams Wedding Planner Relationship Specialty Start Date End Date Urszula Quiroga APRN, C.N.P. [address] [place] [phone] PCP - General Family Medicine 01/06/24 01/21/24 documented as of this encounter
--- OUTSIDE RECORDS SUMMARY | 2024-03-23 12:00 | XMS_ITS ---
Author Organization [facility] Address [address] [place] [address] Care Team Providers Care Legal Summer Intern Name Role Phone Unavailable Unavailable Unavailable Surgery Details Not on file Complications Check Surgery Details section. Procedure Estimated Blood Loss Check Surgery Details section. Procedure Findings Check Surgery Details section. Procedure Specimens Taken Check Surgery Details section.
--- OUTSIDE RECORDS SUMMARY | 2024-03-23 12:00 | XMS_ITS | Encounter Summary ---
Author Organization [facility] Address [address] [place] [address] Care Team Providers Care Gis Database Administrator Name Role Phone Elsewhere, Pcp Primary Care Provider Unavailabl e Reason for Referral * Outpatient (Routine) - Authorized Specialty Diagnoses / Procedures Referred By Contac t Referred To Contact Orthopedic Surgery Ricardo Patel P.A.-C. [address] [address] Maxwell Burton M.D. [address] [address] Referral ID Status Reason Start Date Expiration Date V isits Requested Visits Authorized [id number] Authorized 12/18/2023 06/18/2025 1 1 * MRI/CAT/PET Scan (Routine) - Authorized Specialty Diagnoses / Procedures Referred By Contac t Referred To Contact Radiology Diagnoses Pain Shoulder Right Procedures MR Shoulder Right without IV Contrast Ricardo Patel P.A.-C. [address] [address] [facility] Region Referral ID Status Reason Start Date Expiration Date V isits Requested Visits Authorized [id number] Authorized 12/18/2023 12/17/2024 1 1 Reason for Visit * Reason Comments Pain Encounter Details Date Type Department Care Team (Late st Contact Info) Description 12/18/2023 2:15 PM CDT Office Visit Department of Orthopedic Surgery in [place], [place] [address] [place] [phone] Maxwell Burton M.D. [address] [place] [address] Pain Shoulder Right (Primary Dx) [...] would like to do the imaging in [place] and then follow-up either in [place] or [place]. We will see him back once the test results are available. Associated attestation - Maxwell Burton M.D. - 12/18/2023 3:05 PM CDT Patient seen and examined with Physician Biological Technician. Agree with above assessment and plan. documented [...] Total Score: 3 07/02/20 19 9:35 AM SIFTING OPERATOR documented as of this encounter Care Teams Gis Database Administrator Relationship Specialty Start Date End Date Elsewhere, Pcp PCP - General Internal Medicine 04/26/23 01/05/24 documented as of this encounter
--- OUTSIDE RECORDS SUMMARY | 2024-03-23 12:00 | XMS_ITS | Encounter Summary ---
Author Organization [facility] Address [address] [place] [address] Care Team Providers Care Web Support Engineer Name Role Phone Elsewhere, Pcp Primary Care Provider Unavailabl e Reason for Visit * Reason Onset Date Comments PandaDoc Form 02/03/2024 Darlene Order [id number] Encounter Details Date Type Department Care Team (Latest Contact Info) Description 02/03/2024 Clinical Communication Department of Family Medicine in [place], [place] [address] [place] [phone] Corie Ramirez M.D. [address] [place] [phone] PandaDoc Form (Darlene Order [id number]) Social History Tobacco Use Types Packs/Day Years [...] AM CDT documented as of this encounter Miscellaneous Notes * Telephone Encounter - Sharon Hollingsworth - 02/06/2024 11:58 AM CDT Form faxed back to facility and sent for scanning. * Telephone Encounter - Sharon Hollingsworth - 02/03/2024 8:58 AM CDT Form was routed to Corie Ramirez for electronic review/signature. 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
--- OUTSIDE RECORDS SUMMARY | 2024-03-23 12:00 | XMS_ITS | Encounter Summary ---
Author Organization [facility] Address [address] [place] [address] Care Team Providers Care Website Admin Name Role Phone Urszula Quiroga APRN, C.N.P. Primary Care Pro vider Encounter Details Date Type Department Care Team (Latest Contact Info) Description 01/14/2024 12:24 PM CDT - 01/14/2024 11:59 PM CDT Hospital Encounter Department of Laboratory Medicine in [place], [place] [address] [place] [address] Urszula Quiroga APRN, C.N.P. [address] [place] [address] Hypokalemia; Anemia Chronic; Diabetes Mellitus [...] iron and vitamin-C. Patient being discharged from residential. Will need follow-up with PCP to re-evaluate [...] Urszula Quiroga APRN, C.N.P. LAB BLOOD ADD-ON [facility] [place] [address], [facility] in [place] [address] [place] [id number] * Hemoglobin A1c (01/14/2024 9:35 AM CDT) Hemoglobin A1c, B 5.6 4.2 - 5.6 % 01/14/2024 3:04 PM CDT [facility] Blood (Blood, Venous) 01/14/2024 9:35 AM CDT 01/14/2024 2:45 PM CDT Urszula Quiroga APRN, C.N.P. LAB BLOOD ADD-ON [facility] [address] [place] [address], [facility] in [place] [address] [place] [address] * Vitamin B12 Assay (01/14/2024 9:35 AM CDT) Vitamin B12 Assay, S 570 232 - 1245 ng/L 01/14/2024 3:21 PM CDT [facility] Comment: Biotin has been identified by the medical payment poster as a potential interfering substance. Higher concentrations of biotin may be found in multivitamins, hair/nail supplements, and workout supplements. If the result does not match clinical observations, repeat testing after patient refrains from the use of supplements for at least 12 hours. Blood (Blood, Venous) 01/14/2024 9:35 AM CDT 01/14/2024 2:45 PM CDT Urszula Quiroga APRN, C.N.P. LAB BLOOD ADD-ON [facility] [address] [place] [address], [facility] [place] [address] * (ABNORMAL) Folate (01/14/2024 9:35 AM CDT) Folate, S 3.4(L) >=4.0 mcg/L 01/14/2024 3:21 PM CDT [facility] Comment: Biotin has been identified by the medical payment poster as a potential interfering substance. Higher concentrations of biotin may be found in multivitamins, hair/nail supplements, and workout supplements. If the result does not match clinical observations, repeat testing after patient refrains from the use of supplements for at least 12 hours. Blood (Blood, Venous) 01/14/2024 9:35 AM CDT 01/14/2024 2:45 PM CDT Urszula Quiroga APRN, C.N.P. LAB BLOOD ADD-ON Performing Organization Address City/[facility]/ZIP Co de Phone Number [facility] [address] [place] [address], [place] [address] * Ferritin (01/14/2024 9:35 AM CDT) Ferritin, S 256 31 - 409 mcg/L 01/14/2024 3:17 PM CDT [facility] Comment: Biotin has been identified by the medical payment poster as a potential interfering substance. Higher concentrations of biotin may be found in multivitamins, hair/nail supplements, and workout supplements. If the result does not match clinical observations, repeat testing after patient refrains from the use of supplements for at least 12 hours. Blood (Blood, Venous) 01/14/2024 9:35 AM CDT 01/14/2024 2:45 PM CDT Urszula Quiroga APRN, C.N.P. LAB BLOOD ADD-ON Performing Organization Address City/[facility]/ZIP Co de Phone Number [facility] [address] [place] [address], [place] [address] * (ABNORMAL) Iron and Total Iron-Binding Capacity (01/14/2024 9:35 AM CDT) Iron 17(L) 50 - 150 mcg/dL 01/14/2024 3:17 PM CDT [facility] Total Iron Binding Capacity 186(L) 250 - 400 mcg/dL 01/14/2024 3:17 PM CDT TO Percent Saturation 9(L) 14 - 50 % 01/14/2024 3:17 PM CDT TO Blood (Blood, Venous) 01/14/2024 9:35 AM CDT 01/14/2024 2:45 PM CDT Urszula Julia Quiroga APRN, C.N.P. LAB BLOOD ADD-ON [facility] [address] [place] [address], [facility] in [place] [address] [place] [address] * (ABNORMAL) CBC with Differential, Blood (01/14/2024 [...] CDT Cristiane Tolentino APRNN.P. LAB BLOOD ADD-ON [facility] [address] [facility] [address] [place] [address], [place] SPTR [facility] in [place] [address] [facility] [address] [place] [address] * (ABNORMAL) Basic Metabolic Panel (01/14/2024 9:35 [...] CDT Yelena Tolentino APRN.N.P. 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 [address] [place] [phone] PCP - General Family Medicine 01/06/24 01/21/24 documented as of this encounter
--- OUTSIDE RECORDS SUMMARY | 2024-03-23 12:00 | XMS_ITS | Encounter Summary ---
Author Organization [facility] Address [address] [place] [address] Care Team Providers Care Milk Receiver [employer] Truck Name Role Phone Urszula Quiroga APRN, C.N.P. Primary Care Pro vider Encounter Details Date Type Department Care Team (Latest Contact Info) Description 01/14/2024 12:30 PM CDT External Outreach [facility] in [place] [address] [place] [address] Urszula Quiroga APRN, C.N.P. [address] [place] [address] Arthropathy Gouty With Tophus Chronic [...] Body Mass Index 34.59 08/06/2022 10:49 AM GUEST SERVICE AGENT documented in this encounter Progress Notes * Urszula Quiroga, MATTHEW, C.N.P. - 01/14/2024 12:30 PM CDT CHIEF COMPLAINT / REASON FOR VISIT Follow-up visit CARE HOME SITE: [place], [place] Admission Visit Visit Type: In Person: [...] recurrent falls was yana perez hospitalized at [facility] for acute encephalopathy. Patient was discharged to [facility] for short-term rehab therapy I am asked to see patient today for #1 acute encephalopathy. Patient still is having some confusion. In talking to him he thought he was in [place] any did not know the name the [...] his name. He thought he was in [place]. Not sure he is currently located Psychiatric [...] & Plan: Patient had significant workup at [facility]. Will have OT and speech do cognitive [...] Mental Status Patient had significant workup at [facility]. Will have OT and speech do cognitive [...] Depression Total Score: 3 07/02/20 9:35 AM GUEST SERVICE AGENT documented as of this encounter Care Teams Milk Receiver [employer] Relationship Specialty Start Date End Date Urszula Quiroga APRN, C.N.P. [address] [place] [address] PCP - General Family Medicine 01/06/24 01/21/24 documented as of this encounter
== END 2024-03-23 11:54 | disposition home or self-care (01) ==
PROVIDERS: PCP Internal Medicine; Visit Provider Internal Medicine
DX: R54 Age-related physical debility (principal); E83.42 Hypomagnesemia
CPT/HCPCS: 80048; 83735

== ENCOUNTER 2024-10-13 16:08 | Outpatient (CLI) | payer MEDICARE, BC, SELFPAY | END 2024-10-13 16:09 | disposition home or self-care (01) | PROVIDERS: PCP Internal Medicine; Visit Provider Internal Medicine | DX: D47.2 Monoclonal gammopathy (principal); E83.42 Hypomagnesemia; I48.19 Other persistent atrial fibrillation; E78.5 Hyperlipidemia, unspecified; F41.9 Anxiety disorder, unspecified; N18.2 Chronic kidney disease, stage 2 (mild); G89.4 Chronic pain syndrome | CPT/HCPCS: 80053; 80061; 82728; 83735; 84165; 85045; 86334 ==

== ENCOUNTER 2024-11-05 11:23 | Outpatient (CLI) | payer MEDICARE, BC, SELFPAY | END 2024-11-05 11:24 | disposition home or self-care (01) | PROVIDERS: PCP Internal Medicine; Visit Provider Internal Medicine | DX: D64.9 Anemia, unspecified (principal); Z79.899 Other long term (current) drug therapy | CPT/HCPCS: 82607; 83540; 83550 ==

== ENCOUNTER 2025-02-18 10:57 | Outpatient (CLI) | payer MEDICARE, BC, SELFPAY | END 2025-02-18 10:58 | disposition home or self-care (01) | LOC: NFLDREF 11:00 | PROVIDERS: PCP Internal Medicine; Visit Provider Internal Medicine | DX: G89.4 Chronic pain syndrome (principal); R54 Age-related physical debility | CPT/HCPCS: 80048 ==

== ENCOUNTER 2025-04-19 16:23 | Outpatient (CLI) | payer MEDICARE, BC, SELFPAY | END 2025-04-19 16:24 | disposition home or self-care (01) | LOC: NFLDREF 16:23 | PROVIDERS: PCP Internal Medicine; Visit Provider Internal Medicine | DX: N18.30 Chronic kidney disease, stage 3 unspecified (principal) | CPT/HCPCS: 80048 ==